=== PATIENT | male | born 1945 | race Hispanic/Latino ===

== ENCOUNTER 2022-02-10 09:21 | Inpatient (IN) | payer OTHER ==
[~2022-02-10] VITALS: Ht 182.9 cm; Wt 99.8 kg
[2022-02-10] VITALS (15 sets, daily range): BP systolic 98–137; BP diastolic 50–81
[2022-02-10 09:59] LABS: BASOPHILS % (AUTO) 0.6 % (0.0-5.0); EOSINOPHILS % (AUTO) 4.8 % (0.0-8.0); LYMPHOCYTES % (AUTO) 10.5 % (21.0-51.0); MEAN CORPUSCULAR HEMOGLOBIN 29.6 pg (27.0-33.0); MEAN CORPUSCULAR HGB CONC 31.1 g/dL (32.0-36.0); MEAN CORPUSCULAR VOLUME 95.1 fL (79-99); MONOCYTES % (AUTO) 8.6 % (3.0-13.0); NEUTROPHILS % (AUTO) 75.2 % (40.0-77.0); PLATELET COUNT (AUTO) 180 K/uL (130-400); RED BLOOD CELL COUNT(AUTO) 3.68 MIL/uL (4.50-6.20); RED CELL DISTRIBUTION WIDTH 15.9 % (11.0-15.5); WHITE BLOOD COUNT (AUTO) 13.9 K/uL (4.8-10.8)
[2022-02-10 10:11] LABS: ALBUMIN 3.3 g/dL (3.5-5.0); CREATININE 5.2 mg/dL (0.5-1.5); POTASSIUM 5.1 mmol/L (3.5-5.1)
[2022-02-10] MEDS ORDERED: VANCOMYCIN 1G VIAL IVPB ONE (12:30)
[2022-02-10] MEDS ORDERED: ZOSYN 3.375GM +NS 50ML IV ONE (12:30)
[2022-02-10] MEDS ORDERED: VANCOMYCIN 1G/250ML KIT 250 ML IV ONE (12:59)
[2022-02-10 13:24] LABS: INR 1.1 (0.85-1.15); PROTHROMBIN TIME 11.9 SEC (9.6-11.6)
[2022-02-10 13:25] LABS: PARTIAL THROMBOPLASTIN TIME 28.2 SEC (26.3-35.5)
[2022-02-10] MEDS ORDERED: VANCOMYCIN 1.25 GM/250 ML BAG 250 ML IV ONE (13:30)
[2022-02-10] MEDS ORDERED: PHARMACY COMMUNICATION MISC SCH ×2 (13:30→20:00)
[2022-02-10 13:34] LABS: HEMOGLOBIN A1C 9.3 % (4.0-6.0)
[2022-02-10] MEDS ORDERED: METO50TA18 PO (13:49)
[2022-02-10] MEDS ORDERED: ROSU20TA31 PO (13:51)
[2022-02-10] MEDS ORDERED: AMIO200T68 PO (13:51)
[2022-02-10] MEDS: PHARMACY COMMUNICATION MISC SCH ×5 (14:00→20:00)
[2022-02-10] MEDS: BUDESONIDE 0.5 MG/2 ML INH IH SCH ×2 (14:04→19:02)
[2022-02-10] MEDS: IPRATROPIUM 0.5 MG/2.5 ML INH IH SCH ×3 (14:05→23:03)
[2022-02-10] MEDS: DOXYCYCLINE HYCLATE 100 MG TABLET PO SCH (14:12)
[2022-02-10] MEDS: ASPIRIN 81 MG EC TAB PO SCH (14:12)
[2022-02-10] MEDS: Vitamin B Complex/Vit C/Folic Acid PO SCH (14:13)
[2022-02-10] MEDS: PANTOPRAZOLE 40 MG TAB DR PO SCH (14:13)
[2022-02-10 16:40] LABS: ABG HCO3 24.7 mmol/L (21.0-28.0); ABG OXYGEN SATURATION 93.2 % (95.0-99.0); ABG PCO2 46 mmHg (35-48)
[2022-02-10] MEDS ORDERED: ONDANSETRON 4MG INJ ONE (18:17)
[2022-02-10] MEDS ORDERED: ONDANSETRON 4MG INJ IVP PRN (18:30)
[2022-02-10] MEDS ORDERED: LIDOCAINE 5% TOPICAL PATCH TP ONE (19:30)
[2022-02-10] MEDS ORDERED: HYDROMORPHONE 0.5 MG SYG (0.5MG/0.5ML) IVP PRN (21:00)
[2022-02-10] MEDS: INSULIN HUMULIN R 100 UNIT/ML 3ML SQ SCH (21:00)
[2022-02-11] VITALS (18 sets, daily range): BP systolic 80–151; BP diastolic 45–93
[2022-02-11] MEDS: ZOSYN 3.375GM +NS 50ML IV SCH ×2 (00:04→11:33)
[2022-02-11] MEDS: DOXYCYCLINE HYCLATE 100 MG TABLET PO SCH ×2 (00:04→13:08)
[2022-02-11] MEDS: ACETAMINOPHEN 325 MG TAB PO PRN ×2 (00:15→17:15)
[2022-02-11] MEDS: PHARMACY COMMUNICATION MISC SCH ×5 (04:00→21:10)
[2022-02-11 05:20] LABS: BASOPHILS % (AUTO) 0.7 % (0.0-5.0); EOSINOPHILS % (AUTO) 1.2 % (0.0-8.0); HEMATOCRIT 32.3 % (42-54); LYMPHOCYTES % (AUTO) 7.8 % (21.0-51.0); MEAN CORPUSCULAR HEMOGLOBIN 29.2 pg (27.0-33.0); MEAN CORPUSCULAR HGB CONC 30.7 g/dL (32.0-36.0); MEAN CORPUSCULAR VOLUME 95.3 fL (79-99); MONOCYTES % (AUTO) 7.8 % (3.0-13.0); NEUTROPHILS % (AUTO) 82.1 % (40.0-77.0); PLATELET COUNT (AUTO) 160 K/uL (130-400); RED BLOOD CELL COUNT(AUTO) 3.39 MIL/uL (4.50-6.20); RED CELL DISTRIBUTION WIDTH 16.1 % (11.0-15.5); WHITE BLOOD COUNT (AUTO) 12.8 K/uL (4.8-10.8)
[2022-02-11 05:38] LABS: CREATININE 4.9 mg/dL (0.5-1.5); POTASSIUM 5.9 mmol/L (3.5-5.1)
[2022-02-11] MEDS ORDERED: GUAIFENESIN-DM 200/20 MG 10 ML PO PRN (06:00)
[2022-02-11] MEDS: INSULIN HUMULIN R 100 UNIT/ML 3ML SQ SCH ×4 (06:07→20:37)
[2022-02-11] MEDS: BUDESONIDE 0.5 MG/2 ML INH IH SCH ×2 (06:17→19:27)
[2022-02-11] MEDS: IPRATROPIUM 0.5 MG/2.5 ML INH IH SCH ×4 (06:18→23:35)
[2022-02-11 09:06] LABS: APPEARANCE,URINE TURBID (CLEAR); BILIRUBIN,URINE NEGATIVE (NEGATIVE); COLOR,URINE YELLOW (YELLOW); GLUCOSE, URINE (UA) 50 mg/dL (NEGATIVE); KETONES,URINE NEGATIVE (NEGATIVE); LEUKOCYTE ESTERASE ,URINE 250 Leu/uL (NEGATIVE); NITRATE,URINE NEGATIVE (NEGATIVE); OCCULT BLOOD,URINE NEGATIVE (NEGATIVE); PROTEIN,URINE 100 mg/dL (NEGATIVE); UROBILINOGEN,URINE 0.2 mg/dL (0.2-1.0)
[2022-02-11] MEDS: AMIODARONE 200 MG TABLET PO SCH (09:16)
[2022-02-11] MEDS: METOPROLOL TARTRATE 50 MG TAB PO SCH (09:16)
[2022-02-11 09:19] LABS: BACTERIA,URINE MOD /HPF (None Seen); MUCUS,URINE RARE LPF (None Seen); SQUAMOUS EPITHELIAL CELL,UR FEW /HPF (0-2)
[2022-02-11] MEDS ORDERED: NA ZIRCON CYCLOSIL(LOKELMA 10GM) PO SCH (11:00)
[2022-02-11] MEDS ORDERED: SACUBITRIL/VALSARTAN 1 EACH TABLET PO SCH (11:55)
[2022-02-11] MEDS: Vitamin B Complex/Vit C/Folic Acid PO SCH (13:08)
[2022-02-11] MEDS: ASPIRIN 81 MG EC TAB PO SCH (13:08)
[2022-02-11] MEDS: PANTOPRAZOLE 40 MG TAB DR PO SCH (13:08)
[2022-02-11 14:45] LABS: ABG BASE EXCESS -2.2 mmol/L (-2.0-3.0); ABG HCO3 26.6 mmol/L (21.0-28.0); ABG PCO2 64 mmHg (35-48)
[2022-02-11] MEDS ORDERED: ALTEPLASE 2MG VIAL 2 MG/VIAL VIAL IVCATH ONE (15:00)
[2022-02-11] MEDS ORDERED: NALOXONE HCL 0.4 MG/1 ML ML IVP SCH (15:00)
[2022-02-11 15:46] LABS: HEMATOCRIT 36.2 % (42-54); MEAN CORPUSCULAR HEMOGLOBIN 29.5 pg (27.0-33.0); MEAN CORPUSCULAR HGB CONC 30.4 g/dL (32.0-36.0); MEAN CORPUSCULAR VOLUME 97.1 fL (79-99); PLATELET COUNT (AUTO) 150 K/uL (130-400); RED BLOOD CELL COUNT(AUTO) 3.73 MIL/uL (4.50-6.20); RED CELL DISTRIBUTION WIDTH 16.2 % (11.0-15.5); WHITE BLOOD COUNT (AUTO) 14.1 K/uL (4.8-10.8)
[2022-02-11 16:09] LABS: ALBUMIN 3.1 g/dL (3.5-5.0); CREATININE 5.8 mg/dL (0.5-1.5); TOTAL PROTEIN, SERUM 8.2 g/dL (6.0-8.3)
[2022-02-11 16:25] LABS: EOSINOPHILS % (MANUAL) 2 % (1-6); LYMPHOCYTES % (MANUAL) 9 % (22-44); MAN.DIFF COMMENT-IMPRESSION MANUAL DIFFERENTIAL; MONOCYTES % (MANUAL) 9 % (2-9); PLATELET MORPHOLOGY COMMENT ADEQUATE; SEGMENTED NEUTROPHILS % 80 % (40-70)
[2022-02-11] MEDS ORDERED: NA ZIRCON CYCLOSIL(LOKELMA 10GM) PO ONE (17:00)
[2022-02-11] MEDS: MIDODRINE HCL 5 MG TABLET PO SCH ×2 (17:38→20:56)
[2022-02-11] MEDS: HEPARIN 5,000 UNIT VIAL IJ SCH (20:08)
[2022-02-11 22:03] LABS: HEPATITIS B SURFACE ANTIGEN Non-Reactive (Nonreactive)
[2022-02-12] VITALS (44 sets, daily range): BP systolic 77–125; BP diastolic 44–89
[2022-02-12] MEDS: DOXYCYCLINE HYCLATE 100 MG TABLET PO SCH ×2 (00:25→13:00)
[2022-02-12] MEDS: ZOSYN 3.375GM +NS 50ML IV SCH ×2 (00:25→11:32)
[2022-02-12 05:11] LABS: ABG BASE EXCESS -3.4 mmol/L (-2.0-3.0); ABG OXYGEN SATURATION 93.1 % (95.0-99.0); ABG PCO2 53 mmHg (35-48)
[2022-02-12] MEDS: BUDESONIDE 0.5 MG/2 ML INH IH SCH ×2 (06:29→22:27)
[2022-02-12] MEDS: IPRATROPIUM 0.5 MG/2.5 ML INH IH SCH ×4 (06:29→22:27)
[2022-02-12] MEDS: INSULIN HUMULIN R 100 UNIT/ML 3ML SQ SCH ×4 (06:55→20:26)
[2022-02-12] MEDS: MIDODRINE HCL 5 MG TABLET PO SCH ×4 (07:50→20:24)
[2022-02-12] MEDS: AMIODARONE 200 MG TABLET PO SCH (07:50)
[2022-02-12] MEDS: METOPROLOL TARTRATE 50 MG TAB PO SCH (07:50)
[2022-02-12 07:52] LABS: BASOPHILS % (AUTO) 0.5 % (0.0-5.0); EOSINOPHILS % (AUTO) 1.3 % (0.0-8.0); HEMATOCRIT 32.4 % (42-54); LYMPHOCYTES % (AUTO) 7.5 % (21.0-51.0); MEAN CORPUSCULAR HEMOGLOBIN 29.6 pg (27.0-33.0); MEAN CORPUSCULAR HGB CONC 30.9 g/dL (32.0-36.0); MEAN CORPUSCULAR VOLUME 95.9 fL (79-99); MONOCYTES % (AUTO) 8.2 % (3.0-13.0); NEUTROPHILS % (AUTO) 82.2 % (40.0-77.0); PLATELET COUNT (AUTO) 163 K/uL (130-400); RED BLOOD CELL COUNT(AUTO) 3.38 MIL/uL (4.50-6.20); RED CELL DISTRIBUTION WIDTH 15.9 % (11.0-15.5); WHITE BLOOD COUNT (AUTO) 11.9 K/uL (4.8-10.8)
[2022-02-12] MEDS: PHARMACY COMMUNICATION MISC SCH ×2 (07:55→09:00)
[2022-02-12 08:11] LABS: CREATININE 6.1 mg/dL (0.5-1.5); PHOSPHORUS 7.6 mg/dL (2.5-4.9); POTASSIUM 4.8 mmol/L (3.5-5.1)
[2022-02-12] MEDS ORDERED: 0.9% NACL 500ML IV.SOLN 500 ML IV SCH (11:30)
[2022-02-12 12:04] LABS: ABG BASE EXCESS -2.7 mmol/L (-2.0-3.0); ABG HCO3 25.3 mmol/L (21.0-28.0); ABG OXYGEN SATURATION 98.2 % (95.0-99.0); ABG PCO2 57 mmHg (35-48)
[2022-02-12] MEDS ORDERED: NOREPINEPHRIN 4MG/NS 250ML 250 ML IV ONE (12:20)
[2022-02-12] MEDS ORDERED: NOREPINEPHRIN 4MG/NS 250ML 250 ML IV SCH (12:30)
[2022-02-12] MEDS: Vitamin B Complex/Vit C/Folic Acid PO SCH (13:00)
[2022-02-12] MEDS: ASPIRIN 81 MG EC TAB PO SCH (13:00)
[2022-02-12] MEDS: PANTOPRAZOLE 40 MG TAB DR PO SCH (13:00)
[2022-02-12] MEDS ORDERED: LIDOCAINE HCL-MPF 2% 5ML VIAL ONE (13:34)
[2022-02-12] MEDS ORDERED: 0.9%NACL 1000ML 777 ML IV ONE (15:30)
[2022-02-12] MEDS ORDERED: LACTULOSE 20 GM/30 ML UDCUP PO SCH (20:00)
[2022-02-12] MEDS ORDERED: LACTULOSE 20 GM/30 ML UDCUP PO ONE (20:00)
[2022-02-12] MEDS ORDERED: BISACODYL 10 MG SUPP.RECT RC ONE (20:00)
[2022-02-13] VITALS (34 sets, daily range): BP systolic 88–116; BP diastolic 48–85
[2022-02-13] MEDS: DOXYCYCLINE HYCLATE 100 MG TABLET PO SCH ×2 (00:01→13:02)
[2022-02-13] MEDS: ZOSYN 3.375GM +NS 50ML IV SCH ×2 (00:01→13:02)
[2022-02-13 03:56] LABS: BASOPHILS % (AUTO) 0.8 % (0.0-5.0); EOSINOPHILS % (AUTO) 6.2 % (0.0-8.0); HEMATOCRIT 31.4 % (42-54); LYMPHOCYTES % (AUTO) 17.4 % (21.0-51.0); MEAN CORPUSCULAR HEMOGLOBIN 29.6 pg (27.0-33.0); MEAN CORPUSCULAR HGB CONC 30.9 g/dL (32.0-36.0); MEAN CORPUSCULAR VOLUME 95.7 fL (79-99); MONOCYTES % (AUTO) 12.9 % (3.0-13.0); NEUTROPHILS % (AUTO) 62.4 % (40.0-77.0); PLATELET COUNT (AUTO) 180 K/uL (130-400); RED BLOOD CELL COUNT(AUTO) 3.28 MIL/uL (4.50-6.20); RED CELL DISTRIBUTION WIDTH 15.8 % (11.0-15.5); WHITE BLOOD COUNT (AUTO) 10.9 K/uL (4.8-10.8)
[2022-02-13 04:10] LABS: ALBUMIN 2.6 g/dL (3.5-5.0); CREATININE 7.1 mg/dL (0.5-1.5); TOTAL PROTEIN, SERUM 7.1 g/dL (6.0-8.3); VANCOMYCIN LEVEL 14.3 mcg/mL (18.0-26.0)
[2022-02-13] MEDS: ACETAMINOPHEN 325 MG TAB PO PRN (05:03)
[2022-02-13] MEDS: BUDESONIDE 0.5 MG/2 ML INH IH SCH ×2 (06:24→19:26)
[2022-02-13] MEDS: IPRATROPIUM 0.5 MG/2.5 ML INH IH SCH ×3 (06:24→18:57)
[2022-02-13] MEDS: PHARMACY COMMUNICATION MISC SCH ×5 (07:00→18:00)
[2022-02-13] MEDS: INSULIN HUMULIN R 100 UNIT/ML 3ML SQ SCH ×4 (07:28→20:41)
[2022-02-13] MEDS: METOPROLOL TARTRATE 50 MG TAB PO SCH (08:45)
[2022-02-13] MEDS: AMIODARONE 200 MG TABLET PO SCH (09:54)
[2022-02-13] MEDS: MIDODRINE HCL 5 MG TABLET PO SCH (09:55)
[2022-02-13] MEDS ORDERED: MIDODRINE HCL 5 MG TABLET PO PRN (12:00)
[2022-02-13] MEDS: ASPIRIN 81 MG EC TAB PO SCH (13:02)
[2022-02-13] MEDS: PANTOPRAZOLE 40 MG TAB DR PO SCH (13:02)
[2022-02-13] MEDS: Vitamin B Complex/Vit C/Folic Acid PO SCH (13:02)
[2022-02-13] MEDS ORDERED: 0.9% NACL 250ML 250 ML ONE (16:09)
[2022-02-13] MEDS: VANCOMYCIN 1G/250ML KIT 250 ML IV SCH (16:12)
[2022-02-13] MEDS: ATORVASTATIN 40 MG TABLET PO SCH (20:39)
[2022-02-13] MEDS: EPOETIN ALFA-EPBX (NON-ESRD) 10,000 UNIT/ML VIAL SQ SCH (20:46)
[2022-02-14] VITALS (19 sets, daily range): BP systolic 90–130; BP diastolic 52–90
[2022-02-14] MEDS: ZOSYN 3.375GM +NS 50ML IV SCH ×2 (00:55→11:30)
[2022-02-14 04:08] LABS: BASOPHILS % (AUTO) 1.1 % (0.0-5.0); EOSINOPHILS % (AUTO) 6.7 % (0.0-8.0); HEMATOCRIT 30.4 % (42-54); LYMPHOCYTES % (AUTO) 18.6 % (21.0-51.0); MEAN CORPUSCULAR HEMOGLOBIN 29.2 pg (27.0-33.0); MEAN CORPUSCULAR HGB CONC 31.3 g/dL (32.0-36.0); MEAN CORPUSCULAR VOLUME 93.5 fL (79-99); MONOCYTES % (AUTO) 10.5 % (3.0-13.0); NEUTROPHILS % (AUTO) 62.7 % (40.0-77.0); PLATELET COUNT (AUTO) 181 K/uL (130-400); RED BLOOD CELL COUNT(AUTO) 3.25 MIL/uL (4.50-6.20); RED CELL DISTRIBUTION WIDTH 15.8 % (11.0-15.5); WHITE BLOOD COUNT (AUTO) 9.8 K/uL (4.8-10.8)
[2022-02-14 04:23] LABS: ALBUMIN 2.6 g/dL (3.5-5.0); CRP QUANTITATIVE 74.3 mg/L (0.00-9.0); POTASSIUM 4.6 mmol/L (3.5-5.1); TOTAL PROTEIN, SERUM 6.9 g/dL (6.0-8.3)
[2022-02-14 04:27] LABS: INR 1.19 (0.85-1.15); PROTHROMBIN TIME 12.8 SEC (9.6-11.6)
[2022-02-14 04:28] LABS: PARTIAL THROMBOPLASTIN TIME 28.3 SEC (26.3-35.5)
[2022-02-14 04:30] LABS: CREATININE 8.8 mg/dL (0.5-1.5)
[2022-02-14] MEDS: INSULIN HUMULIN R 100 UNIT/ML 3ML SQ SCH ×4 (06:25→21:00)
[2022-02-14] MEDS: IPRATROPIUM 0.5 MG/2.5 ML INH IH SCH ×4 (07:00→23:26)
[2022-02-14] MEDS: BUDESONIDE 0.5 MG/2 ML INH IH SCH ×2 (07:00→19:07)
[2022-02-14] MEDS: PHARMACY COMMUNICATION MISC SCH (09:35)
[2022-02-14] MEDS: AMIODARONE 200 MG TABLET PO SCH (09:35)
[2022-02-14] MEDS: ACETAMINOPHEN 325 MG TAB PO PRN ×2 (09:59→16:52)
[2022-02-14] MEDS: PANTOPRAZOLE 40 MG TAB DR PO SCH (11:21)
[2022-02-14] MEDS: Vitamin B Complex/Vit C/Folic Acid PO SCH (11:21)
[2022-02-14] MEDS: ASPIRIN 81 MG EC TAB PO SCH (11:21)
[2022-02-14] MEDS ORDERED: LIDOCAINE HCL 1% 10 ML VIAL ONE (13:44)
[2022-02-14] MEDS ORDERED: HEPARIN 1,000 UNIT VIAL ONE (13:44)
[2022-02-14] MEDS: ATORVASTATIN 40 MG TABLET PO SCH (21:29)
[2022-02-15] VITALS (18 sets, daily range): BP systolic 95–121; BP diastolic 60–74
[2022-02-15] MEDS: ZOSYN 3.375GM +NS 50ML IV SCH ×2 (00:06→12:20)
[2022-02-15 05:30] LABS: BASOPHILS % (AUTO) 1.2 % (0.0-5.0); EOSINOPHILS % (AUTO) 7.3 % (0.0-8.0); HEMATOCRIT 29.2 % (42-54); LYMPHOCYTES % (AUTO) 21.3 % (21.0-51.0); MEAN CORPUSCULAR HEMOGLOBIN 29.1 pg (27.0-33.0); MEAN CORPUSCULAR HGB CONC 31.5 g/dL (32.0-36.0); MEAN CORPUSCULAR VOLUME 92.4 fL (79-99); NEUTROPHILS % (AUTO) 58.8 % (40.0-77.0); PLATELET COUNT (AUTO) 185 K/uL (130-400); RED BLOOD CELL COUNT(AUTO) 3.16 MIL/uL (4.50-6.20); RED CELL DISTRIBUTION WIDTH 15.9 % (11.0-15.5); WHITE BLOOD COUNT (AUTO) 7.5 K/uL (4.8-10.8)
[2022-02-15 05:55] LABS: ALBUMIN 2.5 g/dL (3.5-5.0); CREATININE 6.7 mg/dL (0.5-1.5); MAGNESIUM 1.7 mg/dL (1.80-2.40); POTASSIUM 3.7 mmol/L (3.5-5.1); TOTAL PROTEIN, SERUM 6.6 g/dL (6.0-8.3); VANCOMYCIN LEVEL 18.2 mcg/mL (18.0-26.0)
[2022-02-15] MEDS: IPRATROPIUM 0.5 MG/2.5 ML INH IH SCH (06:25)
[2022-02-15] MEDS: BUDESONIDE 0.5 MG/2 ML INH IH SCH (06:25)
[2022-02-15] MEDS: INSULIN HUMULIN R 100 UNIT/ML 3ML SQ SCH ×4 (06:34→21:54)
[2022-02-15] MEDS: AMIODARONE 200 MG TABLET PO SCH (07:41)
[2022-02-15] MEDS: Vitamin B Complex/Vit C/Folic Acid PO SCH (12:57)
[2022-02-15] MEDS: ASPIRIN 81 MG EC TAB PO SCH (12:57)
[2022-02-15] MEDS: PANTOPRAZOLE 40 MG TAB DR PO SCH (12:57)
[2022-02-15] MEDS: VANCOMYCIN 1G/250ML KIT 250 ML IV SCH (15:48)
[2022-02-15] MEDS: HEPARIN 5,000 UNIT VIAL IJ SCH (16:03)
[2022-02-15] MEDS: ATORVASTATIN 40 MG TABLET PO SCH (21:43)
[2022-02-15] MEDS: EPOETIN ALFA-EPBX (NON-ESRD) 10,000 UNIT/ML VIAL SQ SCH (22:02)
[2022-02-15] MEDS: IPRATROPIUM 0.5 MG/2.5 ML INH IH PRN (23:15)
[2022-02-16] VITALS: BP 120/69
[2022-02-16] MEDS: ZOSYN 3.375GM +NS 50ML IV SCH (00:23)
[2022-02-16 04:00] VITALS: BP 120/72
[2022-02-16] MEDS: INSULIN HUMULIN R 100 UNIT/ML 3ML SQ SCH ×3 (06:13→17:13)
[2022-02-16] MEDS: IPRATROPIUM 0.5 MG/2.5 ML INH IH PRN (07:15)
[2022-02-16] MEDS: AMIODARONE 200 MG TABLET PO SCH (08:41)
[2022-02-16 08:43] VITALS: BP 126/75
[2022-02-16 10:49] VITALS: BP 116/71
[2022-02-16] MEDS ORDERED: ATOR40TA69 PO ×2 (12:10→12:39)
[2022-02-16] MEDS ORDERED: AEC81 PO (12:10)
[2022-02-16] MEDS ORDERED: LEVOFLOXACIN 500 MG TABLET PO SCH (13:30)
[2022-02-16] MEDS: Vitamin B Complex/Vit C/Folic Acid PO SCH (13:51)
[2022-02-16] MEDS: PANTOPRAZOLE 40 MG TAB DR PO SCH (13:51)
[2022-02-16] MEDS: ASPIRIN 81 MG EC TAB PO SCH (13:51)
[2022-02-16 16:27] VITALS: BP 186/64
== END 2022-02-16 19:45 | disposition home or self-care (01) | DRG 280 ==
LOC: EDH 09:21 → EDHIP 13:04 → 4AH 18:27 → 2AH 02-11 16:46 → 2DH 02-12 01:38 → 2BH 02-12 11:56 → 2DH 02-13 18:00 → 3BH 02-15 10:45
PROVIDERS: ADMIT Hospitalist; ATTEND Hospitalist
PROC: 5A1D70Z Performance of Urinary Filtration, Intermittent, Less than 6 Hours Per Day (ICD-10-PCS; 2022-02-10)
PROC: 5A1D70Z Performance of Urinary Filtration, Intermittent, Less than 6 Hours Per Day (ICD-10-PCS; 2022-02-11)
PROC: 05HY33Z Insertion of Infusion Device into Upper Vein, Percutaneous Approach (ICD-10-PCS; principal; 2022-02-12)
PROC: B34JZZZ Ultrasonography of Left Upper Extremity Arteries (ICD-10-PCS; 2022-02-12)
PROC: 05PYX3Z Removal of Infusion Device from Upper Vein, External Approach (ICD-10-PCS; 2022-02-12)
PROC: 02H633Z Insertion of Infusion Device into Right Atrium, Percutaneous Approach (ICD-10-PCS; 2022-02-14)
PROC: B5181ZA Fluoroscopy of Superior Vena Cava using Low Osmolar Contrast, Guidance (ICD-10-PCS; 2022-02-14)
PROC: 5A1D70Z Performance of Urinary Filtration, Intermittent, Less than 6 Hours Per Day (ICD-10-PCS; 2022-02-14)
PROC: 5A1D70Z Performance of Urinary Filtration, Intermittent, Less than 6 Hours Per Day (ICD-10-PCS; 2022-02-15)
DX: T80.218A Other infection due to central venous catheter, initial encounter (principal); A41.89 Other specified sepsis; I21.A1 Myocardial infarction type 2; E43 Unspecified severe protein-calorie malnutrition; G92.8 Other toxic encephalopathy; J96.01 Acute respiratory failure with hypoxia; J15.0 Pneumonia due to Klebsiella pneumoniae; N18.6 End stage renal disease; R65.21 Severe sepsis with septic shock; J96.02 Acute respiratory failure with hypercapnia; I13.2 Hypertensive heart and chronic kidney disease with heart failure and with stage 5 chronic kidney disease, or end stage renal disease; N39.0 Urinary tract infection, site not specified; Z20.822 Contact with and (suspected) exposure to COVID-19; J20.9 Acute bronchitis, unspecified; D63.1 Anemia in chronic kidney disease; I50.9 Heart failure, unspecified; Z99.2 Dependence on renal dialysis; I25.5 Ischemic cardiomyopathy; E11.22 Type 2 diabetes mellitus with diabetic chronic kidney disease; E11.65 Type 2 diabetes mellitus with hyperglycemia; E66.9 Obesity, unspecified; E78.00 Pure hypercholesterolemia, unspecified; I25.10 Atherosclerotic heart disease of native coronary artery without angina pectoris; I35.0 Nonrheumatic aortic (valve) stenosis; K59.00 Constipation, unspecified; Z95.1 Presence of aortocoronary bypass graft; Z95.810 Presence of automatic (implantable) cardiac defibrillator; Y83.8 Other surgical procedures as the cause of abnormal reaction of the patient, or of later complication, without mention of misadventure at the time of the procedure
CPT/HCPCS: 36415; 36558; 36600; 36800; 71045; 77001; 80048; 80053; 80202; 81001; 82140; 82435; 82550; 82803; 82947; 82948; 83036; 83605; 83735; 83874; 83880; 84100; 84132; 84145; 84295; 84439; 84443; 84481; 84484; 85018; 85025; 85378; 85610; 85651; 85730; 86140; 86704; 86706; 87040; 87071; 87077; 87088; 87186; 87205; 87340; 87635; 87804; 90935; 92610; 93005; 93306; 93970; 94640; 94660; 94664; C1750; C1751; C9803; G0378; J1170; J1644; J1815; J2310; J2405; J2543; J2997; J3370; J3490; J7030; J7040; J7050

== ENCOUNTER 2022-04-04 09:21 | Day surgery (SDC) | payer OTHER ==
[2022-04-03 15:59] LABS: HEMATOCRIT 36.9 % (42-54); MEAN CORPUSCULAR HEMOGLOBIN 29.7 pg (27.0-33.0); MEAN CORPUSCULAR HGB CONC 30.9 g/dL (32.0-36.0); MEAN CORPUSCULAR VOLUME 96.1 fL (79-99); PLATELET COUNT (AUTO) 193 K/uL (130-400); RED BLOOD CELL COUNT(AUTO) 3.84 MIL/uL (4.50-6.20); WHITE BLOOD COUNT (AUTO) 9.4 K/uL (4.8-10.8)
[2022-04-03 16:11] LABS: CREATININE 3.5 mg/dL (0.5-1.5); POTASSIUM 3.5 mmol/L (3.5-5.1)
[2022-04-03 16:13] LABS: INR 1.15 (0.85-1.15); PROTHROMBIN TIME 12.4 SEC (9.6-11.6)
[2022-04-03 16:30] VITALS: BP 84/53
[2022-04-04] VITALS (32 sets, daily range): BP systolic 71–105; BP diastolic 40–63
[~2022-04-04 09:21] MED LIST: ACET-2743 PO; AEC81 PO; ATOR40TA69 PO; CEFAZOLIN SODIUM 1 GM VIAL ONE; ENTRESTO PO; INSU3INS3 SQ; LIDOCAINE HCL-MPF 2% 10ML AMP IJ ONE; METO50TA18 PO; PROPOFOL 10 MG/ML 20ML VIAL IV ONE; ROPIVACAINE 0.5% 5MG/ML 30ML IJ ONE
[2022-04-04] MEDS ORDERED: 0.9% NACL 500ML IV.SOLN 500 ML IV ONE (09:41)
[2022-04-04] MEDS ORDERED: CEFAZOLIN SODIUM 2 GM VIAL ONE (09:41)
[2022-04-04 10:04] LABS: CREATININE 5.2 mg/dL (0.5-1.5); POTASSIUM 4.5 mmol/L (3.5-5.1)
[2022-04-04] MEDS ORDERED: KETOROLAC PO (10:55)
[2022-04-04] MEDS ORDERED: CEFAZOLIN SODIUM 2 GM VIAL IV ONE (12:05)
[2022-04-04] MEDS ORDERED: EPHEDRINE SULFATE 50 MG/ML AMPULE ONE ×2 (12:59→17:21)
[2022-04-04] MEDS ORDERED: FENTANYL CITRATE PF 50 MCG/1 ML 2ML VIAL ONE (14:34)
[2022-04-04] MEDS ORDERED: MIDAZOLAM HCL 1 MG/ML 2ML VIAL ONE (14:34)
[2022-04-04] MEDS ORDERED: GLYCOPYRROLATE 1 MG/5 ML SYRINGE ONE (14:34)
[2022-04-04] MEDS ORDERED: NEOSTIGMINE 5MG/5ML SYR IV ONE (14:34)
[2022-04-04] MEDS ORDERED: ONDANSETRON 4MG INJ ONE ×2 (14:34→17:28)
[2022-04-04] MEDS ORDERED: LIDOCAINE PF 100MG/5ML (2%) SYRINGE 5ML ONE (14:34)
[2022-04-04] MEDS ORDERED: DEXAMETHASONE SOD PHOSPHATE 10MG/ML 1ML VIAL ONE (14:34)
[2022-04-04] MEDS ORDERED: PROPOFOL 10 MG/ML 20ML VIAL IV ONE (14:34)
[2022-04-04] MEDS ORDERED: SUCCINYLCHOLINE CHLORIDE 20 MG/ML 10 ML VIAL ONE (14:34)
[2022-04-04] MEDS ORDERED: ROCURONIUM 10MG/1ML SYR 10 MG/ML ML ONE (14:35)
[2022-04-04] MEDS ORDERED: PHENYLEPHRINE HCL 10 MG/ML 1ML VIAL IV ONE ×2 (14:46→15:03)
[2022-04-04] MEDS ORDERED: IPRATROPIUM/ALBUTEROL SULFATE 3 ML SOLUTION IH ONE (16:49)
[2022-04-04] MEDS ORDERED: METOCLOPRAMIDE 10 MG/2 ML VIAL ONE (17:28)
[2022-04-04] MEDS ORDERED: ALBUMIN (HUMAN) 25% 100 ML IV ONE (17:59)
== END 2022-04-04 19:36 | disposition home or self-care (01) ==
LOC: DAH 09:21
PROVIDERS: ATTEND Thoracic Surgery (Cardiothoracic Vascular Surgery)
DX: E11.22 Type 2 diabetes mellitus with diabetic chronic kidney disease (principal); Z20.822 Contact with and (suspected) exposure to COVID-19; I13.2 Hypertensive heart and chronic kidney disease with heart failure and with stage 5 chronic kidney disease, or end stage renal disease; I50.9 Heart failure, unspecified; N18.6 End stage renal disease; I25.2 Old myocardial infarction; Z99.2 Dependence on renal dialysis; Z79.899 Other long term (current) drug therapy; Z95.1 Presence of aortocoronary bypass graft
CPT/HCPCS: 71045; 87426; 80048 ×2; 85027; 85610; 85730; 86850; 86900; 86901; 36415 ×2; 93005; 36830; 64415; 82948 ×4; 94640; A6260; P9046; A4663; A6207; J7030; C1768; J7040; J0690 ×3; J3490 ×4; J1100; J2710; J0330; J2001; J2250; J2704 ×2; J2405 ×2; J2765; J1644 ×2; J2795; J2370 ×2; A6446; A4649 ×2; C1713 ×2; A4930; A4215; A4223; A4222; A4221; J3010

== ENCOUNTER → 2022-06-28 | Outpatient (CLI) | payer OTHER ==
[~2022-06-28] MED LIST changes: -CEFAZOLIN SODIUM 1 GM VIAL ONE; +KETOROLAC PO; -LIDOCAINE HCL-MPF 2% 10ML AMP IJ ONE; -PROPOFOL 10 MG/ML 20ML VIAL IV ONE; -ROPIVACAINE 0.5% 5MG/ML 30ML IJ ONE
[2022-06-28 09:58] LABS: INR 1.2 (0.85-1.15); PROTHROMBIN TIME 12.9 SEC (9.6-11.6)
[2022-06-28 12:18] LABS: SPECIMENTYPE,BODY FLUID PLEURAL
[2022-06-28 12:19] LABS: APPEARANCE BODY FLUID CLEAR (CLEAR); COLOR,BODY FLUID YELLOW (LT YELLOW); TOTAL VOLUME,BODY FLUID 1500 mL
[2022-06-28 12:23] LABS: GLUCOSE,BODY FLUID 124 mg/dL (1-40)
[2022-06-28 12:24] LABS: BODY FLUID RBC 119 /cu. mm.; BODY FLUID WBC 2860 /cu. mm.
[2022-06-28 12:49] LABS: BF LYMPHOCYTE 11 %; BF MESOTHELIAL 8 %; BF MONOCYTE 6 %
== END | disposition home or self-care (01) ==
LOC: RAH 09:10
PROVIDERS: ATTEND Internal Medicine
DX: J90 Pleural effusion, not elsewhere classified (principal); Z79.01 Long term (current) use of anticoagulants; Z79.899 Other long term (current) drug therapy
CPT/HCPCS: 32555; 71045; 82945; 84157; 83986; 83615; 89051; 85610; 85730; 87071; 87205; 36415; C1729

== ENCOUNTER → 2022-09-07 | Outpatient (CLI) | payer OTHER | END | disposition home or self-care (01) | LOC: SHCH 11:39 | PROVIDERS: ATTEND Internal Medicine | DX: I08.1 Rheumatic disorders of both mitral and tricuspid valves (principal); R06.02 Shortness of breath; Z95.2 Presence of prosthetic heart valve | CPT/HCPCS: 93306 ==

== ENCOUNTER → 2022-09-20 | Outpatient (CLI) | payer OTHER | END | disposition home or self-care (01) | LOC: SHCH 10:12 | PROVIDERS: ATTEND Internal Medicine | DX: I70.203 Unspecified atherosclerosis of native arteries of extremities, bilateral legs (principal); R06.02 Shortness of breath | CPT/HCPCS: 93925 ==

== ENCOUNTER 2022-11-28 06:30 | Day surgery (SDC) | payer OTHER ==
[2022-11-24 10:10] LABS: BASOPHILS # (AUTO) 0.08 K/uL (0.00-0.20); BASOPHILS % (AUTO) 0.9 % (0.0-5.0); EOSINOPHILS # (AUTO) 0.42 K/uL (0.00-0.70); EOSINOPHILS % (AUTO) 4.7 % (0.0-8.0); HEMATOCRIT 37.1 % (42-54); IMMATURE GRANULOCYTE ABSOLUTE 0.04 K/uL (0-1); LYMPHOCYTES # (AUTO) 1.3 K/uL (1.0-4.8); LYMPHOCYTES % (AUTO) 14.5 % (21.0-51.0); MEAN CORPUSCULAR HEMOGLOBIN 29.7 pg (27.0-33.0); MEAN CORPUSCULAR HGB CONC 30.7 g/dL (32.0-36.0); MEAN CORPUSCULAR VOLUME 96.6 fL (79-99); MONOCYTES % (AUTO) 11.4 % (3.0-13.0); PLATELET COUNT (AUTO) 182 K/uL (130-400); RED BLOOD CELL COUNT(AUTO) 3.84 MIL/uL (4.50-6.20); RED CELL DISTRIBUTION WIDTH 15.7 % (11.0-15.5); WHITE BLOOD COUNT (AUTO) 8.9 K/uL (4.8-10.8)
[2022-11-24 10:22] LABS: CREATININE 6.4 mg/dL (0.5-1.5); POTASSIUM 4.6 mmol/L (3.5-5.1)
[2022-11-24 10:24] LABS: INR 1.08 (0.85-1.15); PROTHROMBIN TIME 12.5 SEC (9.6-11.6)
[2022-11-24 10:26] LABS: PARTIAL THROMBOPLASTIN TIME 29.2 SEC (26.3-35.5)
[2022-11-24 10:33] LABS: B-TYPE NATRIURETIC PEPTIDE 1610 pg/mL (0-100)
[2022-11-24 10:46] VITALS: BP 110/59; PULSE 94; RESP 20
[2022-11-28] VITALS (8 sets, daily range): BP systolic 108–133; BP diastolic 66–83; PULSE 89–91; RESP 13–21
[~2022-11-28] VITALS: Ht 180.3 cm; Wt 102.6 kg
[~2022-11-28 06:30] MED LIST changes: -ACET-2743 PO; +ACET325C6 PO; -AEC81 PO; -ATOR40TA69 PO; -ENTRESTO PO; -KETOROLAC PO; -METO50TA18 PO; +SACU1TAB PO
[2022-11-28] MEDS ORDERED: FENTANYL CITRATE PF 50 MCG/1 ML 2ML VIAL ONE (07:09)
[2022-11-28] MEDS ORDERED: LIDOCAINE HCL 400MG/20ML VIAL ONE (07:09)
[2022-11-28] MEDS ORDERED: MIDAZOLAM HCL 1 MG/ML 2ML VIAL ONE ×2 (07:10→09:00)
[2022-11-28] MEDS ORDERED: IOHEXOL 350 MG/ML 100ML INFUS..BTL IV ONE (07:10)
[2022-11-28] MEDS ORDERED: HEPARIN 10,000 UNIT/10ML (1,000 UNIT/ML) VIAL ONE (07:10)
[2022-11-28] MEDS ORDERED: 0.9%NACL 1000ML 1,000 ML IV ONE (07:35)
[2022-11-28] MEDS ORDERED: IOHEXOL-350 50ML VIAL IV ONE (07:56)
[2022-11-28] MEDS ORDERED: IOHEXOL-350 75 ML VIAL IV ONE ×2 (08:52→09:15)
[2022-11-28] MEDS ORDERED: DiphenhydrAMINE HCL 50 MG/ML VIAL ONE (09:04)
[2022-11-28] MEDS ORDERED: DEXTROSE 50%-WATER 50 ML DISP.SYRIN IV PRN (09:30)
[2022-11-28] MEDS ORDERED: GLUCAGON 1MG KIT 1 MG ML IM PRN (09:30)
[2022-11-28] MEDS ORDERED: ASPIRIN 325MG EC TAB PO ONE (09:32)
[2022-11-28] MEDS ORDERED: TICAGRELOR 90 MG TABLET ONE (09:33)
[2022-11-30] MEDS ORDERED: ATOR40TA69 PO (10:51)
[2022-11-30] MEDS ORDERED: Midodrine Hcl PO (10:51)
[2022-11-30] MEDS ORDERED: AEC81 PO (10:51)
[2022-11-30] MEDS ORDERED: CLOP-31 PO (10:51)
== END 2022-11-28 13:50 | disposition home or self-care (01) ==
LOC: DAH 06:30
PROVIDERS: ATTEND Internal Medicine
DX: I25.5 Ischemic cardiomyopathy (principal); I25.10 Atherosclerotic heart disease of native coronary artery without angina pectoris; I25.82 Chronic total occlusion of coronary artery; I42.9 Cardiomyopathy, unspecified; I49.5 Sick sinus syndrome; N18.6 End stage renal disease; Z79.4 Long term (current) use of insulin; Z79.01 Long term (current) use of anticoagulants; Z79.899 Other long term (current) drug therapy; Z95.2 Presence of prosthetic heart valve; Z99.2 Dependence on renal dialysis
CPT/HCPCS: 80048; 83880; 85025; 85610; 85730; 36415; 71045; 93005; 93455; 85347 ×2; 82948 ×6; C9604; C1769 ×4; C1887 ×4; C1894 ×2; C1725; C1874; C1760; C1884; J1200; J3010; J3490; J7030; J1644 ×3; J2250 ×2; Q9967 ×4; A4215; A4222; A4221; A4663; A4216; A4606; Q9965 ×2; A4223 ×3; 99156; 99157

== ENCOUNTER 2023-01-12 10:46 | Inpatient (IN) | payer OTHER ==
[~2023-01-12] VITALS: Ht 182.9 cm; Wt 103.1 kg
[2023-01-12 11:56] LABS: BASOPHILS # (AUTO) 0.05 K/uL (0.00-0.20); BASOPHILS % (AUTO) 0.6 % (0.0-5.0); EOSINOPHILS # (AUTO) 0.37 K/uL (0.00-0.70); EOSINOPHILS % (AUTO) 4.6 % (0.0-8.0); HEMATOCRIT 32.5 % (42-54); IMMATURE GRANULOCYTE ABSOLUTE 0.03 K/uL (0-1); LYMPHOCYTES # (AUTO) 0.9 K/uL (1.0-4.8); LYMPHOCYTES % (AUTO) 11.6 % (21.0-51.0); MEAN CORPUSCULAR HEMOGLOBIN 30.3 pg (27.0-33.0); MEAN CORPUSCULAR HGB CONC 31.4 g/dL (32.0-36.0); MEAN CORPUSCULAR VOLUME 96.4 fL (79-99); MONOCYTES # (AUTO) 0.9 K/uL (0.1-1.0); MONOCYTES % (AUTO) 10.5 % (3.0-13.0); NEUTROPHILS # (AUTO) 5.8 K/uL (1.8-7.7); NEUTROPHILS % (AUTO) 72.3 % (40.0-77.0); PLATELET COUNT (AUTO) 157 K/uL (130-400); RED BLOOD CELL COUNT(AUTO) 3.37 MIL/uL (4.50-6.20); WHITE BLOOD COUNT (AUTO) 8.1 K/uL (4.8-10.8)
[2023-01-12 12:11] LABS: CREATININE 7.7 mg/dL (0.5-1.5); POTASSIUM 5.3 mmol/L (3.5-5.1)
[2023-01-12 12:16] LABS: ALBUMIN 3.2 g/dL (3.5-5.0); BILIRUBIN,TOTAL 0.6 mg/dL (0.2-1.0); MAGNESIUM 2.4 mg/dL (1.80-2.40); TOTAL PROTEIN, SERUM 8.2 g/dL (6.0-8.3)
[2023-01-12 12:22] LABS: B-TYPE NATRIURETIC PEPTIDE 1050 pg/mL (0-100)
[2023-01-12] MEDS ORDERED: GUAIFENESIN-DM 200/20 MG 10 ML PO PRN (14:30)
[2023-01-12] MEDS ORDERED: HYDRALAZINE 25MG TABLET PO PRN (14:30)
[2023-01-12] MEDS ORDERED: POLYETHYLENE GLYCOL 3350 17 GM POWD.PACK PO PRN (14:30)
[2023-01-12] MEDS ORDERED: ALPRAZOLAM 0.5 MG TABLET PO PRN (14:30)
[2023-01-12] MEDS ORDERED: DIPHENHYDRAMINE HCL 25 MG CAPSULE PO PRN (14:30)
[2023-01-12] MEDS ORDERED: GUAIFENESIN SUGAR-FREE 100 MG/5 ML UDCUP PO PRN (14:30)
[2023-01-12] MEDS ORDERED: NITROGLYCERIN 0.4 MG SL TAB SL PRN (14:30)
[2023-01-12] MEDS ORDERED: ZOLPIDEM TARTRATE 5 MG TAB PO PRN (14:30)
[2023-01-12] MEDS ORDERED: ACETAMINOPHEN 325 MG TAB PO PRN ×2 (14:30)
[2023-01-12] MEDS ORDERED: DiphenhydrAMINE HCL 50 MG/ML VIAL IV PRN (14:30)
[2023-01-12] MEDS ORDERED: DOCUSATE SODIUM 100 MG CAP PO PRN (14:30)
[2023-01-12] MEDS ORDERED: ONDANSETRON 4MG INJ IV PRN (14:30)
[2023-01-12 14:45] LABS: INR 1.07 (0.85-1.15); PROTHROMBIN TIME 12.4 SEC (9.6-11.6)
[2023-01-12 14:46] LABS: PARTIAL THROMBOPLASTIN TIME 28.6 SEC (26.3-35.5)
[2023-01-12 14:54] LABS: SARS-CoV-2, RNA, NAAT NEGATIVE SARS CoV-2 (NEGATIVE)
[2023-01-12 15:00] LABS: INFLUENZA TYPE A Negative For Type A (NEGATIVE); INFLUENZA TYPE B Negative For Type B (NEGATIVE)
[2023-01-12] MEDS: HEPARIN 5,000 UNIT VIAL SQ SCH (15:19)
[2023-01-12 15:28] VITALS: O2SAT 98
[2023-01-12] MEDS ORDERED: ATOR40TA71 PO (15:48)
[2023-01-12] MEDS ORDERED: LOSA25TA41 PO (15:48)
[2023-01-12] MEDS ORDERED: CLOP75TA32 PO (15:48)
[2023-01-12] MEDS ORDERED: ASPI-1197 PO (15:48)
[2023-01-12 15:51] VITALS: BP 111/71; PULSE 91; RESP 21
[2023-01-12] MEDS: INSULIN HUMULIN R 100 UNIT/ML 3ML SQ SCH ×2 (15:53→20:59)
[2023-01-12] MEDS: FAMOTIDINE 20MG TAB PO SCH (20:59)
[2023-01-12] MEDS: INSULIN GLARGINE 100 UNITS/ML 10 ML VIAL SQ SCH (20:59)
[2023-01-12 22:20] VITALS: BP 105/66; PULSE 93; RESP 20; O2SAT 98
[2023-01-13] VITALS (23 sets, daily range): BP systolic 97–123; BP diastolic 58–71; PULSE 86–94; RESP 16–22; TEMP 97.5; O2SAT 98
[2023-01-13] MEDS: HEPARIN 5,000 UNIT VIAL SQ SCH ×2 (03:55→14:38)
[2023-01-13 05:15] LABS: BASOPHILS # (AUTO) 0.07 K/uL (0.00-0.20); EOSINOPHILS # (AUTO) 0.45 K/uL (0.00-0.70); EOSINOPHILS % (AUTO) 6.3 % (0.0-8.0); HEMATOCRIT 30.8 % (42-54); IMMATURE GRANULOCYTE ABSOLUTE 0.03 K/uL (0-1); LYMPHOCYTES # (AUTO) 1.3 K/uL (1.0-4.8); LYMPHOCYTES % (AUTO) 18.1 % (21.0-51.0); MEAN CORPUSCULAR HEMOGLOBIN 29.9 pg (27.0-33.0); MEAN CORPUSCULAR HGB CONC 30.8 g/dL (32.0-36.0); MEAN CORPUSCULAR VOLUME 96.9 fL (79-99); MONOCYTES # (AUTO) 0.9 K/uL (0.1-1.0); MONOCYTES % (AUTO) 13.1 % (3.0-13.0); NEUTROPHILS # (AUTO) 4.4 K/uL (1.8-7.7); NEUTROPHILS % (AUTO) 61.1 % (40.0-77.0); PLATELET COUNT (AUTO) 160 K/uL (130-400); RED BLOOD CELL COUNT(AUTO) 3.18 MIL/uL (4.50-6.20); RED CELL DISTRIBUTION WIDTH 15.9 % (11.0-15.5); WHITE BLOOD COUNT (AUTO) 7.2 K/uL (4.8-10.8)
[2023-01-13 05:35] LABS: HEMOGLOBIN A1C 8.5 % (4.0-6.0)
[2023-01-13 05:55] LABS: BILIRUBIN,TOTAL 0.6 mg/dL (0.2-1.0); POTASSIUM 5.5 mmol/L (3.5-5.1); TOTAL PROTEIN, SERUM 7.5 g/dL (6.0-8.3)
[2023-01-13 06:03] LABS: CREATININE 8.6 mg/dL (0.5-1.5)
[2023-01-13] MEDS: INSULIN HUMULIN R 100 UNIT/ML 3ML SQ SCH ×4 (06:33→21:00)
[2023-01-13] MEDS ORDERED: BUDESONIDE 0.5 MG/2 ML INH IH SCH (09:00)
[2023-01-13 09:10] LABS: ABG BASE EXCESS -0.5 mmol/L (-2.0-3.0); ABG HCO3 24.5 mmol/L (21.0-28.0); ABG OXYGEN SATURATION 83.4 % (95.0-99.0); ABG PCO2 42 mmHg (35-48); ABG PH 7.388 (7.35-7.450); CARBON MONOXIDE 1.5; HHb 16.3; PO2, ARTERIAL BG 48.4 mmHg (83.0-108.0); VENT MODE, BG RA (ROOM AIR)
[2023-01-13] MEDS: KAYEXALATE 15GM/60ML PO NR (09:40)
[2023-01-13] MEDS: INSULIN GLARGINE 100 UNITS/ML 10 ML VIAL SQ SCH ×2 (09:42→22:06)
[2023-01-13] MEDS ORDERED: IPRATROPIUM 0.5 MG/2.5 ML INH IH ONE (10:47)
[2023-01-13] MEDS: IPRATROPIUM 0.5 MG/2.5 ML INH IH SCH ×3 (12:00→23:12)
[2023-01-13] MEDS ORDERED: VANCOMYCIN PROTOCOL PER PHARMACY IV SCH (12:30)
[2023-01-13] MEDS: CEFEPIME HCL 2 GM VIAL IVPB SCH (13:05)
[2023-01-13] MEDS ORDERED: VANCOMYCIN 1.5 GM/250 ML BAG 250 ML IV ONE ×2 (13:30→20:00)
[2023-01-13] MEDS: MIDODRINE HCL 5 MG TABLET PO SCH ×2 (14:37→22:03)
[2023-01-13] MEDS ORDERED: ALBUTEROL 0.083% 2.5 MG/3 ML INH IH ONE (15:11)
[2023-01-13] MEDS ORDERED: CALCIUM GLUC 1GM 1 GM in 0.9%NACL 100ML 100 ML IV ONE (15:30)
[2023-01-13] MEDS ORDERED: FUROSEMIDE 40 MG UD CUP PO ONE (15:30)
[2023-01-13] MEDS ORDERED: DEXTROSE 50%-WATER 25 GM/50 ML VIAL IV ONE (15:30)
[2023-01-13] MEDS ORDERED: INSULIN HUMULIN R 100 UNIT/ML 3ML IV ONE (15:30)
[2023-01-13] MEDS: ALBUTEROL 0.083% 2.5 MG/3 ML INH IH SCH (16:02)
[2023-01-13] MEDS: BUDESONIDE 0.5 MG/2 ML INH IH SCH (18:36)
[2023-01-13] MEDS: ACETYLCYSTEINE 10% 100MG/ML 4ML VIAL IH SCH ×2 (18:36→23:12)
[2023-01-13 22:08] LABS: HEPATITIS B SURFACE ANTIBODY Positive (Reactive); HEPATITIS B SURFACE ANTIGEN Non-Reactive (Nonreactive)
[2023-01-13 22:09] LABS: HEPATITIS B CORE AB TOTAL Non-Reactive (Nonreactive)
[2023-01-14] VITALS (12 sets, daily range): BP systolic 97–118; BP diastolic 62–71; PULSE 88–94; RESP 18–22; O2SAT 98
[2023-01-14] MEDS: HEPARIN 5,000 UNIT VIAL SQ SCH ×2 (03:04→13:23)
[2023-01-14 05:12] LABS: BASOPHILS # (AUTO) 0.07 K/uL (0.00-0.20); EOSINOPHILS # (AUTO) 0.29 K/uL (0.00-0.70); EOSINOPHILS % (AUTO) 4.2 % (0.0-8.0); HEMATOCRIT 29.2 % (42-54); IMMATURE GRANULOCYTE ABSOLUTE 0.03 K/uL (0-1); LYMPHOCYTES # (AUTO) 0.9 K/uL (1.0-4.8); LYMPHOCYTES % (AUTO) 13.2 % (21.0-51.0); MEAN CORPUSCULAR HEMOGLOBIN 30.6 pg (27.0-33.0); MEAN CORPUSCULAR HGB CONC 31.5 g/dL (32.0-36.0); MONOCYTES # (AUTO) 0.9 K/uL (0.1-1.0); MONOCYTES % (AUTO) 12.9 % (3.0-13.0); NEUTROPHILS # (AUTO) 4.8 K/uL (1.8-7.7); NEUTROPHILS % (AUTO) 68.3 % (40.0-77.0); PLATELET COUNT (AUTO) 156 K/uL (130-400); RED BLOOD CELL COUNT(AUTO) 3.01 MIL/uL (4.50-6.20)
[2023-01-14 05:23] LABS: INR 1.19 (0.85-1.15); PROTHROMBIN TIME 12.7 SEC (9.6-11.6)
[2023-01-14 05:30] LABS: % IRON SATURATION 25.2 % (30-44)
[2023-01-14 05:33] LABS: B-TYPE NATRIURETIC PEPTIDE 933 pg/mL (0-100)
[2023-01-14 05:44] LABS: ALBUMIN 2.9 g/dL (3.5-5.0); BILIRUBIN,TOTAL 0.5 mg/dL (0.2-1.0); CREATININE 6.8 mg/dL (0.5-1.5); MAGNESIUM 2.1 mg/dL (1.80-2.40); PHOSPHORUS 5.7 mg/dL (2.5-4.9); POTASSIUM 4.7 mmol/L (3.5-5.1); TOTAL PROTEIN, SERUM 7.6 g/dL (6.0-8.3)
[2023-01-14 05:55] LABS: THYROID STIMULATING HORMONE 1.86 uIU/mL (0.36-3.74)
[2023-01-14] MEDS: ACETYLCYSTEINE 10% 100MG/ML 4ML VIAL IH SCH ×3 (06:24→19:02)
[2023-01-14] MEDS: BUDESONIDE 0.5 MG/2 ML INH IH SCH ×2 (06:24→19:02)
[2023-01-14] MEDS: IPRATROPIUM 0.5 MG/2.5 ML INH IH SCH ×3 (06:24→19:02)
[2023-01-14] MEDS: INSULIN HUMULIN R 100 UNIT/ML 3ML SQ SCH ×4 (06:33→21:17)
[2023-01-14] MEDS: INSULIN GLARGINE 100 UNITS/ML 10 ML VIAL SQ SCH ×2 (06:58→21:18)
[2023-01-14] MEDS: KAYEXALATE 15GM/60ML PO NR (07:29)
[2023-01-14] MEDS: FAMOTIDINE 20MG TAB PO SCH (07:30)
[2023-01-14] MEDS: MIDODRINE HCL 5 MG TABLET PO SCH ×3 (07:31→21:16)
[2023-01-14] MEDS ORDERED: KETOROLAC 15MG/ML VIAL (15MG/ML) IV PRN (09:30)
[2023-01-14] MEDS ORDERED: TRAMADOL HCL 50 MG TABLET PO PRN (09:30)
[2023-01-14] MEDS: SOLU-MEDROL 40MG VIAL IVP SCH ×2 (11:25→16:54)
[2023-01-14] MEDS ORDERED: EPOETIN ALFA-EPBX (NON-ESRD) 10,000 UNIT/ML VIAL SQ SCH (12:00)
[2023-01-14] MEDS: CEFEPIME HCL 2 GM VIAL IVPB SCH (12:12)
[2023-01-14] MEDS: ASPIRIN 81MG CHEW TAB PO SCH (16:54)
[2023-01-14] MEDS: LEVOFLOXACIN 500 MG/D5W 100 ML 100 ML IV SCH (16:54)
[2023-01-14] MEDS: ATORVASTATIN 40 MG TABLET PO SCH (16:54)
[2023-01-14] MEDS: CLOPIDOGREL 75MG TAB PO SCH (16:54)
[2023-01-14] MEDS ORDERED: IRON SUCROSE COMPLEX 300 MG in 0.9% NACL 250ML 250 ML IV ONE (21:00)
[2023-01-14] MEDS: DIGOXIN 125 MCG TABLET PO SCH (21:16)
[2023-01-15] VITALS (26 sets, daily range): BP systolic 102–127; BP diastolic 56–74; PULSE 88–94; RESP 16–22; TEMP 97.2–97.5; O2SAT 92–96
[2023-01-15] MEDS: IPRATROPIUM 0.5 MG/2.5 ML INH IH SCH ×5 (00:06→23:14)
[2023-01-15] MEDS: ACETYLCYSTEINE 10% 100MG/ML 4ML VIAL IH SCH ×5 (00:06→23:14)
[2023-01-15] MEDS: SOLU-MEDROL 40MG VIAL IVP SCH ×2 (01:38→09:04)
[2023-01-15] MEDS: HEPARIN 5,000 UNIT VIAL SQ SCH ×2 (01:42→14:29)
[2023-01-15 04:29] LABS: BASOPHILS # (AUTO) 0.02 K/uL (0.00-0.20); BASOPHILS % (AUTO) 0.3 % (0.0-5.0); IMMATURE GRANULOCYTE ABSOLUTE 0.02 K/uL (0-1); LYMPHOCYTES # (AUTO) 0.5 K/uL (1.0-4.8); LYMPHOCYTES % (AUTO) 7.1 % (21.0-51.0); MEAN CORPUSCULAR HEMOGLOBIN 30.1 pg (27.0-33.0); MEAN CORPUSCULAR HGB CONC 31.7 g/dL (32.0-36.0); MEAN CORPUSCULAR VOLUME 94.8 fL (79-99); MONOCYTES # (AUTO) 0.3 K/uL (0.1-1.0); MONOCYTES % (AUTO) 4.6 % (3.0-13.0); NEUTROPHILS # (AUTO) 6.3 K/uL (1.8-7.7); NEUTROPHILS % (AUTO) 87.7 % (40.0-77.0); PLATELET COUNT (AUTO) 177 K/uL (130-400); RED BLOOD CELL COUNT(AUTO) 3.06 MIL/uL (4.50-6.20); RED CELL DISTRIBUTION WIDTH 15.9 % (11.0-15.5); WHITE BLOOD COUNT (AUTO) 7.2 K/uL (4.8-10.8)
[2023-01-15 05:05] LABS: BILIRUBIN,TOTAL 0.6 mg/dL (0.2-1.0); MAGNESIUM 2.2 mg/dL (1.80-2.40); POTASSIUM 5.7 mmol/L (3.5-5.1); TOTAL PROTEIN, SERUM 7.9 g/dL (6.0-8.3)
[2023-01-15 05:09] LABS: CREATININE 8.4 mg/dL (0.5-1.5)
[2023-01-15 05:42] LABS: B-TYPE NATRIURETIC PEPTIDE 2240 pg/mL (0-100)
[2023-01-15] MEDS: INSULIN HUMULIN R 100 UNIT/ML 3ML SQ SCH ×4 (06:26→21:00)
[2023-01-15] MEDS: INSULIN GLARGINE 100 UNITS/ML 10 ML VIAL SQ SCH ×2 (06:28→21:00)
[2023-01-15] MEDS: BUDESONIDE 0.5 MG/2 ML INH IH SCH ×2 (07:17→19:25)
[2023-01-15] MEDS ORDERED: KAYEXALATE 15GM/60ML PO ONE (08:30)
[2023-01-15] MEDS ORDERED: LEVOFLOXACIN 750 MG/D5W 150ML BAG IV SCH (09:00)
[2023-01-15] MEDS: IRON SUCROSE COMPLEX 300 MG in 0.9% NACL 250ML 250 ML IV SCH (09:03)
[2023-01-15] MEDS: DIGOXIN 125 MCG TABLET PO SCH (09:04)
[2023-01-15] MEDS: MIDODRINE HCL 5 MG TABLET PO SCH ×3 (09:04→21:43)
[2023-01-15] MEDS ORDERED: COMPOUND IV MISC 1 EACH IVSOLN MISC PRN (09:30)
[2023-01-15] MEDS: LACTULOSE 20 GM/30 ML UDCUP PO SCH ×2 (14:28→21:43)
[2023-01-15] MEDS: CEFEPIME HCL 2 GM VIAL IVPB SCH (14:28)
[2023-01-15] MEDS: VANCOMYCIN 1G/250ML KIT 250 ML IV SCH (16:00)
[2023-01-15] MEDS: ASPIRIN 81MG CHEW TAB PO SCH (17:05)
[2023-01-15] MEDS: CLOPIDOGREL 75MG TAB PO SCH (17:05)
[2023-01-15] MEDS: ATORVASTATIN 40 MG TABLET PO SCH (17:05)
[2023-01-16] VITALS (23 sets, daily range): BP systolic 110–124; BP diastolic 64–77; PULSE 81–94; RESP 1–21; TEMP 98.2–98.3; O2SAT 93–99
[2023-01-16] MEDS: HEPARIN 5,000 UNIT VIAL SQ SCH ×2 (03:47→14:30)
[2023-01-16] MEDS: INSULIN HUMULIN R 100 UNIT/ML 3ML SQ SCH ×4 (05:26→21:12)
[2023-01-16] MEDS: INSULIN GLARGINE 100 UNITS/ML 10 ML VIAL SQ SCH ×2 (05:27→21:13)
[2023-01-16 05:48] LABS: BASOPHILS # (AUTO) 0.01 K/uL (0.00-0.20); BASOPHILS % (AUTO) 0.1 % (0.0-5.0); HEMATOCRIT 31.4 % (42-54); IMMATURE GRANULOCYTE ABSOLUTE 0.08 K/uL (0-1); LYMPHOCYTES # (AUTO) 0.8 K/uL (1.0-4.8); LYMPHOCYTES % (AUTO) 7.2 % (21.0-51.0); MEAN CORPUSCULAR HEMOGLOBIN 30.5 pg (27.0-33.0); MEAN CORPUSCULAR HGB CONC 31.8 g/dL (32.0-36.0); MEAN CORPUSCULAR VOLUME 95.7 fL (79-99); MONOCYTES # (AUTO) 1.1 K/uL (0.1-1.0); MONOCYTES % (AUTO) 9.6 % (3.0-13.0); NEUTROPHILS # (AUTO) 9.2 K/uL (1.8-7.7); NEUTROPHILS % (AUTO) 82.4 % (40.0-77.0); PLATELET COUNT (AUTO) 175 K/uL (130-400); RED BLOOD CELL COUNT(AUTO) 3.28 MIL/uL (4.50-6.20); WHITE BLOOD COUNT (AUTO) 11.1 K/uL (4.8-10.8)
[2023-01-16 06:08] LABS: CREATININE 7.7 mg/dL (0.5-1.5); POTASSIUM 4.5 mmol/L (3.5-5.1)
[2023-01-16] MEDS: ACETYLCYSTEINE 10% 100MG/ML 4ML VIAL IH SCH ×4 (07:09→23:09)
[2023-01-16] MEDS: IPRATROPIUM 0.5 MG/2.5 ML INH IH SCH ×4 (07:10→23:09)
[2023-01-16] MEDS: BUDESONIDE 0.5 MG/2 ML INH IH SCH ×2 (07:12→18:29)
[2023-01-16] MEDS: MIDODRINE HCL 5 MG TABLET PO SCH ×3 (09:34→21:11)
[2023-01-16] MEDS: PREDNISONE 20 MG TABLET PO SCH (09:34)
[2023-01-16] MEDS: LACTULOSE 20 GM/30 ML UDCUP PO SCH ×3 (09:35→21:10)
[2023-01-16] MEDS: FAMOTIDINE 20MG TAB PO SCH (09:35)
[2023-01-16] MEDS: IRON SUCROSE COMPLEX 300 MG in 0.9% NACL 250ML 250 ML IV SCH (09:40)
[2023-01-16] MEDS: CEFEPIME HCL 2 GM VIAL IVPB SCH (13:05)
[2023-01-16] MEDS: ATORVASTATIN 40 MG TABLET PO SCH (17:59)
[2023-01-16] MEDS: CLOPIDOGREL 75MG TAB PO SCH (17:59)
[2023-01-16] MEDS: VANCOMYCIN 1G/250ML KIT 250 ML IV SCH (17:59)
[2023-01-16] MEDS: ASPIRIN 81MG CHEW TAB PO SCH (17:59)
[2023-01-16] MEDS: ALBUTEROL 0.083% 2.5 MG/3 ML INH IH SCH (18:27)
[2023-01-16] MEDS: LEVOFLOXACIN 500 MG/D5W 100 ML 100 ML IV SCH (21:11)
[2023-01-17] VITALS (12 sets, daily range): BP systolic 111–118; BP diastolic 67–76; PULSE 86–96; RESP 16–20; O2SAT 95–98
[2023-01-17] MEDS: HEPARIN 5,000 UNIT VIAL SQ SCH (03:10)
[2023-01-17] MEDS: INSULIN HUMULIN R 100 UNIT/ML 3ML SQ SCH ×2 (05:50→11:30)
[2023-01-17] MEDS: INSULIN GLARGINE 100 UNITS/ML 10 ML VIAL SQ SCH (05:51)
[2023-01-17 06:14] LABS: HEMATOCRIT 32.3 % (42-54); MEAN CORPUSCULAR HEMOGLOBIN 30.1 pg (27.0-33.0); MEAN CORPUSCULAR HGB CONC 31.3 g/dL (32.0-36.0); MEAN CORPUSCULAR VOLUME 96.1 fL (79-99); RED BLOOD CELL COUNT(AUTO) 3.36 MIL/uL (4.50-6.20); RED CELL DISTRIBUTION WIDTH 15.8 % (11.0-15.5); WHITE BLOOD COUNT (AUTO) 10.9 K/uL (4.8-10.8)
[2023-01-17 06:42] LABS: CREATININE 7.1 mg/dL (0.5-1.5); POTASSIUM 4.1 mmol/L (3.5-5.1)
[2023-01-17] MEDS: IPRATROPIUM 0.5 MG/2.5 ML INH IH SCH ×2 (06:48→11:20)
[2023-01-17] MEDS: ACETYLCYSTEINE 10% 100MG/ML 4ML VIAL IH SCH ×2 (06:48→11:20)
[2023-01-17] MEDS: BUDESONIDE 0.5 MG/2 ML INH IH SCH (07:20)
[2023-01-17] MEDS: LACTULOSE 20 GM/30 ML UDCUP PO SCH ×2 (11:16→14:36)
[2023-01-17] MEDS: DIGOXIN 125 MCG TABLET PO SCH (11:17)
[2023-01-17] MEDS: MIDODRINE HCL 5 MG TABLET PO SCH ×2 (11:17→14:36)
[2023-01-17] MEDS: PREDNISONE 20 MG TABLET PO SCH (11:21)
== END 2023-01-17 15:45 | disposition home or self-care (01) | DRG 177 ==
LOC: EDH 10:46 → EDHIP 14:14 → 3AH 22:22
PROVIDERS: ADMIT Internal Medicine; ATTEND Internal Medicine
PROC: 5A1D70Z Performance of Urinary Filtration, Intermittent, Less than 6 Hours Per Day (ICD-10-PCS; principal; 2023-01-13)
PROC: 5A1D70Z Performance of Urinary Filtration, Intermittent, Less than 6 Hours Per Day (ICD-10-PCS; 2023-01-15)
PROC: 5A1D70Z Performance of Urinary Filtration, Intermittent, Less than 6 Hours Per Day (ICD-10-PCS; 2023-01-16)
DX: J15.0 Pneumonia due to Klebsiella pneumoniae (principal); I50.43 Acute on chronic combined systolic (congestive) and diastolic (congestive) heart failure; N18.6 End stage renal disease; I13.2 Hypertensive heart and chronic kidney disease with heart failure and with stage 5 chronic kidney disease, or end stage renal disease; J44.0 Chronic obstructive pulmonary disease with (acute) lower respiratory infection; J90 Pleural effusion, not elsewhere classified; J18.9 Pneumonia, unspecified organism; Z20.822 Contact with and (suspected) exposure to COVID-19; I25.5 Ischemic cardiomyopathy; D50.9 Iron deficiency anemia, unspecified; E11.43 Type 2 diabetes mellitus with diabetic autonomic (poly)neuropathy; E11.22 Type 2 diabetes mellitus with diabetic chronic kidney disease; E87.5 Hyperkalemia; Y95 Nosocomial condition; I25.10 Atherosclerotic heart disease of native coronary artery without angina pectoris; D63.8 Anemia in other chronic diseases classified elsewhere; E11.51 Type 2 diabetes mellitus with diabetic peripheral angiopathy without gangrene; E11.65 Type 2 diabetes mellitus with hyperglycemia; E78.00 Pure hypercholesterolemia, unspecified; I95.89 Other hypotension; Z79.02 Long term (current) use of antithrombotics/antiplatelets; Z79.4 Long term (current) use of insulin; Z95.810 Presence of automatic (implantable) cardiac defibrillator; Z95.1 Presence of aortocoronary bypass graft; Z99.2 Dependence on renal dialysis; Z79.82 Long term (current) use of aspirin; Z79.899 Other long term (current) drug therapy; Z95.3 Presence of xenogenic heart valve; Z95.5 Presence of coronary angioplasty implant and graft; Z79.01 Long term (current) use of anticoagulants; Z95.2 Presence of prosthetic heart valve
CPT/HCPCS: 36415; 36600; 71045; 71250; 80048; 80053; 80061; 82140; 82435; 82803; 82947; 82948; 83036; 83540; 83550; 83605; 83615; 83735; 83880; 84100; 84132; 84145; 84295; 84439; 84443; 84484; 85018; 85025; 85027; 85378; 85610; 85730; 86140; 86704; 86706; 87040; 87071; 87077; 87186; 87205; 87340; 87635; 87804; 90935; 93005; 93306; 93356; 94640; 94664; 94667; 94668; 94760; G0378; J0610; J0692; J1644; J1756; J1815; J1956; J2920; J3370; J7050; J7070; J7608; Q5106

== ENCOUNTER 2023-04-01 21:38 | Emergency (ER) | payer OTHER ==
[~2023-04-01] VITALS: Ht 182.9 cm; Wt 105.7 kg
[~2023-04-01 21:38] MED LIST changes: +ASPI-1197 PO; +ATOR40TA71 PO; +CLOP75TA32 PO; +LOSA25TA41 PO; -SACU1TAB PO
[2023-04-01 21:54] VITALS: BP 126/70; PULSE 93; RESP 20
[2023-04-01 22:46] LABS: BASOPHILS # (AUTO) 0.06 K/uL (0.00-0.20); BASOPHILS % (AUTO) 0.7 % (0.0-5.0); EOSINOPHILS # (AUTO) 0.43 K/uL (0.00-0.70); EOSINOPHILS % (AUTO) 4.8 % (0.0-8.0); HEMATOCRIT 33.2 % (42-54); IMMATURE GRANULOCYTE ABSOLUTE 0.04 K/uL (0-1); LYMPHOCYTES # (AUTO) 1.3 K/uL (1.0-4.8); MEAN CORPUSCULAR HEMOGLOBIN 31.6 pg (27.0-33.0); MEAN CORPUSCULAR HGB CONC 32.2 g/dL (32.0-36.0); MEAN CORPUSCULAR VOLUME 97.9 fL (79-99); MONOCYTES # (AUTO) 1.1 K/uL (0.1-1.0); MONOCYTES % (AUTO) 12.7 % (3.0-13.0); NEUTROPHILS % (AUTO) 67.4 % (40.0-77.0); PLATELET COUNT (AUTO) 179 K/uL (130-400); RED BLOOD CELL COUNT(AUTO) 3.39 MIL/uL (4.50-6.20); RED CELL DISTRIBUTION WIDTH 15.3 % (11.0-15.5)
[2023-04-01 22:59] LABS: CREATININE 7.8 mg/dL (0.5-1.5); POTASSIUM 4.5 mmol/L (3.5-5.1)
== END 2023-04-01 23:14 | disposition home or self-care (01) ==
LOC: EDH 21:38
DX: N43.3 Hydrocele, unspecified (principal); N50.82 Scrotal pain; E11.9 Type 2 diabetes mellitus without complications; I10 Essential (primary) hypertension; Z99.2 Dependence on renal dialysis
CPT/HCPCS: 36415; 76870; 80048; 85025

== ENCOUNTER → 2023-04-18 | Outpatient (CLI) | payer OTHER | END | disposition home or self-care (01) | LOC: SHCH 09:36 | PROVIDERS: ATTEND Internal Medicine | DX: I08.1 Rheumatic disorders of both mitral and tricuspid valves (principal); I42.9 Cardiomyopathy, unspecified | CPT/HCPCS: 93308 ==

== ENCOUNTER → 2023-04-20 | Outpatient (CLI) | payer OTHER | END | disposition home or self-care (01) | LOC: RAH 14:52 | PROVIDERS: ATTEND Family Medicine | DX: I51.7 Cardiomegaly (principal); J90 Pleural effusion, not elsewhere classified; R06.02 Shortness of breath; Z87.09 Personal history of other diseases of the respiratory system | CPT/HCPCS: 71046 ==

== ENCOUNTER → 2023-08-07 | Outpatient (CLI) | payer OTHER ==
[~2023-08-07] MED LIST changes: -LOSA25TA41 PO; +MIDO10TA PO; +SEVE0.8P3 PO
[2023-08-07 17:12] LABS: INR 1.28 (0.85-1.15); PROTHROMBIN TIME 13.4 SEC (9.6-11.6)
== END | disposition home or self-care (01) ==
LOC: LAB 11:27
PROVIDERS: ATTEND Internal Medicine
DX: Z79.01 Long term (current) use of anticoagulants (principal)
CPT/HCPCS: 36415; 85610

== ENCOUNTER → 2023-08-13 | Outpatient (CLI) | payer OTHER ==
[2023-08-13 12:26] LABS: INR 1.1 (0.85-1.15); PROTHROMBIN TIME 11.8 SEC (9.6-11.6)
== END | disposition home or self-care (01) ==
LOC: LAB 08:32
PROVIDERS: ATTEND Internal Medicine
DX: I48.91 Unspecified atrial fibrillation (principal)
CPT/HCPCS: 36415; 85610

== ENCOUNTER 2023-10-02 22:24 | Observation (INO) | payer OTHER ==
[~2023-10-02] VITALS: Ht 182.9 cm; Wt 106.6 kg
[2023-10-02 22:44] LABS: BASOPHILS # (AUTO) 0.05 K/uL (0.00-0.20); BASOPHILS % (AUTO) 0.6 % (0.0-5.0); EOSINOPHILS # (AUTO) 0.29 K/uL (0.00-0.70); EOSINOPHILS % (AUTO) 3.7 % (0.0-8.0); HEMATOCRIT 26.7 % (42-54); IMMATURE GRANULOCYTE ABSOLUTE 0.06 K/uL (0-1); LYMPHOCYTES # (AUTO) 0.7 K/uL (1.0-4.8); LYMPHOCYTES % (AUTO) 8.7 % (21.0-51.0); MEAN CORPUSCULAR HEMOGLOBIN 31.6 pg (27.0-33.0); MEAN CORPUSCULAR HGB CONC 31.8 g/dL (32.0-36.0); MEAN CORPUSCULAR VOLUME 99.3 fL (79-99); MONOCYTES # (AUTO) 1.1 K/uL (0.1-1.0); MONOCYTES % (AUTO) 13.9 % (3.0-13.0); NEUTROPHILS # (AUTO) 5.7 K/uL (1.8-7.7); NEUTROPHILS % (AUTO) 72.3 % (40.0-77.0); PLATELET COUNT (AUTO) 188 K/uL (130-400); RED BLOOD CELL COUNT(AUTO) 2.69 MIL/uL (4.50-6.20); RED CELL DISTRIBUTION WIDTH 15.9 % (11.0-15.5); WHITE BLOOD COUNT (AUTO) 7.9 K/uL (4.8-10.8)
[2023-10-02 22:57] LABS: CREATININE 6.3 mg/dL (0.5-1.3); POTASSIUM 5.9 mmol/L (3.5-5.1)
[2023-10-02 23:21] LABS: B-TYPE NATRIURETIC PEPTIDE 724 pg/mL (0-100)
[2023-10-02] MEDS: CALCIUM GLUC 1GM 1 GM in 0.9%NACL 100ML 100 ML IV ONE (23:54)
[2023-10-03] VITALS (10 sets, daily range): BP systolic 90–108; BP diastolic 52–67; PULSE 88–91; RESP 18–22; O2SAT 94–97
[2023-10-03] MEDS: DEXTROSE 50%-WATER 25 GM/50 ML VIAL IV ONE (00:02)
[2023-10-03] MEDS: DEXTROSE 50%-WATER 50 ML DISP.SYRIN IV ONE ×2 (00:02→00:18)
[2023-10-03] MEDS: INSULIN humuLIN R 100 UNIT/ML 3ML IV ONE (00:03)
[2023-10-03 00:04] LABS: WBC MORPHOLOGY CONSISTENT W/DIFF
[2023-10-03] MEDS ORDERED: LABETALOL 20MG SYG IV PRN (01:30)
[2023-10-03] MEDS ORDERED: ALBUTEROL 0.083% 2.5 MG/3 ML INH IH PRN (01:30)
[2023-10-03] MEDS ORDERED: acetaMINOPHEN 325 MG TAB PO PRN (01:30)
[2023-10-03] MEDS ORDERED: DEXTROSE 50%-WATER 50 ML DISP.SYRIN IV PRN (01:30)
[2023-10-03] MEDS ORDERED: hydrALAZine 20MG/ML VIAL IV PRN (01:30)
[2023-10-03] MEDS ORDERED: LACTULOSE 20 GM/30 ML UDCUP PO PRN (01:30)
[2023-10-03] MEDS ORDERED: ONDANSETRON 4MG INJ IVP PRN (01:30)
[2023-10-03] MEDS ORDERED: GLUCAGON 1MG KIT 1 MG ML IM PRN (01:30)
[2023-10-03] MEDS ORDERED: WARF-67 PO (01:33)
[2023-10-03] MEDS ORDERED: IOHEXOL-350 75 ML VIAL IV ONE (02:28)
[2023-10-03] MEDS: INSULIN humuLIN R 100 UNIT/ML 3ML SQ SCH (05:37)
[2023-10-03 06:07] LABS: BASOPHILS # (AUTO) 0.05 K/uL (0.00-0.20); BASOPHILS % (AUTO) 0.7 % (0.0-5.0); EOSINOPHILS # (AUTO) 0.33 K/uL (0.00-0.70); EOSINOPHILS % (AUTO) 4.3 % (0.0-8.0); HEMATOCRIT 23.7 % (42-54); IMMATURE GRANULOCYTE ABSOLUTE 0.03 K/uL (0-1); LYMPHOCYTES # (AUTO) 0.9 K/uL (1.0-4.8); MEAN CORPUSCULAR HGB CONC 31.2 g/dL (32.0-36.0); MEAN CORPUSCULAR VOLUME 99.2 fL (79-99); MONOCYTES % (AUTO) 13.6 % (3.0-13.0); NEUTROPHILS # (AUTO) 5.3 K/uL (1.8-7.7); PLATELET COUNT (AUTO) 178 K/uL (130-400); RED BLOOD CELL COUNT(AUTO) 2.39 MIL/uL (4.50-6.20); RED CELL DISTRIBUTION WIDTH 15.9 % (11.0-15.5); WHITE BLOOD COUNT (AUTO) 7.6 K/uL (4.8-10.8)
[2023-10-03 06:22] LABS: MAGNESIUM 2.4 mg/dL (1.80-2.40); PHOSPHORUS 5.1 mg/dL (2.5-4.9); POTASSIUM 5.6 mmol/L (3.5-5.1)
[2023-10-03] MEDS: SODIUM ZIRCONIUM CYCLOSILICATE 5 GM POWD.PACK PO ONE (10:08)
[2023-10-03] MEDS: doCUSate SODIUM 100 MG CAP PO SCH (10:08)
[2023-10-03] MEDS: IpraTROPium 0.5 MG/2.5 ML INH IH SCH (11:48)
[2023-10-03] MEDS: MIDODRINE HCL 5 MG TABLET PO SCH (14:57)
[2023-10-03] MEDS: KAYEXALATE 15GM/60ML PO ONE (14:57)
[2023-10-03] MEDS: CLOPIDOGREL 75MG TAB PO SCH (16:41)
[2023-10-03 17:42] LABS: COVID19 (SARS ANTIGEN RAPID) PRESUMPTIVE NEGATIVE (NEGATIVE); INFLUENZA TYPE A Negative For Type A (NEGATIVE); INFLUENZA TYPE B Negative For Type B (NEGATIVE)
[2023-10-03 22:11] LABS: ABG BASE EXCESS 1.9 mmol/L (-2.0-3.0); ABG HCO3 26.3 mmol/L (21.0-28.0); ABG OXYGEN SATURATION 95.6 % (94.0-98.0); ABG PCO2 41 mmHg (35-48); ABG PH 7.429 (7.350-7.450); DEVICE COMMENT LB RN MARIO; PO2, ARTERIAL BG 76.6 mmHg (83.0-108.0); VENT MODE, BG NC (ROOM AIR)
[2023-10-04] VITALS (29 sets, daily range): BP systolic 99–125; BP diastolic 56–76; PULSE 83–95; RESP 16–20; TEMP 97.7–97.9; O2SAT 95–99
[2023-10-04 04:05] LABS: BASOPHILS # (AUTO) 0.09 K/uL (0.00-0.20); EOSINOPHILS # (AUTO) 0.34 K/uL (0.00-0.70); EOSINOPHILS % (AUTO) 3.7 % (0.0-8.0); HEMATOCRIT 26.9 % (42-54); IMMATURE GRANULOCYTE ABSOLUTE 0.07 K/uL (0-1); LYMPHOCYTES % (AUTO) 11.1 % (21.0-51.0); MEAN CORPUSCULAR HEMOGLOBIN 30.8 pg (27.0-33.0); MEAN CORPUSCULAR HGB CONC 30.1 g/dL (32.0-36.0); MEAN CORPUSCULAR VOLUME 102.3 fL (79-99); MONOCYTES # (AUTO) 1.1 K/uL (0.1-1.0); MONOCYTES % (AUTO) 11.5 % (3.0-13.0); NEUTROPHILS # (AUTO) 6.7 K/uL (1.8-7.7); NEUTROPHILS % (AUTO) 71.9 % (40.0-77.0); PLATELET COUNT (AUTO) 215 K/uL (130-400); RED BLOOD CELL COUNT(AUTO) 2.63 MIL/uL (4.50-6.20); WHITE BLOOD COUNT (AUTO) 9.2 K/uL (4.8-10.8)
[2023-10-04 04:24] LABS: B-TYPE NATRIURETIC PEPTIDE 809 pg/mL (0-100)
[2023-10-04 04:33] LABS: % IRON SATURATION 20.8 % (30-44)
[2023-10-04 05:46] LABS: ALBUMIN 3.3 g/dL (3.5-5.0); BILIRUBIN,TOTAL 0.5 mg/dL (0.2-1.0); MAGNESIUM 2.5 mg/dL (1.80-2.40); PHOSPHORUS 6.8 mg/dL (2.5-4.9); TOTAL PROTEIN, SERUM 7.7 g/dL (6.0-8.3)
[2023-10-04 05:49] LABS: CREATININE 9.5 mg/dL (0.5-1.3); POTASSIUM 6.6 mmol/L (3.5-5.1)
[2023-10-04] MEDS ORDERED: 0.9%NACL 50ML IV SCH (06:30)
[2023-10-04] MEDS: SODIUM BICARB 50MEQ 50ML VIAL IV ONE (06:57)
[2023-10-04] MEDS: KAYEXALATE 15GM/60ML PO ONE (06:58)
[2023-10-04] MEDS ORDERED: CALCIUM GLUC 1GM/10ML VIAL IVPB SCH (07:00)
[2023-10-04] MEDS ORDERED: CALCIUM GLUC 1GM 1 GM in 0.9%NACL 100ML 100 ML IV SCH (07:00)
[2023-10-04] MEDS: INSULIN humuLIN R 100 UNIT/ML 3ML SQ ONE (08:00)
[2023-10-04] MEDS ORDERED: DEXTROSE 50%-WATER 50 ML DISP.SYRIN IV PRN (08:00)
[2023-10-04] MEDS ORDERED: 0.9% NACL 250ML 250 ML IV SCH (08:30)
[2023-10-04] MEDS: ALBUMIN (HUMAN) 25% 50 ML IV.SOLN. IV ONE (09:00)
[2023-10-04] MEDS: 0.9%NACL 1000ML 1,000 ML IV SCH (09:53)
[2023-10-04] MEDS: EPOETIN ALFA-EPBX (NON-ESRD) 10,000 UNIT/ML VIAL SQ SCH (16:36)
[2023-10-04] MEDS: FUROSEMIDE 40MG VIAL IV ONE (16:36)
[2023-10-04] MEDS: IRON sUCROse COMPLEX 100 MG/5 ML VIAL IV ONE ×2 (17:52→19:50)
[2023-10-04 18:58] LABS: INR 1.21 (0.85-1.15); PROTHROMBIN TIME 12.9 SEC (9.6-11.6)
[2023-10-04 18:59] LABS: PARTIAL THROMBOPLASTIN TIME 32.2 SEC (26.3-35.5)
[2023-10-05] VITALS (10 sets, daily range): BP systolic 106–113; BP diastolic 60–66; PULSE 81–91; RESP 16–20; O2SAT 93–98
[2023-10-05 04:37] LABS: IMMATURE GRANULOCYTE ABSOLUTE 0.03 K/uL (0-1); LYMPHOCYTES # (AUTO) 1.1 K/uL (1.0-4.8); LYMPHOCYTES % (AUTO) 10.9 % (21.0-51.0); MEAN CORPUSCULAR HEMOGLOBIN 30.9 pg (27.0-33.0); MEAN CORPUSCULAR HGB CONC 31.5 g/dL (32.0-36.0); MEAN CORPUSCULAR VOLUME 98.1 fL (79-99); MONOCYTES # (AUTO) 1.4 K/uL (0.1-1.0); MONOCYTES % (AUTO) 13.7 % (3.0-13.0); NEUTROPHILS # (AUTO) 6.8 K/uL (1.8-7.7); NEUTROPHILS % (AUTO) 68.1 % (40.0-77.0); PLATELET COUNT (AUTO) 220 K/uL (130-400); RED BLOOD CELL COUNT(AUTO) 2.65 MIL/uL (4.50-6.20); RED CELL DISTRIBUTION WIDTH 15.9 % (11.0-15.5)
[2023-10-05 04:53] LABS: ALBUMIN 3.4 g/dL (3.5-5.0); BILIRUBIN,TOTAL 0.5 mg/dL (0.2-1.0); CREATININE 7.5 mg/dL (0.5-1.3); MAGNESIUM 2.5 mg/dL (1.80-2.40); POTASSIUM 4.9 mmol/L (3.5-5.1); TOTAL PROTEIN, SERUM 7.9 g/dL (6.0-8.3)
[2023-10-05] MEDS: LoSARTan 25 MG TABLET PO SCH (08:55)
[2023-10-05] MEDS: NA ZIRCON CYCLOSIL(LOKELMA 10GM) PO SCH (08:56)
[2023-10-05] MEDS ORDERED: SODI10PO2 PO (12:04)
[2023-10-05] MEDS ORDERED: LOSA-417 PO (12:04)
== END 2023-10-05 14:35 | disposition home or self-care (01) ==
LOC: EDH 22:24 → EDHIP 10-03 01:01 → 4BH 10-03 02:01
PROVIDERS: ADMIT Internal Medicine Critical Care Medicine; ATTEND Internal Medicine Critical Care Medicine
DX: I13.2 Hypertensive heart and chronic kidney disease with heart failure and with stage 5 chronic kidney disease, or end stage renal disease (principal); Z20.822 Contact with and (suspected) exposure to COVID-19; E11.22 Type 2 diabetes mellitus with diabetic chronic kidney disease; N18.6 End stage renal disease; I50.9 Heart failure, unspecified; D63.1 Anemia in chronic kidney disease; E87.70 Fluid overload, unspecified; I42.9 Cardiomyopathy, unspecified; I25.10 Atherosclerotic heart disease of native coronary artery without angina pectoris; E87.5 Hyperkalemia; J90 Pleural effusion, not elsewhere classified; J96.21 Acute and chronic respiratory failure with hypoxia; I48.91 Unspecified atrial fibrillation; E78.5 Hyperlipidemia, unspecified; E66.9 Obesity, unspecified; K80.20 Calculus of gallbladder without cholecystitis without obstruction; J98.11 Atelectasis; I95.89 Other hypotension; Z79.82 Long term (current) use of aspirin; Z95.1 Presence of aortocoronary bypass graft; Z79.01 Long term (current) use of anticoagulants; Z79.4 Long term (current) use of insulin; Z99.2 Dependence on renal dialysis; Z68.31 Body mass index [BMI] 31.0-31.9, adult; Z95.810 Presence of automatic (implantable) cardiac defibrillator; Z79.899 Other long term (current) drug therapy
CPT/HCPCS: 96365; 82550 ×3; 84484 ×3; 80048 ×2; 83880 ×2; 85025 ×4; 36415; 71045; 99291; 93005; 84132 ×4; 96366; 96375 ×2; 84443; 83735 ×3; 84100 ×2; 82330; 82803; 86850; 86900; 86901; 87804 ×2; 82948 ×8; 87426; 71270; 36600; 96376; 96372; 83540; 83550; 80053 ×2; 85610; 85730; 90935; 84145; 94640; J1815 ×2; J7070; J0612; G0378 ×57; Q9967; J3490; J1756; Q5106; 94664; G0257

== ENCOUNTER 2024-01-31 18:52 | Inpatient (IN) | payer OTHER ==
[~2024-01-31] VITALS: Ht 182.9 cm; Wt 105.3 kg
[~2024-01-31 18:52] MED LIST changes: -ACET325C6 PO; -ASPI-1197 PO; -ATOR40TA71 PO; +ESOM40CA66 PO; -INSU3INS3 SQ; -MIDO10TA PO; +MIDO10TA3 PO; +POLY17PO52 PO; -SEVE0.8P3 PO; +WARF-67 PO
--- NOTE | 2024-01-31 19:14 | EKG ---
[facility] Test Date: 2024-01-31 Test Time: 19:13:10 Pat Name: TERRY FUCHS Department: [facility] Room: Gender: M Assistant Coach: [id number] : 1945 Requested By: JOANN BOWIE Order Number: [id number] Reading MD: Roass Hill Measurements Intervals [place] Rate: 90 P: 94 IA: 96 QRS: 134 QRSD: 166 T: 4 QT: 469 QTc: 576 Interpretive Statements Ventricular-paced complexes Biventricular paced rhythm Compared to ECG 12/28/2023 17:19:59 Atrial fibrillation no longer present Electronically Signed On 01-31-2024 20:19:41 EMERGENCY VEHICLE TECHNICIAN by Rosas Hill Please click the below link to view image of tracing.
[2024-01-31 19:32] LABS: BASOPHILS # (AUTO) 0.09 K/uL (0.00-0.20); BASOPHILS % (AUTO) 1.2 % (0.0-5.0); EOSINOPHILS # (AUTO) 0.24 K/uL (0.00-0.70); EOSINOPHILS % (AUTO) 3.3 % (0.0-8.0); HEMATOCRIT 35.1 % (42-54); IMMATURE GRANULOCYTE ABSOLUTE 0.02 K/uL (0-1); LYMPHOCYTES # (AUTO) 0.9 K/uL (1.0-4.8); LYMPHOCYTES % (AUTO) 12.8 % (21.0-51.0); MEAN CORPUSCULAR HGB CONC 31.3 g/dL (32.0-36.0); MEAN CORPUSCULAR VOLUME 95.6 fL (79-99); MONOCYTES # (AUTO) 1.1 K/uL (0.1-1.0); MONOCYTES % (AUTO) 15.7 % (3.0-13.0); NEUTROPHILS # (AUTO) 4.9 K/uL (1.8-7.7); NEUTROPHILS % (AUTO) 66.7 % (40.0-77.0); PLATELET COUNT (AUTO) 155 K/uL (130-400); RED BLOOD CELL COUNT(AUTO) 3.67 MIL/uL (4.50-6.20); RED CELL DISTRIBUTION WIDTH 16.8 % (11.0-15.5); WHITE BLOOD COUNT (AUTO) 7.3 K/uL (4.8-10.8)
[2024-01-31 19:40] LABS: CREATININE 4.1 mg/dL (0.5-1.3); POTASSIUM 4.3 mmol/L (3.5-5.1)
[2024-01-31 19:58] LABS: B-TYPE NATRIURETIC PEPTIDE 1350 pg/mL (0-100)
[2024-01-31 20:32] LABS: COVID19 (SARS ANTIGEN RAPID) PRESUMPTIVE NEGATIVE (NEGATIVE); INFLUENZA TYPE A Negative For Type A (NEGATIVE); INFLUENZA TYPE B Negative For Type B (NEGATIVE)
[2024-01-31] MEDS ORDERED: DEXTROSE 50%-WATER 50 ML DISP.SYRIN IV PRN (21:30)
[2024-01-31] MEDS ORDERED: INSU3INS3 SQ (21:30)
[2024-01-31] MEDS ORDERED: BENZONATATE 100 MG CAPSULE PO PRN (21:30)
[2024-01-31] MEDS ORDERED: GLUCAGON 1MG KIT 1 MG ML IM PRN (21:30)
[2024-01-31] MEDS ORDERED: SEVE0.8P PO (21:30)
[2024-01-31] MEDS ORDERED: hydrALAZine 20MG/ML VIAL IV PRN (21:30)
[2024-01-31] MEDS ORDERED: LACTULOSE 20 GM/30 ML UDCUP PO PRN (21:30)
[2024-01-31] MEDS ORDERED: cloNIDine HCL 0.1 MG TABLET PO PRN (21:30)
[2024-01-31] MEDS ORDERED: acetaMINOPHEN 325 MG TAB PO PRN (21:30)
--- NOTE | 2024-01-31 21:39 | HP ---
[facility] HISTORY & PHYSICAL Date Patient Seen: Jan 31, 2024 Time of Visit: 2315 Supervising Physician: [Dr. Oniel Mims] Primary Care Physician: [Dr. Guille Jay] Outpatient Specialists: Dr. Oniel Mims-puldereck, Dr. Sheffield, nephro ] Inpatient Consults: [ ] PROBLEM LIST: Acute on chronic hypoxemic respiratory failure, on 3lpm home O2-POA Recurrent right pleural effusion-POA Sepsis 2/2 community acquired PNA-POA: tachypnea, tachycardia and (+) PNA on CXR Critically elevated D-dimer, rule out PE and DVT-acute on chronic-POA Respiratory alkalosis-POA Acute on chronic systolic diastolic heart failure, EF 20-25%, not on exacerbation ESRD on hemodialysis TTHS Chronic AFib, on anticoagulation with warfarin: held for 6 days due to supposed cataract surgery which did not push-through today Coronary artery disease, SP stents/CABG Essential hypertension Hyperlipidemia Diabetes mellitus type 2 Severe cardiomyopathy, s/p AICD History of aortic stenosis, s/p AVR, bioprosthetic PLAN: -Admit to PCCU -Start on IV Zosyn and PO Doxycycline -Obtain pneumo studies -I.S q1H x 10 while awake -Titrate oxygen to keep sats >92% -CPAP on standby -Manage SOB/wheeze and cough PRN -Obtain CT chest -Pending VQ scan and BLE venous doppler to r/o DVT -Resume Warfarin, PT/INR daily/ Patient claims he was not able to go to his cataract surgery today because of SOB -ESRD HD TTHS-consult Dr. Sheffield [place] for HD management. Patient had HD prior to ER visit, drained 2L -Daily weight -800 mls fluid restriction x 24H -RN to obtain complete home medlist for med rec HPI: [Manufacturing Area Manager services provided by [employer]: Patient is a 78-year-old male with PMH significant for ESRD HD TTHS, HTN, chronic afib on COUmadin, DM and recurrent plueral effusion who has presented ot the ED accompanied by his daughter concerning SOB. Patient believes his pleural effusion is acting up. He denies other constitutional symptoms. He just went to his HD today and got drained about 2L. Preliminary labworks were unremarkable. ABG was concerning for hypoxia with PO2 at 45. Physical assessment was unrevealing except for diminished lung sounds across lung card. Goals of care were discussed with the patient verbalizing understanding and agreement.] PAST MEDICAL HX: see above PAST SURGICAL HX: noncontributory SOCIAL HISTORY: No tobacco, ETOH, or illicit drug use Coded Allergies: No Known Allergies (Unverified Allergy, Unknown, 02/10/22) REVIEW OF SYSTEMS: 12 point ROS reviewed with patient. Pertinent positives mentioned above. Otherwise negative. PHYSICAL EXAM: GENERAL: alert, awake oriented x 3 HEENT: EOMI, Sclera non icteric, moist mucosa NECK: Supple, no JVD, trachea midline LUNGS: Diminished breath sounds bilaterally. No wheezes or crackles HEART: Regular rate and rhythm. Normal S1 and S2, without murmurs ABD: Abdomen soft, nontender. Bowel sounds present EXT: No clubbing cyanosis or edema NEURO: Alert and oriented to person, follows commands Vital Signs (last 8hr) Date Time Temp Pulse Resp B/P (MAP) Pulse Ox O2 Delivery O2 Flow Rate FiO2 01/31/24 19:25 99.0 95 20 123/70 99 Nasal Cannula* 2 28 01/31/24 18:54 98.1 89 24 120/75 98 Room Air LABS: Hematology Labs: Test 01/31/24 19:25 Range/Units White Blood Count 7.3 4.8-10.8 K/uL Red Blood Count 3.67 L 4.50-6.20 MIL/uL Hemoglobin 11.0 L 14.0-18.0 g/dL Hematocrit 35.1 L 42-54 % Mean Corpuscular Volume 95.6 79-99 fL Mean Corpuscular Hemoglobin 30.0 27.0-33.0 pg Mean Corpuscular Hemoglobin Concent 31.3 L 32.0-36.0 g/dL Red Cell Distribution Width 16.8 H 11.0-15.5 % Platelet Count 155 130-400 K/uL Mean Platelet Volume 10.7 H 7.5-10.5 fL Immature Granulocyte % (Auto) 0.3 0-1 % Neutrophils (%) (Auto) 66.7 40.0-77.0 % Lymphocytes (%) (Auto) 12.8 L 21.0-51.0 % Monocytes (%) (Auto) 15.7 H 3.0-13.0 % Eosinophils (%) (Auto) 3.3 0.0-8.0 % Basophils (%) (Auto) 1.2 0.0-5.0 % Neutrophils # (Auto) 4.9 1.8-7.7 K/uL Lymphocytes # (Auto) 0.9 L 1.0-4.8 K/uL Monocytes # (Auto) 1.1 H 0.1-1.0 K/uL Eosinophils # (Auto) 0.24 0.00-0.70 K/uL Basophils # (Auto) 0.09 0.00-0.20 K/uL Absolute Immature Granulocyte (auto 0.02 0-1 K/uL Nucleated Red Blood Cells 0.0 0.0-0.19 % White Cell Morphology Comment See comments Chemistry Labs: Test 01/31/24 19:51 01/31/24 19:25 Range/Units Troponin I < 0.05 0.00-0.05 ng/mL Sodium Level 135 L 136-145 mmol/L Potassium Level 4.3 3.5-5.1 mmol/L Chloride Level 97 L 101-111 mmol/L Carbon Dioxide Level 32 21-32 mmol/L Blood Urea Nitrogen 29 H 7-18 mg/dL Creatinine 4.1 H 0.5-1.3 mg/dL Glomerular Filtration Rate Calc 14 >90 mL/min Random Glucose 238 H 70-105 mg/dL Total Calcium 9.5 8.5-10.1 mg/dL Total Creatine Kinase 38 # 21-232 U/L B-Type Natriuretic Peptide 1350 H 0-100 pg/mL DIAGNOSTICS / RADIOLOGY RESULTS: [ ] PLAN NEURO: Minimize central acting medications as possible. Maintain fall precautions, adequate lighting during the day PULMONARY: Supplemental 02 as needed. Maintain aspiration precautions at all times CARDIOVASCULAR: Follow hemodynamics. Vital signs per facility protocol GI & NUTRITION: Continue with nutritional support. Continue stool softeners and laxatives as needed. KIDNEYS & ELECTROLYTES: Strict monitoring of intake, output and overall fluid balance. Avoid nephrotoxic medications to the extent possible. Medications to be dosed according to renal function. Monitor electrolytes and replace as needed ENDOCRINE: Maintain blood glucose between 100-180 at all times. Hypoglycemia protocol in place INFECTIOUS DISEASE: Trend temperature, WBC and procalcitonin level Follow cultures, deescalate antibiotics as soon as possible. Panculture if new onset fever ONCOLOGY/HEMATOLOGY/COAGULATION: Monitor for s/s of bleeding Monitor hemoglobin, coagulation studies as needed SKIN: Pressure ulcer prevention per facility protocol Specialty mattress ORTHO/REHAB: Continue PT/OT Prophylaxis: Continue GI and DVT prophylaxis Code Status: Full Resuscitation Disposition: TBD Other: Total patient care time: 45 minutes JOSE M RIVAS Jan 31, 2024 21:39
--- NOTE | 2024-01-31 21:39 | NUR ---
MED REC DONE AT THIS TIME.
--- NOTE | 2024-01-31 21:53 | NUR ---
ASSUMED PT CARE
[2024-01-31 21:57] LABS: INR 1.16 (0.85-1.15); PROTHROMBIN TIME 12.8 SEC (9.6-11.6)
[2024-01-31 21:58] LABS: PARTIAL THROMBOPLASTIN TIME 27.6 SEC (26.3-35.5)
[2024-01-31] MEDS: INSULIN humuLIN R 100 UNIT/ML 3ML SQ SCH (22:00)
[2024-01-31] MEDS: IpraTROPium/alBUTERol SULFATE 3 ML SOLUTION IH PRN (22:19)
--- NOTE | 2024-01-31 22:19 | NUR ---
D DIMER 1259-BENCHMARK AWARE FOR VQ SCAN IN AM AND BILAT LOWER LEG ROSEMARIE
[2024-01-31 22:20] VITALS: PULSE 89; RESP 20
[2024-01-31 22:21] VITALS: PULSE 88; RESP 22; O2SAT 99
--- NOTE | 2024-01-31 22:30 | NUR ---
BLOOD GLUC OF 238- REFUSED RESCUE DOSE OF REGULAR INSULIN
--- NOTE | 2024-01-31 22:33 | ERN ---
General Chief Complaint: Shortness of Breath Stated Complaint: ACUTE HYPOXIC RESP FAILURE Time Seen by MD: 19:10 Time Seen by Midlevel: 19:10 Source: patient History of Present Illness Initial Comments 78-year-old male who presents to the ED due to shortness of breath onset two weeks. Daughter reports patient receives dialysis Tuesdays, , and Sun. Patient states that after receiving dialysis today he had minimal relief of SOB, and no longer produces urine. Daughter reports patient had pleurocentesis approximately three months ago due to the fluid buildup causing shortness of breath. Patient has a follow up appointment with fire lookout which was recently rescheduled to February next year. PMHx ESRD, DM, HTN, pacemaker, CAD, CABG. Allergies: Coded Allergies: No Known Allergies (Unverified Allergy, Unknown, 02/10/22) Home Meds Active Scripts Midodrine HCl (Midodrine HCl) 10 Mg Tablet, 10 MG PO TID, #90 TAB Prov:SAMPSON DARLING 05/17/23 Reported Medications Insulin Glargine,Hum.rec.anlog (Lantus Solostar) 100 Unit/Ml (3 Ml) Insuln.pen, 15 UNIT SQ BID for 30 Days, ML 0 Refills 01/31/24 Sevelamer Carbonate (Renvela) 0.8 Gram Powd.pack, 0.8 GM PO TIDMEALS 01/31/24 Polyethylene Glycol 3350 (Polyethylene Glycol 3350) 17 Gram Powd.pack, 17 GM PO DAILY 12/29/23 Esomeprazole Magnesium (Esomeprazole Magnesium) 40 Mg Capsule.dr, 40 MG PO DAILY, CAP 12/29/23 Warfarin Sodium (Warfarin Sodium) 2 Mg Tablet, 2 MG PO DAILY, TAB 10/03/23 Clopidogrel Bisulfate (Clopidogrel) 75 Mg Tablet, 75 MG PO DAILYDINNER, TAB 01/12/23 Past Medical History Past Medical History: CAD, Diabetes-Type II, Hypertension, Renal Failure Past Surgical History: CABG, Pacer/AICD, RAVA Surgical History Other: DIALYSIS SHUNT TO RT ARM Family History Family History: Negative Social History Social History: Negative, Other ROS Dictation Constitutional: Negative for fever,chills, and weight loss Eyes: Negative for injury, pain,redness, and discharge ENT: Negative for injury,pain or swelling Cardiovascular: Negative for chest pain, palpitations, and edema Respiratory: Positive for shortness of breath, Negative for cough, and wheezing, Abdomen/GI: Negative for abdominal pain, nausea, vomiting, diarrhea, and constipation Back: Negative for injury and pain : Negative for painful urination, bleeding or discharge MS/Extremity: Negative for injury and deformity Skin: Negative for rash, and discoloration Neuro: Negative for headache, weakness, numbness, tingling, and seizure Psych: Negative for suicide ideation, homicidal ideation, and hallucinations Physical Exam Physical Exam Dictation General: awake, alert, no acute distress Head/Face: Normocephalic, atraumatic Eyes: normal conjunctiva ENT: oral cavity clear, oral mucosa moist Cardiovascular: RRR, normal S1/S2 Respiratory: decreased breath sounds auscultated bilaterally, hypoxia Abdomen: Soft, non-tender, non-distended, no guarding or rebound. Skin: Warm, dry, normal turgor, no rash MS/Extremity: Pulses equal, no cyanosis, neurovascular intact, FROM Neuro: COAx4, GCS 15, no neurological deficits, normal gait, Psych: Normal behavior, mood, and affect normal Results Laboratory and Microbiology Lab and Micro Result Laboratory Tests Test 01/31/24 19:25 01/31/24 19:51 01/31/24 19:52 White Blood Count 7.3 K/uL (4.8-10.8) Red Blood Count 3.67 MIL/uL (4.50-6.20) L Hemoglobin 11.0 g/dL (14.0-18.0) L Hematocrit 35.1 % (42-54) L Mean Corpuscular Volume 95.6 fL (79-99) Mean Corpuscular Hemoglobin 30.0 pg (27.0-33.0) Mean Corpuscular Hemoglobin Concent 31.3 g/dL (32.0-36.0) L Red Cell Distribution Width 16.8 % (11.0-15.5) H Platelet Count 155 K/uL (130-400) Mean Platelet Volume 10.7 fL (7.5-10.5) H Immature Granulocyte % (Auto) 0.3 % (0-1) Neutrophils (%) (Auto) 66.7 % (40.0-77.0) Lymphocytes (%) (Auto) 12.8 % (21.0-51.0) L Monocytes (%) (Auto) 15.7 % (3.0-13.0) H Eosinophils (%) (Auto) 3.3 % (0.0-8.0) Basophils (%) (Auto) 1.2 % (0.0-5.0) Neutrophils # (Auto) 4.9 K/uL (1.8-7.7) Lymphocytes # (Auto) 0.9 K/uL (1.0-4.8) L Monocytes # (Auto) 1.1 K/uL (0.1-1.0) H Eosinophils # (Auto) 0.24 K/uL (0.00-0.70) Basophils # (Auto) 0.09 K/uL (0.00-0.20) Absolute Immature Granulocyte (auto 0.02 K/uL (0-1) Nucleated Red Blood Cells 0.0 % (0.0-0.19) White Cell Morphology Comment See comments Prothrombin Time 12.8 SEC (9.6-11.6) H Prothromb Time International Ratio 1.16 (0.85-1.15) H Activated Partial Thromboplast Time 27.6 SEC (26.3-35.5) D-Dimer Quantitative (PE/DVT) 1259 ng/mL (0-500) *H Sodium Level 135 mmol/L (136-145) L Potassium Level 4.3 mmol/L (3.5-5.1) Chloride Level 97 mmol/L (101-111) L Carbon Dioxide Level 32 mmol/L (21-32) Blood Urea Nitrogen 29 mg/dL (7-18) H Creatinine 4.1 mg/dL (0.5-1.3) H Glomerular Filtration Rate Calc 14 mL/min (>90) Random Glucose 238 mg/dL (70-105) H Total Calcium 9.5 mg/dL (8.5-10.1) Total Creatine Kinase 38 U/L (21-232) # B-Type Natriuretic Peptide 1350 pg/mL (0-100) H Troponin I < 0.05 ng/mL (0.00-0.05) Influenza Type A Antigen Negative For Type A Influenza Type B Antigen Negative For Type B SARS-CoV-2 Antigen (Rapid) PRESUMPTIVE NEGATIVE Labs Reviewed?: Yes EKG/XRAY/US/CT/MRI EKG Comment Date: 01/31/2024 Time: 19:13 Rate: 90 EKG interpretation: Ventricular paced complexes, biventricular paced rhythm, no STEMI Reviewed by ED Attending X-RAY Comment REASON: CHEST PAIN ORDERING PHYSICIAN: JOANN BOWIE DO PROCEDURE: CXR1VW - CHEST 1VW CHEST 1VW HISTORY: Chest pain COMPARISON: 12/28/2023 FINDINGS: A frontal projection of the chest was obtained. There are bilateral pulmonary infiltrates suggestive of pulmonary vascular congestion with possible superimposed pneumonitis. Small right pleural effusion is seen. Poststernotomy changes are seen. The heart is enlarged. Degenerative changes of the thoracolumbar spine are present. Pacemaker is seen entering from the left. No evidence of aortic calcification is seen. IMPRESSION: 1. Bilateral pulmonary infiltrates are seen suggestive of pulmonary vascular congestion with possible superimposed pneumonitis. Small right pleural effusion. MDM MDM: Differential diagnosis: Pneumonia, pleural effusion, pulmonary embolism, Rationale: 78-year-old male who presents to the ED due to shortness of breath onset two weeks. Daughter reports patient receives dialysis Tuesdays, , and Saturdays. Patient states that after receiving dialysis today he had minimal relief of SOB, and no longer produces urine. Daughter reports patient had pleurocentesis approximately three months ago due to the fluid buildup causing shortness of breath. Patient has a follow up appointment with fire lookout which was recently rescheduled to February next year. PMHx ESRD, DM, pacemaker, CAD, CABG. Per physical examination patient is tachypneic, with decreased bilateral breath sounds, placed on 2 L of O2. Labs obtained indicate anemia due to hemoglobin 11, elevated D-dimer of 1259, elevated PT and INR. BUN 29, creatinine 4.1 consistent with ESRD. BNP 1350. Influenza and COVID negative. Chest x-ray indicates bilateral pulmonary infiltrates suggestive pulmonary vascular congestion possible superimposed pneumonitis. Small right pleural effusion. Patient and family member were educated on findings and diagnosis. Discussed admission with patient and family member who verbalized understanding and agreed. Case was discussed with hospitalist who accepted admission. Previous outside records reviewed: Old ER visits. Risk of complication and/or morbidity or mortality of patient management: None Medications-Per medication reconciliation Need for hospitalization: Patient does meet criteria for hospitalization. Need for emergency major/minor surgery: No There are no social concerns with this patient. Prescription drug management Prescriptions will include symptomatic care Patient's prior external medical records from other ER visits were reviewed by me as indicated. Prior testing and results from previous visits were reviewed. Prior tests were taken into account with medical decision making and resource utilization, independent historian/historians were used to obtain complete medical history. I independently interpreted the test that were performed, results were reviewed by me and considered findings on radiology if ordered. Medical management and examination interpretation discussions were had by me with other qualified healthcare professionals as indicated for the patient's care. ED Course Orders Procedure Category Date Status Time Vital Signs Per CPOE 01/31/24 Transmitted Routine 19:02 B-Type Natriuretic LAB 01/31/24 Complete Peptide 19:02 Chest 1vw RAD 01/31/24 Resulted 19:02 12 Lead Ekg Tracing- EKG 01/31/24 Resulted Technical 19:02 Oxygen By Nc/Pulse Ox CPOE 01/31/24 Transmitted 19:02 Maintain Iv CPOE 01/31/24 Transmitted 19:02 Iv Insertion CPOE 01/31/24 Transmitted 19:02 Cardiac Monitoring CPOE 01/31/24 Transmitted 19:02 Pulse Oximetry With CPOE 01/31/24 Transmitted Vs And Prn 19:02 Cbc With Differential LAB 01/31/24 Complete 19:02 Activity: Br W/Brp CPOE 01/31/24 Transmitted With Assist 19:02 Creatine Kinase, Total LAB 01/31/24 Complete 19:02 Troponin Poc Order LAB 01/31/24 Complete Only 19:02 Bedside Troponin-I LAB.ER 01/31/24 In Process (Poc) 19:02 Basic Metabolic Panel LAB 01/31/24 Complete 19:02 Covid19 (Sars Antigen LAB 01/31/24 Complete Rapid) 19:38 Influenza Type A & B, LAB 01/31/24 Complete Rapid 19:38 D-Dimer LAB 01/31/24 Complete 21:03 Arterial Blood Gas RT 01/31/24 Transmitted 21:26 Ipratropium/Albuterol PHA 01/31/24 In Process Neb (Duoneb) 21:30 Benzonatate 100 Mg PHA 01/31/24 In Process Capsule (Tessalon 100 21:30 Vital Signs Date Time Temp Pulse Resp B/P (MAP) Pulse Ox O2 Delivery O2 Flow Rate FiO2 01/31/24 19:25 99.0 95 20 123/70 99 Nasal Cannula* 2 28 01/31/24 18:54 98.1 89 24 120/75 98 Room Air Critical Care Note Critical Time: 30 minutes Comments Critical Care Procedure Note Authorized and Performed by: me Total critical care time: Approximately 36 minutes Due to a high probability of clinically significant, life threatening deterioration, the patient required my highest level of preparedness to intervene emergently and I personally spent this critical care time directly and personally managing the patient. This critical care time included obtaining a history; examining the patient; pulse oximetry; ordering and review of studies; arranging urgent treatment with development of a management plan; evaluation of patient's response to treatment; frequent reassessment; and, discussions with other providers. This critical care time was performed to assess and manage the high probability of imminent, life-threatening deterioration that could result in multi-organ failure. It was exclusive of separately billable procedures and treating other patients and teaching time. Please see MDM section and the rest of the note for further information on patient assessment and treatment. DX & DISP Disposition: Inpatient Decision to Admit Date: Jan 31, 2024 Departure Impression: Primary Impression: Acute respiratory failure with hypoxia Additional Impressions: Elevated d-dimer, Acute exacerbation of CHF (congestive heart failure), ESRD (end stage renal disease), Anemia Condition: Stable Referrals: IVAN BOWLES MD (PCP) I participated in the following activities of this patient's care: For this patient encounter, I reviewed the PA or CANDY FEEDER documentation, treatment plan, and medical decision making. I did not have [id number] time with this patient. I will sign as the reviewing DrStephon And agree with the treatment plan and disposition. JUD ARSHAD Jan 31, 2024 22:33
--- NOTE | 2024-01-31 22:40 | NUR ---
PATIENT REFUSED CPAP- SECURED REFUSAL FORM
--- NOTE | 2024-01-31 22:52 | NUR ---
SPOKEN TO NUCLEAR MEDICINE, MARIA TERESA OVER THE PHONE. HOLD VQ SCAN FOR NOW PATIENT IS NOT ABLE TO LIE FLAT FOR AN HOUR FOR THE PROCEDURE
--- NOTE | 2024-01-31 23:40 | HMCIMG ---
US VENOUS DOPPLER BILATERAL HISTORY: Pulmonary embolism COMPARISON: None TECHNIQUE: Bilateral lower extremity venous Doppler ultrasound study was performed. FINDINGS: The common femoral, femoral, popliteal, and posterior tibial veins are visualized. Normal flow with augmentation and compressibilities are demonstrated. The greater saphenous veins are also seen and grossly patent. There is left Justin's cyst measuring 5 x 1.3 cm. IMPRESSION: 1. No evidence of deep venous thrombosis is seen.
[2024-02-01] VITALS (11 sets, daily range): BP systolic 103–111; BP diastolic 56–69; PULSE 89–91; RESP 16–22; TEMP 97.6–98.2; O2SAT 97–99
[2024-02-01] MEDS: ZOSYN 3.375GM +NS 50ML IV SCH (00:04)
[2024-02-01] MEDS: DOXYCYCLINE HYCLATE 100 MG TABLET PO SCH (00:04)
[2024-02-01 01:06] LABS: ABG OXYGEN SATURATION 75.6 % (94.0-98.0); BASE EXCESS,VENOUS BLOOD GAS 3.4 (-2.0-3.0); DEVICE COMMENT LR N.C 2; HCO3,VENOUS BLOOD GAS 26.3 (22.0-29.0); PCO2,VENOUS BLOOD GAS 34 (38-54); PH,VENOUS BLOOD GAS 7.504 (7.320-7.430); PO2,VENOUS BLOOD GAS 37.5 mmHg (23.0-48.0); VENT MODE, BG RN (ROOM AIR)
--- NOTE | 2024-02-01 02:09 | HMCIMG ---
CT CHEST W/O CONTRAST HISTORY: Pleural effusion COMPARISON: 10/03/2023 TECHNIQUE: Multiple sequential axial images of the chest were obtained from the thoracic inlet through upper abdomen. Patient was not given contrast through intravenous route. FINDINGS: There are small bilateral pleural effusions with pleural base mass not excluded. Coronary arterial calcifications are seen. There are interstitial fibrosis. No pleural effusion or pericardial effusion is seen. There is no evidence of pneumothorax. There are normal size mediastinal and hilar lymph nodes. The heart is enlarged. Poststernotomy changes are seen. Degenerative changes of the thoracolumbar spine are present. There is no evidence of adrenal nodule. IMPRESSION: 1. Small bilateral pleural effusions with pleural base mass not excluded. Interstitial fibrosis. CT was performed with one or more following dose reduction techniques: automated exposure control, adjustment of the mA and kv according to patient's size, or use of a iterative reconstruction technique.
--- NOTE | 2024-02-01 02:30 | NUR ---
ON ARRIVAL TO ROOM 232 PATIENT CAME IN WITH WALLET AND CELL PHONE. ASKED PATIENT IF HE WOULD LIKE FOR HIS WALLET TO BE SECURED IN A SAFE BY SECURITY BUT PATIENT REFUSED. STATED " NO KIERO QUE PREETI BAKER MIS COSAS AQUI DEJALAS".
--- NOTE | 2024-02-01 03:06 | NUR ---
@0245AM PATIENT VERBALIZED FEELING SHORT OF BREATH. ASSESSED SP02% AT 97% ON OXYGEN AT 2L VIA NC. OFFERED TO GET CPAP FOR PATIENT BUT HE REFUSED. CALLED RT DONAVON. @0250AM OXYGEN INCREASED TO 4L PER MINUTE VIA NASAL CANULA BY RT.
--- NOTE | 2024-02-01 03:13 | NUR ---
PICTURES TAKEN OF OPEN AREA TO TOP OF LEFT FOOT AND RIGHT FOOT 3RD TOE.
[2024-02-01 03:54] LABS: BASOPHILS # (AUTO) 0.07 K/uL (0.00-0.20); EOSINOPHILS % (AUTO) 4.1 % (0.0-8.0); IMMATURE GRANULOCYTE ABSOLUTE 0.03 K/uL (0-1); MEAN CORPUSCULAR HEMOGLOBIN 29.1 pg (27.0-33.0); MEAN CORPUSCULAR HGB CONC 30.9 g/dL (32.0-36.0); MONOCYTES # (AUTO) 1.3 K/uL (0.1-1.0); MONOCYTES % (AUTO) 17.3 % (3.0-13.0); NEUTROPHILS # (AUTO) 4.7 K/uL (1.8-7.7); NEUTROPHILS % (AUTO) 64.2 % (40.0-77.0); PLATELET COUNT (AUTO) 154 K/uL (130-400); RED BLOOD CELL COUNT(AUTO) 3.51 MIL/uL (4.50-6.20); RED CELL DISTRIBUTION WIDTH 17.1 % (11.0-15.5); WHITE BLOOD COUNT (AUTO) 7.4 K/uL (4.8-10.8)
[2024-02-01 04:14] LABS: CREATININE 4.8 mg/dL (0.5-1.3); MAGNESIUM 2.2 mg/dL (1.80-2.40); PHOSPHORUS 4.7 mg/dL (2.5-4.9); POTASSIUM 4.4 mmol/L (3.5-5.1)
[2024-02-01] MEDS ORDERED: INSULIN humuLIN R 100 UNIT/ML 3ML SQ SCH (07:30)
--- NOTE | 2024-02-01 07:33 | NUR ---
RAD NUCLEAR MEDICINE PER NURSE MADISON @ 2224 HOURS PATIENT IS NOT ABLE TO LAY FLAT FOR EXAM
--- NOTE | 2024-02-01 07:38 | NUR ---
PATIENT [id number], RESPIRATIONS EVEN AND UNLABORED. NO S/S OF DISTRESS. DENIES ANY CHEST PAIN, AFEBRILE, OXYGEN AT 4L PER MINUTE VIA NC. TOLERATING WELL.
[2024-02-01] MEDS ORDERED: PHARMACY COMMUNICATION MISC SCH (09:00)
[2024-02-01] MEDS: PANTOPrazole 40 MG TAB DR PO SCH (10:07)
--- NOTE | 2024-02-01 10:13 | NUR ---
[facility] Consult: Patient assessed by wound healing team. See wound assessment. Assessment and recommendations provided to primary nurse. Education provided. Addendum: 02/01/24 at 1148 by LEANA MCDONALD RN RN/ Amended: Links added.
[2024-02-01 12:37] LABS: MYCOPLASMA AB IGM NEGATIVE (NEGATIVE)
[2024-02-01] MEDS: miDODRine HCL 5 MG TABLET PO SCH (13:16)
--- NOTE | 2024-02-01 13:20 | CONS ---
NEPHROLOGY CONSULTATION NOTE Date/Time Patient Seen: Feb 01, 2024 Reason for Consultation: Shortness of breath, fluid overload, end stage renal disease HISTORY OF PRESENT ILLNESS: This is a 78-year-old male with a past medical history of end-stage renal disease on hemodialysis Sunday, coronary artery disease S/p remote CABG, chronic combined congestive heart failure S/p pacemaker/AICD, diabetes mellitus type 2, hypertension, atrial fibrillation on anticoagulation with Coumadin, history of aortic stenosis S/p AVR, bioprosthetic, and pleural effusions. He presented to the emergency room with complaints of shortness of breath He has been complaint with hemodialysis He was seen in the medical floor, No family at the bedside Prognosis remains guarded REVIEW OF SYSTEMS: GENERAL: Negative for any nausea, vomiting, fevers, chills, or weight loss. NEUROLOGIC: Negative for any blurry vision, blind spots, double vision, facial asymmetry, dysphagia, dysarthria, hemiparesis, hemisensory deficits, vertigo, ataxia. HEENT: Negative for any head trauma, neck trauma, neck stiffness, photophobia, phonophobia, sinusitis, rhinitis. CARDIAC: Negative for any chest pain, dyspnea on exertion, paroxysmal nocturnal dyspnea, peripheral edema. PULMONARY: Negative for any shortness of breath, wheezing, COPD, or TB exposure. GASTROINTESTINAL: Negative for any abdominal pain, nausea, vomiting, bright red blood per rectum, melena. GENITOURINARY: Negative for any dysuria, hematuria, incontinence. INTEGUMENTARY: Negative for any rashes, cuts, insect bites. RHEUMATOLOGIC: Negative for any joint pains, photosensitive rashes, history of vasculitis or kidney problems. HEMATOLOGIC: Negative for any abnormal bruising, frequent infections or bleeding. PAST MEDICAL HISTORY: End-stage renal disease Coronary artery disease Chronic combined congestive heart failure Aortic stenosis Diabetes mellitus type 2 Hypertension Atrial fibrillation Pleural effusions PAST SURGICAL HISTORY: CABG Left AV fistula PAST SOCIAL HISTORY: Denies use of alcohol, tobacco or illicit drugs FAMILY HISTORY: Noncontributory PHYSICAL EXAM: GENERAL: Alert and oriented x 3. No acute distress. Well-nourished. EYES: EOMI. Anicteric. HENT: Moist mucous membranes. No scleral icterus. No cervical lymphadenopathy. LUNGS: Clear to auscultation bilaterally. No accessory muscle use. CARDIOVASCULAR: Regular rate and rhythm. No murmur. No JVD. ABDOMEN: Soft, non-tender and non-distended. No palpable masses. EXTREMITIES: No edema. Non-tender.?SKIN: No rashes or lesions. Warm. NEUROLOGIC: No focal neurological deficits. CN II-XII grossly intact, but not individually tested. PSYCHIATRIC: Cooperative. Appropriate mood and affect. MEDICATIONS: [ ] Current Medications Medications (Trade) Dose Ordered Sig/Yefri Route PRN Reason Start Time Stop Time Status Last Admin Dose Admin Acetaminophen (TYLenol 325MG TAB) 650 mg Q6H PRN PO FEVER/MILD PAIN LEVEL 1-3 01/31/24 21:30 03/01/24 21:29 Albuterol (DUOneb) 1 udvial Q6H PRN IH SHORTNESS OF BREATH 01/31/24 21:30 03/01/24 21:29 01/31/24 22:19 1 UDVIAL Benzonatate (Tessalon 100mg Caps) 100 mg Q8H PRN PO COUGH 01/31/24 21:30 03/01/24 21:29 Clonidine HCl (CATApres 0.1 mg TAB) 0.1 mg Q6H PRN PO IF SBP GREATER THAN 160 01/31/24 21:30 03/01/24 21:29 Dextrose (D50w) 50 ml AD PRN IV HYPOGLYCEMIA PROTOCOL 01/31/24 21:30 03/01/24 21:29 Doxycycline Hyclate (Doxycycline Hyclate) 100 mg BID PO 02/01/24 00:00 02/11/24 00:00 02/01/24 10:07 100 MG Glucagon (Glucagon 1mg Kit) 1 mg AD PRN IM HYPOGLYCEMIA PROTOCOL 01/31/24 21:30 03/01/24 21:29 Hydralazine HCl (APRESOLine 20MG INJ) 10 mg Q6H PRN IV SBP GREATER THAN 170 01/31/24 21:30 03/01/24 21:29 Insulin Human Regular (humuLIN R 100 UNIT/ML 3ML) INSULIN SLIDING SCAL... ACHS SQ 01/31/24 22:00 03/01/24 21:59 Insulin Human Regular (humuLIN R 100 UNIT/ML 3ML) INSULIN SLIDING SCAL... ACHS SQ 02/01/24 07:30 01/31/24 21:41 DC Lactulose (Constulose 20gm/ 30ml Udcup) 20 gm Q6H PRN PO CONSTIPATION 01/31/24 21:30 03/01/24 21:29 Midodrine (PROAMatine 5 MG TABLET) 10 mg TID PO 02/01/24 14:00 03/02/24 13:59 02/01/24 13:16 10 MG Ondansetron HCl (zoFRAN 4MG INJ) 4 mg Q6H PRN IVP NAUSEA/VOMITING 01/31/24 21:30 03/01/24 21:29 Pantoprazole Sodium (PROTonix 40MG TAB) 40 mg DAILY PO 02/01/24 09:00 03/02/24 08:59 02/01/24 10:07 40 MG Pharmacy Profile Note (Pharmacy Communication) 1 each AD MISC 02/01/24 09:00 02/01/24 08:51 DC Piperacillin Sod/ Tazobactam Sod (Zosyn 3.375gm+NS 50ml) 3.375 gm Q12H IV 02/01/24 00:00 02/11/24 00:00 02/01/24 11:51 3.375 GM Vital Signs (last 8hr) Date Time Temp Pulse Resp B/P (MAP) Pulse Ox O2 Delivery O2 Flow Rate FiO2 02/01/24 12:09 97.7 90 18 103/65 98 Nasal Cannula 4.0 02/01/24 08:34 97.5 89 16 111/69 96 Nasal Cannula 4.0 02/01/24 07:52 90 20 N/Cannula Low lpm 2.0 28 DIAGNOSTICS / RADIOLOGY: REASON: pleural effusion ORDERING PHYSICIAN: JOSE M RIVAS PROCEDURE: CHEST WO - CT CHEST W/O CONTRAST CT CHEST W/O CONTRAST HISTORY: Pleural effusion COMPARISON: 10/03/2023 TECHNIQUE: Multiple sequential axial images of the chest were obtained from the thoracic inlet through upper abdomen. Patient was not given contrast through intravenous route. FINDINGS: There are small bilateral pleural effusions with pleural base mass not excluded. Coronary arterial calcifications are seen. There are interstitial fibrosis. No pleural effusion or pericardial effusion is seen. There is no evidence of pneumothorax. There are normal size mediastinal and hilar lymph nodes. The heart is enlarged. Poststernotomy changes are seen. Degenerative changes of the thoracolumbar spine are present. There is no evidence of adrenal nodule. IMPRESSION: 1. Small bilateral pleural effusions with pleural base mass not excluded. Interstitial fibrosis. CT was performed with one or more following dose reduction techniques: automated exposure control, adjustment of the mA and kv according to patient's size, or use of a iterative reconstruction technique. DICTATED BY: VISHNU VAN MD DATE: 02/01/24 0203 REASON: PE PROTOCOL, ELEVATED D DIMER ORDERING PHYSICIAN: ALVA COELLO PROCEDURE: VENOUS LAUREN - US VENOUS DOPPLER BILATERAL US VENOUS DOPPLER BILATERAL HISTORY: Pulmonary embolism COMPARISON: None TECHNIQUE: Bilateral lower extremity venous Doppler ultrasound study was performed. FINDINGS: The common femoral, femoral, popliteal, and posterior tibial veins are visualized. Normal flow with augmentation and compressibilities are demonstrated. The greater saphenous veins are also seen and grossly patent. There is left Justin's cyst measuring 5 x 1.3 cm. IMPRESSION: 1. No evidence of deep venous thrombosis is seen. DICTATED BY: VISHNU VAN MD DATE: 01/31/24 2336 REASON: CHEST PAIN ORDERING PHYSICIAN: JOANN BOWIE DO PROCEDURE: CXR1VW - CHEST 1VW CHEST 1VW HISTORY: Chest pain COMPARISON: 12/28/2023 FINDINGS: A frontal projection of the chest was obtained. There are bilateral pulmonary infiltrates suggestive of pulmonary vascular congestion with possible superimposed pneumonitis. Small right pleural effusion is seen. Poststernotomy changes are seen. The heart is enlarged. Degenerative changes of the thoracolumbar spine are present. Pacemaker is seen entering from the left. No evidence of aortic calcification is seen. IMPRESSION: 1. Bilateral pulmonary infiltrates are seen suggestive of pulmonary vascular congestion with possible superimposed pneumonitis. Small right pleural effusion. DICTATED BY: VISHNU VAN MD DATE: 01/31/242226 LABORATORY: [ ] Hematology Labs: Test 02/01/24 03:39 01/31/24 19:25 Range/Units White Blood Count 7.4 4.8-10.8 K/uL Red Blood Count 3.51 L 4.50-6.20 MIL/uL Hemoglobin 10.2 L 14.0-18.0 g/dL Hematocrit 33.0 L 42-54 % Mean Corpuscular Volume 94.0 79-99 fL Mean Corpuscular Hemoglobin 29.1 27.0-33.0 pg Mean Corpuscular Hemoglobin Concent 30.9 L 32.0-36.0 g/dL Red Cell Distribution Width 17.1 H 11.0-15.5 % Platelet Count 154 130-400 K/uL Mean Platelet Volume 10.7 H 7.5-10.5 fL Immature Granulocyte % (Auto) 0.4 0-1 % Neutrophils (%) (Auto) 64.2 40.0-77.0 % Lymphocytes (%) (Auto) 13.0 L 21.0-51.0 % Monocytes (%) (Auto) 17.3 H 3.0-13.0 % Eosinophils (%) (Auto) 4.1 0.0-8.0 % Basophils (%) (Auto) 1.0 0.0-5.0 % Neutrophils # (Auto) 4.7 1.8-7.7 K/uL Lymphocytes # (Auto) 1.0 1.0-4.8 K/uL Monocytes # (Auto) 1.3 H 0.1-1.0 K/uL Eosinophils # (Auto) 0.30 0.00-0.70 K/uL Basophils # (Auto) 0.07 0.00-0.20 K/uL Absolute Immature Granulocyte (auto 0.03 0-1 K/uL Nucleated Red Blood Cells 0.0 0.0-0.19 % Red Blood Cell Morphology See comments White Cell Morphology Comment See comments Chemistry Labs: Test 02/01/24 11:00 02/01/24 03:39 02/01/24 00:40 01/31/24 19:51 Range/Units Whole Blood Glucose 172 H 70-110 MG/DL Sodium Level 141 136-145 mmol/L Potassium Level 4.4 3.5-5.1 mmol/L Chloride Level 101 101-111 mmol/L Carbon Dioxide Level 32 21-32 mmol/L Blood Urea Nitrogen 35 H 7-18 mg/dL Creatinine 4.8 H 0.5-1.3 mg/dL Glomerular Filtration Rate Calc 12 >90 mL/min Random Glucose 160 H 70-105 mg/dL Total Calcium 9.3 8.5-10.1 mg/dL Phosphorus Level 4.7 2.5-4.9 mg/dL Magnesium Level 2.20 1.80-2.40 mg/dL Thyroid Stimulating Hormone (TSH) 2.00 0.36-3.74 uIU/mL Lactic Acid Level 1.5 0.8-2.5 mmol/L Troponin I < 0.05 0.00-0.05 ng/mL Test 01/31/24 19:25 Range/Units Total Creatine Kinase 38 # 21-232 U/L B-Type Natriuretic Peptide 1350 H 0-100 pg/mL Coagulation Labs: Test 01/31/24 19:25 Range/Units Prothrombin Time 12.8 H 9.6-11.6 SEC Prothromb Time International Ratio 1.16 H 0.85-1.15 Activated Partial Thromboplast Time 27.6 26.3-35.5 SEC D-Dimer Quantitative (PE/DVT) 1259 *H 0-500 ng/mL ASSESSMENT: Acute hypoxic respiratory failure Shortness of breath Fluid overload Hyperkalemia Shortness of breath End-stage renal disease Acute on chronic respiratory failure, on intermittent home O2 Acute on chronic combined congestive heart failure, EF of 20-25%, POA s/p pacemaker/AICD History of aortic stenosis s/p AVR Diabetes mellitus type II Hypertension PLAN: Labs, diagnostic, radiologic exams reviewed and interpreted by myself and supervising physician. We have reviewed external and dialysis records records in detail Continue dialysis schedule Sunday 1.5 L fluid restriction May have midodrine 10 mg before dialysis May use albumin during dialysis if hypotensive Start Nephro-Melissa daily BiPAP for respiratory distress Require close monitoring of renal function and electrolytes Order CBC, CMP, and electrolytes in am Continue with antibiotics Renal diabetic diet Monitor blood pressure adjust medication doses as needed Avoid hypotensive episodes May use Dilaudid 0.5 mg IV every 6 hours as needed for severe pain Monitor blood sugars Strict intake, output, and daily weight should be monitored Please renally adjust medications Avoid nephrotoxic and nonsteroidal drugs Avoid contrast if possible Will continue to monitor renal function, anemia, electrolytes Treatment plan discussed with patient Questions were answered We have discussed with the other team physicians in detail about the care plan We will continue to monitor the patient closely Thank you for allowing us to participate in the care of this patient ATTESTATION BY PHYSICIAN I have seen and examined the patient. I reviewed the documentation, medical decision making, and treatment plan as noted by the mid-level provider above. I agree with the findings and plan of care. LAYNE SARABIA MD, [facility] Feb 01, 2024 13:20
--- NOTE | 2024-02-01 14:43 | NUR ---
ANYA PLAN VISITED WITH PATIENT. PATIENT LIVES WITH DAUGHTER. USES A SHOWER CHAIR, 02 CONCENTRATOR WHEN NEEDED NOT ALL THE TIME. NO OTHER SERVICES OR DMES. SAID HAS TROUBLE PAYING FOR GAS. GAVE PERMISSION TO SEND INFORMATION TO [facility]. INFO SENT. PLAN TO [facility] Addendum: 02/01/24 at 1450 by DUARTE VEGA RN CM Amended: Links added.
--- NOTE | 2024-02-01 16:47 | CONS ---
CONSULTATION NOTE Date of Service: Feb 01, 2024 Reason for Consultation: [ Wounds to the feet ] Requesting Physician: [ Hospitalist ] HISTORY OF PRESENT ILLNESS: [ Patient is a 78-year-old male with PMH significant for ESRD HD TTHS, HTN, chronic afib on COUmadin, DM and recurrent plueral effusion who has presented ot the ED accompanied by his daughter concerning SOB. Patient believes his pleural effusion is acting up. He denies other constitutional symptoms. He just went to his HD today and got drained about 2L. Preliminary labworks were unremarkable. ABG was concerning for hypoxia with PO2 at 45. Physical assessment was unrevealing except for diminished lung sounds across lung card. Wound care is consulting for wounds to the feet. Primary nurse Neci & floor nurse in attendance. No family present. Goals of care were discussed with the patient verbalizing understanding and agreement. ] REVIEW OF SYSTEMS CONSTITUTIONAL: Denies fever, chills, or fatigue. HEAD/FACE: No signs of trauma. EENT: Denies eye pain, blurred vision, double vision, or light sensitivity. RESPIRATORY: Denies cough, wheezing; SHORTNESS OF BREATH CARDIOVASCULAR: Denies chest pain, palpitation, syncope GASTROINTESTINAL/ABDOMINAL: Denies abdominal pain, constipation, diarrhea, nausea or vomiting GENITOURINARY: Denies dysuria or hematuria. MUSCULOSKELETAL: Denies joint pain, tenderness, or trauma. INTEGUMENTARY: Denies rash or itchiness NEUROLOGICAL/PSYCH: Denies anxiety, depression, heat or cold intolerance. SKIN: Wounds to the feet PAST MEDICAL HISTORY: [ESRD HD TTHS, HTN, chronic afib on COUmadin, DM and recurrent plueral effusion ] PAST SURGICAL HISTORY: [ ] PAST SOCIAL HISTORY: [Negative ] FAMILY HISTORY: [Negative ] Coded Allergies: No Known Allergies (Unverified Allergy, Unknown, 02/10/22) PHYSICAL EXAM EYES: Anicteric. Pupils equal and reactive. HENT: No oral thrush seen, moist Oral mucosa NECK: Supple, no JVD or thyromegaly. LUNGS: Good air entry. No rales, no rhonchi. CARDIOVASCULAR: S1, S2 regular. No murmur heard. ABDOMEN: Soft, non tender, bowel sounds present, no organomegaly CENTRAL NERVOUS SYSTEM: Awake, alert, oriented x 3. No focal deficits. SKIN: No rashes, no swelling. Right 3rd toe DFU, left foot dorsal DFU LYMPHATICS: No peripheral lymphadenopathy MUSCULOSKELETAL: No joint swelling, erythema or tenderness. EXTREMITIES: No cyanosis or clubbing BACK: No deformity, no pressure ulcer. GENITOURINARY: No dysuria or hematuria Vital Sign (Last 24 Hours) 02/01/24 02/01/24 07:52 16:05 Temp 97.5 Pulse 91 Resp 18 B/P (MAP) 109/69 Pulse Ox 98 O2 Delivery Nasal Cannula O2 Flow Rate 4.0 FiO2 28 LABS: Laboratory: Test 02/01/24 15:30 02/01/24 03:39 02/01/24 00:40 01/31/24 22:04 Range/Units Whole Blood Glucose 171 H 70-110 MG/DL White Blood Count 7.4 4.8-10.8 K/uL Red Blood Count 3.51 L 4.50-6.20 MIL/uL Hemoglobin 10.2 L 14.0-18.0 g/dL Hematocrit 33.0 L 42-54 % Mean Corpuscular Volume 94.0 79-99 fL Mean Corpuscular Hemoglobin 29.1 27.0-33.0 pg Mean Corpuscular Hemoglobin Concent 30.9 L 32.0-36.0 g/dL Red Cell Distribution Width 17.1 H 11.0-15.5 % Platelet Count 154 130-400 K/uL Mean Platelet Volume 10.7 H 7.5-10.5 fL Immature Granulocyte % (Auto) 0.4 0-1 % Neutrophils (%) (Auto) 64.2 40.0-77.0 % Lymphocytes (%) (Auto) 13.0 L 21.0-51.0 % Monocytes (%) (Auto) 17.3 H 3.0-13.0 % Eosinophils (%) (Auto) 4.1 0.0-8.0 % Basophils (%) (Auto) 1.0 0.0-5.0 % Neutrophils # (Auto) 4.7 1.8-7.7 K/uL Lymphocytes # (Auto) 1.0 1.0-4.8 K/uL Monocytes # (Auto) 1.3 H 0.1-1.0 K/uL Eosinophils # (Auto) 0.30 0.00-0.70 K/uL Basophils # (Auto) 0.07 0.00-0.20 K/uL Absolute Immature Granulocyte (auto 0.03 0-1 K/uL Nucleated Red Blood Cells 0.0 0.0-0.19 % Red Blood Cell Morphology See comments Sodium Level 141 136-145 mmol/L Potassium Level 4.4 3.5-5.1 mmol/L Chloride Level 101 101-111 mmol/L Carbon Dioxide Level 32 21-32 mmol/L Blood Urea Nitrogen 35 H 7-18 mg/dL Creatinine 4.8 H 0.5-1.3 mg/dL Glomerular Filtration Rate Calc 12 >90 mL/min Random Glucose 160 H 70-105 mg/dL Total Calcium 9.3 8.5-10.1 mg/dL Phosphorus Level 4.7 2.5-4.9 mg/dL Magnesium Level 2.20 1.80-2.40 mg/dL Thyroid Stimulating Hormone (TSH) 2.00 0.36-3.74 uIU/mL Lactic Acid Level 1.5 0.8-2.5 mmol/L Mycoplasma pneumoniae IgM Antibody NEGATIVE NEGATIVE Blood Gas Specimen Type Venous Arterial Blood Oxygen Saturation 75.6 L 94.0-98.0 % Venous Blood pH 7.504 H 7.320-7.430 Venous Blood pCO2 at Patient Temp 34 L 38-54 Venous Blood pO2 at Patient Temp 37.5 23.0-48.0 mmHg Venous Blood HCO3 26.3 22.0-29.0 Venous Blood Base Excess 3.4 H -2.0-3.0 Venous Blood Total Hemoglobin 11.4 L 13.5-17.5 Sodium (Blood Gas) 135 L 136-145 MMOL/L Bedside Potassium (Blood Gas) 4.8 H 3.4-4.5 MMOL/L Bedside Chloride (Blood Gas) 98 98-107 MMOL/L Bedside Glucose (Blood Gas) 191 H 65-95 MG/DL Bedside Ionized Calcium (Blood Gas) 1.06 L 1.15-1.33 MMOL/L Bedside Lactic Acid (Blood Gas) 1.31 H 0.36-0.75 MMOL/L Blood Gas Temperature 37.0 35.5-37.0 CELSIUS Blood Gas Flow-by 2.00 0.00-15.00 L/min Blood Gas Vent Mode RN ROOM AIR FiO2 28.0 % Blood Gas Specimen Comment LR N.C 2 Test 01/31/24 19:52 01/31/24 19:51 01/31/24 19:25 Range/Units Influenza Type A Antigen Negative For Type A NEGATIVE Influenza Type B Antigen Negative For Type B NEGATIVE SARS-CoV-2 Antigen (Rapid) PRESUMPTIVE NEGATIVE NEGATIVE Troponin I < 0.05 0.00-0.05 ng/mL White Cell Morphology Comment See comments Prothrombin Time 12.8 H 9.6-11.6 SEC Prothromb Time International Ratio 1.16 H 0.85-1.15 Activated Partial Thromboplast Time 27.6 26.3-35.5 SEC D-Dimer Quantitative (PE/DVT) 1259 *H 0-500 ng/mL Total Creatine Kinase 38 # 21-232 U/L B-Type Natriuretic Peptide 1350 H 0-100 pg/mL DIAGNOSTICS / RADIOLOGY: [ ] PROBLEM LIST : Medical Problems: (1) Acute exacerbation of CHF (congestive heart failure) ICD Codes: I50.9 - Heart failure, unspecified (2) Acute respiratory failure with hypoxia ICD Codes: J96.01 - Acute respiratory failure with hypoxia (3) Anemia ICD Codes: D64.9 - Anemia, unspecified (4) Elevated d-dimer ICD Codes: R79.89 - Other specified abnormal findings of blood chemistry (5) ESRD (end stage renal disease) ICD Codes: N18.6 - End stage renal disease DFU right 3rd toe and left dorsal foot PLAN: [ [place] with betadine Pressure ulcer prevention per facility protocol Specialty mattress ] JANIS RUSSELL Feb 01, 2024 16:47
--- NOTE | 2024-02-01 17:10 | PN ---
[facility] PROGRESS NOTE Date Patient Seen: Feb 01, 2024 Time of Visit: 13:05 Supervising Physician: MARY ELLEN LUNDBERG MD [facility] Outpatient Specialists: Dr. Oniel Simpson, Dr. Sheffield, nephro ] Inpatient Consults: [ ] PROBLEM LIST: Acute on chronic hypoxemic respiratory failure, on 3lpm home O2-POA Recurrent right pleural effusion-POA Sepsis 2/2 community acquired PNA-POA: tachypnea, tachycardia and (+) PNA on CXR Critically elevated D-dimer, rule out PE and DVT-acute on chronic-POA Respiratory alkalosis-POA Acute on chronic systolic diastolic heart failure, EF 20-25%, not on exacerbation ESRD on hemodialysis TTHS Chronic AFib, on anticoagulation with warfarin: held for 6 days due to supposed cataract surgery which did not push-through today Coronary artery disease, SP stents/CABG Essential hypertension Hyperlipidemia Diabetes mellitus type 2 Severe cardiomyopathy, s/p AICD History of aortic stenosis, s/p AVR, bioprosthetic Justin cyst PLAN: -Admit to PCCU -Start on IV Zosyn and PO Doxycycline -Obtain pneumo studies -I.S q1H x 10 while awake -Titrate oxygen to keep sats >92% -CPAP on standby -Manage SOB/wheeze and cough PRN -Obtain CT chest -Pending VQ scan and BLE venous doppler to r/o DVT -Resume Warfarin, PT/INR daily/ Patient claims he was not able to go to his cataract surgery today because of SOB -ESRD HD TTHS-consult Dr. Sheffield, nephro for HD management. Patient had HD prior to ER visit, drained 2L -Daily weight -800 mls fluid restriction x 24H -RN to obtain complete home medlist for med rec INTERVAL HISTORY: Patient seen and examined he is a ESRD on HD, noted to recurrent pleural effusion, admitted due to elevated Ddimer DVT ruled out, he is oxygen at 2L, remains on Midodrine 10 mg TID, tolerating his HD sessions normal WBC, stable HH, elevated BUN/ Creatinine, no new issues reported, waiting for Dr. Sheffield kidney specialist [ ] REVIEW OF SYSTEMS: 12 point ROS reviewed with patient. Pertinent positives mentioned above. Otherwise negative. PHYSICAL EXAM: GENERAL: alert, awake oriented x 3 HEENT: EOMI, Sclera non icteric, moist mucosa NECK: Supple, no JVD, trachea midline LUNGS: Diminished breath sounds bilaterally. No wheezes or crackles HEART: Regular rate and rhythm. Normal S1 and S2, without murmurs ABD: Abdomen soft, nontender. Bowel sounds present EXT: No clubbing cyanosis or edema NEURO: Alert and oriented to person, follows commands Vital Signs (last 8hr) Date Time Temp Pulse Resp B/P (MAP) Pulse Ox O2 Delivery O2 Flow Rate FiO2 02/01/24 16:05 97.5 91 18 109/69 98 Nasal Cannula 4.0 02/01/24 12:09 97.7 90 18 103/65 98 Nasal Cannula 4.0 LABS: Hematology Labs: Test 02/01/24 03:39 01/31/24 19:25 Range/Units White Blood Count 7.4 4.8-10.8 K/uL Red Blood Count 3.51 L 4.50-6.20 MIL/uL Hemoglobin 10.2 L 14.0-18.0 g/dL Hematocrit 33.0 L 42-54 % Mean Corpuscular Volume 94.0 79-99 fL Mean Corpuscular Hemoglobin 29.1 27.0-33.0 pg Mean Corpuscular Hemoglobin Concent 30.9 L 32.0-36.0 g/dL Red Cell Distribution Width 17.1 H 11.0-15.5 % Platelet Count 154 130-400 K/uL Mean Platelet Volume 10.7 H 7.5-10.5 fL Immature Granulocyte % (Auto) 0.4 0-1 % Neutrophils (%) (Auto) 64.2 40.0-77.0 % Lymphocytes (%) (Auto) 13.0 L 21.0-51.0 % Monocytes (%) (Auto) 17.3 H 3.0-13.0 % Eosinophils (%) (Auto) 4.1 0.0-8.0 % Basophils (%) (Auto) 1.0 0.0-5.0 % Neutrophils # (Auto) 4.7 1.8-7.7 K/uL Lymphocytes # (Auto) 1.0 1.0-4.8 K/uL Monocytes # (Auto) 1.3 H 0.1-1.0 K/uL Eosinophils # (Auto) 0.30 0.00-0.70 K/uL Basophils # (Auto) 0.07 0.00-0.20 K/uL Absolute Immature Granulocyte (auto 0.03 0-1 K/uL Nucleated Red Blood Cells 0.0 0.0-0.19 % Red Blood Cell Morphology See comments White Cell Morphology Comment See comments Chemistry Labs: Test 02/01/24 15:30 02/01/24 03:39 02/01/24 00:40 01/31/24 19:51 Range/Units Whole Blood Glucose 171 H 70-110 MG/DL Sodium Level 141 136-145 mmol/L Potassium Level 4.4 3.5-5.1 mmol/L Chloride Level 101 101-111 mmol/L Carbon Dioxide Level 32 21-32 mmol/L Blood Urea Nitrogen 35 H 7-18 mg/dL Creatinine 4.8 H 0.5-1.3 mg/dL Glomerular Filtration Rate Calc 12 >90 mL/min Random Glucose 160 H 70-105 mg/dL Total Calcium 9.3 8.5-10.1 mg/dL Phosphorus Level 4.7 2.5-4.9 mg/dL Magnesium Level 2.20 1.80-2.40 mg/dL Thyroid Stimulating Hormone (TSH) 2.00 0.36-3.74 uIU/mL Lactic Acid Level 1.5 0.8-2.5 mmol/L Troponin I < 0.05 0.00-0.05 ng/mL Test 01/31/24 19:25 Range/Units Total Creatine Kinase 38 # 21-232 U/L B-Type Natriuretic Peptide 1350 H 0-100 pg/mL Coagulation Labs: Test 01/31/24 19:25 Range/Units Prothrombin Time 12.8 H 9.6-11.6 SEC Prothromb Time International Ratio 1.16 H 0.85-1.15 Activated Partial Thromboplast Time 27.6 26.3-35.5 SEC D-Dimer Quantitative (PE/DVT) 1259 *H 0-500 ng/mL DIAGNOSTICS / RADIOLOGY RESULTS: [ ] PLAN Nephro evaluation HD as scheduled continue with antibiotic therapy continue with Midodrine NEURO: Minimize central acting medications as possible. Maintain fall precautions, adequate lighting during the day PULMONARY: Supplemental 02 as needed. Maintain aspiration precautions at all times CARDIOVASCULAR: Follow hemodynamics. Vital signs per facility protocol GI & NUTRITION: Continue with nutritional support. Continue stool softeners and laxatives as needed. KIDNEYS & ELECTROLYTES: Strict monitoring of intake, output and overall fluid balance. Avoid nephrotoxic medications to the extent possible. Medications to be dosed according to renal function. Monitor electrolytes and replace as needed ENDOCRINE: Maintain blood glucose between 100-180 at all times. Hypoglycemia protocol in place INFECTIOUS DISEASE: Trend temperature, WBC and procalcitonin level Follow cultures, deescalate antibiotics as soon as possible. Panculture if new onset fever ONCOLOGY/HEMATOLOGY/COAGULATION: Monitor for s/s of bleeding Monitor hemoglobin, coagulation studies as needed SKIN: Pressure ulcer prevention per facility protocol Specialty mattress ORTHO/REHAB: Continue PT/OT Prophylaxis: Continue GI and DVT prophylaxis Code Status: Full Resuscitation Disposition: TBD ATTESTATION BY PHYSICIAN Documentation assistance provided by a scribe, information recorded by the scribe was done at my direction and has been reviewed and validated by me." MONIKA HYDE MD I personally scribed for TAMIKA HYDE MD ([email or web address]) on 02/01/24 at 17:10. Electronically submitted by Dionne Liriano ([id number]). TAMIKA HYDE MD Feb 01, 2024 17:10
--- NOTE | 2024-02-01 18:06 | NUR ---
RAD V/Q @ 1805HRS PER LILLIANA COURTNEY; PT NOT ALBE TO LAY FLAT FOR THE EXAM. EXAM ON HOLD UNTIL FURTHER NOTICE. MARGARITA
[2024-02-01] MEDS: ondanSETRON 4MG INJ IVP PRN (21:20)
--- NOTE | 2024-02-01 21:21 | NUR ---
Emesis x1, kenrick refusal Pt has x1 ep of riley colored emesis 100c. Pt requesting medication for nausea. Kenrick brought to room and pt now refusing, stating latvian that he feels better and does not need. When offered in case of more episodes, pt and family member at bedside stating he feels good now after throwing up and doesn't want anything - that he will call if he changes his mind.
--- NOTE | 2024-02-01 21:38 | NUR ---
Insulin refusal, lantus request Pt stated prior he would take regular insulin only if restarted on lantus. Informed that [facility] would be paged, and for now could bring due regular insulin. Pt agrees. Upon bringing to room, pt now states he doesn't want regular insulin at all as he states it makes him itch and he doesn't feel it helps. Educated on difference between long acting and regular insulin but pt states continued refusal. [facility] team paged and order received for pt's home dose of Lantus 15u BID. Pt states he sometimes 2-3 more units such as 18 if his sugars are high, but agrees to 15 units.
[2024-02-01] MEDS: INSULIN GLARgine 100 UNITS/ML 10 ML VIAL SQ SCH (22:37)
[2024-02-02] VITALS (20 sets, daily range): BP systolic 93–126; BP diastolic 59–76; PULSE 89–92; RESP 16–22; TEMP 97.4–98.1
[2024-02-02 04:44] LABS: HEMATOCRIT 34.7 % (42-54); MEAN CORPUSCULAR HEMOGLOBIN 29.8 pg (27.0-33.0); MEAN CORPUSCULAR HGB CONC 31.1 g/dL (32.0-36.0); MEAN CORPUSCULAR VOLUME 95.9 fL (79-99); RED BLOOD CELL COUNT(AUTO) 3.62 MIL/uL (4.50-6.20); RED CELL DISTRIBUTION WIDTH 17.2 % (11.0-15.5)
[2024-02-02 04:57] LABS: ALBUMIN 3.4 g/dL (3.5-5.0); BILIRUBIN,TOTAL 1.2 mg/dL (0.2-1.0); CREATININE 6.9 mg/dL (0.5-1.3); PHOSPHORUS 6.4 mg/dL (2.5-4.9); POTASSIUM 4.6 mmol/L (3.5-5.1); TOTAL PROTEIN, SERUM 7.5 g/dL (6.0-8.3)
[2024-02-02 05:18] LABS: HEMOGLOBIN A1C 7.9 % (4.0-6.0)
[2024-02-02] MEDS: ALBUMIN (HUMAN) 25% 50 ML IV.SOLN. IV ONE (09:35)
[2024-02-02] MEDS: 0.9%NACL 1000ML 1,000 ML IV SCH (09:36)
--- NOTE | 2024-02-02 13:04 | HMCIMG ---
CHEST 1VW HISTORY: Follow-up pleural effusions COMPARISON: None FINDINGS: A frontal projection of the chest was obtained. There are bilateral pulmonary infiltrates suggestive of pulmonary vascular congestion with possible superimposed pneumonitis. The heart is borderline enlarged. Pacemaker is seen entering from the left. Degenerative changes are seen. IMPRESSION: 1. Bilateral pulmonary infiltrates with right pleural effusion. There is interval increase in right lung infiltrates.
--- NOTE | 2024-02-02 16:03 | NUR ---
PT eval order to be cancelled per RN. PT team advised.
--- NOTE | 2024-02-02 16:43 | DS ---
[facility] DISCHARGE SUMMARY Date Patient Seen: Feb 02, 2024 Time of Visit: 14:34 Supervising Physician: MARY ELLEN LUNDBERG Primary Care Physician: [Dr. Guille Jay] Outpatient Specialists: Dr. Oniel Simpson, Dr. Sheffield, nephro ] Inpatient Consults: [ ] ADMITTING DIAGNOSES: Acute on chronic hypoxemic respiratory failure, on 3lpm home O2-POA Recurrent right pleural effusion-POA Sepsis 2/2 community acquired PNA-POA: tachypnea, tachycardia and (+) PNA on CXR DISCHARGE DIAGNOSES Acute on chronic hypoxemic respiratory failure, on 3lpm home O2-POA Recurrent right pleural effusion-POA Sepsis 2/2 community acquired PNA-POA: tachypnea, tachycardia and (+) PNA on CXR Critically elevated D-dimer, rule out PE and DVT-acute on chronic-POA Respiratory alkalosis-POA Acute on chronic systolic diastolic heart failure, EF 20-25%, not on exacerbation ESRD on hemodialysis TTHS Chronic AFib, on anticoagulation with warfarin: held for 6 days due to supposed cataract surgery which did not push-through today Coronary artery disease, SP stents/CABG Essential hypertension Hyperlipidemia Diabetes mellitus type 2 Severe cardiomyopathy, s/p AICD History of aortic stenosis, s/p AVR, bioprosthetic Justin cyst PLAN: Resume Coumadin HD as schedule follow up appoint as an outpatient medication list reconciled. HPI and HOSPITAL COURSE: Patient is a 78 year old gentleman with underlying history of CHF, DMtype 2, HTN, ESRD on HD, hx of pleural effusion with previous thoracentesis done, recent done 4 months ago as per him, who initially admitted due to SOB, abdominal distention and full sensation, CT of chest has been done patient with minimal pleural effusion to right not requiring thoracentesis at this moment he had HD during his hospital stay last done today with 3 L removed without any complications, patient with no signs of bleeding plan is to resume coumadin, he has been seen by Abundio no further recommendations agreed patient to be d ischarge, patients has remained stable , no fever or chills, treated empirically with antibiotic therapy for Pneumonia no other issues reported he is going to be discharge home, advised to follow up appointment as an outpatient. TABLE RUNNER FINDINGS/RECOMMENDATIONS: mentioned abouve PROCEDURES: as mentioned above DISCHARGE MEDICATIONS: medication list reconciled. Pt hemodynamically stable and afebrile at time of discharge. PCP notified of patients admission, hospital course and discharge. PHYSICAL EXAM: GENERAL: alert, awake oriented x 3 HEENT: EOMI, Sclera non icteric, moist mucosa NECK: Supple, no JVD, trachea midline LUNGS: Diminished breath sounds bilaterally. No wheezes or crackles HEART: Regular rate and rhythm. Normal S1 and S2, without murmurs ABD: Abdomen soft, nontender. Bowel sounds present EXT: No clubbing cyanosis or edema NEURO: Alert and oriented to person, follows commands FOLLOW-UP: Follow-up with PCP in 2-3 days RECOMMENDATIONS: See Discharge Instructions More than 30 minutes spent on discharge process, including evaluation of the patient, discussion with nursing staff, medication reconciliation and follow-up appointments ATTESTATION BY PHYSICIAN Documentation assistance provided by a scribe, information recorded by the scribe was done at my direction and has been reviewed and validated by me." TAMIKA HYDE MD I personally scribed for TAMIKA HYDE MD ([email or web address]) on 02/02/24 at 16:43. Electr onically submitted by Dionne Liriano ([email or web address]). TAMIKA HYDE MD Feb 02, 2024 16:43
[2024-02-02] MEDS ORDERED: DOXY100C5 PO (18:19)
--- NOTE | 2024-02-02 18:47 | NUR ---
DISCHARGE D/C INSTRUCTIONS GIVEN TO PT AND FAMILY ALL VERBALIZE UNDERSTANDING. IV AND TELE PACK REMOVED. PT ESCORTED TO PRIVATE CAR. PT WAS STABLE
--- NOTE | 2024-02-02 23:29 | PN ---
SUBJECTIVE: The patient has been evaluated and seen for dialysis and seen several times. The patient is insisting on need for thoracentesis. We have discussed with the Pulmonary team. The patient has small pleural effusion only. He refuses any fluid removal in dialysis or extra dialysis intermittently. The patient has been counseled on the importance of fluid restriction also. PHYSICAL EXAMINATION: GENERAL: Pale, no other distress. VITAL SIGNS: Blood pressure is 100/63, pulse is 91, and respiratory rate is 16. HEENT: Head is atraumatic. Pupils are round and reactive. Sclerae are anicteric. Conjunctivae not pale. Oral mucosa is not dry. NECK: Supple. No masses or bruits. Thyroid is palpable. CHEST: Shows equal thoracic percussion note being resonant in all areas. CARDIAC: Regular rhythm. No rub. No S3 or S4. No parasternal heave. ABDOMEN: No guarding or tenderness. Bowel sounds referred. NEUROLOGIC: Awake, alert, and nonfocal. No cranial nerve palsies. LABORATORY DATA: Have been reviewed in detail. Old records reviewed. PROBLEMS: Renal failure, anemia, and electrolyte problems. PLAN: The plan will be to continue dialysis support. Continue monitoring. Attempt to avoid fluid. We have discussed with the pulmonary team. The patient states that he gets cramps. We have ordered vitamin E. Thank you for this patient. TID: [id number] RECEIPT: [id number]
--- NOTE | 2024-02-02 23:36 | PN ---
SUBJECTIVE: This patient has been evaluated and seen for dialysis, seen several times. The patient has been insisting on for thoracentesis. No other associated finding. No other aggravating or relieving factors. No other associated symptoms. Blood pressure is soft. Fluid removal is difficult in bed. PHYSICAL EXAMINATION: VITAL SIGNS: Blood pressure is 102/70, respiratory rate 18. HEENT: Head is atraumatic. Pupils are round and reactive. Sclerae are anicteric. Conjunctivae not pale. Oral mucosa is not dry. NECK: Supple. No masses or bruits. Thyroid is palpable. Neck has no bruits. LABORATORY DATA: Have been reviewed. Old records reviewed. PROBLEMS: Renal failure and anemia. PLAN: Continue dialysis support. Continue monitoring of renal function and electrolytes. Intake, output, weight, and overall status will be monitored. Nonsteroidal drugs will be avoided. Dose of medicine to be adjusted. We will follow up closely. Condition remained guarded. The patient has been evaluated and seen for dialysis multiple times. I have discussed with other team physicians. Thank you for this patient. TID: [id number] RECEIPT: [id number]
[2024-02-03] MEDS ORDERED: WARFARIN SODIUM 2 MG TAB PO SCH (09:00)
[2024-02-04 15:23] LABS: HEPATITIS B SURFACE ANTIBODY Negative (Reactive)
[2024-02-04 15:41] LABS: HEPATITIS B CORE AB TOTAL Non-Reactive (Nonreactive); HEPATITIS B SURFACE ANTIGEN Non-Reactive (Nonreactive)
[2024-02-04 16:09] LABS: CHLAM.PNEUMONIAE IGM TITER <1:10 (Neg:<1:10)
== END 2024-02-02 18:45 | disposition home or self-care (01) | DRG 871 ==
LOC: EDH 18:52 → UNDOADMOB 21:29 → OBSVTOIN 21:29 → EDHIP 21:29 → 2AH 02-01 00:18
PROVIDERS: ADMIT Internal Medicine; ATTEND Internal Medicine
PROC: 5A1D70Z Performance of Urinary Filtration, Intermittent, Less than 6 Hours Per Day (ICD-10-PCS; principal; 2024-02-02)
DX: A41.9 Sepsis, unspecified organism (principal); I50.43 Acute on chronic combined systolic (congestive) and diastolic (congestive) heart failure; J18.9 Pneumonia, unspecified organism; J96.21 Acute and chronic respiratory failure with hypoxia; N18.6 End stage renal disease; I13.2 Hypertensive heart and chronic kidney disease with heart failure and with stage 5 chronic kidney disease, or end stage renal disease; I48.20 Chronic atrial fibrillation, unspecified; E11.22 Type 2 diabetes mellitus with diabetic chronic kidney disease; E78.5 Hyperlipidemia, unspecified; E87.5 Hyperkalemia; I25.10 Atherosclerotic heart disease of native coronary artery without angina pectoris; M71.20 Synovial cyst of popliteal space [Baker], unspecified knee; Z79.01 Long term (current) use of anticoagulants; Z95.1 Presence of aortocoronary bypass graft; Z95.2 Presence of prosthetic heart valve; Z95.810 Presence of automatic (implantable) cardiac defibrillator; Z99.2 Dependence on renal dialysis; Z79.899 Other long term (current) drug therapy; D64.9 Anemia, unspecified
CPT/HCPCS: 36415; 36600; 71045; 71250; 80048; 80053; 82435; 82550; 82803; 82947; 82948; 83036; 83605; 83735; 83880; 84100; 84132; 84295; 84443; 84484; 85018; 85025; 85027; 85378; 85610; 85730; 86632; 86704; 86706; 86738; 87040; 87340; 87426; 87804; 90935; 93005; 93970; 94640; 94664; G0378; J1815; J2405; J2543; P9047

== ENCOUNTER 2024-03-27 20:02 | Observation (INO) | payer OTHER ==
[~2024-03-27] VITALS: Ht 182.9 cm; Wt 78.0 kg
[~2024-03-27 20:02] MED LIST changes: +ATOR40TA71 PO; -CLOP75TA32 PO; +INSU3INS3 SQ; -POLY17PO52 PO
--- NOTE | 2024-03-27 20:09 | ERN ---
ED Note History of Present Illness Stated Complaint: C/O BLEEDING TO UPPER LEFT ARM Chief Complaint: Upper Extremity Pain/Injury Time Seen by MD: 20:04 Dictation: PATIENT IS A 78-YEAR-OLD MALE COMING IN TODAY WITH COMPLAINTS OF BLEEDING FROM HIS LEFT BICEP FISTULA AFTER HAVING HEMODIALYSIS THIS AFTERNOON. HE STATES HE WENT AT 01:30 AND COMPLETED DIALYSIS HOWEVER PRESSING DRESSING WAS APPLIED AT THE DIALYSIS CENTER BECAUSE OF INTRACTABLE BLEEDING. THE LEFT ARM IS COOL TO TOUCH PULSES NOT PALPABLE DISTALLY. Allergies: Coded Allergies: No Known Allergies (Unverified Allergy, Unknown, 02/10/22) Home Meds Reported Medications Warfarin Sodium (Warfarin Sodium) 2 Mg Tablet, 2 MG PO BID, TAB 03/04/24 Atorvastatin Calcium (Atorvastatin Calcium) 40 Mg Tablet, 40 MG PO HS, TAB 03/04/24 Midodrine HCl (Midodrine HCl) 10 Mg Tablet, 10 MG PO TID, TAB 03/04/24 Insulin Glargine,Hum.rec.anlog (Lantus Solostar) 100 Unit/Ml (3 Ml) Insuln.pen, 15 UNIT SQ BID for 30 Days, ML 0 Refills 01/31/24 Esomeprazole Magnesium (Esomeprazole Magnesium) 40 Mg Capsule.dr, 40 MG PO DAILY, CAP 12/29/23 Past Medical History Past Medical History: CAD, Diabetes-Type II, Hypertension, Renal Failure Surgical History: CABG, Pacer/AICD, RAVA Surgical History Other: DIALYSIS SHUNT TO RT ARM Family History: Negative Social History: Negative, Other RN Note Reviewed/Agreed w/PFSH: Yes Review of System Dictation CONSTITUTIONAL: NEGATIVE EXCEPT FOR HPI HEAD/FACE: NEGATIVE EXCEPT FOR HPI EENT: NEGATIVE EXCEPT FOR HPI RESPIRATORY: NEGATIVE EXCEPT FOR HPI GASTROINTESTINAL/ABDOMINAL: NEGATIVE EXCEPT FOR HPI GENITOURINARY: NEGATIVE EXCEPT FOR HPI MUSCULOSKELETAL: NEGATIVE EXCEPT FOR HPI INTEGUMENTARY: NEGATIVE EXCEPT FOR HPI NEUROLOGICAL/PSYCH: NEGATIVE EXCEPT FOR HPI HEMATOLOGIC/LYMPHATIC: NEGATIVE EXCEPT FOR HPI BLEEDING FROM LEFT MEDIAL BICEPS. ALL SYSTEMS NEGATIVE, EXCEPT NOTED ABOVE. 13 POINT REVIEW OF SYSTEMS ASSESSED AND ALL NEGATIVE EXCEPT FOR ABOVE. Initial Vital Sign VS Vital Signs Date Time Temp Pulse Resp B/P (MAP) Pulse Ox O2 Delivery O2 Flow Rate FiO2 03/27/24 20:05 98.2 89 20 95 Room Air Physical Exam Dictation VITAL SIGNS REVIEWED GENERAL APPEARANCE: ALERT, ORIENTED X 3, NO ACUTE DISTRESS, WELL DEVELOPED, NOURISHED. HEAD AND FACE: NON-TRAUMATIC. EYES: PERRL, PINK CONJUNCTIVAS, EYELID NO TRAUMA, ANTERIOR CHAMBER WITH ARCUS SENILIS. EARS: PINNAS INTACT AND NO SIGNS OF TRAUMA OR ERYTHEMA EAR CANALS CLEAR AND NO DISCHARGE TM NO ERYTHEMA NOSE: NO DISCHARGE, NO BLEEDING. OROPHARYNX: MOUTH NORMAL, TONGUE PINK, PHARYNX CLEAR,NO ERYTHEMA, TONSILS NO EXUDATES, NO ABSCESSES NOTED, MUCOUS MEMBRANE MOIST NECK: SUPPLE, NON-TENDER, NO THYROMEGALY, NO MASSES, NO JVD, NO BRUITS BREAST:DEFERRED CHEST:NO TENDERNESS, NO CREPITUS, NO PARADOXICAL MOVEMENT, NO RETRACTIONS LUNGS:CLEAR, WELL-VENTILATED, SYMMETRIC, NO RALES, NO WHEEZING, NO RHONCHI, NO STRIDOR, GOOD BREATH SOUNDS BILATERALLY HEART: REGULAR RATE, REGULAR RHYTHM, NO MURMUR, NO GALLOPS VASCULAR: NO PERIPHERAL EDEMA Rava in place with good thrill and bruit noted. Pressure dressing removed from left medial biceps area proximal IV site scant bleeding noted. ABDOMEN: SOFT, POSITIVE BOWEL SOUNDS, NONDISTENDED, NO GUARDING, NONTENDER, NO REBOUND, NO MASSES NO HEPATOMEGALY, NO SPLENOMEGALY, NO HARRINGTON'S SIGN, NO HERNIAS. RECTAL: DEFERRED GENITAL: DEFERRED NEUROLOGICAL: NORMAL SPEECH, MOTOR FUNCTION INTACT, SENSORY FUNCTION INTACT MUSCULOSKELETAL: NECK NONTENDER, FULL RANGE OF MOTION, BACK NONTENDER, FULL RANGE OF MOTION, EXTREMITIES: NONTENDER, FULL RANGE OF MOTION SKIN: COLOR PINK, DRY, NO TURGOR, NO RASH, NO LACERATIONS, NO ABRASIONS, NO CONTUSIONS. LYMPHATIC: DEFERRED Results (Laboratory/Radiology) Laboratory/Radiology Laboratory Tests Test 03/27/24 20:43 White Blood Count 8.8 K/uL (4.8-10.8) Red Blood Count 3.08 MIL/uL (4.50-6.20) L Hemoglobin 9.2 g/dL (14.0-18.0) L Hematocrit 29.7 % (42-54) L Mean Corpuscular Volume 96.4 fL (79-99) Mean Corpuscular Hemoglobin 29.9 pg (27.0-33.0) Mean Corpuscular Hemoglobin Concent 31.0 g/dL (32.0-36.0) L Red Cell Distribution Width 19.9 % (11.0-15.5) H Platelet Count 132 K/uL (130-400) Mean Platelet Volume 11.1 fL (7.5-10.5) H Immature Granulocyte % (Auto) 0.3 % (0-1) Neutrophils (%) (Auto) 62.8 % (40.0-77.0) Lymphocytes (%) (Auto) 10.2 % (21.0-51.0) L Monocytes (%) (Auto) 15.8 % (3.0-13.0) H Eosinophils (%) (Auto) 9.5 % (0.0-8.0) H Basophils (%) (Auto) 1.4 % (0.0-5.0) Neutrophils # (Auto) 5.5 K/uL (1.8-7.7) Lymphocytes # (Auto) 0.9 K/uL (1.0-4.8) L Monocytes # (Auto) 1.4 K/uL (0.1-1.0) H Eosinophils # (Auto) 0.83 K/uL (0.00-0.70) H Basophils # (Auto) 0.12 K/uL (0.00-0.20) Absolute Immature Granulocyte (auto 0.03 K/uL (0-1) Nucleated Red Blood Cells 0.0 % (0.0-0.19) White Cell Morphology Comment See comments Red Blood Cell Morphology See comments Prothrombin Time 25.1 SEC (9.6-11.6) H Prothromb Time International Ratio 2.45 (0.85-1.15) H Activated Partial Thromboplast Time 34.5 SEC (26.3-35.5) Sodium Level 137 mmol/L (136-145) Potassium Level 5.7 mmol/L (3.5-5.1) H Chloride Level 97 mmol/L (101-111) L Carbon Dioxide Level 27 mmol/L (21-32) Blood Urea Nitrogen 67 mg/dL (7-18) H Creatinine 7.1 mg/dL (0.5-1.3) H Glomerular Filtration Rate Calc 7 mL/min (>90) Random Glucose 252 mg/dL (70-105) H Total Calcium 8.9 mg/dL (8.5-10.1) Labs Reviewed?: Yes ED Course ED Course Orders Procedure Category Date Status Time Pt And Ptt LAB 03/27/24 Complete 20:05 Cbc With Differential LAB 03/27/24 Complete 20:05 Basic Metabolic Panel LAB 03/27/24 Complete 20:05 Calcium Gluc 1gm PHA 03/27/24 Complete (Calcium Gluc 1gm 23:30 Dextrose 50%-Water PHA 03/27/24 Complete (Dextrose 50%-Water) 23:30 Insulin Regular, PHA 03/27/24 Complete Human 3ml (Humulin R 23:30 Albuterol 0.083% PHA 03/27/24 In Process 2.5mg/3ml (Proventil 23:30 Sodium Polystyr Sulf PHA 03/27/24 In Process 15gm (Kayexalate 15 23:30 Dextrose 50%-Water PHA 03/27/24 Complete (D50w) 23:30 Furosemide 40mg Vial PHA 03/27/24 Complete (Lasix 40mg Vial) 23:30 Occult Blood Stool LAB 03/27/24 Logged Single Only 23:18 12 Lead Ekg Tracing- EKG 03/27/24 Logged Technical 23:55 Chest 1vw RAD 03/27/24 Taken 23:55 Current Medications Medications (Trade) Dose Ordered Sig/Yefri Route PRN Reason Start Time Stop Time Status Last Admin Dose Admin Albuterol Sulfate (Proventil 0.083% 2.5mg/3ml) 10 mg ONCE IH 03/27/24 23:30 04/26/24 23:29 03/27/24 23:33 Calcium Gluconate 1 gm/Sodium Chloride 110 ml @ 110 mls/hr ONCE ONCE IV 03/27/24 23:30 03/28/24 00:29 DC Dextrose (D50w) 50 ml ONCE ONCE IV 03/27/24 23:30 03/27/24 23:31 DC Dextrose (Dextrose 50%-Water) 25 gm ONCE ONCE IV 03/27/24 23:30 03/27/24 23:11 DC Furosemide (LASix 40MG VIAL) 40 mg ONCE ONCE IV 03/27/24 23:30 03/27/24 23:31 DC Insulin Human Regular (humuLIN R 100 UNIT/ML 3ML) 5 unit ONCE ONCE IV 03/27/24 23:30 03/27/24 23:31 DC Sodium Polystyrene Sulfonate (kayEXALate 15 GM/60 ML) 15 gm Q2H PO 03/27/24 23:30 03/28/24 01:31 Vital Signs Date Time Temp Pulse Resp B/P (MAP) Pulse Ox O2 Delivery O2 Flow Rate FiO2 03/27/24 23:33 90 20 03/27/24 20:05 98.2 89 20 95 Room Air 2350/no active bleed bleeding at this time. However patient has a hemoglobin hematocrit 9.2 And 29.7 2 g drop from his last discharge your March 12. Potassium is 5.7 we will be given hyperkalemia cocktail and we will be admitted to the hospital. In addition we will obtain stool for occult blood although patient denies rectal bleeding hematemesis. No active bleeding from IV site to left medial biceps. Arms now warm to touch cap refill brisk 0030/SPOKE WITH JOSE M MCCALLUM HOSPITALIST AND REVIEWED LABS INTERVENTIONS FOR HIS PATIENT'S ARM AND HYPERKALEMIA. HE IS AWARE THERE HAS BEEN2 G DROP IN HIS HEMOGLOBIN SINCE 03/12. HE AGREED TO ADMIT PATIENT WOULD LIKE ME TO PERFORM ARTERIAL ULTRASOUND OF THE LEFT ARM Medical Decision Making MDM MDM: Differential diagnosis: Anemia/dehydration/electrolyte imbalance/cough Rationale: Tests considered and ordered secondary to shared decision making include: labs, ECG and radiology Previous outside records reviewed: Old ER visits. Reviewed last discharged home this count 03/12/2024 Risk of complication and/or morbidity or mortality of patient management: Mild Medications-Per medication reconciliation Need for hospitalization: Patient does meet criteria for hospitalization. Hemodialysis in a.m. and etiology of blood loss anemia Need for emergency major/minor surgery: No There are no social concerns with this patient. Prescription drug management Prescriptions will include symptomatic care Patient's prior external medical records from other ER visits were reviewed by me as indicated. Prior testing and results from previous visits were reviewed. Prior tests were taken into account with medical decision making and resource utilization, independent historian/historians were used to obtain complete medical history. I independently interpreted the test that were performed, results were reviewed by me and considered findings on radiology if ordered. Medical management and examination interpretation discussions were had by me with other qualified healthcare professionals as indicated for the patient's care. DX & DISP Disposition: Inpatient Decision to Admit Time: 00:00 Departure Impression: Primary Impression: Acute blood loss anemia Additional Impressions: Uncontrolled diabetes mellitus, Hyperkalemia, ESRD needing dialysis, Hypochloremia Condition: Stable Referrals: IVAN BOWLES MD (PCP) SONIA RODRIGUEZ NP Mar 27, 2024 20:09
--- NOTE | 2024-03-27 20:46 | NUR ---
QUIK CLOT, 4X4 GAUZE, KERLIX APPLIED TO LEFT UPPER ARM ORDERED
--- NOTE | 2024-03-27 20:50 | NUR ---
POOR PERIPHERAL ACCESS, UNABLE TO OBTAIN IV, ED MIDLEVEL MADE AWARE
[2024-03-27 20:52] LABS: BASOPHILS # (AUTO) 0.12 K/uL (0.00-0.20); BASOPHILS % (AUTO) 1.4 % (0.0-5.0); EOSINOPHILS # (AUTO) 0.83 K/uL (0.00-0.70); EOSINOPHILS % (AUTO) 9.5 % (0.0-8.0); HEMATOCRIT 29.7 % (42-54); IMMATURE GRANULOCYTE ABSOLUTE 0.03 K/uL (0-1); LYMPHOCYTES # (AUTO) 0.9 K/uL (1.0-4.8); LYMPHOCYTES % (AUTO) 10.2 % (21.0-51.0); MEAN CORPUSCULAR HEMOGLOBIN 29.9 pg (27.0-33.0); MEAN CORPUSCULAR VOLUME 96.4 fL (79-99); MONOCYTES # (AUTO) 1.4 K/uL (0.1-1.0); MONOCYTES % (AUTO) 15.8 % (3.0-13.0); NEUTROPHILS # (AUTO) 5.5 K/uL (1.8-7.7); NEUTROPHILS % (AUTO) 62.8 % (40.0-77.0); PLATELET COUNT (AUTO) 132 K/uL (130-400); RED BLOOD CELL COUNT(AUTO) 3.08 MIL/uL (4.50-6.20); RED CELL DISTRIBUTION WIDTH 19.9 % (11.0-15.5); WHITE BLOOD COUNT (AUTO) 8.8 K/uL (4.8-10.8)
[2024-03-27 21:02] LABS: INR 2.45 (0.85-1.15); PROTHROMBIN TIME 25.1 SEC (9.6-11.6)
[2024-03-27 21:04] LABS: PARTIAL THROMBOPLASTIN TIME 34.5 SEC (26.3-35.5)
[2024-03-27 21:10] LABS: CREATININE 7.1 mg/dL (0.5-1.3); POTASSIUM 5.7 mmol/L (3.5-5.1)
[2024-03-27] MEDS ORDERED: DEXTROSE 50%-WATER 25 GM/50 ML VIAL IV ONE (23:30)
[2024-03-27] MEDS: furoSEMIDE 40MG VIAL IV ONE (23:30)
[2024-03-27 23:33] VITALS: PULSE 90; RESP 20
[2024-03-27] MEDS: ALBUTEROL 0.083% 2.5 MG/3 ML INH IH SCH (23:33)
--- NOTE | 2024-03-28 00:48 | HMCIMG ---
CHEST 1VW HISTORY: Shortness of breath COMPARISON: 03/10/2024 FINDINGS: A frontal projection of the chest was obtained. Mild bilateral pulmonary infiltrates are seen may be related to mild pulmonary vascular congestion with possible superimposed pneumonitis. Poststernotomy changes are seen. The heart is enlarged. Degenerative changes of the thoracolumbar spine are present. Pacemaker is seen entering from the left. No evidence of aortic calcification is seen. IMPRESSION: 1. Mild bilateral pulmonary infiltrates are seen may be related to mild pulmonary vascular congestion with possible superimposed pneumonitis.
[2024-03-28] MEDS: kayEXALate 15GM/60ML PO SCH (01:30)
--- NOTE | 2024-03-28 01:40 | NUR ---
Zbigniew chaudhary in [facility] - 03/28/24 at 0459 by ROSENDO RIGHT VERA INSERTED BY DR. KAY
--- NOTE | 2024-03-28 01:40 | NUR ---
18G RIGHT EJ INSERTED BY DR. KAY
[2024-03-28] MEDS: DEXTROSE 50%-WATER 50 ML DISP.SYRIN IV ONE (01:44)
[2024-03-28] MEDS: CALCIUM GLUC 1GM 1 GM in 0.9%NACL 100ML 100 ML IV ONE (01:44)
[2024-03-28] MEDS: INSULIN humuLIN R 100 UNIT/ML 3ML IV ONE (01:46)
[2024-03-28] MEDS ORDERED: GLUCAGON 1MG KIT 1 MG ML IM PRN (04:30)
[2024-03-28] MEDS ORDERED: DEXTROSE 50%-WATER 50 ML DISP.SYRIN IV PRN (04:30)
[2024-03-28] MEDS ORDERED: LAbetaLOL 20MG SYG IV PRN (04:30)
[2024-03-28] MEDS ORDERED: ondanSETRON 4MG INJ IVP PRN (04:30)
--- NOTE | 2024-03-28 04:35 | NUR ---
AT THIS TIME PATIENT HAS A EJ TO THE RIGHT CAROTID. 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 ALESSIO MCNAMARA MADE AWARE THAT IT HAS BEEN SUGGESTED THAT CT ANGIO BE DONE ON DIALYSIS DAYS AND WITH A DIFFERENT ACCESS.
--- NOTE | 2024-03-28 06:12 | EKG ---
[facility] Test Date: 2024-03-28 Test Time: 01:29:27 Pat Name: TERRY FUCHS Department: [facility] Room: ED [facility] Gender: M Home Appraiser: [id number] : 1945 Requested By: SONIA RODRIGUEZ Order Number: [id number] Reading MD: Wesley Weldon Measurements Intervals [place] Rate: 91 P: 86 MO: 160 QRS: 106 QRSD: 161 T: -34 QT: 446 QTc: 549 Interpretive Statements Atrial-sensed ventricular-paced rhythm Biventricular paced rhythm Compared to ECG 03/03/2024 12:25:52 No significant changes Electronically Signed On 03-28-2024 16:12:42 WOODWORKER HELPER by Wesley Weldon Please click the below link to view image of tracing.
[2024-03-28 06:39] LABS: BASOPHILS # (AUTO) 0.11 K/uL (0.00-0.20); BASOPHILS % (AUTO) 1.2 % (0.0-5.0); EOSINOPHILS # (AUTO) 0.93 K/uL (0.00-0.70); EOSINOPHILS % (AUTO) 10.5 % (0.0-8.0); HEMATOCRIT 27.8 % (42-54); IMMATURE GRANULOCYTE ABSOLUTE 0.05 K/uL (0-1); LYMPHOCYTES % (AUTO) 11.3 % (21.0-51.0); MEAN CORPUSCULAR HEMOGLOBIN 29.9 pg (27.0-33.0); MEAN CORPUSCULAR HGB CONC 31.7 g/dL (32.0-36.0); MEAN CORPUSCULAR VOLUME 94.6 fL (79-99); MONOCYTES % (AUTO) 22.3 % (3.0-13.0); NEUTROPHILS # (AUTO) 4.8 K/uL (1.8-7.7); NEUTROPHILS % (AUTO) 54.1 % (40.0-77.0); PLATELET COUNT (AUTO) 168 K/uL (130-400); RED BLOOD CELL COUNT(AUTO) 2.94 MIL/uL (4.50-6.20); RED CELL DISTRIBUTION WIDTH 20.1 % (11.0-15.5); WHITE BLOOD COUNT (AUTO) 8.8 K/uL (4.8-10.8)
[2024-03-28] MEDS ORDERED: TRAM100T34 PO (06:45)
[2024-03-28] MEDS ORDERED: WARF-67 PO (06:45)
[2024-03-28] MEDS ORDERED: ATOR-2 PO (06:45)
[2024-03-28] MEDS ORDERED: CLOP75TA32 PO (06:45)
[2024-03-28] MEDS ORDERED: MIDO10TA3 PO (06:45)
[2024-03-28] MEDS ORDERED: FLUT1BLS3 IH (06:45)
[2024-03-28] MEDS: INSULIN humuLIN R 100 UNIT/ML 3ML SQ SCH (07:30)
[2024-03-28 07:39] LABS: INR 2.03 (0.85-1.15); PROTHROMBIN TIME 21.2 SEC (9.6-11.6)
[2024-03-28 07:40] LABS: PARTIAL THROMBOPLASTIN TIME 32.8 SEC (26.3-35.5)
[2024-03-28 07:48] LABS: CREATININE 7.7 mg/dL (0.5-1.3); MAGNESIUM 2.5 mg/dL (1.80-2.40); PHOSPHORUS 6.1 mg/dL (2.5-4.9); POTASSIUM 5.4 mmol/L (3.5-5.1)
--- NOTE | 2024-03-28 08:20 | HMCIMG ---
US ARTERIAL UNILA UPP EXT DUPL HISTORY: Ecchymosis with decreased pulses COMPARISON: None TECHNIQUE: Left upper extremity arterial Doppler ultrasound study was performed. FINDINGS: Normal biphasic arterial waveforms are noted in the left subclavian, axillary, brachial, radial arteries. Abnormal monophasic arterial waveform is seen of the left pulmonary artery. On the left, the peak systolic velocity of the subclavian artery is 89 cm/s, the axillary artery is 42 cm/s, the brachial artery is 45 cm/s, the radial artery is 41 cm/s, and the ulnar artery is 32 cm/s. IMPRESSION: 1. Atherosclerotic disease. 2. Abnormal monophasic arterial waveform is seen of the left pulmonary artery.
[2024-03-28] MEDS ORDERED: IOHEXOL 350 MG/ML 100ML INFUS..BTL IV ONE (10:21)
--- NOTE | 2024-03-28 11:38 | HP ---
[facility] HISTORY & PHYSICAL Date Patient Seen: Mar 28, 2024 Time of Visit: 11:28 Supervising Physician: Dr Kwasi Mims Primary Care Physician: Martin Liriano Outpatient Specialists: [Dr Kwasi Sheffield Inpatient Consults: [ ]Dr Sheffield PROBLEM LIST: Acute blood loss anemia secondary to left upper arm bleed Chronic systolic diastolic heart failure, EF 20-25% ESRD on hemodialysis TTS Anemia of chronic disease Chronic atrial fibrillation, on anticoagulation with warfarin Coronary artery disease, with stents/CABG Essential hypertension Hyperlipidemia Diabetes mellitus type 2 Severe cardiomyopathy, s/p AICD History of aortic stenosis, s/p AVR, bioprosthetic Justin cyst 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 Terry Godfrey is a 78-year-old male with a past medical history of ESRD on HD TTS, anemia of chronic disease, AFib on warfarin, CAD status post CABG, hypertension, hyperlipidemia, diabetes, severe cardiomyopathy status post AICD, status post AVR bioprosthetic, chronic home O2 dependent, presents to the emergency room with a chief complaint of left upper extremity bleeding with an onset of yesterday during hemodialysis treatment. Patient reports he was at hemodialysis yesterday when the dialysis nurse attempted for blood draws on his left upper extremity and he began with profuse bleeding to the left upper extremity. Patient reports dialysis nurses were having difficulty stopping the bleeding therefore they placed a pressure dressing and requested patient head to the ED for further evaluation. On exam by the ED staff the left arm was cold to touch and pulses were not palpable distally. Pressure dressing was removed and no active bleeding from the IV site was noted. Arm is now warm to touch with brisk capillary refills. Admission vital signs are temperature 98.2 C, heart rate 89 beats per minute, respiratory rate 20 breaths per minute, blood pressure 116/45, O2 sat 94% on room air. Admission labs show an H&H 9.2/29.7. Patient's potassium level was 5.7 And creatinine elevated as expected. Patient's occult blood was positive despite patient denies any rectal bleeding. Chest x-ray shows mild bilateral pulmonary infiltrates which may be related to pulmonary vascular congestion with possible superimposed pneumonitis. Patient was previously admitted at this facility and was treated for pneumonia. Arterial ultrasound was completed and impression shows atherosclerotic disease, abnormal monophasic arterial waveforms seen in the left pulmonary artery. We are currently pending CTA to be performed. PAST MEDICAL HX: see above PAST SURGICAL HX: noncontributory SOCIAL HISTORY: No tobacco, ETOH, or illicit drug use Coded Allergies: No Known Allergies (Unverified Allergy, Unknown, 02/10/22) REVIEW OF SYSTEMS: 12 point ROS reviewed with patient. Pertinent positives mentioned above. Otherwise negative. PHYSICAL EXAM: GENERAL: alert, weak, awake oriented x 3 HEENT: EOMI, Sclera non icteric, moist mucosa NECK: Supple, no JVD, trachea midline LUNGS: Clear breath sounds bilaterally. No wheezes HEART: Regular rate and rhythm. Normal S1 and S2, without murmurs ABD: Abdomen soft, nontender. Bowel sounds present EXT: No clubbing cyanosis or edema NEURO: Alert and oriented to person, follows commands Vital Signs (last 8hr) Date Time Temp Pulse Resp B/P (MAP) Pulse Ox O2 Delivery O2 Flow Rate FiO2 03/28/24 06:38 89 16 124/84 96 Room Air* 0 21 03/28/24 04:51 89 22 99/67 98 Nasal Cannula* 2 28 LABS: Hematology Labs: Test 03/28/24 06:24 03/27/24 20:43 Range/Units White Blood Count 8.8 4.8-10.8 K/uL Red Blood Count 2.94 L 4.50-6.20 MIL/uL Hemoglobin 8.8 L 14.0-18.0 g/dL Hematocrit 27.8 L 42-54 % Mean Corpuscular Volume 94.6 79-99 fL Mean Corpuscular Hemoglobin 29.9 27.0-33.0 pg Mean Corpuscular Hemoglobin Concent 31.7 L 32.0-36.0 g/dL Red Cell Distribution Width 20.1 H 11.0-15.5 % Platelet Count 168 # 130-400 K/uL Mean Platelet Volume 12.3 H 7.5-10.5 fL Immature Granulocyte % (Auto) 0.6 0-1 % Neutrophils (%) (Auto) 54.1 40.0-77.0 % Lymphocytes (%) (Auto) 11.3 L 21.0-51.0 % Monocytes (%) (Auto) 22.3 H 3.0-13.0 % Eosinophils (%) (Auto) 10.5 H 0.0-8.0 % Basophils (%) (Auto) 1.2 0.0-5.0 % Neutrophils # (Auto) 4.8 1.8-7.7 K/uL Lymphocytes # (Auto) 1.0 1.0-4.8 K/uL Monocytes # (Auto) 2.0 H 0.1-1.0 K/uL Eosinophils # (Auto) 0.93 H 0.00-0.70 K/uL Basophils # (Auto) 0.11 0.00-0.20 K/uL Absolute Immature Granulocyte (auto 0.05 0-1 K/uL Nucleated Red Blood Cells 0.0 0.0-0.19 % White Cell Morphology Comment See comments Red Blood Cell Morphology See comments Chemistry Labs: Test 03/28/24 07:14 03/28/24 01:40 Range/Units Sodium Level 139 136-145 mmol/L Potassium Level 5.4 H 3.5-5.1 mmol/L Chloride Level 98 L 101-111 mmol/L Carbon Dioxide Level 27 21-32 mmol/L Blood Urea Nitrogen 75 *H 7-18 mg/dL Creatinine 7.7 H 0.5-1.3 mg/dL Glomerular Filtration Rate Calc 7 >90 mL/min Random Glucose 180 H 70-105 mg/dL Total Calcium 9.2 8.5-10.1 mg/dL Phosphorus Level 6.1 H 2.5-4.9 mg/dL Magnesium Level 2.50 H 1.80-2.40 mg/dL Whole Blood Glucose 157 H 70-110 MG/DL Coagulation Labs: Test 03/28/24 07:14 Range/Units Prothrombin Time 21.2 H 9.6-11.6 SEC Prothromb Time International Ratio 2.03 H 0.85-1.15 Activated Partial Thromboplast Time 32.8 26.3-35.5 SEC DIAGNOSTICS / RADIOLOGY RESULTS: PATIENT: TERRY GODFREY MR#: [id number] : 1945 SEX: M AGE: 78 LOCATION: [facility] ORDER STATUS: ADM IN REPORT#: [id number] SERVICE REASON: LEFT UPPER ARM. ECCHYMOTIC WITH DECREASED PULSES ORDERING PHYSICIAN: SONIA RODRIGUEZ NP PROCEDURE: ART U UE - US ARTERIAL UNILA UPP EXT DUPL US ARTERIAL UNILA UPP EXT DUPL HISTORY: Ecchymosis with decreased pulses COMPARISON: None TECHNIQUE: Left upper extremity arterial Doppler ultrasound study was performed. FINDINGS: Normal biphasic arterial waveforms are noted in the left subclavian, axillary, brachial, radial arteries. Abnormal monophasic arterial waveform is seen of the left pulmonary artery. On the left, the peak systolic velocity of the subclavian artery is 89 cm/s, the axillary artery is 42 cm/s, the brachial artery is 45 cm/s, the radial artery is 41 cm/s, and the ulnar artery is 32 cm/s. IMPRESSION: 1. Atherosclerotic disease. 2. Abnormal monophasic arterial waveform is seen of the left pulmonary artery. DICTATED BY: VISHNU VAN MD DATE: 03/28/24813 ELECTRONICALLY SIGNED BY: VISHNU VAN MD DATE: 03/28/24819 PLAN Supplemental oxygen as needed Telemetry monitoring Monitor H&H closely Transfuse if needed to maintain hemoglobin above 7.0 Hold warfarin at this time Consult nephrology HD as scheduled TTS Pending CTA to performed NEURO: Minimize central acting medications as possible. Maintain fall precautions, adequate lighting during the day PULMONARY: Supplemental 02 as needed. Maintain aspiration precautions at all times CARDIOVASCULAR: Follow hemodynamics. Vital signs per facility protocol GI & NUTRITION: Continue with nutritional support. Continue stool softeners and laxatives as needed. KIDNEYS & ELECTROLYTES: Strict monitoring of intake, output and overall fluid balance. Avoid nephrotoxic medications to the extent possible. Medications to be dosed according to renal function. Monitor electrolytes and replace as needed ENDOCRINE: Maintain blood glucose between 100-180 at all times. Hypoglycemia protocol in place INFECTIOUS DISEASE: Trend temperature, WBC and procalcitonin level Follow cultures, deescalate antibiotics as soon as possible. Panculture if new onset fever ONCOLOGY/HEMATOLOGY/COAGULATION: Monitor for s/s of bleeding Monitor hemoglobin, coagulation studies as needed SKIN: Pressure ulcer prevention per facility protocol Specialty mattress ORTHO/REHAB: Continue PT/OT Prophylaxis: Continue GI and DVT prophylaxis Code Status: Full Resuscitation Disposition: Home once medically stable for discharge Other: Total patient care time exceeds 35 minutes excluding all procedures. ATTESTATION BY PHYSICIAN The patient has been seen and evaluated, the case has been discussed with the DRY BOSS, I agree with the clinical findings and plan of care. Oniel Mims MD, ECTOR N DRY BOSS Mar 28, 2024 11:38
[2024-03-28] MEDS: LACTULOSE 20 GM/30 ML UDCUP PO PRN (11:54)
[2024-03-28] MEDS: acetaMINOPHEN 325 MG TAB PO PRN (11:55)
[2024-03-28] MEDS: kayEXALate 15GM/60ML PO ONE (12:00)
--- NOTE | 2024-03-28 12:18 | HMCIMG ---
CT ANGIO UP EXT REASON: ULNAR OCCLUSION AND STENOSIS. COMPARISON: None TECHNIQUE: CT angiogram of left upper extremity was performed. Patient was given 100 cc of Omnipaque through intravenous route. FINDINGS: This is a suboptimal study due to poor enhancement. There may be multifocal stenosis of the left brachial, antecubital, ulna and radial arteries. Clinical correlation is recommended. IMPRESSION: Suboptimal study. There may be diffuse atherosclerosis with multiple multifocal short segment stenosis throughout.
[2024-03-28 14:29] VITALS: TEMP 97.8
[2024-03-28] MEDS: miDODRine HCL 5 MG TABLET ONE (15:30)
[2024-03-28 17:15] VITALS: BP 117/47; PULSE 90; RESP 14; O2SAT 97
--- NOTE | 2024-03-28 18:27 | NUR ---
PT REFUSED TO STAY AND WANTS TO LEAVE AMA, EXPLAINED RISK OF LEAVING AMA, AMA FORM SIGNED AND WITNESSED BY PT'S DAUGHTER AT SIDE, REMOVED PIV AND LT MIDLINE, COBAN DRESSING APPLIED, JAYANT DUVALL SHORTAGE WORKER MADE AWARE.
[2024-03-29] MEDS ORDERED: miDODRine HCL 5 MG TABLET PO SCH (09:00)
== END 2024-03-28 18:10 | disposition left against medical advice (07) ==
LOC: EDH 20:02 → INTOOBSV 03-28 00:35 → EDHIP 03-28 00:35
PROVIDERS: ADMIT Internal Medicine Critical Care Medicine; ATTEND Internal Medicine Critical Care Medicine
DX: T82.838A Hemorrhage due to vascular prosthetic devices, implants and grafts, initial encounter (principal); D62 Acute posthemorrhagic anemia; I13.2 Hypertensive heart and chronic kidney disease with heart failure and with stage 5 chronic kidney disease, or end stage renal disease; E11.22 Type 2 diabetes mellitus with diabetic chronic kidney disease; I50.42 Chronic combined systolic (congestive) and diastolic (congestive) heart failure; N18.6 End stage renal disease; I25.10 Atherosclerotic heart disease of native coronary artery without angina pectoris; E11.65 Type 2 diabetes mellitus with hyperglycemia; D63.1 Anemia in chronic kidney disease; E78.5 Hyperlipidemia, unspecified; I42.9 Cardiomyopathy, unspecified; E87.8 Other disorders of electrolyte and fluid balance, not elsewhere classified; M71.20 Synovial cyst of popliteal space [Baker], unspecified knee; E87.5 Hyperkalemia; I48.20 Chronic atrial fibrillation, unspecified; Z99.81 Dependence on supplemental oxygen; Z95.810 Presence of automatic (implantable) cardiac defibrillator; Z99.2 Dependence on renal dialysis; Z95.1 Presence of aortocoronary bypass graft; Z79.4 Long term (current) use of insulin; Z79.01 Long term (current) use of anticoagulants; Z79.899 Other long term (current) drug therapy; Y92.89 Other specified places as the place of occurrence of the external cause
CPT/HCPCS: 99285; 80048 ×2; 85025 ×2; 85610 ×2; 85730 ×2; 36415 ×2; 71045; 93005; 94640; 96365; 96375; 83735; 84100; 86850; 86900; 86901; 82948 ×3; 82270; 73206; 93931; J0612; J1815 ×2; G0378 ×14; J7070; Q9967

== ENCOUNTER 2024-05-29 15:09 | Inpatient (IN) | payer OTHER ==
[~2024-05-29] VITALS: Ht 182.9 cm; Wt 97.7 kg
[~2024-05-29 15:09] MED LIST changes: +ATOR-2 PO; +CLOP75TA32 PO; +FLUT1BLS3 IH; +FLUT1BLS3 PO; +NITR.4 SL; +TRAM100T34 PO; +TRAM50TA4 PO
--- NOTE | 2024-05-29 15:15 | NUR ---
CALLED OUT PT'S NAME X 3, NO ANSWER. POSSIBLY IN REST ROOM
--- NOTE | 2024-05-29 15:23 | NUR ---
VERIFIED, PT IS IN REST ROOM, AWAITING TO COMPLETE TRIAGE
[2024-05-29 16:05] LABS: BASOPHILS % (AUTO) 1.2 % (0.0-5.0); EOSINOPHILS # (AUTO) 1.17 K/uL (0.00-0.70); EOSINOPHILS % (AUTO) 13.8 % (0.0-8.0); HEMATOCRIT 30.1 % (42-54); IMMATURE GRANULOCYTE ABSOLUTE 0.03 K/uL (0-1); LYMPHOCYTES # (AUTO) 0.8 K/uL (1.0-4.8); LYMPHOCYTES % (AUTO) 9.1 % (21.0-51.0); MEAN CORPUSCULAR HEMOGLOBIN 27.9 pg (27.0-33.0); MEAN CORPUSCULAR HGB CONC 30.2 g/dL (32.0-36.0); MEAN CORPUSCULAR VOLUME 92.3 fL (79-99); MONOCYTES # (AUTO) 0.8 K/uL (0.1-1.0); MONOCYTES % (AUTO) 9.6 % (3.0-13.0); NEUTROPHILS # (AUTO) 5.6 K/uL (1.8-7.7); NEUTROPHILS % (AUTO) 65.9 % (40.0-77.0); PLATELET COUNT (AUTO) 235 K/uL (130-400); RED BLOOD CELL COUNT(AUTO) 3.26 MIL/uL (4.50-6.20); RED CELL DISTRIBUTION WIDTH 17.6 % (11.0-15.5); WHITE BLOOD COUNT (AUTO) 8.5 K/uL (4.8-10.8)
[2024-05-29 16:15] LABS: CREATININE 4.2 mg/dL (0.5-1.3); POTASSIUM 4.4 mmol/L (3.5-5.1)
[2024-05-29] MEDS: ZOSYN 3.375GM+NS 50ML 50 ML IVPB SCH (16:15)
[2024-05-29] MEDS: VANCOMYCIN 1G/250ML KIT 250 ML IV ONE (16:58)
[2024-05-29 17:16] LABS: ERYTHROCYTE SEDIMENTATION RATE 86 MM/HR (0-20)
[2024-05-29] MEDS: IpraTROPium/alBUTERol SULFATE 3 ML SOLUTION IH ONE (17:17)
[2024-05-29 17:18] VITALS: PULSE 103; RESP 24
--- NOTE | 2024-05-29 17:18 | ERN ---
General Chief Complaint: FOOT INJURY/PAIN Stated Complaint: SENT BY Time Seen by MD: 15:10 Source: patient History of Present Illness Initial Comments Patient is a 78-year-old male coming in complaining of lower extremity pain. Patient states that he was sent in by PCP. Patient has been having wound care in the lower extremities. Patient was sent by Dr. Mims. Allergies: Coded Allergies: No Known Allergies (Unverified Allergy, Unknown, 02/10/22) Home Meds Active Scripts Nitroglycerin (Nitrostat/Nitroquick) 0.4 Mg Sltb, 0.4 MG SL AD, #30 TAB.SL Take 1 tablet sublingual every 5 minutes as needed chest pain x3 Prov:YON MENDEZ MD 03/28/22 Reported Medications Fluticasone/Umeclidin/Vilanter (Trelegy Ellipta 100-62.5-25) 100-62.5 Blst.w.dev, 1 PUFF IH DAILY for 30 Days, #1 EACH 0 Refills 03/28/24 Midodrine HCl (Midodrine HCl) 10 Mg Tablet, 3 TAB PO DAILY for 30 Days, #90 TAB 0 Refills 03/28/24 Tramadol HCl (Tramadol HCl ER) 100 Mg Tab.er.24h, 25 MG PO DAILY PRN for PAIN, TAB 03/28/24 Warfarin Sodium (Warfarin Sodium) 2 Mg Tablet, 1 TAB PO DAILYDINNER for 30 Days, #30 TAB 0 Refills 03/28/24 Clopidogrel Bisulfate (Clopidogrel) 75 Mg Tablet, 1 TAB PO DAILY for 30 Days, #30 TAB 0 Refills 03/28/24 Atorvastatin Calcium (Atorvastatin Calcium) 80 Mg Tablet, 1 TAB PO HS for 30 Days, #30 TAB 0 Refills 03/28/24 Tramadol Hcl (Tramadol HCl) 50 Mg Tablet, 25 MG PO DAILY PRN for PAIN LEVEL 4 TO 6 03/19/24 Fluticasone/Umeclidin/Vilanter (Trelegy Ellipta 100-62.5-25) 100-62.5 Blst.w.dev, 1 PUFF PO DAILY 03/19/24 Esomeprazole Magnesium (Esomeprazole Magnesium) 40 Mg Capsule.dr, 1 CAP PO DAILY 03/19/24 Clopidogrel Bisulfate (Clopidogrel) 75 Mg Tablet, 1 TAB PO DAILY 03/19/24 Atorvastatin Calcium (Atorvastatin Calcium) 80 Mg Tablet, 1 TAB PO HS 03/19/24 Warfarin Sodium (Warfarin Sodium) 2 Mg Tablet, 4 MG PO DAILYDINNER 03/19/24 Midodrine HCl (Midodrine HCl) 10 Mg Tablet, 3 TAB PO DAILY 03/19/24 Warfarin Sodium (Warfarin Sodium) 2 Mg Tablet, 2 MG PO BID, TAB 03/04/24 Atorvastatin Calcium (Atorvastatin Calcium) 40 Mg Tablet, 40 MG PO HS, TAB 03/04/24 Midodrine HCl (Midodrine HCl) 10 Mg Tablet, 10 MG PO TID, TAB 03/04/24 Insulin Glargine,Hum.rec.anlog (Lantus Solostar) 100 Unit/Ml (3 Ml) Insuln.pen, 15 UNIT SQ BID for 30 Days, ML 0 Refills 01/31/24 Esomeprazole Magnesium (Esomeprazole Magnesium) 40 Mg Capsule.dr, 40 MG PO DAILY, CAP 12/29/23 Past Medical History Past Medical History: CAD, Diabetes-Type II, Heart Disease, Hypertension Past Surgical History: Other Surgical History Other: DIALYSIS SHUNT TO RT ARM Family History Family History: Negative Social History Social History: Negative, Other ROS Dictation CONSTITUTIONAL: No chills, no fever, no weakness, no diaphoresis, no malaise. HEAD/FACE: No signs of trauma. EENT: No eye pain, no blurred vision, no tearing, no double vision, no ear pain, no ear discharge, no nose pain, no nasal congestion, no throat pain, no throat swelling, no mouth pain. RESPIRATORY: No cough, no orthopnea, no SOB, no stridor, no wheezing. CARDIOVASCULAR: No chest pain, no edema, no palpitations, no syncope. GASTROINTESTINAL/ABDOMINAL: No abdominal pain, no constipation, no diarrhea, no nausea, no vomiting. GENITOURINARY: No abnormal discharge, no dysuria, no frequent urination, no hematuria. No complaints of pain in the genitals. MUSCULOSKELETAL: No back pain, no gout, no joint pain, no joint swelling, no muscle pain, no muscle stiffness, no neck pain. INTEGUMENTARY: No change in color, no change in hair/nails, no dryness, no lesion, no lumps, no rash. NEUROLOGICAL/PSYCH: No anxiety, not depressed, no emotional problem, no headache, no numbness, no pre-existing deficit, no history of seizures, no tremors, no weakness. HEMATOLOGIC/LYMPHATIC: Not anemic, no history of blood clots, no apparent bleeding, no bruising, glands not swollen. All Systems Negative, Except as Noted. Physical Exam Physical Exam Dictation VITAL SIGNS: Reviewed. GENERAL APPEARANCE: Alert, oriented x3, no acute distress, obese. HEAD AND FACE: Non-traumatic. EYES: PERRL, pink conjunctivas, eyelid no trauma, anterior chamber clear. EARS: Pinnas intact and no signs of trauma or erythema. Ear canals clear and no discharge. TMs no erythema. NOSE: No discharge, no bleeding. OROPHARYNX: Mouth normal, teeth no caries, tongue pink. Pharynx clear, no erythema. Tonsils no exudates, no abscesses noted. Mucous membrane moist. NECK: Supple, non-tender, no thyromegaly, no masses, no JVD, no bruits. BREAST: Deferred. CHEST: No tenderness, no crepitus, no paradoxical movement, no retractions. LUNGS: Clear, well-ventilated, symmetric, no rales, no wheezing, no rhonchi, no stridor, good breath sounds bilaterally. HEART: Regular rate, regular rhythm, no murmur, no gallops. VASCULAR: No peripheral edema. ABDOMEN: Soft, positive bowel sounds, nondistended, no guarding, nontender, no rebound, no masses no hepatomegaly, no splenomegaly, no Vargas's sign, no hernias. RECTAL: Deferred. GENITAL: Deferred. NEUROLOGICAL: Normal speech, gross motor function intact, gross sensory function intact. MUSCULOSKELETAL: Neck nontender, full range of motion, back nontender, full range of motion. EXTREMITIES: Nontender, full range of motion. SKIN: Color pink, dry, no turgor, right foot 1st and 2nd digit gangrenous. LYMPHATICS: Deferred. Results Laboratory and Microbiology Lab and Micro Result Laboratory Tests Test 05/29/24 15:58 White Blood Count 8.5 K/uL (4.8-10.8) Red Blood Count 3.26 MIL/uL (4.50-6.20) L Hemoglobin 9.1 g/dL (14.0-18.0) L Hematocrit 30.1 % (42-54) L Mean Corpuscular Volume 92.3 fL (79-99) Mean Corpuscular Hemoglobin 27.9 pg (27.0-33.0) Mean Corpuscular Hemoglobin Concent 30.2 g/dL (32.0-36.0) L Red Cell Distribution Width 17.6 % (11.0-15.5) H Platelet Count 235 K/uL (130-400) Mean Platelet Volume 10.5 fL (7.5-10.5) Immature Granulocyte % (Auto) 0.4 % (0-1) Neutrophils (%) (Auto) 65.9 % (40.0-77.0) Lymphocytes (%) (Auto) 9.1 % (21.0-51.0) L Monocytes (%) (Auto) 9.6 % (3.0-13.0) Eosinophils (%) (Auto) 13.8 % (0.0-8.0) H Basophils (%) (Auto) 1.2 % (0.0-5.0) Neutrophils # (Auto) 5.6 K/uL (1.8-7.7) Lymphocytes # (Auto) 0.8 K/uL (1.0-4.8) L Monocytes # (Auto) 0.8 K/uL (0.1-1.0) Eosinophils # (Auto) 1.17 K/uL (0.00-0.70) H Basophils # (Auto) 0.10 K/uL (0.00-0.20) Absolute Immature Granulocyte (auto 0.03 K/uL (0-1) Nucleated Red Blood Cells 0.0 % (0.0-0.19) White Cell Morphology Comment See comments Red Blood Cell Morphology See comments Erythrocyte Sedimentation Rate 86 MM/HR (0-20) H Sodium Level 137 mmol/L (136-145) Potassium Level 4.4 mmol/L (3.5-5.1) Chloride Level 97 mmol/L (101-111) L Carbon Dioxide Level 27 mmol/L (21-32) Blood Urea Nitrogen 29 mg/dL (7-18) H Creatinine 4.2 mg/dL (0.5-1.3) H Glomerular Filtration Rate Calc 14 mL/min (>90) Random Glucose 232 mg/dL (70-105) H Lactic Acid Level 2.3 mmol/L (0.8-2.5) Total Calcium 9.2 mg/dL (8.5-10.1) Total Creatine Kinase 57 U/L (21-232) # Troponin I High Sensitivity 86 ng/L (4-75) *H Procalcitonin 0.84 ng/mL (0.05-0.5) H Labs Reviewed?: Yes EKG/XRAY/US/CT/MRI EKG Comment 05/29/2024 time 6:01 p.m. Ventricular rate 97 NV [address] wave elevation or depression X-RAY Comment Chest x-ray-right lung infiltrates suggestive of pneumonia Foot x-ray-NAD MDM MDM: Differential diagnosis: Pneumonia, osteomyelitis of the toes, gangrenous necrosis, Rationale: Tests considered and ordered secondary to shared decision making include: labs, ECG and radiology Previous outside records reviewed: Old ER visits. Risk of complication and/or morbidity or mortality of patient management: None Medications-Per medication reconciliation Need for hospitalization: Patient does meet criteria for hospitalization. Need for emergency major/minor surgery: No There are no social concerns with this patient. Prescription drug management Prescriptions will include symptomatic care Patient's prior external medical records from other ER visits were reviewed by me as indicated. Prior testing and results from previous visits were reviewed. Prior tests were taken into account with medical decision making and resource utilization, independent historian/historians were used to obtain complete medical history. I independently interpreted the test that were performed, results were reviewed by me and considered findings on radiology if ordered. Medical management and examination interpretation discussions were had by me with other qualified healthcare professionals as indicated for the patient's care. Patient will be admitted under the care of hospitalist group for ongoing management of gangrenous necrosis and right lung pneumonia. ED Course Orders Procedure Category Date Status Time Cbc With Differential LAB 05/29/24 Complete 15:37 Blood Cult ALIZA 05/29/24 In Process 15:37 Urinalysis Profile LAB 05/29/24 Logged 15:37 Culture Urine ALIZA 05/29/24 Logged 15:37 Zosyn 3.375gm+Ns 50ml PHA 05/29/24 In Process (Zosyn 3.375gm+Ns 16:00 Vancomycin 1g/250ml PHA 05/29/24 Complete Kit (Vancomycin 1g/2 16:00 Creatine Kinase, Total LAB 05/29/24 Complete 15:37 Troponin I High LAB 05/29/24 Complete Sensitivity 15:37 Procalcitonin LAB 05/29/24 Complete 15:37 Lactic Acid LAB 05/29/24 Complete 15:37 Basic Metabolic Panel LAB 05/29/24 Complete 15:37 Erythrocyte LAB 05/29/24 Complete Sedimentation Rate 15:37 Chest 1vw RAD 05/29/24 Resulted 16:15 Foot Comp 3+Vws Rt RAD 05/29/24 Resulted 16:15 Ipratropium/Albuterol PHA 05/29/24 Complete Neb (Duoneb) 17:30 12 Lead Ekg Tracing- EKG 05/29/24 Logged Technical 17:32 B-Type Natriuretic LAB 05/29/24 In Process Peptide 17:33 Troponin I High LAB 05/29/24 In Process Sensitivity 17:33 Current Medications Medications (Trade) Dose Ordered Sig/Yefri Route PRN Reason Start Time Stop Time Status Last Admin Dose Admin Albuterol (DUOneb) 1 UDVIAL ONCE ONCE IH 05/29/24 17:30 05/29/24 17:31 DC 05/29/24 17:17 Piperacillin Sod/ Tazobactam Sod 50 ml @ 200 mls/hr ONCE IVPB 05/29/24 16:00 05/30/24 15:59 05/29/24 16:15 Vancomycin HCl 250 ml @ 125 mls/hr ONCE ONCE IV 05/29/24 16:00 05/29/24 17:59 DC 05/29/24 16:58 Vital Signs Date Time Temp Pulse Resp B/P (MAP) Pulse Ox O2 Delivery O2 Flow Rate FiO2 05/29/24 18:24 98 14 104/59 98 Nasal Cannula* 2 28 05/29/24 17:18 103 24 05/29/24 16:10 108 20 111/58 98 Nasal Cannula* 4 36 05/29/24 15:42 98.6 97 22 113/62 99 Room Air Critical Care Note Comments Critical Care Procedure Note Authorized and Performed by: me Total critical care time: Approximately 36 minutes Due to a high probability of clinically significant, life threatening deterioration, the patient required my highest level of preparedness to intervene emergently and I personally spent this critical care time directly and personally managing the patient. This critical care time included obtaining a history; examining the patient; pulse oximetry; ordering and review of studies; arranging urgent treatment with development of a management plan; evaluation of patient's response to treatment; frequent reassessment; and, discussions with other providers. This critical care time was performed to assess and manage the high probability of imminent, life-threatening deterioration that could result in multi-organ failure. It was exclusive of separately billable procedures and treating other patients and teaching time. Please see MDM section and the rest of the note for further information on patient assessment and treatment. DX & DISP Disposition: Inpatient Decision to Admit Time: 18:31 Departure Impression: Primary Impression: Pneumonia involving right lung Additional Impression: Osteomyelitis of fifth toe of left foot Condition: Stable Referrals: RIVER BLACKMON MD (PCP) JOSE PHILLIPS MD May 29, 2024 17:18
--- NOTE | 2024-05-29 18:23 | HMCIMG ---
RIGHT FOOT RADIOGRAPHS - 3 VIEWS INDICATION: Pain COMPARISON: None FINDINGS: AP, lateral, and oblique views. No acute fracture or subluxation identified. Midfoot alignment is well maintained. Extensive arterial wall calcific plaque. Subcentimeter plantar calcaneal spur. Subcentimeter traction enthesophyte arises off the posterior calcaneus at the Achilles tendon attachment. IMPRESSION: No evidence for fracture or subluxation.
--- NOTE | 2024-05-29 18:23 | HMCIMG ---
PORTABLE CHEST RADIOGRAPH INDICATION: SOB COMPARISON: 03/28/2024 FINDINGS: secured entrance monitor leads overlie the field of view. Median sternotomy wires are in appropriate alignment. Left sided dual chamber pacer and continuous leads remain in customary position. Right-sided hemodialysis catheter in place. Heart is enlarged. The pulmonary vascularity is slightly enlarged. Right costophrenic angle is more blunted than the left. No pneumothorax detected. IMPRESSION: Cardiac megaly, pulmonary vascular congestion, and small right greater than left pleural effusions with subjacent passive atelectasis.
[2024-05-29] MEDS ORDERED: VANCOMYCIN 1G/250ML KIT 250 ML IV SCH (19:00)
--- NOTE | 2024-05-29 19:29 | HP ---
[facility] Date of Service: May 29, 2024 Time of Service: 18:49 PCP: America Ruelas HISTORY OF PRESENT ILLNESS: This is a 78-year-old male, Cambodian-speaking with past medical history of Anemia, end-stage renal disease on hemodialysis, atrial fibrillation, coronary artery disease, hypertension, hyperlipidemia, diabetes, severe cardiomyopathy and respiratory failure on home O2 who presented to the ED as sent by Dr. Mims.for evaluation of right gangrenous and necrotic 1st and 2nd and 3 rd toes .As per daughter ,it started on March 2024 as redness and it progressively got worse that it started turning black las Sunday she said and patient was complaining of severe pain since then she said.Patient also complained of occasional cough.Patient has been dialyzed today as per daughter and 2 Liters of fluid removed for 4 hrs and patient's BP has been on the low side and is taking Midodrine she said and Patient's Database Reporting Consultant is .As per daughter patient 's remote sensing analyst is who was planning to do a procedure this 06/05/2024.Patient denies fever,chills,nausea,vomiting,chest pain and palpitation. Vital signs temperature 98.6, heart rate 98, blood pressure 104/59 saturation 98% on 2 L nasal cannula. Labs: Hemoglobin 9, hematocrit 30 platelet count 235. Chloride 97, BUN 29, creatinine 4.2, GFR 14, glucose 232, lactic acid 2.3 troponin 86 to 80, BNP 1650 procalcitonin 0.84. Right foot x- ray result revealed no evidence for fracture or subluxation. Chest x-ray result revealed cardiac megaly pulmonary vascular congestion and small right greater than left pleural effusion with subjacent passive atelectasis. While in the ER patient received albuterol neb treatment, vancomycin IV and Zosyn IV. We will admit patient for further medical management. REVIEW OF SYSTEMS CONSTITUTIONAL: Denies fevers, chills, or night sweats. No unintentional weight loss reported. NEUROLOGICAL: Denies headache, amaurosis fugax, motor weakness, sensory deficit, vertigo/spinning sensation, gait abnormalities, or tremors. ENT: No hearing loss, otalgia, otorrhea, rhinitis, rhinorrhea, hoarseness, or sore throat. CARDIOVASCULAR: Denies any exertional angina, dyspnea on exertion, orthopnea, paroxysmal nocturnal dyspnea, palpitations, life-threatening arrhythmias, claudication. PULMONARY: Complaints of cough and shortness of breaths Denies hemoptysis, pleuritic chest pain. SLEEP: Denies morning headaches, daytime somnolence or napping. Denies difficulty falling asleep, staying asleep, waking from sleep. Denies knowledge of snoring. GASTROINTESTINAL: Denies any type of dysphagia to either liquids or solids. Denies nausea, vomiting, pyrosis, early satiety, abdominal pain, diarrhea, constipation, or changes in stool consistency or caliber. Denies coffee-ground emesis, hematemesis, hematochezia, or melanotic stools. GENITOURINARY: Denies frequency, urgency, nocturia, hematuria or incontinence (Storage/Irritative symptoms.) Low urinary stream, straining to void, urinary intermittency or hesitancy, splitting of the voiding stream, terminal dribbling. ENDOCRINOLOGIC: Denies polyuria, polydipsia, polyphagia or heat/cold intolerances. HEMATOLOGIC: Denies thrombophilia/previous clots, or coagulopathy/bleeding disorders. ONCOLOGIC: Denies personal history of malignancy. DERMATOLOGIC: Denies rashes or pruritus. PSYCHIATRIC: Denies any suicidal or homicidal ideation. Denies hallucinations. PAST MEDICAL HISTORY: [Information obtained from daughter Marcela Godfrey: Anemia, end-stage renal disease on hemodialysis, atrial fibrillation, coronary artery disease, hypertension, hyperlipidemia, diabetes, severe cardiomyopathy and respiratory failure on home O2 dependent ] PAST SURGICAL HISTORY: [ AICD, CABG x2 , AVR bioprosthetic and cardiac stent x1 ] PAST SOCIAL HISTORY: [ Patient lives with daughter. Patient denies alcohol tobacco and recreational drug use ] FAMILY HISTORY: [Hypertension, cancer, cardiovascular disease ] Coded Allergies: No Known Allergies (Unverified Allergy, Unknown, 02/10/22) PHYSICAL EXAM GENERAL APPEARANCE: The patient is awake, alert, and oriented, in no acute cardiopulmonary distress. NEUROLOGICAL: Cranial nerves II-XII grossly intact. Motor is 5/5 in bilateral upper and lower extremities proximal to distal. No sensory deficits. HEENT: Face is symmetric. Pupils are equal and reactive. Extraocular movements are intact. NECK: Supple. No JVD. No thyromegaly. No submental, submandibular, pre- /postauricular, occipital or supraclavicular lymphadenopathy. CHEST: Normal chest expansion. Telemetry. LUNGS: Bilateral crackles and scattered rhonchi on auscultation CARDIOVASCULAR: Regular. S1 and S2 normal. No appreciable rubs, murmurs or gallops. ABDOMEN: Soft, nontender, and nondistended. There is no rebound, voluntary guarding, or rigidity. : Deferred. No Geller. EXTREMITIES: 2+ edema bilateral lower extremities SKIN: Left leg wound. Right necrotic 1st ,2nd toes and the 3rd toe is starting to also develop necrosis. Vital Sign (Last 24 Hours) 05/29/24 05/29/24 15:42 18:24 Temp 98.6 Pulse 98 Resp 14 B/P (MAP) 104/59 Pulse Ox 98 O2 Delivery Nasal Cannula* O2 Flow Rate 2 FiO2 28 LABS: Laboratory: Test 05/29/24 17:57 05/29/24 15:58 Range/Units Troponin I High Sensitivity 80 *H 4-75 ng/L B-Type Natriuretic Peptide 1650 H 0-100 pg/mL White Blood Count 8.5 4.8-10.8 K/uL Red Blood Count 3.26 L 4.50-6.20 MIL/uL Hemoglobin 9.1 L 14.0-18.0 g/dL Hematocrit 30.1 L 42-54 % Mean Corpuscular Volume 92.3 79-99 fL Mean Corpuscular Hemoglobin 27.9 27.0-33.0 pg Mean Corpuscular Hemoglobin Concent 30.2 L 32.0-36.0 g/dL Red Cell Distribution Width 17.6 H 11.0-15.5 % Platelet Count 235 130-400 K/uL Mean Platelet Volume 10.5 7.5-10.5 fL Immature Granulocyte % (Auto) 0.4 0-1 % Neutrophils (%) (Auto) 65.9 40.0-77.0 % Lymphocytes (%) (Auto) 9.1 L 21.0-51.0 % Monocytes (%) (Auto) 9.6 3.0-13.0 % Eosinophils (%) (Auto) 13.8 H 0.0-8.0 % Basophils (%) (Auto) 1.2 0.0-5.0 % Neutrophils # (Auto) 5.6 1.8-7.7 K/uL Lymphocytes # (Auto) 0.8 L 1.0-4.8 K/uL Monocytes # (Auto) 0.8 0.1-1.0 K/uL Eosinophils # (Auto) 1.17 H 0.00-0.70 K/uL Basophils # (Auto) 0.10 0.00-0.20 K/uL Absolute Immature Granulocyte (auto 0.03 0-1 K/uL Nucleated Red Blood Cells 0.0 0.0-0.19 % White Cell Morphology Comment See comments Red Blood Cell Morphology See comments Erythrocyte Sedimentation Rate 86 H 0-20 MM/HR Sodium Level 137 136-145 mmol/L Potassium Level 4.4 3.5-5.1 mmol/L Chloride Level 97 L 101-111 mmol/L Carbon Dioxide Level 27 21-32 mmol/L Blood Urea Nitrogen 29 H 7-18 mg/dL Creatinine 4.2 H 0.5-1.3 mg/dL Glomerular Filtration Rate Calc 14 >90 mL/min Random Glucose 232 H 70-105 mg/dL Lactic Acid Level 2.3 0.8-2.5 mmol/L Total Calcium 9.2 8.5-10.1 mg/dL Total Creatine Kinase 57 # 21-232 U/L Procalcitonin 0.84 H 0.05-0.5 ng/mL Current Medications Medications (Trade) Dose Ordered Sig/Yefri Route PRN Reason Start Time Stop Time Status Last Admin Dose Admin Piperacillin Sod/ Tazobactam Sod 50 ml @ 200 mls/hr ONCE IVPB 05/29/24 16:00 05/30/24 15:59 05/29/24 16:15 200 MLS/HR DIAGNOSTICS / RADIOLOGY: [ ] ASSESSMENT: Gangrene of right foot with necrosis POA Osteomyelitis of the right foot POA Left leg diabetic wound ulcer POA Possible right lung pneumonia POA Severe peripheral vascular disease POA Acute on chronic respiratory failure on oxygen dependent POA End stage renal disease on hemodialysis POA Atrial fibrillation on Coumadin POA severe ischemic cardiomyopathy with AICD device POA Sepsis without septic shock POA Coronary artery disease with CABGx2 ,AVR bioprosthetic and stent x1 POA Chronic anemia due to CKD Elevated troponin POA Uncontrolled diabetes POA Morbid Obesity POA PLAN: We will admit patient in PCCU We will start on renal dialysis diet We will continue Zosyn and IV and vancomycin IV for broad-spectrum coverage Continue oxygen supplementation and DuoNeb treatment q.4 hours We will start on Famotidine 20 mg p.o. q.48h for GI prophylaxis We will start on insulin sliding scale AC & HS with hypoglycemia protocol We will add prn medication for fever,pain,cough and nausea We will reconcile home meds once medlist available We will request neurovascular check q.4 hours We will request labs in am We will request respiratory culture We will seek Cardiology consultation We will seek podiatry consultation We will seek wound care eval consultation We will seek Nephrology consultation Further orders to follow depending on above results Case discussed with attending physician and came up with above treatment and plan of care. ADVANCED CARE PLANNING 1. Which of the following were discussed? Hospice Care - No Therapeutic options - Yes Advance Directives - No Other discussions - 2. Discussed with who? Patient and daughter 3. Voluntary nature of this service was explained to the patient? Yes 4. Amount of time spent - __27 5. Reviewed by Physician? (if this service was performed by NPP) Yes Patient seen and examined by me. Agree with note by RULING MACHINE OPERATOR SEE ADDITIONAL ORDERS PER CHART DISCUSSED WITH NURSING STAFF RODDY DEXTER NURSE PRACTITIONER MANAGER May 29, 2024 19:29
[2024-05-29] MEDS ORDERED: VANCOMYCIN PROTOCOL PER PHARMACY IV SCH (20:00)
[2024-05-29] MEDS ORDERED: GLUCAGON 1MG KIT 1 MG ML IM PRN (20:00)
[2024-05-29] MEDS ORDERED: DEXTROSE 50%-WATER 50 ML DISP.SYRIN IV PRN (20:00)
[2024-05-29] MEDS ORDERED: INSLAN SQ (20:10)
[2024-05-29] MEDS: INSULIN humuLIN R 100 UNIT/ML 3ML SQ SCH (20:57)
[2024-05-29] MEDS ORDERED: NON-FORMULARY MEDICATION 1 EACH (Midodrine HCl 10 MG) PO SCH (21:00)
[2024-05-29] MEDS: miDODRine HCL 5 MG TABLET PO SCH (21:05)
--- NOTE | 2024-05-29 21:13 | EKG ---
[facility] Test Date: 2024-05-29 Test Time: 18:01:08 Pat Name: TERRY FUCHS Department: EDHIP Room: ED 17 Gender: M Curb Setter: [id number] : 1945 Requested By: JOSE PHILLIPS Order Number: [id number] Reading MD: Molly Hill Measurements Intervals [place] Rate: 97 P: -9 WA: 145 QRS: 108 QRSD: 155 T: -54 QT: 442 QTc: 561 Interpretive Statements Ventricular-paced rhythm Biventricular paced rhythm Compared to ECG 03/28/2024 01:29:27 Atrial-sensed ventricular-paced complex(es) or rhythm no longer present Electronically Signed On 05-30-2024 09:33:56 CDT by Molly Hill Please click the below link to view image of tracing.
[2024-05-29 22:56] VITALS: PULSE 95; RESP 22
[2024-05-29 23:00] VITALS: PULSE 99; RESP 21; O2SAT 93
[2024-05-29] MEDS: IpraTROPium/alBUTERol SULFATE 3 ML SOLUTION IH SCH (23:01)
[2024-05-29] MEDS: SODIUM CHLORIDE 3% FOR INHALATION 4 ML/AMP VIAL.NEB IH ONE (23:01)
[2024-05-29] MEDS: HYDROcodone/APAP 5/325 1 TAB TABLET PO PRN (23:14)
[2024-05-30] VITALS (11 sets, daily range): BP systolic 100–123; BP diastolic 61–69; PULSE 85–103; RESP 18–24; TEMP 97–98.7; O2SAT 99
--- NOTE | 2024-05-30 00:15 | NUR ---
NOTIFY DR KASANDRA ZAMAN. ABOUT THE HEARIN DRIP ORDER, PER DR KASANDRA DAWKINS TO ADMINISTER THE HEPARIN DRIP, AND FOR PATIENT S/P CT/ANGIO WITH CONTRAST, NO ORDER FOR IV FLUID, PT TO BE DIALYSED IN AM WILL CONT TO MONITOR
[2024-05-30] MEDS: SODIUM CHLORIDE 3% FOR INHALATION 4 ML/AMP VIAL.NEB IH ONE ×2 (01:10→14:30)
[2024-05-30] MEDS: ZOSYN 3.375GM+NS 50ML 50 ML IV SCH (05:00)
--- NOTE | 2024-05-30 07:57 | EKG ---
[facility] Test Date: 2024-05-30 Test Time: 06:30:49 Pat Name: TERRY FUCHS Department: EDHIP Room: ED 17 Gender: M Resource Recovery Engineer: [id number] : 1945 Requested By: RODDY DEXTER Order Number: [id number] Reading MD: Molly Hill Measurements Intervals [place] Rate: 95 P: -80 MS: 116 QRS: 124 QRSD: 166 T: -54 QT: 446 QTc: 561 Interpretive Statements Ventricular-paced rhythm Biventricular paced rhythm Compared to ECG 05/29/2024 18:01:08 No significant changes Electronically Signed On 05-30-2024 09:34:14 CDT by Molly Hill Please click the below link to view image of tracing.
[2024-05-30] MEDS: FAMOTIDINE 20MG TAB PO SCH (08:17)
[2024-05-30 08:22] LABS: BASOPHILS % (AUTO) 1.2 % (0.0-5.0); EOSINOPHILS # (AUTO) 1.16 K/uL (0.00-0.70); EOSINOPHILS % (AUTO) 13.4 % (0.0-8.0); HEMATOCRIT 27.7 % (42-54); IMMATURE GRANULOCYTE ABSOLUTE 0.02 K/uL (0-1); LYMPHOCYTES # (AUTO) 0.8 K/uL (1.0-4.8); LYMPHOCYTES % (AUTO) 9.4 % (21.0-51.0); MEAN CORPUSCULAR HEMOGLOBIN 28.7 pg (27.0-33.0); MEAN CORPUSCULAR HGB CONC 30.7 g/dL (32.0-36.0); MEAN CORPUSCULAR VOLUME 93.6 fL (79-99); MONOCYTES # (AUTO) 0.9 K/uL (0.1-1.0); MONOCYTES % (AUTO) 9.9 % (3.0-13.0); NEUTROPHILS # (AUTO) 5.7 K/uL (1.8-7.7); NEUTROPHILS % (AUTO) 65.9 % (40.0-77.0); PLATELET COUNT (AUTO) 238 K/uL (130-400); RED BLOOD CELL COUNT(AUTO) 2.96 MIL/uL (4.50-6.20); RED CELL DISTRIBUTION WIDTH 17.8 % (11.0-15.5); WHITE BLOOD COUNT (AUTO) 8.7 K/uL (4.8-10.8)
[2024-05-30 08:33] LABS: INR 1.31 (0.85-1.15); PROTHROMBIN TIME 13.5 SEC (9.6-11.6)
[2024-05-30 08:35] LABS: PARTIAL THROMBOPLASTIN TIME 28.9 SEC (26.3-35.5)
[2024-05-30 08:43] LABS: HEMOGLOBIN A1C 7.1 % (4.0-6.0)
[2024-05-30 08:48] LABS: B-TYPE NATRIURETIC PEPTIDE 1760 pg/mL (0-100)
[2024-05-30 08:56] LABS: ALBUMIN 2.7 g/dL (3.5-5.0); BILIRUBIN,TOTAL 1.1 mg/dL (0.2-1.0); CREATININE 5.2 mg/dL (0.5-1.3); MAGNESIUM 2.3 mg/dL (1.80-2.40); POTASSIUM 4.7 mmol/L (3.5-5.1); TOTAL PROTEIN, SERUM 8.3 g/dL (6.0-8.3)
[2024-05-30 09:31] LABS: ERYTHROCYTE SEDIMENTATION RATE 80 MM/HR (0-20)
[2024-05-30] MEDS ORDERED: SEVE800PW PO (09:49)
[2024-05-30] MEDS ORDERED: DOCU100C33 PO (09:49)
--- NOTE | 2024-05-30 10:10 | NUR ---
DCP: home SW met with pt and dgt Marcela Epifanio MX # [phone] at bedside. Pt currently lives with sister Vianney Godfrey [phone]. Pt has dialysis LuiseSarmad, Sat. at [facility] in [place]. Pt has a walker at home and is able to complete ADLs independently. Pt PCP is Dr. Jessenia Cross and uses [facility] for any RX needs. Pt will DC home and dgt Marcela would assist with transportation home. Addendum: 05/30/24 at 1014 by STEFFANY PELLETIER SS Amended: Links added.
--- NOTE | 2024-05-30 10:22 | CONS ---
REFERRING PHYSICIAN: Samuel Friedman MD REASON FOR CONSULTATION: Nonhealing wound, ESRD. HISTORY OF PRESENT ILLNESS: A 78-year-old male with a history of diabetes mellitus, hypertension. He has a history of severe cardiomyopathy. The patient presented to the hospital with nonhealing wounds of the foot. The patient apparently had been seen by wound care. In the emergency room the patient was found to have necrosis of the wound and was started on broad-spectrum IV antibiotics. The patient does have a history of end-stage renal disease, on dialysis on a Sunday, , Sunday schedule and he is being seen in consultation for all of the above. PAST MEDICAL HISTORY: Diabetes mellitus, hypertension, cardiomyopathy, ESRD. SURGICAL HISTORY: CABG, AICD, AV access. SOCIAL HISTORY: He lives independently. No alcohol or tobacco use. FAMILY HISTORY: There is no renal disease in the family. ALLERGIES: There are no allergies. MEDICATIONS: Noted. REVIEW OF SYSTEMS: GENERAL: He is feeling weak and tired. HEENT: No change in vision. No change in hearing. CARDIOVASCULAR: There is no current chest pain or palpitations. PULMONARY: No shortness of breath. GASTROINTESTINAL: The patient is tolerating diet. MUSCULOSKELETAL: As described above. NEUROLOGIC: No seizures or focal deficits. PSYCHIATRIC: No history of hallucinations or psychosis. ENDOCRINE: Diabetes mellitus. No history of thyroid disease. HEMATOLOGIC: History of anemia. No history of malignancy. PHYSICAL EXAMINATION: VITAL SIGNS: Blood pressure 121/62, pulse 100, afebrile. GENERAL: He is a chronically ill male, laying in bed on the medical floor. HEENT: Head is atraumatic. Pupils equal, roving to light. Oropharynx is without exudate. Nares clear. NECK: There is no JVP. There is no thyromegaly. No masses. CARDIOVASCULAR: Regular. There is no S3, S4 gallop. LUNGS: Coarse with equal thoracic movement. ABDOMEN: Soft, nondistended, nontender. EXTREMITIES: Reveal no clubbing or cyanosis. NEUROLOGIC: He is awake. He is alert. He is oriented. SKIN: The wounds are all noted. LABORATORY DATA: BUN 36, creatinine is 5.2, glucose is 141, white cell count is 8.7, hemoglobin 8.5, and hematocrit 27. IMPRESSION: * Nonhealing wounds. * Vascular disease. * Diabetes mellitus. * Hypertension. * ESRD. PLAN: The patient with evidence of nonhealing wounds of the lower extremity. The patient has been started on broad-spectrum IV antibiotics. The patient to be evaluated by Cardiology in regard to cerebrovascular disease. He will continue dialysis on a Sunday, and Sunday schedule. The patient will continue with Epogen for the anemia. We will obtain chemistries in the morning including phosphorus. If elevated, the patient can be started back on his phosphate binders. We will continue to follow closely. The patient and family at the bedside and multiple questions were answered. TID: [id number] RECEIPT: [id number]
--- NOTE | 2024-05-30 12:37 | NUR ---
[facility] Consult: Patient assessed by wound healing team. See wound assessment. Assessment and recommendations provided to primary nurse. Education provided. Addendum: 05/30/24 at 1424 by LEANA MCDONALD RN RN/ Amended: Links added.
--- NOTE | 2024-05-30 12:45 | CONS ---
[facility] CARDIOLOGY CONSULTATION NOTE Date Patient Seen: May 30, 2024 Time of Visit: 12:14 Reason for Consultation: [PAD / Right foot gangrene ] History of Present Illness: [78-year-old male patient with follows up clinic with Dr. Bates and has a past medical history of coronary artery disease status post 2v CABG at [facility] in 2015, severe s/p bioprosthetic aortic valve replacement in 2020 currently on warfarin, ischemic cardiomyopathy (LVEF 20-25% as per clinic note unable to tolerate GDM T due to hypotension currently on midodrine), sick sinus syndrome status post Medtronic INOCULATOR-D device in September 2020, end-stage renal disease on hemodialysis (T-T- S), paroxysmal atrial fibrillation on anticoagulation, who presented to the [facility] ED as sent by Dr. Mims.for evaluation of right gangrenous and necrotic toes. On arrival his labs were remarkable for a Hemoglobin 9, creatinine 4.2, GFR 14, lactic acid 2.3, and negative troponin. Right foot x-ray result revealed no evidence for fracture or subluxation. Chest x-ray result revealed cardiomegaly pulmonary vascular congestion and small right greater than left pleural effusion with subjacent passive atelectasis. Patient was started on broad-spectrum antibiotics, of note the patient was scheduled for peripheral angiogram on 06/05/[address] Bates. On physical exam right great toe and 2nd toe necrosis, with faint pulses and erythema on surrounding skin. Cardiology was consulted for PAD Past Medical History: [Refer to chart ] Past Surgical History: [ Refer to HPI] Family History: [Refer to HPI ] Social History: [Refer to HPI ] Habits: [Never] smoker. [Denies] alcohol consumption. [Denies] illicit drug use Review of Systems: A review of 12 point system was negative set per HPI Physical Examination: GENERAL APPEARANCE: The patient is awake, alert, and oriented, in no acute cardiopulmonary distress. NEUROLOGICAL: Cranial nerves II-XII grossly intact. Motor is 5/5 in bilateral upper and lower extremities proximal to distal. No sensory deficits. HEENT: Face is symmetric. Pupils are equal and reactive. Extraocular movements are intact. NECK: Supple. No JVD. No thyromegaly. No submental, submandibular, pre- /postauricular, occipital or supraclavicular lymphadenopathy. CHEST: Normal chest expansion. Telemetry. LUNGS: Bilateral crackles and scattered rhonchi on auscultation CARDIOVASCULAR: Regular. S1 and S2 normal. No appreciable rubs, murmurs or gallops. ABDOMEN: Soft, nontender, and nondistended. There is no rebound, voluntary guarding, or rigidity. : Deferred. No Geller. EXTREMITIES: 2+ edema bilateral lower extremities SKIN: Left leg wound. Right necrotic 1st ,2nd toes and the 3rd toe is starting to also develop necrosis. Vital Signs (last 8hr) Date Time Temp Pulse Resp B/P (MAP) Pulse Ox O2 Delivery O2 Flow Rate FiO2 05/30/24 10:59 99 20 05/30/24 09:30 98.1 104 20 115/60 100 Nasal Cannula* 4 36 05/30/24 08:00 97.9 96 20 93/39 100 Nasal Cannula* 4 36 05/30/24 06:34 96 22 05/30/24 06:33 21 N/Cannula Low lpm 3.0 32 05/30/24 05:08 99.0 100 20 121/62 99 Nasal Cannula* 3.0 N/A Laboratory: [ ] Hematology Labs: Test 05/30/24 08:15 05/29/24 15:58 Range/Units White Blood Count 8.7 4.8-10.8 K/uL Red Blood Count 2.96 L 4.50-6.20 MIL/uL Hemoglobin 8.5 L 14.0-18.0 g/dL Hematocrit 27.7 L 42-54 % Mean Corpuscular Volume 93.6 79-99 fL Mean Corpuscular Hemoglobin 28.7 27.0-33.0 pg Mean Corpuscular Hemoglobin Concent 30.7 L 32.0-36.0 g/dL Red Cell Distribution Width 17.8 H 11.0-15.5 % Platelet Count 238 130-400 K/uL Mean Platelet Volume 10.6 H 7.5-10.5 fL Immature Granulocyte % (Auto) 0.2 0-1 % Neutrophils (%) (Auto) 65.9 40.0-77.0 % Lymphocytes (%) (Auto) 9.4 L 21.0-51.0 % Monocytes (%) (Auto) 9.9 3.0-13.0 % Eosinophils (%) (Auto) 13.4 H 0.0-8.0 % Basophils (%) (Auto) 1.2 0.0-5.0 % Neutrophils # (Auto) 5.7 1.8-7.7 K/uL Lymphocytes # (Auto) 0.8 L 1.0-4.8 K/uL Monocytes # (Auto) 0.9 0.1-1.0 K/uL Eosinophils # (Auto) 1.16 H 0.00-0.70 K/uL Basophils # (Auto) 0.10 0.00-0.20 K/uL Absolute Immature Granulocyte (auto 0.02 0-1 K/uL Nucleated Red Blood Cells 0.0 0.0-0.19 % Erythrocyte Sedimentation Rate 80 H 0-20 MM/HR White Cell Morphology Comment See comments Red Blood Cell Morphology See comments Chemistry Labs: Test 05/30/24 12:02 05/30/24 08:15 05/30/24 00:35 05/29/24 15:58 Range/Units Whole Blood Glucose 162 H 70-110 MG/DL Sodium Level 141 136-145 mmol/L Potassium Level 4.7 3.5-5.1 mmol/L Chloride Level 102 101-111 mmol/L Carbon Dioxide Level 29 21-32 mmol/L Blood Urea Nitrogen 36 H 7-18 mg/dL Creatinine 5.2 H 0.5-1.3 mg/dL Glomerular Filtration Rate Calc 11 >90 mL/min Random Glucose 136 H 70-105 mg/dL Hemoglobin A1c 7.1 H 4.0-6.0 % Estimated Average Glucose (eAG) 157 H 70-126 mg/dL Lactic Acid Level 1.3 0.8-2.5 mmol/L Total Calcium 9.2 8.5-10.1 mg/dL Magnesium Level 2.30 1.80-2.40 mg/dL Total Bilirubin 1.1 H 0.2-1.0 mg/dL Aspartate Amino Transf (AST/SGOT) 30 10-37 U/L Alanine Aminotransferase (ALT/SGPT) 19 12-78 U/L Alkaline Phosphatase 331 H 50-136 U/L B-Type Natriuretic Peptide 1760 H 0-100 pg/mL Total Protein 8.3 6.0-8.3 g/dL Albumin 2.7 L 3.5-5.0 g/dL Troponin I High Sensitivity 77 *H 4-75 ng/L Total Creatine Kinase 57 # 21-232 U/L Procalcitonin 0.84 H 0.05-0.5 ng/mL Coagulation Labs: Test 05/30/24 08:15 Range/Units Prothrombin Time 13.5 H 9.6-11.6 SEC Prothromb Time International Ratio 1.31 H 0.85-1.15 Activated Partial Thromboplast Time 28.9 26.3-35.5 SEC Diagnostics / Radiology: [Copy/Paste Echos/Imaging Report here] Assessment: [CAD post 2vCABG at [facility] in 2016 Bioprosthetic aortic valve replacement in 2020 currently on warfarin Ischemic cardiomyopathy (LVEF 20-25% as per clinic note unable to tolerate GDM T due to hypotension currently on midodrine) Sick sinus syndrome status post Medtronic INOCULATOR-D device in September 2020 End-stage renal disease on hemodialysis (T-T-S) Paroxysmal atrial fibrillation on anticoagulation with warfarin. Severe PAD/ Gangrene of right foot with necrosis Suspected Osteomyelitis of the right foot - sepsis Type 2 diabetes mellitus ] Plan: [# Severe PAD with Bharat class five The patient presented with evidence of nonhealing wounds in the left lower extremity Noted right foot gangrene with necrotic 1st and 2nd and 3 rd toes Right foot x-ray result revealed no evidence for fracture or subluxation. Presenting ECG showed biventricular paced rhythm, with no acute ischemic changes Patient was started on broad-spectrum antibiotics Pending venous ultrasound results Patient is pending peripheral angiogram on 06/05/[address] Bates Continue [id number] mg q.day/Lipitor 40 mg q.day, and initiate [id number] mg q.day We will continue with broad-spectrum IV antibiotics over the weekend and plan for peripheral angiogram early next week ] # Acute on chronic systolic HFrEF ICM - NYHA II- (EF 20-25% by 2D echo from April 2023) - Currently compensated and euvolemic on exam Patient undergoes hemodialysis on Tuesdays and Saturdays. The patient has a history of GDMT intolerance and unable to optimize due to hypotension Strict I's and O's and daily weights with low-sodium diet Fluid restriction to 1.5 L daily with goal net negative of 1-2 L daily Fluid reduction via aggressive HD Monitor/replace electrolytes as needed ( K> 4 , Mg > 2 ) and keep on telemetry Thank you for this consult cardiology will continue to follow along Rosas Hill MD ATTESTATION BY PHYSICIAN I have seen and examined the patient, reviewed the above documentation, participated in medical decision making, made necessary modifications, and agree with the treatment plan as documented by my mid-level provider above. MD AUSTYN Webster JAMES R MD May 30, 2024 12:45
--- NOTE | 2024-05-30 12:57 | PN ---
[facility] PROGRESS NOTE Date of Service: May 30, 2024 Time of Service: 12:33 SUBJECTIVE: 78-year-old male, Micronesian-speaking with past medical history of Anemia, end- stage renal disease on hemodialysis (TThS) atrial fibrillation, coronary artery disease, hypertension, hyperlipidemia, diabetes, severe cardiomyopathy and chronic respiratory failure on home O2 who presented to the ED was sent by Dr. Mims for evaluation of right 1st,2nd and 3rd toe gangrene . Patient c/o pain at the site.As per daughter ,it started on March 2024 as redness and it progressively got worsen that it started turning black 5 days back. Patient also complained of occasional cough. Patient has been dialyzed on the same day and 2 Liters of fluid removed .Patient's Ditch Rider is and patient 's presentation designer is .Patient denies fever,chills,nausea,vomiting,chest pain and palpitation. Vital signs at the time of presentation: temperature 98.6, heart rate 98, blood pressure 104/59 saturation 98% on 2 L nasal cannula. Labs: Hemoglobin 9, hematocrit 30 platelet count 235. Chloride 97, BUN 29, creatinine 4.2, GFR 14, glucose 232, lactic acid 2.3 troponin 86 to 80, BNP 1650 procalcitonin 0.84. Right foot x-ray result revealed no evidence for fracture or subluxation. Chest x-ray result revealed cardiomegaly with pulmonary vascular congestion and small right greater than left pleural effusion with subjacent passive atelectasis. Patient is admitted for further medical management. 05.31.23: Patient is seen resting in his bed. Pending Cardiology, podiatry , nephrology and ID consult.Pending b/l LE artery doppler. REVIEW OF SYSTEMS CONSTITUTIONAL: Denies fevers, chills, or night sweats. No unintentional weight loss reported. NEUROLOGICAL: Denies headache, amaurosis fugax, motor weakness, sensory deficit, vertigo/spinning sensation, gait abnormalities, or tremors. ENT: No hearing loss, otalgia, otorrhea, rhinitis, rhinorrhea, hoarseness, or sore throat. CARDIOVASCULAR: Denies any exertional angina, dyspnea on exertion, orthopnea, paroxysmal nocturnal dyspnea, palpitations, life-threatening arrhythmias, claudication. PULMONARY: Complaints of cough and shortness of breaths Denies hemoptysis, pleuritic chest pain. SLEEP: Denies morning headaches, daytime somnolence or napping. Denies difficulty falling asleep, staying asleep, waking from sleep. Denies knowledge of snoring. GASTROINTESTINAL: Denies any type of dysphagia to either liquids or solids. Denies nausea, vomiting, pyrosis, early satiety, abdominal pain, diarrhea, constipation, or changes in stool consistency or caliber. Denies coffee-ground emesis, hematemesis, hematochezia, or melanotic stools. GENITOURINARY: Denies frequency, urgency, nocturia, hematuria or incontinence (Storage/Irritative symptoms.) Low urinary stream, straining to void, urinary intermittency or hesitancy, splitting of the voiding stream, terminal dribbling. PHYSICAL EXAM GENERAL APPEARANCE: The patient is awake, alert, and oriented, in no acute cardiopulmonary distress. NEUROLOGICAL: Cranial nerves II-XII grossly intact. Motor is 5/5 in bilateral upper and lower extremities proximal to distal. No sensory deficits. HEENT: Face is symmetric. Pupils are equal and reactive. Extraocular movements are intact. NECK: Supple. No JVD. No thyromegaly. No submental, submandibular, pre- /postauricular, occipital or supraclavicular lymphadenopathy. CHEST: Normal chest expansion. Telemetry. LUNGS: Bilateral crackles and scattered rhonchi on auscultation CARDIOVASCULAR: Regular. S1 and S2 normal. No appreciable rubs, murmurs or gallops. ABDOMEN: Soft, nontender, and nondistended. There is no rebound, voluntary guarding, or rigidity. : Deferred. No Geller. EXTREMITIES: 2+ edema bilateral lower extremities. warm rt foot till the base of necrotic toe SKIN: Left leg wound at the tip of the great toe. Right necrotic 1st ,2nd toes and the 3rd toe-dry gangrene. Vital Signs (last 8hr) Date Time Temp Pulse Resp B/P (MAP) Pulse Ox O2 Delivery O2 Flow Rate FiO2 05/30/24 10:59 99 20 05/30/24 09:30 98.1 104 20 115/60 100 Nasal Cannula* 4 36 05/30/24 08:00 97.9 96 20 93/39 100 Nasal Cannula* 4 36 05/30/24 06:34 96 22 05/30/24 06:33 21 N/Cannula Low lpm 3.0 32 05/30/24 05:08 99.0 100 20 121/62 99 Nasal Cannula* 3.0 N/A LABS: Laboratory: Test 05/30/24 12:02 05/30/24 08:15 05/30/24 00:35 05/29/24 15:58 Range/Units Whole Blood Glucose 162 H 70-110 MG/DL White Blood Count 8.7 4.8-10.8 K/uL Red Blood Count 2.96 L 4.50-6.20 MIL/uL Hemoglobin 8.5 L 14.0-18.0 g/dL Hematocrit 27.7 L 42-54 % Mean Corpuscular Volume 93.6 79-99 fL Mean Corpuscular Hemoglobin 28.7 27.0-33.0 pg Mean Corpuscular Hemoglobin Concent 30.7 L 32.0-36.0 g/dL Red Cell Distribution Width 17.8 H 11.0-15.5 % Platelet Count 238 130-400 K/uL Mean Platelet Volume 10.6 H 7.5-10.5 fL Immature Granulocyte % (Auto) 0.2 0-1 % Neutrophils (%) (Auto) 65.9 40.0-77.0 % Lymphocytes (%) (Auto) 9.4 L 21.0-51.0 % Monocytes (%) (Auto) 9.9 3.0-13.0 % Eosinophils (%) (Auto) 13.4 H 0.0-8.0 % Basophils (%) (Auto) 1.2 0.0-5.0 % Neutrophils # (Auto) 5.7 1.8-7.7 K/uL Lymphocytes # (Auto) 0.8 L 1.0-4.8 K/uL Monocytes # (Auto) 0.9 0.1-1.0 K/uL Eosinophils # (Auto) 1.16 H 0.00-0.70 K/uL Basophils # (Auto) 0.10 0.00-0.20 K/uL Absolute Immature Granulocyte (auto 0.02 0-1 K/uL Nucleated Red Blood Cells 0.0 0.0-0.19 % Erythrocyte Sedimentation Rate 80 H 0-20 MM/HR Prothrombin Time 13.5 H 9.6-11.6 SEC Prothromb Time International Ratio 1.31 H 0.85-1.15 Activated Partial Thromboplast Time 28.9 26.3-35.5 SEC Sodium Level 141 136-145 mmol/L Potassium Level 4.7 3.5-5.1 mmol/L Chloride Level 102 101-111 mmol/L Carbon Dioxide Level 29 21-32 mmol/L Blood Urea Nitrogen 36 H 7-18 mg/dL Creatinine 5.2 H 0.5-1.3 mg/dL Glomerular Filtration Rate Calc 11 >90 mL/min Random Glucose 136 H 70-105 mg/dL Hemoglobin A1c 7.1 H 4.0-6.0 % Estimated Average Glucose (eAG) 157 H 70-126 mg/dL Lactic Acid Level 1.3 0.8-2.5 mmol/L Total Calcium 9.2 8.5-10.1 mg/dL Magnesium Level 2.30 1.80-2.40 mg/dL Total Bilirubin 1.1 H 0.2-1.0 mg/dL Aspartate Amino Transf (AST/SGOT) 30 10-37 U/L Alanine Aminotransferase (ALT/SGPT) 19 12-78 U/L Alkaline Phosphatase 331 H 50-136 U/L B-Type Natriuretic Peptide 1760 H 0-100 pg/mL Total Protein 8.3 6.0-8.3 g/dL Albumin 2.7 L 3.5-5.0 g/dL Troponin I High Sensitivity 77 *H 4-75 ng/L White Cell Morphology Comment See comments Red Blood Cell Morphology See comments Total Creatine Kinase 57 # 21-232 U/L Procalcitonin 0.84 H 0.05-0.5 ng/mL Current Medications Medications (Trade) Dose Ordered Sig/Yefri Route PRN Reason Start Time Stop Time Status Last Admin Dose Admin Acetaminophen/ Hydrocodone Bitart (NORco 5/325MG) 1 tab Q4H PRN PO MODERATE PAIN (4-6) 05/29/24 19:00 06/03/24 18:59 Acetaminophen/ Hydrocodone Bitart (NORco 5/325MG) 2 tab Q4H PRN PO SEVERE PAIN (7-10) 05/29/24 19:00 06/03/24 18:59 05/29/24 23:14 2 TAB Albuterol (DUOneb) 1 udvial [id number] IH 05/29/24 22:00 06/28/24 21:59 05/30/24 10:57 1 UDVIAL Dextrose (D50w) 50 ml AD PRN IV HYPOGLYCEMIA PROTOCOL 05/29/24 20:00 06/28/24 19:59 Epoetin Willy-epbx (Retacrit) 10,000 unit QTUTHSA[DIALYSIS] SQ 05/31/24 16:00 06/30/24 15:59 Famotidine (Pepcid 20mg Tab) 10 mg DAILY PO 05/30/24 09:00 06/29/24 08:59 05/30/24 08:17 10 MG Glucagon (Glucagon 1mg Kit) 1 mg AD PRN IM HYPOGLYCEMIA PROTOCOL 05/29/24 20:00 06/28/24 19:59 Insulin Human Regular (humuLIN R 100 UNIT/ML 3ML) INSULIN SLIDING SCAL... ACHS SQ 05/29/24 21:00 06/28/24 20:59 Midodrine (PROAMatine 5 MG TABLET) 10 mg TID PO 05/29/24 21:00 06/28/24 20:59 05/30/24 08:17 10 MG Miscellaneous Medication (Midodrine HCl ) 10 mg TID PO 05/29/24 21:00 05/29/24 19:49 DC Ondansetron HCl (zoFRAN 4MG INJ) 4 mg Q6H PRN IV NAUSEA/VOMITING 05/29/24 19:00 06/28/24 18:59 Piperacillin Sod/ Tazobactam Sod 50 ml @ 12.5 mls/hr Q12H IV 05/30/24 04:00 06/09/24 03:59 05/30/24 05:00 12.5 MLS/HR Piperacillin Sod/ Tazobactam Sod 50 ml @ 200 mls/hr ONCE IVPB 05/29/24 16:00 05/30/24 09:37 DC 05/29/24 16:15 200 MLS/HR Vancomycin HCl 250 ml @ 125 mls/hr ONCE IV 05/29/24 19:00 05/29/24 19:52 DC Vancomycin HCl (Vancomycin 750mg) 750 mg QTUTHSA[DIALYSIS] IVPB 05/31/24 16:00 06/10/24 15:59 Vancomycin HCl (Vancomycin Protocol) 1 each AD IV 05/29/24 20:00 06/12/24 19:59 DIAGNOSTICS / RADIOLOGY: PROCEDURE: FT 3VW RT - FOOT COMP 3+VWS RT RIGHT FOOT RADIOGRAPHS - 3 VIEWS INDICATION: Pain COMPARISON: None FINDINGS: AP, lateral, and oblique views. No acute fracture or subluxation identified. Midfoot alignment is well maintained. Extensive arterial wall calcific plaque. Subcentimeter plantar calcaneal spur. Subcentimeter traction enthesophyte arises off the posterior calcaneus at the Achilles tendon attachment. IMPRESSION: No evidence for fracture or subluxation. 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 POA Osteomyelitis of the right foot toesPOA Left leg diabetic wound ulcer POA Possible right lung pneumonia POA Severe peripheral vascular disease POA Chronic respiratory failure on oxygen dependent POA End stage renal disease on hemodialysis POA Atrial fibrillation on Coumadin POA severe ischemic cardiomyopathy with AICD device POA Sepsis without septic shock POA Coronary artery disease with CABGx2 ,AVR bioprosthetic and stent x1 POA Chronic anemia due to CKD Elevated troponin POA Uncontrolled diabetes POA Morbid Obesity POA PLAN: Sepsis, POA 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 POA Osteomyelitis of the right foot toes , POA Left Leg diabetic wound ulcer POA continue Zosyn and IV and vancomycin IV for broad-spectrum coverage Pending ID consult , Podiatry consult , wound care Possible right lung pneumonia POA B/L wheeze and creps on examination Continue antibiotics and nebulization Chest physiotherapy Acute on chronic respiratory failure on oxygen dependent POA Chronic respiratory failure- patient on home oxygen End stage renal disease on hemodialysis POA continue HD TTHS Continue renal dialysis diet Nephrology recommendations Strict I/O chart Fluid intake <1500 ml per day Atrial fibrillation on Coumadin POA severe ischemic cardiomyopathy with AICD device POA Coronary artery disease with CABGx2 ,AVR bioprosthetic and stent x1 POA Severe peripheral vascular disease POA pending cardioloy consult Will request b/l LE Doppler artery study ATTESTATION BY PHYSICIAN I have seen and examined the patient. I reviewed the documentation, medical decision making, and treatment plan as noted by the resident provider above. I agree with the findings and plan of care. MARY CARMEN RUFFIN MD, MD May 30, 2024 12:57
--- NOTE | 2024-05-30 14:48 | HMCIMG ---
ULTRASOUND ARTERIAL DUPLEX LOWER EXTREMITY, BILATERAL INDICATION: Critical limb ischemia TECHNIQUE: Routine grayscale, color Doppler, and power Doppler ultrasound of the bilateral lower extremity arteries were obtained. COMPARISON: None FINDINGS: Velocities in cm/sec. RIGHT: CANDY VENDOR: 118 SFA: Prox 102, Mid 59, Distal 74 Popliteal: 57 proximally and 62 distally Anterior Tibial: 26 distally Posterior Tibial: 32 Dorsalis Pedis: 21 Monophasic flow along the right lower extremity arterial system except for triphasic along the right common femoral artery. LEFT: CANDY VENDOR: 155 SFA: Prox 69, Mid 77, Distal 83 Popliteal: 46 proximally and 54 distally Anterior Tibial: 28 distally Posterior Tibial: 41 Dorsalis Pedis: 35 Monophasic flow along the left lower extremity arterial system except for triphasic along the left common femoral artery and biphasic along the proximal left superficial femoral artery. Mild calcific plaque along the bilateral lower extremity arterial system enciso. IMPRESSION: Monophasic flow along the bilateral lower extremity arterial systems as described, without any focal high-grade flowrate-rate limiting stenosis. Parameters as reported.
[2024-05-30] MEDS ORDERED: PHARMACY COMMUNICATION 1 EACH EACH MISC SCH (15:30)
--- NOTE | 2024-05-30 16:37 | CONS ---
CONSULTATION NOTE Date of Service: May 30, 2024 Reason for Consultation: This 78 years old male was seen on consultation for evaluation of gangrene to the right foot 1st 2nd and 3rd toes the patient also had ulcerations to the left 1st and 2nd toes history of peripheral vascular disease Requesting Physician: Dr. Friedman HISTORY OF PRESENT ILLNESS: Patient presents on gangrene of toes 1st 2nd and 3rd on the right foot daughter stated that his gangrene started since March and has becoming worse patient has history of peripheral vascular disease also history of Anemia, end-stage renal disease on hemodialysis (TThS) atrial fibrillation, coronary artery disease, hypertension, hyperlipidemia, diabetes, severe cardiomyopathy and chronic respiratory failure on home O2 who presented to the ED was sent by Dr. Mims for evaluation of right 1st,2nd and 3rd toe gangrene . REVIEW OF SYSTEMS CONSTITUTIONAL: Denies fever, chills, or fatigue. HEAD/FACE: No signs of trauma. EENT: Denies eye pain, blurred vision, double vision, or light sensitivity. RESPIRATORY: Denies shortness of breath, cough, patient on supplemental oxygen secondary to respiratory issues. CARDIOVASCULAR: Denies chest pain, palpitation, syncope nonpalpable pulses on bilateral lower extremity. GASTROINTESTINAL/ABDOMINAL: Denies abdominal pain, constipation, diarrhea, [place] or vomiting GENITOURINARY: Denies dysuria or hematuria. MUSCULOSKELETAL: Denies joint pain, tenderness, or trauma. INTEGUMENTARY: Gangrene of right foot 1st 2nd and 3rd toe ulcer ulcerations ischemic of the hallux and 2nd toe of the left foot NEUROLOGICAL/PSYCH: Denies anxiety, depression, heat or cold intolerance. PAST MEDICAL HISTORY: History of Anemia, end-stage renal disease on hemodialysis (TThS) atrial fibrillation, coronary artery disease, hypertension, hyperlipidemia, diabetes, severe cardiomyopathy and chronic respiratory failure on home O2 who presented to the ED was sent by Dr. Mims for evaluation of right 1st,2nd and 3rd toe gangrene . PAST SURGICAL HISTORY: AICD, CABG x2 , AVR bioprosthetic and cardiac stent x1 PAST SOCIAL HISTORY: Denies any drinking or smoking or using illicit drugs FAMILY HISTORY: Good family support history of diabetes and cardiovascular problem Coded Allergies: No Known Allergies (Unverified Allergy, Unknown, 02/10/22) PHYSICAL EXAM EYES: Anicteric. Pupils equal and reactive. HENT: No oral thrush seen, moist Oral mucosa NECK: Supple, no JVD or thyromegaly. LUNGS: Good air entry. No rales, no rhonchi. CARDIOVASCULAR: S1, S2 regular. No murmur heard. Peripheral vascular disease with nonpalpable pulses to bilateral lower extremity positive edema on bilateral lower extremities and induration and changes in pigmentation of the lower extremities bilateral below the level of ankle and above level of the ankle below the calf muscle. ABDOMEN: Soft, non tender, bowel sounds present, no organomegaly CENTRAL NERVOUS SYSTEM: Awake, alert, oriented x 3. No focal deficits. SKIN: Gangrene on toes hyperpigmented skin on bilateral lower extremity. LYMPHATICS: No peripheral lymphadenopathy MUSCULOSKELETAL: No joint swelling, erythema or tenderness. EXTREMITIES: Gangrene on toes one two and three right foot and ischemic ulcers on hallux and 2nd toe left foot BACK: No deformity, no pressure ulcer. GENITOURINARY: No dysuria or hematuria Vital Sign (Last 24 Hours) 05/30/24 05/30/24 05/30/24 12:00 14:00 14:32 Temp 98.8 Pulse 96 Resp 18 B/P (MAP) 100/62 Pulse Ox 98 O2 Delivery Room Air* O2 Flow Rate 0 FiO2 21 LABS: Laboratory: Test 05/30/24 16:01 05/30/24 08:15 05/30/24 00:35 05/29/24 15:58 Range/Units Whole Blood Glucose 205 H 70-110 MG/DL White Blood Count 8.7 4.8-10.8 K/uL Red Blood Count 2.96 L 4.50-6.20 MIL/uL Hemoglobin 8.5 L 14.0-18.0 g/dL Hematocrit 27.7 L 42-54 % Mean Corpuscular Volume 93.6 79-99 fL Mean Corpuscular Hemoglobin 28.7 27.0-33.0 pg Mean Corpuscular Hemoglobin Concent 30.7 L 32.0-36.0 g/dL Red Cell Distribution Width 17.8 H 11.0-15.5 % Platelet Count 238 130-400 K/uL Mean Platelet Volume 10.6 H 7.5-10.5 fL Immature Granulocyte % (Auto) 0.2 0-1 % Neutrophils (%) (Auto) 65.9 40.0-77.0 % Lymphocytes (%) (Auto) 9.4 L 21.0-51.0 % Monocytes (%) (Auto) 9.9 3.0-13.0 % Eosinophils (%) (Auto) 13.4 H 0.0-8.0 % Basophils (%) (Auto) 1.2 0.0-5.0 % Neutrophils # (Auto) 5.7 1.8-7.7 K/uL Lymphocytes # (Auto) 0.8 L 1.0-4.8 K/uL Monocytes # (Auto) 0.9 0.1-1.0 K/uL Eosinophils # (Auto) 1.16 H 0.00-0.70 K/uL Basophils # (Auto) 0.10 0.00-0.20 K/uL Absolute Immature Granulocyte (auto 0.02 0-1 K/uL Nucleated Red Blood Cells 0.0 0.0-0.19 % Erythrocyte Sedimentation Rate 80 H 0-20 MM/HR Prothrombin Time 13.5 H 9.6-11.6 SEC Prothromb Time International Ratio 1.31 H 0.85-1.15 Activated Partial Thromboplast Time 28.9 26.3-35.5 SEC Sodium Level 141 136-145 mmol/L Potassium Level 4.7 3.5-5.1 mmol/L Chloride Level 102 101-111 mmol/L Carbon Dioxide Level 29 21-32 mmol/L Blood Urea Nitrogen 36 H 7-18 mg/dL Creatinine 5.2 H 0.5-1.3 mg/dL Glomerular Filtration Rate Calc 11 >90 mL/min Random Glucose 136 H 70-105 mg/dL Hemoglobin A1c 7.1 H 4.0-6.0 % Estimated Average Glucose (eAG) 157 H 70-126 mg/dL Lactic Acid Level 1.3 0.8-2.5 mmol/L Total Calcium 9.2 8.5-10.1 mg/dL Magnesium Level 2.30 1.80-2.40 mg/dL Total Bilirubin 1.1 H 0.2-1.0 mg/dL Aspartate Amino Transf (AST/SGOT) 30 10-37 U/L Alanine Aminotransferase (ALT/SGPT) 19 12-78 U/L Alkaline Phosphatase 331 H 50-136 U/L B-Type Natriuretic Peptide 1760 H 0-100 pg/mL Total Protein 8.3 6.0-8.3 g/dL Albumin 2.7 L 3.5-5.0 g/dL Troponin I High Sensitivity 77 *H 4-75 ng/L White Cell Morphology Comment See comments Red Blood Cell Morphology See comments Total Creatine Kinase 57 # 21-232 U/L Procalcitonin 0.84 H 0.05-0.5 ng/mL DIAGNOSTICS / RADIOLOGY: [ ] ASSESSMENT: Gangrene on toes 1st 2nd and 3rd right foot. Ischemic ulcer to 1st and 2nd toe left foot. Peripheral vascular disease with edema on lower extremity. PLAN: Continue local care at this time Betadine paint keep omental a dry follow up cardiovascular input follow up testing for bilateral lower extremity circulation we will follow up with further planning after all this day since has done and cardiovascular evaluation completed. Prognosis is guarded secondary to severe cardiovascular compromise. BELKIS CARRILLO DPM May 30, 2024 16:37
[2024-05-30] MEDS: atorVAStatin 40 MG TABLET PO SCH (20:44)
[2024-05-30] MEDS: WARFARIN SODIUM 2 MG TAB PO SCH (20:45)
[2024-05-30] MEDS ORDERED: IOHEXOL-350 50ML VIAL IV ONE (21:35)
[2024-05-30] MEDS ORDERED: IOHEXOL-350 75 ML VIAL IV ONE (21:35)
[2024-05-31] VITALS (31 sets, daily range): BP systolic 92–158; BP diastolic 45–88; PULSE 74–105; RESP 16–22; TEMP 97.7–98.9; O2SAT 95–100
--- NOTE | 2024-05-31 00:09 | HMCIMG ---
CT ANGIO ABD AORTA W RUNOFF HISTORY: No additional history given. COMPARISON: None TECHNIQUE: CT angiography of the abdomen and pelvis and bilateral lower extremity was obtained using angiographic technique with maximum intensity projection reconstruction images. Patient was 135 cc of Omnipaque through intravenous route. Oral contrast was not given. FINDINGS: There is right pleural effusion with compressive atelectasis. There is no evidence of parenchymal disease or pulmonary nodule of the visualized lower lungs. Degenerative changes of the thoracolumbar spine are present. The heart is not enlarged. Coronary artery calcifications are seen. Gallstones are seen in the gallbladder. There are bilateral renal atrophy. The liver, spleen, adrenal glands and pancreas are unremarkable. There is no evidence of hydronephrosis bilaterally. No evidence of renal stone is seen. Fecal material is seen in the colon. There are normal size retroperitoneal and mesenteric lymph nodes. Small ascites is seen. Atherosclerotic changes are present. There is diffuse atherosclerotic disease. No evidence of abdominal aortic aneurysm is seen. There are bilateral renal vascular calcifications causing moderate renal artery stenosis. The celiac, superior mesenteric arteries are grossly patent. The visualized portion of the iliac arterial systems are also grossly patent. Extensive short segment stenosis are noted involving the femoral arteries and popliteal arteries bilaterally. Occlusion of the anterior tibial arteries and posterior tibial arteries are noted bilaterally. Short segment stenosis are noted in the peroneal arteries are grossly patent. Pelvic sidewalls are symmetric bilaterally. Bladder is poorly distended. IMPRESSION: 1. Extensive short segment stenosis are noted involving the femoral arteries and popliteal arteries bilaterally. Occlusion of the anterior tibial arteries and posterior tibial arteries are noted bilaterally. Short segment stenosis are noted in the peroneal arteries are grossly patent. 2. Right pleural effusion and compressive atelectasis. Gallstones. CT was performed with one or more following dose reduction techniques: automated exposure control, adjustment of the mA and kv according to patient's size, or use of a iterative reconstruction technique.
[2024-05-31] MEDS: HEParin 25,000 UNITS/250ML D5W 250 ML IV SCH (00:21)
--- NOTE | 2024-05-31 06:22 | PN ---
[facility] PROGRESS NOTE Date of Service: May 31, 2024 Time of Service: 06:15 SUBJECTIVE: 78-year-old male, [place]-speaking with past medical history of Anemia, end- stage renal disease on hemodialysis (TThS) atrial fibrillation, bioprosthetic aortic valve replacement in 2020 currently on warfarin,coronary artery disease, hypertension, hyperlipidemia, diabetes, severe cardiomyopathy(LVEF 20-25% as per clinic note unable to tolerate GDM T due to hypotension currently on midodrine) ,sick sinus syndrome status post [employer] device in September 2020 and chronic respiratory failure on home O2 who presented to the ED was sent by Dr. Mism for evaluation of right 1st,2nd and 3rd toe gangrene . Patient c/o pain at the site.As per daughter ,it started on March 2024 as redness and it progressively got worsen that it started turning black 5 days back. Patient also complained of occasional cough. Patient has been dialyzed on the same day and 2 Liters of fluid removed .Patient's Handle Sander Operator is and patient 's uniform attendant is .Patient denies fever,chills,nausea,vomiting,chest pain and palpitation. Vital signs at the time of presentation: temperature 98.6, heart rate 98, blood pressure 104/59 saturation 98% on 2 L nasal cannula. Labs: Hemoglobin 9, hematocrit 30 platelet count 235. Chloride 97, BUN 29, creatinine 4.2, GFR 14, glucose 232, lactic acid 2.3 troponin 86 to 80, BNP 1650 procalcitonin 0.84. Right foot x-ray result revealed no evidence for fracture or subluxation. Chest x-ray result revealed cardiomegaly with pulmonary vascular congestion and small right greater than left pleural effusion with subjacent passive atelectasis. Patient is admitted for further medical management. 05.31.23: Patient is seen resting in his bed. Pending Cardiology, podiatry , nephrology and ID consult.Pending b/l LE artery doppler. 06.01.23: Patient had angiogram done yesterday for assessing lower extremity circulation. Bilateral anterior and posterior tibial arteries are occluded with peroneal arteries grossly patent. Pending podiatry recommendations for possible TMA . Cardiology plan for peripheral angiogram early next week. Ortho consult pending . REVIEW OF SYSTEMS CONSTITUTIONAL: Denies fevers, chills, or night sweats. No unintentional weight loss reported. NEUROLOGICAL: Denies headache, amaurosis fugax, motor weakness, sensory deficit, vertigo/spinning sensation, gait abnormalities, or tremors. ENT: No hearing loss, otalgia, otorrhea, rhinitis, rhinorrhea, hoarseness, or sore throat. CARDIOVASCULAR: Denies any exertional angina, dyspnea on exertion, orthopnea, paroxysmal nocturnal dyspnea, palpitations, life-threatening arrhythmias, claudication. PULMONARY: Complaints of cough and shortness of breaths Denies hemoptysis, pleuritic chest pain. SLEEP: Denies morning headaches, daytime somnolence or napping. Denies difficulty falling asleep, staying asleep, waking from sleep. Denies knowledge of snoring. GASTROINTESTINAL: Denies any type of dysphagia to either liquids or solids. Denies nausea, vomiting, pyrosis, early satiety, abdominal pain, diarrhea, constipation, or changes in stool consistency or caliber. Denies coffee-ground emesis, hematemesis, hematochezia, or melanotic stools. GENITOURINARY: Denies frequency, urgency, nocturia, hematuria or incontinence (Storage/Irritative symptoms.) Low urinary stream, straining to void, urinary intermittency or hesitancy, splitting of the voiding stream, terminal dribbling. PHYSICAL EXAM GENERAL APPEARANCE: The patient is awake, alert, and oriented, in no acute cardiopulmonary distress. NEUROLOGICAL: Cranial nerves II-XII grossly intact. Motor is 5/5 in bilateral upper and lower extremities proximal to distal. No sensory deficits. HEENT: Face is symmetric. Pupils are equal and reactive. Extraocular movements are intact. NECK: Supple. No JVD. No thyromegaly. No submental, submandibular, pre- /postauricular, occipital or supraclavicular lymphadenopathy. CHEST: Normal chest expansion. Telemetry. LUNGS: Bilateral crackles and scattered rhonchi on auscultation CARDIOVASCULAR: Regular. S1 and S2 normal. No appreciable rubs, murmurs or gallops. ABDOMEN: Soft, nontender, and nondistended. There is no rebound, voluntary guarding, or rigidity. : Deferred. No Geller. EXTREMITIES: 2+ edema bilateral lower extremities. warm rt foot till the base of necrotic toe SKIN: Left leg wound at the tip of the great toe. Right necrotic 1st ,2nd toes and the 3rd toe-dry gangrene. Vital Signs (last 8hr) Date Time Temp Pulse Resp B/P (MAP) Pulse Ox O2 Delivery O2 Flow Rate FiO2 05/31/24 03:45 97.9 74 22 110/57 100 Nasal Cannula 2.0 05/31/24 01:05 103 20 05/30/24 23:25 97.0 98 24 123/69 95 Nasal Cannula 2.0 05/30/24 23:08 96 18 LABS: Laboratory: Test 05/30/24 21:12 05/30/24 08:15 05/30/24 00:35 05/29/24 15:58 Range/Units Whole Blood Glucose 221 H 70-110 MG/DL White Blood Count 8.7 4.8-10.8 K/uL Red Blood Count 2.96 L 4.50-6.20 MIL/uL Hemoglobin 8.5 L 14.0-18.0 g/dL Hematocrit 27.7 L 42-54 % Mean Corpuscular Volume 93.6 79-99 fL Mean Corpuscular Hemoglobin 28.7 27.0-33.0 pg Mean Corpuscular Hemoglobin Concent 30.7 L 32.0-36.0 g/dL Red Cell Distribution Width 17.8 H 11.0-15.5 % Platelet Count 238 130-400 K/uL Mean Platelet Volume 10.6 H 7.5-10.5 fL Immature Granulocyte % (Auto) 0.2 0-1 % Neutrophils (%) (Auto) 65.9 40.0-77.0 % Lymphocytes (%) (Auto) 9.4 L 21.0-51.0 % Monocytes (%) (Auto) 9.9 3.0-13.0 % Eosinophils (%) (Auto) 13.4 H 0.0-8.0 % Basophils (%) (Auto) 1.2 0.0-5.0 % Neutrophils # (Auto) 5.7 1.8-7.7 K/uL Lymphocytes # (Auto) 0.8 L 1.0-4.8 K/uL Monocytes # (Auto) 0.9 0.1-1.0 K/uL Eosinophils # (Auto) 1.16 H 0.00-0.70 K/uL Basophils # (Auto) 0.10 0.00-0.20 K/uL Absolute Immature Granulocyte (auto 0.02 0-1 K/uL Nucleated Red Blood Cells 0.0 0.0-0.19 % Erythrocyte Sedimentation Rate 80 H 0-20 MM/HR Prothrombin Time 13.5 H 9.6-11.6 SEC Prothromb Time International Ratio 1.31 H 0.85-1.15 Activated Partial Thromboplast Time 28.9 26.3-35.5 SEC Sodium Level 141 136-145 mmol/L Potassium Level 4.7 3.5-5.1 mmol/L Chloride Level 102 101-111 mmol/L Carbon Dioxide Level 29 21-32 mmol/L Blood Urea Nitrogen 36 H 7-18 mg/dL Creatinine 5.2 H 0.5-1.3 mg/dL Glomerular Filtration Rate Calc 11 >90 mL/min Random Glucose 136 H 70-105 mg/dL Hemoglobin A1c 7.1 H 4.0-6.0 % Estimated Average Glucose (eAG) 157 H 70-126 mg/dL Lactic Acid Level 1.3 0.8-2.5 mmol/L Total Calcium 9.2 8.5-10.1 mg/dL Magnesium Level 2.30 1.80-2.40 mg/dL Total Bilirubin 1.1 H 0.2-1.0 mg/dL Aspartate Amino Transf (AST/SGOT) 30 10-37 U/L Alanine Aminotransferase (ALT/SGPT) 19 12-78 U/L Alkaline Phosphatase 331 H 50-136 U/L B-Type Natriuretic Peptide 1760 H 0-100 pg/mL Total Protein 8.3 6.0-8.3 g/dL Albumin 2.7 L 3.5-5.0 g/dL Troponin I High Sensitivity 77 *H 4-75 ng/L White Cell Morphology Comment See comments Red Blood Cell Morphology See comments Total Creatine Kinase 57 # 21-232 U/L Procalcitonin 0.84 H 0.05-0.5 ng/mL Current Medications Medications (Trade) Dose Ordered Sig/Yefri Route PRN Reason Start Time Stop Time Status Last Admin Dose Admin Acetaminophen/ Hydrocodone Bitart (NORco 5/325MG) 1 tab Q4H PRN PO MODERATE PAIN (4-6) 05/29/24 19:00 06/03/24 18:59 Acetaminophen/ Hydrocodone Bitart (NORco 5/325MG) 2 tab Q4H PRN PO SEVERE PAIN (7-10) 05/29/24 19:00 06/03/24 18:59 05/29/24 23:14 2 TAB Albuterol (DUOneb) 1 udvial [id number] IH 05/29/24 22:00 06/28/24 21:59 05/31/24 01:03 1 UDVIAL Aspirin (Aspirin 81mg Ec Tab) 81 mg DAILY PO 05/31/24 09:00 06/30/24 08:59 Atorvastatin Calcium (LIPItor 40MG) 80 mg HS PO 05/30/24 21:00 06/29/24 20:59 05/30/24 20:44 80 MG Clopidogrel Bisulfate (plaVIX 75MG) 75 mg DAILY PO 05/31/24 09:00 06/30/24 08:59 Dextrose (D50w) 50 ml AD PRN IV HYPOGLYCEMIA PROTOCOL 05/29/24 20:00 06/28/24 19:59 Docusate Sodium (COLace 100MG CAP) 100 mg DAILY PO 05/31/24 09:00 06/30/24 08:59 Epoetin Willy-epbx (Retacrit) 10,000 unit QTUTHSA[DIALYSIS] SQ 05/31/24 16:00 06/30/24 15:59 Famotidine (Pepcid 20mg Tab) 10 mg DAILY PO 05/30/24 09:00 06/29/24 08:59 05/30/24 08:17 10 MG Glucagon (Glucagon 1mg Kit) 1 mg AD PRN IM HYPOGLYCEMIA PROTOCOL 05/29/24 20:00 06/28/24 19:59 Heparin Sodium/ Dextrose 250 ml @ 0 mls/hr PROTOCOL IV 05/30/24 21:30 06/29/24 21:29 05/31/24 00:21 17.51 MLS/HR Home Med (Home Medication) (Sevelamer Carbonate (Renv... TIDAC PO 05/30/24 17:00 06/29/24 16:59 Insulin Human Regular (humuLIN R 100 UNIT/ML 3ML) INSULIN SLIDING SCAL... ACHS SQ 05/29/24 21:00 06/28/24 20:59 05/30/24 21:45 3 UNIT Midodrine (PROAMatine 5 MG TABLET) 10 mg TID PO 05/29/24 21:00 06/28/24 20:59 05/30/24 20:45 10 MG Midodrine (PROAMatine 5 MG TABLET) 30 mg DAILY PO 05/31/24 09:00 06/30/24 08:59 Miscellaneous Medication (Midodrine HCl ) 10 mg TID PO 05/29/24 21:00 05/29/24 19:49 DC Ondansetron HCl (zoFRAN 4MG INJ) 4 mg Q6H PRN IV NAUSEA/VOMITING 05/29/24 19:00 06/28/24 18:59 Pharmacy Profile Note (Lace Assessment) 1 each AD MISC 05/30/24 15:30 06/06/24 15:29 Piperacillin Sod/ Tazobactam Sod 50 ml @ 12.5 mls/hr Q12H IV 05/30/24 04:00 05/31/24 04:21 DC 05/30/24 20:46 12.5 MLS/HR Piperacillin Sod/ Tazobactam Sod 50 ml @ 12.5 mls/hr Q12H IV 05/31/24 09:00 06/10/24 08:59 Piperacillin Sod/ Tazobactam Sod 50 ml @ 200 mls/hr ONCE IVPB 05/29/24 16:00 05/30/24 09:37 DC 05/29/24 16:15 200 MLS/HR Vancomycin HCl 250 ml @ 125 mls/hr ONCE IV 05/29/24 19:00 05/29/24 19:52 DC Vancomycin HCl (Vancomycin 750mg) 750 mg QTUTHSA[DIALYSIS] IVPB 05/31/24 16:00 06/10/24 15:59 Vancomycin HCl (Vancomycin Protocol) 1 each AD IV 05/29/24 20:00 06/12/24 19:59 Warfarin Sodium (Coumadin) 2 mg BID PO 05/30/24 21:00 06/06/24 20:59 05/30/24 20:45 2 MG DIAGNOSTICS / RADIOLOGY: [ ] ASSESSMENT: Sepsis without septic shock POA 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 POA Osteomyelitis of the right foot toes POA Left leg diabetic wound ulcer POA Possible right lung pneumonia POA Severe peripheral vascular disease POA Chronic respiratory failure on oxygen dependent POA End stage renal disease on hemodialysis POA Atrial fibrillation on Coumadin POA severe ischemic cardiomyopathy with AICD device POA Coronary artery disease with CABGx2 ,AVR bioprosthetic and stent x1 POA Chronic anemia due to CKD Elevated troponin POA Uncontrolled diabetes POA Morbid Obesity POA PLAN: Sepsis, POA 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 continue Zosyn and IV and vancomycin IV for broad-spectrum coverage Pending ID consult ,Orthopedic consult Possible right lung pneumonia POA B/L wheeze and creps on examination at the time of admission -resolved Continue antibiotics and nebulization Chest physiotherapy Acute on chronic respiratory failure on oxygen dependent POA Chronic respiratory failure- patient on home oxygen End stage renal disease on hemodialysis POA continue HD TTHS Continue renal diet Nephrology recommendations Strict I/O chart Fluid intake <1500 ml per day Atrial fibrillation on Coumadin POA Severe ischemic cardiomyopathy with AICD device POA Acute on chronic systolic HFrEF POA Coronary artery disease with CABGx2 ,AVR bioprosthetic and stent x1 POA Severe peripheral vascular disease POA Abdominal aorta runoff study showing 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 Patient on Heparin drip Monitor PTT and adjust Heparin dose ATTESTATION BY PHYSICIAN I have seen and examined the patient. I reviewed the documentation, medical decision making, and treatment plan as noted by the resident provider above. I agree with the findings and plan of care. MARY CARMEN RUFFIN MD, MD May 31, 2024 06:22
[2024-05-31] MEDS: IpraTROPium 0.5 MG/2.5 ML INH IH SCH (06:33)
[2024-05-31 07:03] LABS: BASOPHILS # (AUTO) 0.11 K/uL (0.00-0.20); BASOPHILS % (AUTO) 1.3 % (0.0-5.0); EOSINOPHILS # (AUTO) 1.36 K/uL (0.00-0.70); EOSINOPHILS % (AUTO) 15.6 % (0.0-8.0); HEMATOCRIT 30.2 % (42-54); IMMATURE GRANULOCYTE ABSOLUTE 0.03 K/uL (0-1); LYMPHOCYTES # (AUTO) 0.6 K/uL (1.0-4.8); LYMPHOCYTES % (AUTO) 6.4 % (21.0-51.0); MEAN CORPUSCULAR HEMOGLOBIN 28.8 pg (27.0-33.0); MEAN CORPUSCULAR HGB CONC 30.5 g/dL (32.0-36.0); MEAN CORPUSCULAR VOLUME 94.4 fL (79-99); MONOCYTES # (AUTO) 0.9 K/uL (0.1-1.0); MONOCYTES % (AUTO) 10.5 % (3.0-13.0); NEUTROPHILS # (AUTO) 5.8 K/uL (1.8-7.7); NEUTROPHILS % (AUTO) 65.9 % (40.0-77.0); PLATELET COUNT (AUTO) 223 K/uL (130-400); RED CELL DISTRIBUTION WIDTH 17.8 % (11.0-15.5); WHITE BLOOD COUNT (AUTO) 8.7 K/uL (4.8-10.8)
[2024-05-31 07:25] LABS: CREATININE 6.5 mg/dL (0.5-1.3); PHOSPHORUS 5.7 mg/dL (2.5-4.9)
[2024-05-31] MEDS: SEVELAMER CARBONATE 2.4 GM PO SCH (07:30)
--- NOTE | 2024-05-31 09:09 | PN ---
[facility] CARDIOLOGY PROGRESS NOTE Date Patient Seen: May 31, 2024 Time of Visit: 09:07 Interval History: [No events overnight. ] Physical Examination: GENERAL APPEARANCE: The patient is awake, alert, and oriented, in no acute cardiopulmonary distress. NEUROLOGICAL: Cranial nerves II-XII grossly intact. Motor is 5/5 in bilateral upper and lower extremities proximal to distal. No sensory deficits. HEENT: Face is symmetric. Pupils are equal and reactive. Extraocular movements are intact. NECK: Supple. No JVD. No thyromegaly. No submental, submandibular, pre- /postauricular, occipital or supraclavicular lymphadenopathy. CHEST: Normal chest expansion. Telemetry. LUNGS: Bilateral crackles and scattered rhonchi on auscultation CARDIOVASCULAR: Regular. S1 and S2 normal. No appreciable rubs, murmurs or gallops. ABDOMEN: Soft, nontender, and nondistended. There is no rebound, voluntary guarding, or rigidity. : Deferred. No Geller. EXTREMITIES: 2+ edema bilateral lower extremities SKIN: Left leg wound. Right necrotic 1st ,2nd toes and the 3rd toe is starting to also develop necrosis. Laboratory: [ ] Hematology Labs: Test 05/31/24 06:51 05/30/24 08:15 05/29/24 15:58 Range/Units White Blood Count 8.7 4.8-10.8 K/uL Red Blood Count 3.20 L 4.50-6.20 MIL/uL Hemoglobin 9.2 L 14.0-18.0 g/dL Hematocrit 30.2 L 42-54 % Mean Corpuscular Volume 94.4 79-99 fL Mean Corpuscular Hemoglobin 28.8 27.0-33.0 pg Mean Corpuscular Hemoglobin Concent 30.5 L 32.0-36.0 g/dL Red Cell Distribution Width 17.8 H 11.0-15.5 % Platelet Count 223 130-400 K/uL Mean Platelet Volume 10.2 7.5-10.5 fL Immature Granulocyte % (Auto) 0.3 0-1 % Neutrophils (%) (Auto) 65.9 40.0-77.0 % Lymphocytes (%) (Auto) 6.4 L 21.0-51.0 % Monocytes (%) (Auto) 10.5 3.0-13.0 % Eosinophils (%) (Auto) 15.6 H 0.0-8.0 % Basophils (%) (Auto) 1.3 0.0-5.0 % Neutrophils # (Auto) 5.8 1.8-7.7 K/uL Lymphocytes # (Auto) 0.6 L 1.0-4.8 K/uL Monocytes # (Auto) 0.9 0.1-1.0 K/uL Eosinophils # (Auto) 1.36 H 0.00-0.70 K/uL Basophils # (Auto) 0.11 0.00-0.20 K/uL Absolute Immature Granulocyte (auto 0.03 0-1 K/uL Nucleated Red Blood Cells 0.0 0.0-0.19 % Erythrocyte Sedimentation Rate 80 H 0-20 MM/HR White Cell Morphology Comment See comments Red Blood Cell Morphology See comments Chemistry Labs: Test 05/31/24 06:51 05/30/24 21:12 05/30/24 08:15 05/30/24 00:35 Range/Units Sodium Level 137 136-145 mmol/L Potassium Level 5.0 3.5-5.1 mmol/L Chloride Level 98 L 101-111 mmol/L Carbon Dioxide Level 29 21-32 mmol/L Blood Urea Nitrogen 47 H 7-18 mg/dL Creatinine 6.5 H 0.5-1.3 mg/dL Glomerular Filtration Rate Calc 8 >90 mL/min Random Glucose 178 H 70-105 mg/dL Total Calcium 9.5 8.5-10.1 mg/dL Phosphorus Level 5.7 H 2.5-4.9 mg/dL Whole Blood Glucose 221 H 70-110 MG/DL Hemoglobin A1c 7.1 H 4.0-6.0 % Estimated Average Glucose (eAG) 157 H 70-126 mg/dL Lactic Acid Level 1.3 0.8-2.5 mmol/L Magnesium Level 2.30 1.80-2.40 mg/dL Total Bilirubin 1.1 H 0.2-1.0 mg/dL Aspartate Amino Transf (AST/SGOT) 30 10-37 U/L Alanine Aminotransferase (ALT/SGPT) 19 12-78 U/L Alkaline Phosphatase 331 H 50-136 U/L B-Type Natriuretic Peptide 1760 H 0-100 pg/mL Total Protein 8.3 6.0-8.3 g/dL Albumin 2.7 L 3.5-5.0 g/dL Troponin I High Sensitivity 77 *H 4-75 ng/L Test 05/29/24 15:58 Range/Units Total Creatine Kinase 57 # 21-232 U/L Procalcitonin 0.84 H 0.05-0.5 ng/mL Coagulation Labs: Test 05/31/24 06:51 05/30/24 08:15 Range/Units Activated Partial Thromboplast Time 65.7 #H 26.3-35.5 SEC Prothrombin Time 13.5 H 9.6-11.6 SEC Prothromb Time International Ratio 1.31 H 0.85-1.15 Diagnostics / Radiology: [Copy/Paste Echos/Imaging Report here] Impression and Plan: [CAD post 2vCABG at [facility] in 2015 Bioprosthetic aortic valve replacement in 2020 currently on warfarin Ischemic cardiomyopathy (LVEF 20-25% as per clinic note unable to tolerate GDM T due to hypotension currently on midodrine) Sick sinus syndrome 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 Severe PAD/ Gangrene of right foot with necrosis Suspected Osteomyelitis of the right foot - sepsis Type 2 diabetes mellitus ] Plan: [# Severe PAD with Bharat class five The patient presented with evidence of nonhealing wounds in the left lower extremity Noted right foot gangrene with necrotic 1st and 2nd and 3 rd toes Right foot x-ray result revealed no evidence for fracture or subluxation. Presenting ECG showed biventricular paced rhythm, with no acute ischemic changes Patient was started on broad-spectrum antibiotics Lower extremity arterial ultrasound: Monophasic flow along the bilateral lower extremity arterial systems as described, without any focal high-grade flowrate- rate limiting stenosis. CTA aorta with run-off: Extensive short segment stenosis are noted involving the femoral arteries and popliteal arteries bilaterally. Occlusion of the anterior tibial arteries and posterior tibial arteries are noted bilaterally. Short segment stenosis are noted in the peroneal arteries are grossly patent. Patient is pending peripheral angiogram on 06/05/[address] Bates Continue [id number] mg q.day/Lipitor 40 mg q.day, and initiate [id number] mg q.day We will continue with broad-spectrum IV antibiotics over the weekend and plan for peripheral angiogram early next week ] # Acute on chronic systolic HFrEF ICM - NYHA II- (EF 20-25% by 2D echo from April 2023) - Currently compensated and euvolemic on exam Patient undergoes hemodialysis on Tuesdays and Saturdays. The patient has a history of GDMT intolerance and unable to optimize due to hypotension Strict I's and O's and daily weights with low-sodium diet Fluid restriction to 1.5 L daily with goal net negative of 1-2 L daily Fluid reduction via aggressive HD Monitor/replace electrolytes as needed ( K> 4 , Mg > 2 ) and keep on telemetry Thank you for this consult cardiology will continue to follow along ] SKINNY ZAMAN MD May 31, 2024 09:09
[2024-05-31] MEDS: miDODRine HCL 5 MG TABLET PO SCH (10:16)
[2024-05-31] MEDS ORDERED: HEParin 5,000 UNIT VIAL SQ SCH (11:00)
[2024-05-31] MEDS: 0.9%NACL 1000ML 1,000 ML IV SCH (13:48)
--- NOTE | 2024-05-31 14:00 | NUR ---
DIALYSIS TREATMENT COMPLETED AND TOLERATED WELL. 1.5 LITERS OF FLUID REMOVED OVER 3 HOUR PERIOD.
[2024-05-31] MEDS: doCUSate SODIUM 100 MG CAP PO SCH (14:19)
[2024-05-31] MEDS: cloPIDOgrel 75MG TAB PO SCH (14:19)
[2024-05-31] MEDS: ASPIRIN 81 MG EC TAB PO SCH (14:19)
[2024-05-31] MEDS: ZOSYN 3.375GM+NS 50ML 50 ML IV SCH (14:21)
--- NOTE | 2024-05-31 14:30 | NUR ---
PTT RESULTS 50.6, NO CHANGE ON HEPARIN DRIP. NEXT PTT AT 830PM.
--- NOTE | 2024-05-31 14:50 | NUR ---
SPOKE WITH DAUGHTER AND SISTER. STATES PATIENT LIVES WITH DTR IN [place], GOES [place], ALSO LIVES WITH SISTER IN [place], BUT HD CLINIC IS IN [place]. DISCUSSED NEED FOR AFTERCARE- THEY KNOW THAT PATIENT WILL NEED TO BE IN AN A FACILITY FOR A PERIOD OF TIME AFTER THIS HOSPITALIZATION. WE ARE ANTICIPATING IV ABX, PTx, WOUND CARE STATED PATIENT VERY RESISTANT TO THE IDAE AND ALSO THE IDEA OF ANY KIND OF AMPUTATION. EXPLAINED INSURANCE BENEFITS AND PROCESS FOR AFTERCARE. STATED THEY WOULD TALK TO HIM.
[2024-05-31] MEDS: IpraTROPium/alBUTERol SULFATE 3 ML SOLUTION IH PRN (15:58)
[2024-05-31] MEDS: EPOETIN ALFA-EPBX (NON-ESRD) 10,000 UNIT/ML VIAL SQ SCH (16:33)
[2024-05-31] MEDS: VANCOMYCIN 750MG VIAL IVPB SCH (18:25)
[2024-05-31] MEDS: HYDROcodone/APAP 5/325 1 TAB TABLET PO PRN (21:04)
--- NOTE | 2024-05-31 22:40 | PN ---
NEPHROLOGY NOTE SUBJECTIVE: The patient has been evaluated and seen for dialysis and seen several times. The patient is generally weak. He has shortness of breath and intermittent hypotension. The patient is otherwise critically ill. PHYSICAL EXAMINATION: GENERAL: Pale. No other distress or deformities. Lying in bed. VITAL SIGNS: Blood pressure is 133/75, pulse 95, respiratory rate is 18. Afebrile. HEENT: Head is atraumatic. Pupils are round and reactive. Sclerae are anicteric. Conjunctivae not pale. Oral mucosa is not dry. NECK: Supple. No masses or bruits. LABORATORY DATA: We have reviewed the labs and old records. Hemoglobin is 9.2. PROBLEMS: * Renal failure. * Anemia. * Fluid overload. * Multiple other comorbidities PLAN: Continue dialysis. The patient has aortic valve replacement, CABG before, cardiomyopathy, ejection fraction low. I have discussed with other team members. We will follow up closely. We will be monitoring on renal function and electrolytes. The patient is seen for dialysis and seen multiple times. TID: [id number] RECEIPT: [id number]
--- NOTE | 2024-05-31 23:09 | PN ---
[facility] PROGRESS NOTE Date Patient Seen: May 31, 2024 Time of Visit: 23:09 Supervising Physician: [ ] Primary Care Physician: [ ] Outpatient Specialists: [ ] Inpatient Consults: [ ] PROBLEM LIST: 1. [ ] 2. [ ] 3. [ ] 4. [ ] 5. [ ] INTERVAL HISTORY: [ ] REVIEW OF SYSTEMS: 12 point ROS reviewed with patient. Pertinent positives mentioned above. Otherwise negative. PHYSICAL EXAM: GENERAL: alert, weak, awake oriented x 3 HEENT: EOMI, Sclera non icteric, moist mucosa NECK: Supple, no JVD, trachea midline LUNGS: Clear breath sounds bilaterally. No wheezes HEART: Regular rate and rhythm. Normal S1 and S2, without murmurs ABD: Abdomen soft, nontender. Bowel sounds present EXT: No clubbing cyanosis or edema NEURO: Alert and oriented to person, follows commands Vital Signs (last 8hr) Date Time Temp Pulse Resp B/P (MAP) Pulse Ox O2 Delivery O2 Flow Rate FiO2 05/31/24 22:54 89 20 05/31/24 19:00 98.4 90 20 101/62 98 Nasal Cannula 2.0 05/31/24 18:33 83 20 N/Cannula Low lpm 2.0 28 05/31/24 18:32 83 20 05/31/24 16:17 97.9 97 21 115/80 94 05/31/24 16:01 92 20 LABS: Hematology Labs: Test 05/31/24 06:51 05/30/24 08:15 Range/Units White Blood Count 8.7 4.8-10.8 K/uL Red Blood Count 3.20 L 4.50-6.20 MIL/uL Hemoglobin 9.2 L 14.0-18.0 g/dL Hematocrit 30.2 L 42-54 % Mean Corpuscular Volume 94.4 79-99 fL Mean Corpuscular Hemoglobin 28.8 27.0-33.0 pg Mean Corpuscular Hemoglobin Concent 30.5 L 32.0-36.0 g/dL Red Cell Distribution Width 17.8 H 11.0-15.5 % Platelet Count 223 130-400 K/uL Mean Platelet Volume 10.2 7.5-10.5 fL Immature Granulocyte % (Auto) 0.3 0-1 % Neutrophils (%) (Auto) 65.9 40.0-77.0 % Lymphocytes (%) (Auto) 6.4 L 21.0-51.0 % Monocytes (%) (Auto) 10.5 3.0-13.0 % Eosinophils (%) (Auto) 15.6 H 0.0-8.0 % Basophils (%) (Auto) 1.3 0.0-5.0 % Neutrophils # (Auto) 5.8 1.8-7.7 K/uL Lymphocytes # (Auto) 0.6 L 1.0-4.8 K/uL Monocytes # (Auto) 0.9 0.1-1.0 K/uL Eosinophils # (Auto) 1.36 H 0.00-0.70 K/uL Basophils # (Auto) 0.11 0.00-0.20 K/uL Absolute Immature Granulocyte (auto 0.03 0-1 K/uL Nucleated Red Blood Cells 0.0 0.0-0.19 % Erythrocyte Sedimentation Rate 80 H 0-20 MM/HR Chemistry Labs: Test 05/31/24 19:38 05/31/24 06:51 05/30/24 08:15 05/30/24 00:35 Range/Units Whole Blood Glucose 193 H 70-110 MG/DL Sodium Level 137 136-145 mmol/L Potassium Level 5.0 3.5-5.1 mmol/L Chloride Level 98 L 101-111 mmol/L Carbon Dioxide Level 29 21-32 mmol/L Blood Urea Nitrogen 47 H 7-18 mg/dL Creatinine 6.5 H 0.5-1.3 mg/dL Glomerular Filtration Rate Calc 8 >90 mL/min Random Glucose 178 H 70-105 mg/dL Total Calcium 9.5 8.5-10.1 mg/dL Phosphorus Level 5.7 H 2.5-4.9 mg/dL Hemoglobin A1c 7.1 H 4.0-6.0 % Estimated Average Glucose (eAG) 157 H 70-126 mg/dL Lactic Acid Level 1.3 0.8-2.5 mmol/L Magnesium Level 2.30 1.80-2.40 mg/dL Total Bilirubin 1.1 H 0.2-1.0 mg/dL Aspartate Amino Transf (AST/SGOT) 30 10-37 U/L Alanine Aminotransferase (ALT/SGPT) 19 12-78 U/L Alkaline Phosphatase 331 H 50-136 U/L B-Type Natriuretic Peptide 1760 H 0-100 pg/mL Total Protein 8.3 6.0-8.3 g/dL Albumin 2.7 L 3.5-5.0 g/dL Troponin I High Sensitivity 77 *H 4-75 ng/L Coagulation Labs: Test 05/31/24 20:41 05/30/24 08:15 Range/Units Activated Partial Thromboplast Time 84.9 #H 26.3-35.5 SEC Prothrombin Time 13.5 H 9.6-11.6 SEC Prothromb Time International Ratio 1.31 H 0.85-1.15 DIAGNOSTICS / RADIOLOGY RESULTS: [ ] PLAN NEURO: Minimize central acting medications as possible. Maintain fall precautions, adequate lighting during the day PULMONARY: Supplemental 02 as needed. Maintain aspiration precautions at all times CARDIOVASCULAR: Follow hemodynamics. Vital signs per facility protocol GI & NUTRITION: Continue with nutritional support. Continue stool softeners and laxatives as needed. KIDNEYS & ELECTROLYTES: Strict monitoring of intake, output and overall fluid balance. Avoid nephrotoxic medications to the extent possible. Medications to be dosed according to renal function. Monitor electrolytes and replace as needed ENDOCRINE: Maintain blood glucose between 100-180 at all times. Hypoglycemia protocol in place INFECTIOUS DISEASE: Trend temperature, WBC and procalcitonin level Follow cultures, deescalate antibiotics as soon as possible. Panculture if new onset fever ONCOLOGY/HEMATOLOGY/COAGULATION: Monitor for s/s of bleeding Monitor hemoglobin, coagulation studies as needed SKIN: Pressure ulcer prevention per facility protocol Specialty mattress ORTHO/REHAB: Continue PT/OT Prophylaxis: Continue GI and DVT prophylaxis Code Status: Full Resuscitation Disposition: TBD Other: Total patient care time exceeds 35 minutes excluding all procedures. ALVA COELLO SYSTEMS TECHNICIAN May 31, 2024 23:09
[2024-05-31 23:27] LABS: ABG BASE EXCESS 0.1 mmol/L (-2.0-3.0); ABG OXYGEN SATURATION 99.1 % (94.0-98.0); ABG PCO2 48 mmHg (35-48); CARBON MONOXIDE 0.7 % (0.5-1.5); HHb 0.9; PO2, ARTERIAL BG 161.3 mmHg (83.0-108.0); VENT MODE, BG NC (ROOM AIR)
[2024-05-31] MEDS: Solu-medROL 125MG VIAL IVP ONE (23:30)
[2024-05-31] MEDS: RACEPINEPHRINE HCL 2.25% 0.5 ML NEB SOLN NEB ONE (23:33)
[2024-06-01] VITALS (15 sets, daily range): BP systolic 96–108; BP diastolic 59–69; PULSE 73–92; RESP 17–28; TEMP 97.6–98.2; O2SAT 94–99
--- NOTE | 2024-06-01 01:21 | PN ---
NEPHROLOGY NOTE SUBJECTIVE: The patient has been evaluated and seen for dialysis and seen multiple times. No fevers, chills, or rigors. No cough, expectoration, or hemoptysis. No abdominal pain. No nausea or vomiting. No chest pain. No orthopnea or PND. Other systemic review is unchanged. PHYSICAL EXAMINATION: GENERAL: Obese, lying in bed. VITAL SIGNS: Blood pressure around 115/80, pulse is 97, respiratory rate 21. NECK: Supple. No masses or bruits. Thyroid is palpable. Neck has no bruits. BACK: No CVA tenderness or back deformities. LABORATORY DATA: Labs have been reviewed. Old records reviewed. Imaging studies are personally reviewed. PROBLEMS: * Renal failure. * Anemia. * Shortness of breath. * Cardiomyopathy. PLAN: Dialysis and continue monitoring. The patient has been evaluated and seen for dialysis and seen multiple times. I thank you for this patient. TID: [id number] RECEIPT: [id number]
[2024-06-01 03:25] LABS: HEMATOCRIT 28.2 % (42-54); MEAN CORPUSCULAR HEMOGLOBIN 28.8 pg (27.0-33.0); MEAN CORPUSCULAR HGB CONC 31.2 g/dL (32.0-36.0); MEAN CORPUSCULAR VOLUME 92.2 fL (79-99); RED BLOOD CELL COUNT(AUTO) 3.06 MIL/uL (4.50-6.20); RED CELL DISTRIBUTION WIDTH 17.7 % (11.0-15.5); WHITE BLOOD COUNT (AUTO) 9.3 K/uL (4.8-10.8)
[2024-06-01 03:38] LABS: ALBUMIN 2.8 g/dL (3.5-5.0); BILIRUBIN,TOTAL 1.2 mg/dL (0.2-1.0); CREATININE 5.1 mg/dL (0.5-1.3); MAGNESIUM 2.1 mg/dL (1.80-2.40); PHOSPHORUS 5.5 mg/dL (2.5-4.9); POTASSIUM 5.3 mmol/L (3.5-5.1); TOTAL PROTEIN, SERUM 8.5 g/dL (6.0-8.3)
[2024-06-01] MEDS: Solu-medROL 125MG VIAL IVP SCH (06:33)
--- NOTE | 2024-06-01 08:34 | HMCIMG ---
NECK SOFT TISSUE HISTORY: SOB, stridor TECHNIQUE: 2 image/s obtained. FINDINGS AND IMPRESSION: Prevertebral soft tissues are within normal limits. Epiglottis appears grossly unremarkable. Cervical spondylosis is seen. No radiopaque foreign body is identified.
--- NOTE | 2024-06-01 08:34 | HMCIMG ---
INDICATION: SOB TECHNIQUE: CHEST 1VW COMPARISON: 05/29/2024 FINDINGS AND IMPRESSION: Continued bilateral airspace consolidation with right effusion. Right permacath is noted. Cardiomegaly is seen with CABG changes and left-sided AICD. Mild degenerative changes of the spine. The visualized upper abdomen appears unremarkable.
--- NOTE | 2024-06-01 08:41 | PN ---
[facility] CARDIOLOGY PROGRESS NOTE Date Patient Seen: Jun 01, 2024 Time of Visit: 08:40 Interval History: [No events overnight. ] Physical Examination: GENERAL APPEARANCE: The patient is awake, alert, and oriented, in no acute cardiopulmonary distress. NEUROLOGICAL: Cranial nerves II-XII grossly intact. Motor is 5/5 in bilateral upper and lower extremities proximal to distal. No sensory deficits. HEENT: Face is symmetric. Pupils are equal and reactive. Extraocular movements are intact. NECK: Supple. No JVD. No thyromegaly. No submental, submandibular, pre- /postauricular, occipital or supraclavicular lymphadenopathy. CHEST: Normal chest expansion. Telemetry. LUNGS: Bilateral crackles and scattered rhonchi on auscultation CARDIOVASCULAR: Regular. S1 and S2 normal. No appreciable rubs, murmurs or gallops. ABDOMEN: Soft, nontender, and nondistended. There is no rebound, voluntary guarding, or rigidity. : Deferred. No Geller. EXTREMITIES: 2+ edema bilateral lower extremities SKIN: Left leg wound. Right necrotic 1st ,2nd toes and the 3rd toe is starting to also develop necrosis. Laboratory: [ ] Hematology Labs: Test 06/01/24 03:09 05/31/24 06:51 Range/Units White Blood Count 9.3 4.8-10.8 K/uL Red Blood Count 3.06 L 4.50-6.20 MIL/uL Hemoglobin 8.8 L 14.0-18.0 g/dL Hematocrit 28.2 L 42-54 % Mean Corpuscular Volume 92.2 79-99 fL Mean Corpuscular Hemoglobin 28.8 27.0-33.0 pg Mean Corpuscular Hemoglobin Concent 31.2 L 32.0-36.0 g/dL Red Cell Distribution Width 17.7 H 11.0-15.5 % Platelet Count 208 130-400 K/uL Mean Platelet Volume 11.0 H 7.5-10.5 fL Nucleated Red Blood Cells 0.0 0.0-0.19 % Immature Granulocyte % (Auto) 0.3 0-1 % Neutrophils (%) (Auto) 65.9 40.0-77.0 % Lymphocytes (%) (Auto) 6.4 L 21.0-51.0 % Monocytes (%) (Auto) 10.5 3.0-13.0 % Eosinophils (%) (Auto) 15.6 H 0.0-8.0 % Basophils (%) (Auto) 1.3 0.0-5.0 % Neutrophils # (Auto) 5.8 1.8-7.7 K/uL Lymphocytes # (Auto) 0.6 L 1.0-4.8 K/uL Monocytes # (Auto) 0.9 0.1-1.0 K/uL Eosinophils # (Auto) 1.36 H 0.00-0.70 K/uL Basophils # (Auto) 0.11 0.00-0.20 K/uL Absolute Immature Granulocyte (auto 0.03 0-1 K/uL Chemistry Labs: Test 06/01/24 05:50 06/01/24 03:09 Range/Units Whole Blood Glucose 183 H 70-110 MG/DL Sodium Level 135 L 136-145 mmol/L Potassium Level 5.3 H 3.5-5.1 mmol/L Chloride Level 97 L 101-111 mmol/L Carbon Dioxide Level 26 21-32 mmol/L Blood Urea Nitrogen 34 H 7-18 mg/dL Creatinine 5.1 H 0.5-1.3 mg/dL Glomerular Filtration Rate Calc 11 >90 mL/min Random Glucose 152 H 70-105 mg/dL Total Calcium 9.2 8.5-10.1 mg/dL Phosphorus Level 5.5 H 2.5-4.9 mg/dL Magnesium Level 2.10 1.80-2.40 mg/dL Total Bilirubin 1.2 H 0.2-1.0 mg/dL Aspartate Amino Transf (AST/SGOT) 24 10-37 U/L Alanine Aminotransferase (ALT/SGPT) 15 12-78 U/L Alkaline Phosphatase 307 H 50-136 U/L Total Protein 8.5 H 6.0-8.3 g/dL Albumin 2.8 L 3.5-5.0 g/dL Coagulation Labs: Test 06/01/24 03:09 Range/Units Activated Partial Thromboplast Time 70.5 H 26.3-35.5 SEC Diagnostics / Radiology: [Copy/Paste Echos/Imaging Report here] Impression and Plan: [[facility] Bioprosthetic aortic valve replacement in 2020 currently on warfarin Ischemic cardiomyopathy (LVEF 20-25% as per clinic note unable to tolerate GDM T due to hypotension currently on midodrine) Sick sinus syndrome 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 Severe PAD/ Gangrene of right foot with necrosis Suspected Osteomyelitis of the right foot - sepsis Type 2 diabetes mellitus ] Plan: [# Severe PAD with Bharat class five The patient presented with evidence of nonhealing wounds in the left lower extremity Noted right foot gangrene with necrotic 1st and 2nd and 3 rd toes Right foot x-ray result revealed no evidence for fracture or subluxation. Presenting ECG showed biventricular paced rhythm, with no acute ischemic changes Patient was started on broad-spectrum antibiotics Lower extremity arterial ultrasound: Monophasic flow along the bilateral lower extremity arterial systems as described, without any focal high-grade flowrate- rate limiting stenosis. CTA aorta with run-off: Extensive short segment stenosis are noted involving the femoral arteries and popliteal arteries bilaterally. Occlusion of the anterior tibial arteries and posterior tibial arteries are noted bilaterally. Short segment stenosis are noted in the peroneal arteries are grossly patent. Patient is pending peripheral angiogram on 06/05/[address] 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 The patient has a history of GDMT intolerance and unable to optimize due to hypotension Strict I's and O's and daily weights with low-sodium diet Fluid restriction to 1.5 L daily with goal net negative of 1-2 L daily Fluid reduction via aggressive HD Monitor/replace electrolytes as needed ( K> 4 , Mg > 2 ) and keep on telemetry Thank you for this consult cardiology will continue to follow along ] SKINNY ZAMAN MD Jun 01, 2024 08:41
--- NOTE | 2024-06-01 10:27 | PN ---
[facility] PROGRESS NOTE Date of Service: Jun 01, 2024 Time of Service: 10:19 SUBJECTIVE: 78-year-old male, [place]-speaking with past medical history of Anemia, end- stage renal disease on hemodialysis (TThS) atrial fibrillation, bioprosthetic aortic valve replacement in 2020 currently on warfarin,coronary artery disease, hypertension, hyperlipidemia, diabetes, severe cardiomyopathy(LVEF 20-25% as per clinic note unable to tolerate GDM T due to hypotension currently on midodrine) ,sick sinus syndrome status post [employer]-D device in September 2020 and chronic respiratory failure on home O2 who presented to the ED was sent by Dr. Mims for evaluation of right 1st,2nd and 3rd toe gangrene . Patient c/o pain at the site.As per daughter ,it started on March 2024 as redness and it progressively got worsen that it started turning black 5 days back. Patient also complained of occasional cough. Patient has been dialyzed on the same day and 2 Liters of fluid removed .Patient's Building Principal is and patient 's account strategist is .Patient denies fever,chills,nausea,vomiting,chest pain and palpitation. Vital signs at the time of presentation: temperature 98.6, heart rate 98, blood pressure 104/59 saturation 98% on 2 L nasal cannula. Labs: Hemoglobin 9, hematocrit 30 platelet count 235. Chloride 97, BUN 29, creatinine 4.2, GFR 14, glucose 232, lactic acid 2.3 troponin 86 to 80, BNP 1650 procalcitonin 0.84. Right foot x-ray result revealed no evidence for fracture or subluxation. Chest x-ray result revealed cardiomegaly with pulmonary vascular congestion and small right greater than left pleural effusion with subjacent passive atelectasis. Patient is admitted for further medical management. 05.31.23: Patient is seen resting in his bed. Pending Cardiology, podiatry , nephrology and ID consult.Pending b/l LE artery doppler. 06.01.23: Patient had angiogram done yesterday for assessing lower extremity circulation. Bilateral anterior and posterior tibial arteries are occluded with peroneal arteries grossly patent. Pending podiatry recommendations for possible TMA . Cardiology plan for peripheral angiogram early next week. Ortho consult pending . 06/01/24 : Patient is seen and examined today. Denies any complaints today. However use had stridor and shortness of breath during the night and neck soft tissue x-ray was ordered which showed normal soft tissue and epiglottitis appears unremarkable. Solu-Medrol 60 Q 6 was given. Chest x-ray showed bilateral airspace consolidation with right effusion. Plan for peripheral angio on 06/05/[address] Bates. We will hold the warfarin since the patient is already on heparin drip. We will downgrade him to med surge with telemetry REVIEW OF SYSTEMS CONSTITUTIONAL: Denies fevers, chills, or night sweats. No unintentional weight loss reported. NEUROLOGICAL: Denies headache, amaurosis fugax, motor weakness, sensory deficit, vertigo/spinning sensation, gait abnormalities, or tremors. ENT: No hearing loss, otalgia, otorrhea, rhinitis, rhinorrhea, hoarseness, or sore throat. CARDIOVASCULAR: Denies any exertional angina, dyspnea on exertion, orthopnea, paroxysmal nocturnal dyspnea, palpitations, life-threatening arrhythmias, hayley ication. PULMONARY: Complaints of cough and shortness of breaths Denies hemoptysis, pleuritic chest pain. SLEEP: Denies morning headaches, daytime somnolence or napping. Denies difficulty falling asleep, staying asleep, waking from sleep. Denies knowledge of snoring. GASTROINTESTINAL: Denies any type of dysphagia to either liquids or solids. Denies nausea, vomiting, pyrosis, early satiety, abdominal pain, diarrhea, constipation, or changes in stool consistency or caliber. Denies coffee-ground emesis, hematemesis, hematochezia, or melanotic stools. GENITOURINARY: Denies frequency, urgency, nocturia, hematuria or incontinence (Storage/Irritative symptoms.) Low urinary stream, straining to void, urinary intermittency or hesitancy, splitting of the voiding stream, terminal dribbling. PHYSICAL EXAM GENERAL APPEARANCE: The patient is awake, alert, and oriented, in no acute cardiopulmonary distress. NEUROLOGICAL: Cranial nerves II-XII grossly intact. Motor is 5/5 in bilateral upper and lower extremities proximal to distal. No sensory deficits. HEENT: Face is symmetric. Pupils are equal and reactive. Extraocular movements are intact. NECK: Supple. No JVD. No thyromegaly. No submental, submandibular, pre- /postauricular, occipital or supraclavicular lymphadenopathy. CHEST: Normal chest expansion. Telemetry. LUNGS: Bilateral crackles and scattered rhonchi on auscultation CARDIOVASCULAR: Regular. S1 and S2 normal. No appreciable rubs, murmurs or gallops. ABDOMEN: Soft, nontender, and nondistended. There is no rebound, voluntary guarding, or rigidity. : Deferred. No Geller. EXTREMITIES: 2+ edema bilateral lower extremities. warm rt foot till the base of necrotic toe SKIN: Left leg wound at the tip of the great toe. Right necrotic 1st ,2nd toes and the 3rd toe-dry gangrene. Vital Signs (last 8hr) Date Time Temp Pulse Resp B/P (MAP) Pulse Ox O2 Delivery O2 Flow Rate FiO2 06/01/24 07:09 98.2 91 18 107/69 95 Nasal Cannula 2.0 06/01/24 06:25 89 28 N/A Room Air 21 06/01/24 06:22 89 28 06/01/24 03:00 98.1 73 18 98/59 95 Nasal Cannula 2.0 LABS: Laboratory: Test 06/01/24 09:04 06/01/24 05:50 06/01/24 03:09 05/31/24 23:25 Range/Units Activated Partial Thromboplast Time 62.4 H 26.3-35.5 SEC Whole Blood Glucose 183 H 70-110 MG/DL White Blood Count 9.3 4.8-10.8 K/uL Red Blood Count 3.06 L 4.50-6.20 MIL/uL Hemoglobin 8.8 L 14.0-18.0 g/dL Hematocrit 28.2 L 42-54 % Mean Corpuscular Volume 92.2 79-99 fL Mean Corpuscular Hemoglobin 28.8 27.0-33.0 pg Mean Corpuscular Hemoglobin Concent 31.2 L 32.0-36.0 g/dL Red Cell Distribution Width 17.7 H 11.0-15.5 % Platelet Count 208 130-400 K/uL Mean Platelet Volume 11.0 H 7.5-10.5 fL Nucleated Red Blood Cells 0.0 0.0-0.19 % Sodium Level 135 L 136-145 mmol/L Potassium Level 5.3 H 3.5-5.1 mmol/L Chloride Level 97 L 101-111 mmol/L Carbon Dioxide Level 26 21-32 mmol/L Blood Urea Nitrogen 34 H 7-18 mg/dL Creatinine 5.1 H 0.5-1.3 mg/dL Glomerular Filtration Rate Calc 11 >90 mL/min Random Glucose 152 H 70-105 mg/dL Total Calcium 9.2 8.5-10.1 mg/dL Phosphorus Level 5.5 H 2.5-4.9 mg/dL Magnesium Level 2.10 1.80-2.40 mg/dL Total Bilirubin 1.2 H 0.2-1.0 mg/dL Aspartate Amino Transf (AST/SGOT) 24 10-37 U/L Alanine Aminotransferase (ALT/SGPT) 15 12-78 U/L Alkaline Phosphatase 307 H 50-136 U/L Total Protein 8.5 H 6.0-8.3 g/dL Albumin 2.8 L 3.5-5.0 g/dL Blood Gas Specimen Type Arterial Arterial Blood pH 7.350 7.350-7.450 Arterial Blood Partial Pressure CO2 48 35-48 mmHg Arterial Blood Partial Pressure O2 161.3 H 83.0-108.0 mmHg Arterial Blood HCO3 26.0 21.0-28.0 mmol/L Arterial Blood Oxygen Saturation 99.1 H 94.0-98.0 % Arterial Blood Base Excess 0.1 -2.0-3.0 mmol/L Hemoglobin (Blood Gas) 9.3 L 13.5-17.5 g/dL Sodium (Blood Gas) 135 L 136-145 MMOL/L Bedside Potassium (Blood Gas) 4.6 H 3.4-4.5 MMOL/L Bedside Chloride (Blood Gas) 98 98-107 MMOL/L Bedside Glucose (Blood Gas) 136 H 65-95 MG/DL Bedside Ionized Calcium (Blood Gas) 1.15 1.15-1.33 MMOL/L Bedside Lactic Acid (Blood Gas) 1.10 H 0.36-0.75 MMOL/L Blood Gas Temperature 37.0 35.5-37.0 CELSIUS Blood Gas Flow-by 3.00 0.00-15.00 L/min Blood Gas Vent Mode NC ROOM AIR FiO2 32.0 % Blood Gas Specimen Dong CASILLAS RN ,LB Test 05/31/24 06:51 Range/Units Immature Granulocyte % (Auto) 0.3 0-1 % Neutrophils (%) (Auto) 65.9 40.0-77.0 % Lymphocytes (%) (Auto) 6.4 L 21.0-51.0 % Monocytes (%) (Auto) 10.5 3.0-13.0 % Eosinophils (%) (Auto) 15.6 H 0.0-8.0 % Basophils (%) (Auto) 1.3 0.0-5.0 % Neutrophils # (Auto) 5.8 1.8-7.7 K/uL Lymphocytes # (Auto) 0.6 L 1.0-4.8 K/uL Monocytes # (Auto) 0.9 0.1-1.0 K/uL Eosinophils # (Auto) 1.36 H 0.00-0.70 K/uL Basophils # (Auto) 0.11 0.00-0.20 K/uL Absolute Immature Granulocyte (auto 0.03 0-1 K/uL Current Medications Medications (Trade) Dose Ordered Sig/Yefri Route PRN Reason Start Time Stop Time Status Last Admin Dose Admin Acetaminophen/ Hydrocodone Bitart (NORco 5/325MG) 1 tab Q4H PRN PO MODERATE PAIN (4-6) 05/29/24 19:00 06/03/24 18:59 05/31/24 21:04 1 TAB Acetaminophen/ Hydrocodone Bitart (NORco 5/325MG) 2 tab Q4H PRN PO SEVERE PAIN (7-10) 05/29/24 19:00 06/03/24 18:59 05/31/24 10:18 2 TAB Albuterol (DUOneb) 1 UDVIAL Q6H PRN IH SHORTNESS OF BREATH 05/31/24 16:00 06/30/24 15:59 05/31/24 22:54 1 UDVIAL Albuterol (DUOneb) 1 udvial [id number] IH 05/29/24 22:00 05/31/24 06:30 DC 05/31/24 01:03 1 UDVIAL Aspirin (Aspirin 81mg Ec Tab) 81 mg DAILY PO 05/31/24 09:00 06/30/24 08:59 06/01/24 09:01 81 MG Atorvastatin Calcium (LIPItor 40MG) 80 mg HS PO 05/30/24 21:00 06/29/24 20:59 05/31/24 21:02 80 MG Clopidogrel Bisulfate (plaVIX 75MG) 75 mg DAILY PO 05/31/24 09:00 06/30/24 08:59 06/01/24 09:00 75 MG Dextrose (D50w) 50 ml AD PRN IV HYPOGLYCEMIA PROTOCOL 05/29/24 20:00 06/28/24 19:59 Docusate Sodium (COLace 100MG CAP) 100 mg DAILY PO 05/31/24 09:00 06/30/24 08:59 06/01/24 09:01 100 MG Epoetin Willy-epbx (Retacrit) 10,000 unit QTUTHSA[DIALYSIS] SQ 05/31/24 16:00 06/30/24 15:59 05/31/24 16:33 10,000 UNIT Famotidine (Pepcid 20mg Tab) 10 mg DAILY PO 05/30/24 09:00 06/29/24 08:59 06/01/24 09:00 10 MG Glucagon (Glucagon 1mg Kit) 1 mg AD PRN IM HYPOGLYCEMIA PROTOCOL 05/29/24 20:00 06/28/24 19:59 Heparin Sodium (Porcine) (HEParin 5,000 UNIT VIAL) 10,000 unit AD IRRIG 05/31/24 14:30 06/30/24 10:59 Heparin Sodium (Porcine) (HEParin 5,000 UNIT VIAL) 10,000 unit AD SQ 05/31/24 11:00 05/31/24 14:15 DC Heparin Sodium/ Dextrose 250 ml @ 0 mls/hr PROTOCOL IV 05/30/24 21:30 06/29/24 21:29 06/01/24 05:42 15.4 MLS/HR Home Med (Home Medication) (Sevelamer Carbonate (Renv... TIDAC PO 05/30/24 17:00 06/29/24 16:59 Insulin Human Regular (humuLIN R 100 UNIT/ML 3ML) INSULIN SLIDING SCAL... ACHS SQ 05/29/24 21:00 06/28/24 20:59 06/01/24 06:45 2 UNIT Ipratropium Sargent (AtrovENT UD) 0.5 MG [id number] IH 05/31/24 06:30 06/30/24 06:29 06/01/24 06:22 0.5 MG Methylprednisolone Sodium Succinate (Solu-medROL 125MG) 60 mg Q6H IVP 06/01/24 06:00 07/01/24 05:59 06/01/24 06:33 60 MG Midodrine (PROAMatine 5 MG TABLET) 10 mg TID PO 05/29/24 21:00 05/31/24 10:34 DC 05/30/24 20:45 10 MG Midodrine (PROAMatine 5 MG TABLET) 30 mg DAILY PO 05/31/24 09:00 06/30/24 08:59 06/01/24 09:00 30 MG Miscellaneous Medication (Midodrine HCl ) 10 mg TID PO 05/29/24 21:00 05/29/24 19:49 DC Ondansetron HCl (zoFRAN 4MG INJ) 4 mg Q6H PRN IV NAUSEA/VOMITING 05/29/24 19:00 06/28/24 18:59 Pharmacy Profile Note (Lace Assessment) 1 each AD MISC 05/30/24 15:30 05/31/24 14:17 DC Piperacillin Sod/ Tazobactam Sod 50 ml @ 12.5 mls/hr Q12H IV 05/30/24 04:00 05/31/24 04:21 DC 05/30/24 20:46 12.5 MLS/HR Piperacillin Sod/ Tazobactam Sod 50 ml @ 12.5 mls/hr Q12H IV 05/31/24 09:00 06/10/24 08:59 06/01/24 08:59 12.5 MLS/HR Piperacillin Sod/ Tazobactam Sod 50 ml @ 200 mls/hr ONCE IVPB 05/29/24 16:00 05/30/24 09:37 DC 05/29/24 16:15 200 MLS/HR Sodium Chloride 1,000 ml @ 0 mls/hr ONCE IV 05/31/24 11:00 06/30/24 10:59 05/31/24 13:48 333 MLS/HR Vancomycin HCl 250 ml @ 125 mls/hr ONCE IV 05/29/24 19:00 05/29/24 19:52 DC Vancomycin HCl (Vancomycin 750mg) 750 mg QTUTHSA[DIALYSIS] IVPB 05/31/24 16:00 06/10/24 15:59 05/31/24 18:25 750 MG Vancomycin HCl (Vancomycin Protocol) 1 each AD IV 05/29/24 20:00 06/12/24 19:59 Warfarin Sodium (Coumadin) 2 mg BID PO 05/30/24 21:00 06/06/24 20:59 06/01/24 09:03 2 MG DIAGNOSTICS / RADIOLOGY: [facility] [address] [place] [address] [id number] IMAGING REPORT Signed PATIENT: TERRY FUCHS MR#: [id number] : 1945 SEX: M AGE: 78 LOCATION: 2DH ORDER 17 STATUS: ADM IN [facility] REPORT#: [id number] SERVICE 15 REASON: SOB, stridor ORDERING PHYSICIAN: ALVA COELLO CUTTING TABLE OPERATOR FIRST PROCEDURE: NECK SOFT - NECK SOFT TISSUE NECK SOFT TISSUE HISTORY: SOB, stridor TECHNIQUE: 2 image/s obtained. FINDINGS AND IMPRESSION: Prevertebral soft tissues are within normal limits. Epiglottis appears grossly unremarkable. Cervical spondylosis is seen. No radiopaque foreign body is identified. DICTATED BY: PAWAN MISHRA MD DATE: 06/01/24828 ELECTRONICALLY SIGNED BY: PAWAN MISHRA MD DATE: 06/01/2423 [facility] [address] [place] [id number] IMAGING REPORT Signed PATIENT: TERRY FUCHS MR#: [id number] : 1945 SEX: M AGE: 78 LOCATION: 2DH ORDER 17 STATUS: ADM IN REPORT#: [id number] SERVICE 15 REASON: SOB ORDERING PHYSICIAN: ALVA COELLO CUTTING TABLE OPERATOR FIRST PROCEDURE: CXR1VW - CHEST 1VW INDICATION: SOB TECHNIQUE: CHEST 1VW COMPARISON: 05/29/2024 FINDINGS AND IMPRESSION: Continued bilateral airspace consolidation with right effusion. Right permacath is noted. Cardiomegaly is seen with CABG changes and left-sided AICD. Mild degenerative changes of the spine. The visualized upper abdomen appears unremarkable. 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 POA Osteomyelitis of the right foot toes POA Left leg diabetic wound ulcer POA Possible right lung pneumonia POA Severe peripheral vascular disease POA Chronic respiratory failure on oxygen dependent POA End stage renal disease on hemodialysis POA Atrial fibrillation on Coumadin POA severe ischemic cardiomyopathy with AICD device POA Coronary artery disease with CABGx2 ,AVR bioprosthetic and stent x1 POA Chronic anemia due to CKD Elevated troponin POA Uncontrolled diabetes POA Morbid Obesity POA PLAN: We will Downgrade the patient to med surge with telemetry Sepsis, POA 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 continue Zosyn and IV and vancomycin IV for broad-spectrum coverage Pending ID consult ,Orthopedic consult Possible right lung pneumonia POA B/L wheeze and creps on examination at the time of admission -resolved Continue antibiotics and nebulization Chest physiotherapy Acute on chronic respiratory failure on oxygen dependent POA Chronic respiratory failure- patient on home oxygen End stage renal disease on hemodialysis POA continue HD TTHS Continue renal diet Nephrology recommendations Strict I/O chart Fluid intake <1500 ml per day Atrial fibrillation on Coumadin POA Severe ischemic cardiomyopathy with AICD device POA Acute on chronic systolic HFrEF POA Coronary artery disease with CABGx2 ,AVR bioprosthetic and stent x1 POA Severe peripheral vascular disease POA Abdominal aorta runoff study showing 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 Patient on Heparin drip Monitor PTT and adjust Heparin dose Hold Warfarin Plan for peripheral angio on 06/[address] Bates ATTESTATION BY PHYSICIAN I have seen and examined the patient. I reviewed the documentation, medical decision making, and treatment plan as noted by the resident provider above. I agree with the findings and plan of care. Guilherme Goncalves MD, KRUPALI P MD Jun 01, 2024 10:27
--- NOTE | 2024-06-01 14:07 | PN ---
NEPHROLOGY PROGRESS NOTE Date/Time Patient Seen: Jun 01, 2024 SUBJECTIVE: This is a 78-year-old male with a history of diabetes mellitus, hypertension, severe cardiomyopathy, end-stage renal disease on hemodialysis Sunday. The patient presented to the hospital with nonhealing wounds of the foot. The patient apparently had been seen by wound care. In the emergency room the patient was found to have necrosis of the wound and was started on broad-spectrum IV antibiotics. Peripheral angiogram is planned next week. Warfarin has been on hold he has been started on heparin drip. He continues on antibiotics Dialysis done yesterday He was seen in the medical floor, in no acute distress Family at the bedside Prognosis remains guarded REVIEW OF SYSTEMS: GENERAL: Negative for any nausea, vomiting, fevers, chills, or weight loss. NEUROLOGIC: Negative for any blurry vision, blind spots, double vision, facial asymmetry, dysphagia, dysarthria, hemiparesis, hemisensory deficits, vertigo, ataxia. HEENT: Negative for any head trauma, neck trauma, neck stiffness, photophobia, phonophobia, sinusitis, rhinitis. CARDIAC: Negative for any chest pain, dyspnea on exertion, paroxysmal nocturnal dyspnea, peripheral edema. PULMONARY: Negative for any shortness of breath, wheezing, COPD, or TB exposure. GASTROINTESTINAL: Negative for any abdominal pain, nausea, vomiting, bright red blood per rectum, melena. GENITOURINARY: Negative for any dysuria, hematuria, incontinence. INTEGUMENTARY: Negative for any rashes, cuts, insect bites. RHEUMATOLOGIC: Negative for any joint pains, photosensitive rashes, history of vasculitis or kidney problems. HEMATOLOGIC: Negative for any abnormal bruising, frequent infections or bl eeding. Vital Signs (last 8hr) Date Time Temp Pulse Resp B/P (MAP) Pulse Ox O2 Delivery O2 Flow Rate FiO2 06/01/24 11:11 97.5 86 18 106/60 94 Nasal Cannula 2.0 06/01/24 10:57 87 21 N/A Room Air 2.0 06/01/24 10:56 87 21 06/01/24 07:09 98.2 91 18 107/69 95 Nasal Cannula 2.0 06/01/24 06:25 89 28 N/A Room Air 21 06/01/24 06:22 89 28 PHYSICAL EXAM: GENERAL: Alert and oriented x 3. No acute distress. Well-nourished. EYES: EOMI. Anicteric. HENT: Moist mucous membranes. No scleral icterus. No cervical lymphadenopathy. LUNGS: Clear to auscultation bilaterally. No accessory muscle use. CARDIOVASCULAR: Regular rate and rhythm. No murmur. No JVD. ABDOMEN: Soft, non-tender and non-distended. No palpable masses. EXTREMITIES: No edema. Non-tender.?SKIN: No rashes or lesions. Warm. NEUROLOGIC: No focal neurological deficits. CN II-XII grossly intact, but not individually tested. PSYCHIATRIC: Cooperative. Appropriate mood and affect. Current Medications Medications (Trade) Dose Ordered Sig/Yefri Route PRN Reason Start Time Stop Time Status Last Admin Dose Admin Acetaminophen/ Hydrocodone Bitart (NORco 5/325MG) 1 tab Q4H PRN PO MODERATE PAIN (4-6) 05/29/24 19:00 06/03/24 18:59 05/31/24 21:04 1 TAB Acetaminophen/ Hydrocodone Bitart (NORco 5/325MG) 2 tab Q4H PRN PO SEVERE PAIN (7-10) 05/29/24 19:00 06/03/24 18:59 05/31/24 10:18 2 TAB Albuterol (DUOneb) 1 UDVIAL Q6H PRN IH SHORTNESS OF BREATH 05/31/24 16:00 06/30/24 15:59 05/31/24 22:54 1 UDVIAL Albuterol (DUOneb) 1 udvial [id number] IH 05/29/24 22:00 05/31/24 06:30 DC 05/31/24 01:03 1 UDVIAL Aspirin (Aspirin 81mg Ec Tab) 81 mg DAILY PO 05/31/24 09:00 06/30/24 08:59 06/01/24 09:01 81 MG Atorvastatin Calcium (LIPItor 40MG) 80 mg HS PO 05/30/24 21:00 06/29/24 20:59 05/31/24 21:02 80 MG Clopidogrel Bisulfate (plaVIX 75MG) 75 mg DAILY PO 05/31/24 09:00 06/30/24 08:59 06/01/24 09:00 75 MG Dextrose (D50w) 50 ml AD PRN IV HYPOGLYCEMIA PROTOCOL 05/29/24 20:00 5/17/25 19:59 Docusate Sodium (COLace 100MG CAP) 100 mg DAILY PO 05/31/24 09:00 06/30/24 08:59 06/01/24 09:01 100 MG Epoetin Willy-epbx (Retacrit) 10,000 unit QTUTHSA[DIALYSIS] SQ 05/31/24 16:00 06/30/24 15:59 05/31/24 16:33 10,000 UNIT Famotidine (Pepcid 20mg Tab) 10 mg DAILY PO 05/30/24 09:00 06/29/24 08:59 06/01/24 09:00 10 MG Glucagon (Glucagon 1mg Kit) 1 mg AD PRN IM HYPOGLYCEMIA PROTOCOL 05/29/24 20:00 06/28/24 19:59 Heparin Sodium (Porcine) (HEParin 5,000 UNIT VIAL) 10,000 unit AD IRRIG 05/31/24 14:30 06/30/24 10:59 Heparin Sodium (Porcine) (HEParin 5,000 UNIT VIAL) 10,000 unit AD SQ 05/31/24 11:00 05/31/24 14:15 DC Heparin Sodium/ Dextrose 250 ml @ 0 mls/hr PROTOCOL IV 05/30/24 21:30 06/29/24 21:29 06/01/24 05:42 15.4 MLS/HR Home Med (Home Medication) (Sevelamer Carbonate (Renv... TIDAC PO 05/30/24 17:00 06/29/24 16:59 Insulin Human Regular (humuLIN R 100 UNIT/ML 3ML) INSULIN SLIDING SCAL... ACHS SQ 05/29/24 21:00 06/28/24 20:59 06/01/24 13:05 4 UNIT Ipratropium [place] (AtrovENT UD) 0.5 MG [id number] IH 05/31/24 06:30 06/30/24 06:29 06/01/24 10:56 0.5 MG Methylprednisolone Sodium Succinate (Solu-medROL 125MG) 60 mg Q6H IVP 06/01/24 06:00 07/01/24 05:59 06/01/24 13:04 60 MG Midodrine (PROAMatine 5 MG TABLET) 10 mg TID PO 05/29/24 21:00 05/31/24 10:34 DC 05/30/24 20:45 10 MG Midodrine (PROAMatine 5 MG TABLET) 30 mg DAILY PO 05/31/24 09:00 06/30/24 08:59 06/01/24 09:00 30 MG Miscellaneous Medication (Midodrine HCl ) 10 mg TID PO 05/29/24 21:00 05/29/24 19:49 DC Ondansetron HCl (zoFRAN 4MG INJ) 4 mg Q6H PRN IV NAUSEA/VOMITING 05/29/24 19:00 06/28/24 18:59 Pharmacy Profile Note (Lace Assessment) 1 each AD MISC 05/30/24 15:30 05/31/24 14:17 DC Piperacillin Sod/ Tazobactam Sod 50 ml @ 12.5 mls/hr Q12H IV 05/30/24 04:00 05/31/24 04:21 DC 05/30/24 20:46 12.5 MLS/HR Piperacillin Sod/ Tazobactam Sod 50 ml @ 12.5 mls/hr Q12H IV 05/31/24 09:00 06/10/24 08:59 06/01/24 08:59 12.5 MLS/HR Piperacillin Sod/ Tazobactam Sod 50 ml @ 200 mls/hr ONCE IVPB 05/29/24 16:00 05/30/24 09:37 DC 05/29/24 16:15 200 MLS/HR Sodium Chloride 1,000 ml @ 0 mls/hr ONCE IV 05/31/24 11:00 06/30/24 10:59 05/31/24 13:48 333 MLS/HR Vancomycin HCl 250 ml @ 125 mls/hr ONCE IV 05/29/24 19:00 05/29/24 19:52 DC Vancomycin HCl (Vancomycin 750mg) 750 mg QTUTHSA[DIALYSIS] IVPB 05/31/24 16:00 06/10/24 15:59 05/31/24 18:25 750 MG Vancomycin HCl (Vancomycin Protocol) 1 each AD IV 05/29/24 20:00 06/12/24 19:59 Warfarin Sodium (Coumadin) 2 mg BID PO 05/30/24 21:00 06/01/24 11:32 DC 06/01/24 09:03 2 MG LABORATORY: [ ] Hematology Labs: Test 06/01/24 03:09 05/31/24 06:51 Range/Units White Blood Count 9.3 4.8-10.8 K/uL Red Blood Count 3.06 L 4.50-6.20 MIL/uL Hemoglobin 8.8 L 14.0-18.0 g/dL Hematocrit 28.2 L 42-54 % Mean Corpuscular Volume 92.2 79-99 fL Mean Corpuscular Hemoglobin 28.8 27.0-33.0 pg Mean Corpuscular Hemoglobin Concent 31.2 L 32.0-36.0 g/dL Red Cell Distribution Width 17.7 H 11.0-15.5 % Platelet Count 208 130-400 K/uL Mean Platelet Volume 11.0 H 7.5-10.5 fL Nucleated Red Blood Cells 0.0 0.0-0.19 % Immature Granulocyte % (Auto) 0.3 0-1 % Neutrophils (%) (Auto) 65.9 40.0-77.0 % Lymphocytes (%) (Auto) 6.4 L 21.0-51.0 % Monocytes (%) (Auto) 10.5 3.0-13.0 % Eosinophils (%) (Auto) 15.6 H 0.0-8.0 % Basophils (%) (Auto) 1.3 0.0-5.0 % Neutrophils # (Auto) 5.8 1.8-7.7 K/uL Lymphocytes # (Auto) 0.6 L 1.0-4.8 K/uL Monocytes # (Auto) 0.9 0.1-1.0 K/uL Eosinophils # (Auto) 1.36 H 0.00-0.70 K/uL Basophils # (Auto) 0.11 0.00-0.20 K/uL Absolute Immature Granulocyte (auto 0.03 0-1 K/uL Chemistry Labs: Test 06/01/24 11:13 06/01/24 03:09 Range/Units Whole Blood Glucose 234 H 70-110 MG/DL Sodium Level 135 L 136-145 mmol/L Potassium Level 5.3 H 3.5-5.1 mmol/L Chloride Level 97 L 101-111 mmol/L Carbon Dioxide Level 26 21-32 mmol/L Blood Urea Nitrogen 34 H 7-18 mg/dL Creatinine 5.1 H 0.5-1.3 mg/dL Glomerular Filtration Rate Calc 11 >90 mL/min Random Glucose 152 H 70-105 mg/dL Total Calcium 9.2 8.5-10.1 mg/dL Phosphorus Level 5.5 H 2.5-4.9 mg/dL Magnesium Level 2.10 1.80-2.40 mg/dL Total Bilirubin 1.2 H 0.2-1.0 mg/dL Aspartate Amino Transf (AST/SGOT) 24 10-37 U/L Alanine Aminotransferase (ALT/SGPT) 15 12-78 U/L Alkaline Phosphatase 307 H 50-136 U/L Total Protein 8.5 H 6.0-8.3 g/dL Albumin 2.8 L 3.5-5.0 g/dL Coagulation Labs: Test 06/01/24 09:04 Range/Units Activated Partial Thromboplast Time 62.4 H 26.3-35.5 SEC DIAGNOSTICS / RADIOLOGY: REASON: SOB, stridor ORDERING PHYSICIAN: ALVA COELLO TANK CAR INSPECTOR PROCEDURE: NECK SOFT - NECK SOFT TISSUE NECK SOFT TISSUE HISTORY: SOB, stridor TECHNIQUE: 2 image/s obtained. FINDINGS AND IMPRESSION: Prevertebral soft tissues are within normal limits. Epiglottis appears grossly unremarkable. Cervical spondylosis is seen. No radiopaque foreign body is identified. DICTATED BY: PAWAN MISHRA MD DATE: 06/01/24828 REASON: SOB ORDERING PHYSICIAN: ALVA COELLO TANK CAR INSPECTOR PROCEDURE: CXR1VW - CHEST 1VW INDICATION: SOB TECHNIQUE: CHEST 1VW COMPARISON: 05/29/2024 FINDINGS AND IMPRESSION: Continued bilateral airspace consolidation with right effusion. Right permacath is noted. Cardiomegaly is seen with CABG changes and left-sided AICD. Mild degenerative changes of the spine. The visualized upper abdomen appears unremarkable. DICTATED BY: PAWAN MISHRA MD DATE: 06/01/24830 REASON: PAD ORDERING PHYSICIAN: SYL MORRIS TANK CAR INSPECTOR PROCEDURE: CTA ABDAOR - CT ANGIO ABD AORTA W RUNOFF CT ANGIO ABD AORTA W RUNOFF HISTORY: No additional history given. COMPARISON: None TECHNIQUE: CT angiography of the abdomen and pelvis and bilateral lower extremity was obtained using angiographic technique with maximum intensity projection reconstruction images. Patient was 135 cc of Omnipaque through intravenous route. Oral contrast was not given. FINDINGS: There is right pleural effusion with compressive atelectasis. There is no evidence of parenchymal disease or pulmonary nodule of the visualized lower lungs. Degenerative changes of the thoracolumbar spine are present. The heart is not enlarged. Coronary artery calcifications are seen. Gallstones are seen in the gallbladder. There are bilateral renal atrophy. The liver, spleen, adrenal glands and pancreas are unremarkable. There is no evidence of hydronephrosis bilaterally. No evidence of renal stone is seen. Fecal material is seen in the colon. There are normal size retroperitoneal and mesenteric lymph nodes. Small ascites is seen. Atherosclerotic changes are present. There is diffuse atherosclerotic disease. No evidence of abdominal aortic aneurysm is seen. There are bilateral renal vascular calcifications causing moderate renal artery stenosis. The celiac, superior mesenteric arteries are grossly patent. The visualized portion of the iliac arterial systems are also grossly patent. Extensive short segment stenosis are noted involving the femoral arteries and popliteal arteries bilaterally. Occlusion of the anterior tibial arteries and posterior tibial arteries are noted bilaterally. Short segment stenosis are noted in the peroneal arteries are grossly patent. Pelvic sidewalls are symmetric bilaterally. Bladder is poorly distended. IMPRESSION: 1. Extensive short segment stenosis are noted involving the femoral arteries and popliteal arteries bilaterally. Occlusion of the anterior tibial arteries and posterior tibial arteries are noted bilaterally. Short segment stenosis are noted in the peroneal arteries are grossly patent. 2. Right pleural effusion and compressive atelectasis. Gallstones. CT was performed with one or more following dose reduction techniques: automated exposure control, adjustment of the mA and kv according to patient's size, or use of a iterative reconstruction technique. DICTATED BY: VISHNU VAN MD DATE: 05/31/24 0001 REASON: CRITICAL LIMB ISCHEMIA ORDERING PHYSICIAN: ROGERIO MCPHERSON PROCEDURE: ART B LE - US ARTERIAL BILAT LOW EXT DUPL ULTRASOUND ARTERIAL DUPLEX LOWER EXTREMITY, BILATERAL INDICATION: Critical limb ischemia TECHNIQUE: Routine grayscale, color Doppler, and power Doppler ultrasound of the bilateral lower extremity arteries were obtained. COMPARISON: None FINDINGS: Velocities in cm/sec. RIGHT: JIGMAKER: 118 SFA: Prox 102, Mid 59, Distal 74 Popliteal: 57 proximally and 62 distally Anterior Tibial: 26 distally Posterior Tibial: 32 Dorsalis Pedis: 21 Monophasic flow along the right lower extremity arterial system except for triphasic along the right common femoral artery. LEFT: JIGMAKER: 155 SFA: Prox 69, Mid 77, Distal 83 Popliteal: 46 proximally and 54 distally Anterior Tibial: 28 distally Posterior Tibial: 41 Dorsalis Pedis: 35 Monophasic flow along the left lower extremity arterial system except for triphasic along the left common femoral artery and biphasic along the proximal left superficial femoral artery. Mild calcific plaque along the bilateral lower extremity arterial system enciso. IMPRESSION: Monophasic flow along the bilateral lower extremity arterial systems as described, without any focal high-grade flowrate-rate limiting stenosis. Parameters as reported. DICTATED BY: GBIRAN ROSADO MD DATE: 05/30/24 1443 REASON: SOB ORDERING PHYSICIAN: JOSE PHILLIPS MD PROCEDURE: FT 3VW RT - FOOT COMP 3+VWS RT RIGHT FOOT RADIOGRAPHS - 3 VIEWS INDICATION: Pain COMPARISON: None FINDINGS: AP, lateral, and oblique views. No acute fracture or subluxation identified. Midfoot alignment is well maintained. Extensive arterial wall calcific plaque. Subcentimeter plantar calcaneal spur. Subcentimeter traction enthesophyte arises off the posterior calcaneus at the Achilles tendon attachment. IMPRESSION: No evidence for fracture or subluxation. DICTATED BY: GIBRAN ROSADO MD DATE: 05/29/241818 REASON: SOB ORDERING PHYSICIAN: JOSE PHILLIPS MD PROCEDURE: CXR1VW - CHEST 1VW PORTABLE CHEST RADIOGRAPH INDICATION: SOB COMPARISON: 03/28/2024 FINDINGS: monitor technician leads overlie the field of view. Median sternotomy wires are in appropriate alignment. Left sided dual chamber pacer and continuous leads remain in customary position. Right-sided hemodialysis catheter in place. Heart is enlarged. The pulmonary vascularity is slightly enlarged. Right costophrenic angle is more blunted than the left. No pneumothorax detected. IMPRESSION: Cardiac megaly, pulmonary vascular congestion, and small right greater than left pleural effusions with subjacent passive atelectasis. DICTATED BY: GIBRAN ROSADO MD DATE: 05/29/241819 ASSESSMENT: Sepsis without septic shock POA 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 POA Osteomyelitis of the right foot toes POA Left leg diabetic wound ulcer POA Possible right lung pneumonia POA Severe peripheral vascular disease POA Chronic respiratory failure on oxygen dependent POA End stage renal disease on hemodialysis POA Atrial fibrillation on Coumadin POA severe ischemic cardiomyopathy with AICD device POA Coronary artery disease with CABGx2 ,AVR bioprosthetic and stent x1 POA Chronic anemia due to CKD Elevated troponin POA Uncontrolled diabetes POA Morbid Obesity POA PLAN: Labs and Diagnostics/ Radiology personally reviewed and interpreted by myself and supervising physician We have reviewed dialysis and external records in detail Continue dialysis schedule Sunday Peripheral angiogram is planned next week Heparin drip as per Cardiology 1.5 L fluid restriction Continue to monitor H&H Epogen on dialysis days, as needed Continue with frequent monitoring of renal function, anemia, and electrolytes Order CBC, BMP, and electrolytes in the morning May use Dilaudid 0.5 mg IV every 6 hours as needed for severe pain Maintain glucose between 100-180mg/dl, AccuCheks QC and HS Monitor blood pressure adjust medication doses as needed Maintain normotensive state; keep systolic blood pressure between 110-160 Strict intake, output, and daily weight should be monitored Please renally adjust medications. Avoid nephrotoxics and nonsteroidal drugs. We will continue to monitor the patient closely We have discussed with the other team physicians in detail about the care plan ATTESTATION BY PHYSICIAN I have seen and examined the patient. I reviewed the documentation, medical decision making, and treatment plan as noted by the mid-level provider above. I agree with the findings and plan of care. LAYNE SARABIA MD, ELIZABETH FNP Jun 01, 2024 14:07
[2024-06-01 14:28] LABS: HEPATITIS B CORE AB TOTAL Non-Reactive (Nonreactive); HEPATITIS B SURFACE ANTIBODY Negative (Reactive)
[2024-06-01 14:38] LABS: HEPATITIS B SURFACE ANTIGEN Non-Reactive (Nonreactive)
--- NOTE | 2024-06-01 15:10 | NUR ---
NOTE REPORT GIVEN TO NURSE CARY. PATIENT TRANSFERRED TO [facility] 3RD FLOOR ROOM 322.
--- NOTE | 2024-06-01 17:42 | CONS ---
INFECTIOUS DISEASE CONSULTATION NOTE DATE OF SERVICE: 05/31/2024 REQUESTING PHYSICIAN: Dr. Goncalves. REASON FOR CONSULTATION: Right foot gangrene. HISTORY OF PRESENT ILLNESS: This is a 78-year-old male with history of anemia, hypertension, end-stage renal disease, diabetes mellitus, brought to the emergency room with bilateral gangrenous changes. The patient was sent to the hospital from the [facility] office. The patient was found with gangrene involving multiple toes. The patient has no fever or chills. X-ray has been done, which is unremarkable. CT of the lower extremities shows stenosis involving the bilateral femoral and popliteal arteries. The patient has been evaluated by Cardiology for peripheral vascular disease. He has been started on multiple antibiotics with vancomycin and Zosyn. PAST MEDICAL HISTORY: * Anemia. * ESRD, on dialysis. * Atrial fibrillation. * Coronary artery disease. * Hypertension. * Dyslipidemia. * Diabetes mellitus. * Cardiomyopathy. * Chronic respiratory failure, on home oxygen. PAST SURGICAL HISTORY: * AICD placement. * CABG. * Aortic valve replacement. * PCI. ALLERGIES: No known drug allergies. CURRENT MEDICATIONS: Reviewed. SOCIAL HISTORY: No alcohol, tobacco, or illicit drug use. FAMILY HISTORY: Positive for diabetes mellitus. REVIEW OF SYSTEMS: CONSTITUTIONAL: Denies fever or chills. No weight loss or night sweats. EYES: No eye pain. No photophobia. No diplopia. HENT: No sore throat. No rhinorrhea or earache. NECK: No neck pain or neck swelling. RESPIRATORY: No cough. No hemoptysis or pleuritic pain. CARDIOVASCULAR: No chest pain. No palpitations or orthopnea. GASTROINTESTINAL: Denied nausea, vomiting, or abdominal pain. GENITOURINARY: The patient is on dialysis. No hematuria. CENTRAL NERVOUS SYSTEM: No headache, dyspnea, or slurred speech. PSYCHIATRY: No depression. No suicidal ideation. MUSCULOSKELETAL: Positive for right foot pain and foot gangrene. PHYSICAL EXAMINATION: GENERAL: Elderly male, awake. VITAL SIGNS: Temperature 97.9, pulse 75, respiratory rate 23, BP 110/57. EYES: No icterus. Pupils are equal and reactive. HENT: No oral thrush seen. Moist oral mucosa. NECK: Supple. No JVD or thyromegaly. LUNGS: Good air entry. No rales. No rhonchi. CARDIOVASCULAR: S1 and S2 regular. ABDOMEN: Obese. Soft. Nontender. Bowel sounds are present. CENTRAL NERVOUS SYSTEM: Awake, alert and oriented x 3. No focal deficits. SKIN: No rashes. No itchiness. LYMPHATIC: Right inguinal lymphadenopathy. BACK: No deformity. No pressure ulcer. HEMATOLOGIC: No bleeding or petechial lesions seen. EXTREMITIES: Gangrene involving multiple toes in the right foot. LABORATORY DATA: ESR 82, sodium 137, potassium 5.0, BUN 47, creatinine 6.5. WBC 8.7, hemoglobin 9.2, platelets 223. Blood culture, no growth for 1 day. RADIOLOGY: X-ray results are reviewed. CT angiogram ____ showed bilateral femoral and popliteal artery stenosis. ASSESSMENT: A 78-year-old male who presented with right foot gangrenous changes. CURRENT PROBLEMS: Include: * Right foot osteomyelitis. * Right foot gangrene. * Peripheral vascular disease. * End-stage renal disease, on dialysis. * Obesity. * Anemia. * History of chronic respiratory failure, on home oxygen. PLAN: * Continue anticoagulation. * Continue Zosyn. * Continue vancomycin. * Continue wound care. * Continue pain management. * Continue antiemetics. * Continue nutritional support. * Continent GI prophylaxis. * Obtain MRI of the right foot if the AICD is compatible with MRI. Thank you for allowing me to participate in the care of this patient. TID: [id number] RECEIPT: [id number] MTDD
--- NOTE | 2024-06-01 21:44 | NUR ---
NOTIFIED PHARMACIST THAT 1800 DOSE OF SOLUMEDROL WAS MISSED. PHARMACIST TO ADJUST AT THIS TIME.
[2024-06-01] MEDS: ZOLPidem TARTrate 5 MG TAB PO SCH (22:04)
--- NOTE | 2024-06-01 22:15 | CONS ---
[facility] CONSULTATION NOTE Date Patient Seen: Jun 01, 2024 Time of Visit: 22:14 Supervising Physician: Dr. 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 POA Osteomyelitis of the right foot toes POA Left leg diabetic wound ulcer POA Possible right lung pneumonia POA Severe peripheral vascular disease POA Chronic respiratory failure on oxygen dependent POA End stage renal disease on hemodialysis POA Atrial fibrillation on Coumadin POA severe ischemic cardiomyopathy with AICD device POA Coronary artery disease with CABGx2 ,AVR bioprosthetic and stent x1 POA Chronic anemia due to CKD Elevated troponin POA Uncontrolled diabetes POA Morbid Obesity POA HPI: Patient was a 78-year-old male with a past medical history significant for atrial fibrillation, diabetes, ESRD, and chronic respiratory failure on home O2, currently admitted for sepsis secondary to the gangrene of the right foot positive for osteomyelitis of the toes. Patient became short of breath and endorsed congestion for which pulmonary Services was consulted. Upon chart review patient has a chest x-ray from yesterday which shows bilateral pneumonia, patient currently on 2 L nasal cannula which is the patient's home oxygen level. He has been placed on Zosyn and vancomycin at this time, and we will continue nebulizer treatments. Patient has no white count at this time, procalcitonin from 05/29 was elevated at 0.54. Plan Continue with antibiotics Continue nebulizer treatments Continue supplemental O2, Follow up chest x-ray on Sunday Monitor respiratory status Morning ABGs PAST MEDICAL HX: see above PAST SURGICAL HX: noncontributory SOCIAL HISTORY: No tobacco, ETOH, or illicit drug use Coded Allergies: No Known Allergies (Unverified Allergy, Unknown, 02/10/22) REVIEW OF SYSTEMS: 12 point ROS reviewed with patient. Pertinent positives mentioned above. Otherwise negative. PHYSICAL EXAM: GENERAL: alert, weak, awake oriented x 3 HEENT: EOMI, Sclera non icteric, moist mucosa NECK: Supple, no JVD, trachea midline LUNGS: Clear breath sounds bilaterally. No wheezes HEART: Regular rate and rhythm. Normal S1 and S2, without murmurs ABD: Abdomen soft, nontender. Bowel sounds present EXT: No clubbing cyanosis or edema NEURO: Alert and oriented to person, follows commands Vital Signs (last 8hr) Date Time Temp Pulse Resp B/P (MAP) Pulse Ox O2 Delivery O2 Flow Rate FiO2 06/01/24 21:58 98.1 92 17 108/68 94 Nasal Cannula 06/01/24 18:54 89 21 N/A Room Air 2.0 06/01/24 18:54 90 21 06/01/24 15:30 97.7 90 19 96/64 99 Room Air LABS: Hematology Labs: Test 06/01/24 03:09 05/31/24 06:51 Range/Units White Blood Count 9.3 4.8-10.8 K/uL Red Blood Count 3.06 L 4.50-6.20 MIL/uL Hemoglobin 8.8 L 14.0-18.0 g/dL Hematocrit 28.2 L 42-54 % Mean Corpuscular Volume 92.2 79-99 fL Mean Corpuscular Hemoglobin 28.8 27.0-33.0 pg Mean Corpuscular Hemoglobin Concent 31.2 L 32.0-36.0 g/dL Red Cell Distribution Width 17.7 H 11.0-15.5 % Platelet Count 208 130-400 K/uL Mean Platelet Volume 11.0 H 7.5-10.5 fL Nucleated Red Blood Cells 0.0 0.0-0.19 % Immature Granulocyte % (Auto) 0.3 0-1 % Neutrophils (%) (Auto) 65.9 40.0-77.0 % Lymphocytes (%) (Auto) 6.4 L 21.0-51.0 % Monocytes (%) (Auto) 10.5 3.0-13.0 % Eosinophils (%) (Auto) 15.6 H 0.0-8.0 % Basophils (%) (Auto) 1.3 0.0-5.0 % Neutrophils # (Auto) 5.8 1.8-7.7 K/uL Lymphocytes # (Auto) 0.6 L 1.0-4.8 K/uL Monocytes # (Auto) 0.9 0.1-1.0 K/uL Eosinophils # (Auto) 1.36 H 0.00-0.70 K/uL Basophils # (Auto) 0.11 0.00-0.20 K/uL Absolute Immature Granulocyte (auto 0.03 0-1 K/uL Chemistry Labs: Test 06/01/24 19:30 06/01/24 03:09 Range/Units Whole Blood Glucose 240 H 70-110 MG/DL Sodium Level 135 L 136-145 mmol/L Potassium Level 5.3 H 3.5-5.1 mmol/L Chloride Level 97 L 101-111 mmol/L Carbon Dioxide Level 26 21-32 mmol/L Blood Urea Nitrogen 34 H 7-18 mg/dL Creatinine 5.1 H 0.5-1.3 mg/dL Glomerular Filtration Rate Calc 11 >90 mL/min Random Glucose 152 H 70-105 mg/dL Total Calcium 9.2 8.5-10.1 mg/dL Phosphorus Level 5.5 H 2.5-4.9 mg/dL Magnesium Level 2.10 1.80-2.40 mg/dL Total Bilirubin 1.2 H 0.2-1.0 mg/dL Aspartate Amino Transf (AST/SGOT) 24 10-37 U/L Alanine Aminotransferase (ALT/SGPT) 15 12-78 U/L Alkaline Phosphatase 307 H 50-136 U/L Total Protein 8.5 H 6.0-8.3 g/dL Albumin 2.8 L 3.5-5.0 g/dL Coagulation Labs: Test 06/01/24 09:04 Range/Units Activated Partial Thromboplast Time 62.4 H 26.3-35.5 SEC DIAGNOSTICS / RADIOLOGY RESULTS: [ ] PLAN NEURO: Minimize central acting medications as possible. Maintain fall precautions, adequate lighting during the day PULMONARY: Supplemental 02 as needed. Maintain aspiration precautions at all times CARDIOVASCULAR: Follow hemodynamics. Vital signs per facility protocol GI & NUTRITION: Continue with nutritional support. Continue stool softeners and laxatives as needed. KIDNEYS & ELECTROLYTES: Strict monitoring of intake, output and overall fluid balance. Avoid nephrotoxic medications to the extent possible. Medications to be dosed according to renal function. Monitor electrolytes and replace as needed ENDOCRINE: Maintain blood glucose between 100-180 at all times. Hypoglycemia protocol in place INFECTIOUS DISEASE: Trend temperature, WBC and procalcitonin level Follow cultures, deescalate antibiotics as soon as possible. Panculture if new onset fever ONCOLOGY/HEMATOLOGY/COAGULATION: Monitor for s/s of bleeding Monitor hemoglobin, coagulation studies as needed SKIN: Pressure ulcer prevention per facility protocol Specialty mattress ORTHO/REHAB: Continue PT/OT Prophylaxis: Continue GI and DVT prophylaxis Code Status: Full Resuscitation Disposition: TBD Other: Total patient care time exceeds 35 minutes excluding all procedures. KARIME FRANZ Jun 01, 2024 22:15
[2024-06-01] MEDS: miDODRine HCL 5 MG TABLET PO SCH (22:34)
[2024-06-02] VITALS (24 sets, daily range): BP systolic 109–142; BP diastolic 48–91; PULSE 63–110; RESP 16–22; TEMP 97.5–98.2; O2SAT 94–98
[2024-06-02] MEDS: Solu-medROL 125MG VIAL IVP SCH (00:22)
[2024-06-02] MEDS: diazePAM 5 MG/ML 2 ML SYG IV PRN (00:25)
[2024-06-02 03:32] LABS: ABG BASE EXCESS -5.4 mmol/L (-2.0-3.0); ABG HCO3 20.2 mmol/L (21.0-28.0); ABG OXYGEN SATURATION 98.5 % (94.0-98.0); ABG PCO2 40 mmHg (35-48); ABG PH 7.321 (7.350-7.450); DEVICE COMMENT R BRACHIAL; PO2, ARTERIAL BG 137.2 mmHg (83.0-108.0); VENT MODE, BG NC 2L (ROOM AIR)
--- NOTE | 2024-06-02 05:20 | NUR ---
REPORT GIVEN TO PHIL ARRIOLA. PATIENT TRANSFERRED WITH BELONGINGS, ON NASAL CANNULA. AT THIS TIME, RESTRAINTS ORDERED, BUT NOT PLACED ON PATIENT. PATIENT ASLEEP AT THIS TIME. ENDORSED SOFT RESTRAINT ORDER TO RECEIVING NURSE ZEINAB. Addendum: 06/02/24 at 0758 by BRADEN NAVARRO RN RN PHIL CARRERO IS CORRECT SPELLING AND TITLE OF RECEIVING NURSE.
--- NOTE | 2024-06-02 05:30 | NUR ---
Pt. received via bed from 3rd Floor; asleep @ this time.
[2024-06-02 05:36] LABS: BASOPHILS # (AUTO) 0.04 K/uL (0.00-0.20); BASOPHILS % (AUTO) 0.4 % (0.0-5.0); EOSINOPHILS # (AUTO) 0.01 K/uL (0.00-0.70); EOSINOPHILS % (AUTO) 0.1 % (0.0-8.0); HEMATOCRIT 28.6 % (42-54); IMMATURE GRANULOCYTE ABSOLUTE 0.05 K/uL (0-1); LYMPHOCYTES # (AUTO) 0.5 K/uL (1.0-4.8); LYMPHOCYTES % (AUTO) 5.5 % (21.0-51.0); MEAN CORPUSCULAR HEMOGLOBIN 28.1 pg (27.0-33.0); MEAN CORPUSCULAR HGB CONC 30.8 g/dL (32.0-36.0); MEAN CORPUSCULAR VOLUME 91.4 fL (79-99); MONOCYTES # (AUTO) 0.5 K/uL (0.1-1.0); MONOCYTES % (AUTO) 6.1 % (3.0-13.0); NEUTROPHILS # (AUTO) 7.8 K/uL (1.8-7.7); NEUTROPHILS % (AUTO) 87.3 % (40.0-77.0); PLATELET COUNT (AUTO) 219 K/uL (130-400); RED BLOOD CELL COUNT(AUTO) 3.13 MIL/uL (4.50-6.20); RED CELL DISTRIBUTION WIDTH 17.8 % (11.0-15.5); WHITE BLOOD COUNT (AUTO) 8.9 K/uL (4.8-10.8)
[2024-06-02 05:50] LABS: ALBUMIN 2.8 g/dL (3.5-5.0); CREATININE 6.5 mg/dL (0.5-1.3); PHOSPHORUS 7.7 mg/dL (2.5-4.9); TOTAL PROTEIN, SERUM 8.4 g/dL (6.0-8.3)
[2024-06-02 06:01] LABS: POTASSIUM 6.4 mmol/L (3.5-5.1)
[2024-06-02 06:07] LABS: INR 1.5 (0.85-1.15); PROTHROMBIN TIME 15.3 SEC (9.6-11.6)
[2024-06-02 06:08] LABS: PARTIAL THROMBOPLASTIN TIME 43.3 SEC (26.3-35.5)
--- NOTE | 2024-06-02 07:15 | NUR ---
AGITATION Shift change, getting report. Patient screaming, yelling, restless, agitated. Patient inconsolable. Saying he has pain but will not describe where. Offered water and oral pain medication. Patient refusing to take anything at this time. Nothing IV available, pending cb from primary. Sitter at line of site. Mittens in place, patient refusing to agree to plan of care, remains restless and uncooperative, unable to safely remove the mittens at this time.
[2024-06-02] MEDS: sevELAMer HCL 800 MG TABLET PO SCH (07:26)
[2024-06-02] MEDS: SODIUM BICARBONATE 650 MG TAB PO SCH (07:28)
--- NOTE | 2024-06-02 08:33 | PN ---
DIALYSIS NOTE SUBJECTIVE: The patient was seen and evaluated on hemodialysis, prescription noted. OBJECTIVE: VITAL SIGNS: Blood pressure 114/65. CARDIOVASCULAR: Regular. LUNGS: Coarse. IMPRESSION: ESRD. PLAN: The patient will continue with maximal ultrafiltration as blood pressure allows. The patient's cardiac workup is ongoing. He remains on the antibiotics. TID: [id number] RECEIPT: [id number]
[2024-06-02] MEDS ORDERED: ALBUMIN (HUMAN) 25% 50 ML IV.SOLN. IV SCH (09:30)
--- NOTE | 2024-06-02 10:50 | NUR ---
[facility] Follow-up: Patient re-assessed by wound healing team. See wound assessment. Assessment and recommendations provided to primary nurse. Education provided. Addendum: 06/03/24 at 1456 by LEANA MCDONALD RN RN/ Amended: Links added.
--- NOTE | 2024-06-02 10:50 | NUR ---
[facility] Follow-up: Patient re-assessed by wound healing team. See wound assessment. Assessment and recommendations provided to primary nurse. Education provided.
[2024-06-02] MEDS: Solu-medROL 40MG VIAL IVP SCH (11:52)
--- NOTE | 2024-06-02 12:02 | PN ---
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 Mims for evaluation of right 1st,2nd and 3rd toe gangrene . Patient c/o pain at the site.As per daughter ,it started on March 2024 as redness and it progressively got worsen that it started turning black 5 days back. Patient also complained of occasional cough. Patient has been dialyzed on the same day and 2 Liters of fluid removed .Patient's Research Geneticist is and patient 's pharmacy intern is .Patient denies fever,chills,nausea,vomiting,chest pain and palpitation. Vital signs at the time of presentation: temperature 98.6, heart rate 98, blood pressure 104/59 saturation 98% on 2 L nasal cannula. Labs: Hemoglobin 9, hematocrit 30 platelet count 235. Chloride 97, BUN 29, creatinine 4.2, GFR 14, glucose 232, lactic acid 2.3 troponin 86 to 80, BNP 1650 procalcitonin 0.84. Right foot x-ray result revealed no evidence for fracture or subluxation. Chest x-ray result revealed cardiomegaly with pulmonary vascular congestion and small right greater than left pleural effusion with subjacent passive atelectasis. Patient is admitted for further medical management. 05.30.24: Patient is seen resting in his bed. Pending Cardiology, podiatry , nephrology and ID consult.Pending b/l LE artery doppler. 05.31.24: Patient had angiogram done yesterday for assessing lower extremity circulation. Bilateral anterior and posterior tibial arteries are occluded with peroneal arteries grossly patent. Pending podiatry recommendations for possible TMA . Cardiology plan for peripheral angiogram early next week. Ortho consult pending . 06/01/24 : Patient is seen and examined today. Denies any complaints today. However use had stridor and shortness of breath during the night and neck soft tissue x-ray was ordered which showed normal soft tissue and epiglottitis appears unremarkable. Solu-Medrol 60 Q 6 was given. Chest x-ray showed bilateral airspace consolidation with right effusion. Plan for peripheral angio on 06/05/[address] Bates. We will hold the warfarin since the patient is already on heparin drip. We will downgrade him to med surge with telemetry. 06/02/2024: Patient complains of pain and was agitated yesterday night . Patient in one on one supervision. Labs showed potassium 6.4 , Phosphorous 7.7 .Repeat potassium is 5.2. Nephrology suggested 2 hour dialysis for today . He is pending peripheral angiogram. We will consult orthopedic surgery . REVIEW OF SYSTEMS CONSTITUTIONAL: Denies fevers, chills, or night sweats. No unintentional weight loss reported. NEUROLOGICAL: Denies headache, amaurosis fugax, motor weakness, sensory deficit, vertigo/spinning sensation, gait abnormalities, or tremors. ENT: No hearing loss, otalgia, otorrhea, rhinitis, rhinorrhea, hoarseness, or sore throat. CARDIOVASCULAR: Denies any exertional angina, dyspnea on exertion, orthopnea, paroxysmal nocturnal dyspnea, palpitations, life-threatening arrhythmias, claudication. PULMONARY: Complaints of cough and shortness of breaths Denies hemoptysis, pleuritic chest pain. SLEEP: Denies morning headaches, daytime somnolence or napping. Denies difficulty falling asleep, staying asleep, waking from sleep. Denies knowledge of snoring. GASTROINTESTINAL: Denies any type of dysphagia to either liquids or solids. Denies nausea, vomiting, pyrosis, early satiety, abdominal pain, diarrhea, constipation, or changes in stool consistency or caliber. Denies coffee-ground emesis, hematemesis, hematochezia, or melanotic stools. GENITOURINARY: Denies frequency, urgency, nocturia, hematuria or incontinence (Storage/Irritative symptoms.) Low urinary stream, straining to void, urinary intermittency or hesitancy, splitting of the voiding stream, terminal dribbling. PHYSICAL EXAM GENERAL APPEARANCE: The patient is awake, alert, and oriented, in no acute cardiopulmonary distress. NEUROLOGICAL: Cranial nerves II-XII grossly intact. Motor is 5/5 in bilateral upper and lower extremities proximal to distal. No sensory deficits. HEENT: Face is symmetric. Pupils are equal and reactive. Extraocular movements are intact. NECK: Supple. No JVD. No thyromegaly. No submental, submandibular, pre- /postauricular, occipital or supraclavicular lymphadenopathy. CHEST: Normal chest expansion. Telemetry. LUNGS: Bilateral crackles and scattered rhonchi on auscultation CARDIOVASCULAR: Regular. S1 and S2 normal. No appreciable rubs, murmurs or gallops. ABDOMEN: Soft, nontender, and nondistended. There is no rebound, voluntary guarding, or rigidity. : Deferred. No Geller. EXTREMITIES: 2+ edema bilateral lower extremities. warm rt foot till the base of necrotic toe SKIN: Left leg wound at the tip of the great toe. Right necrotic 1st ,2nd toes and the 3rd toe-dry gangrene. Vital Signs (last 8hr) Date Time Temp Pulse Resp B/P (MAP) Pulse Ox O2 Delivery O2 Flow Rate FiO2 06/02/24 11:00 97.5 88 18 135/62 Nasal Cannula 3.0 06/02/24 10:59 91 20 06/02/24 10:45 91 18 128/68 Nasal Cannula 3.0 06/02/24 10:30 92 18 130/79 Nasal Cannula 3.0 06/02/24 10:15 91 18 130/63 Nasal Cannula 3.0 06/02/24 10:00 95 18 123/65 Nasal Cannula 3.0 06/02/24 09:45 98 18 133/62 Nasal Cannula 3.0 06/02/24 09:30 102 18 138/83 Nasal Cannula 3.0 06/02/24 09:15 96 18 125/56 Nasal Cannula 3.0 06/02/24 09:00 97.7 92 18 139/48 Nasal Cannula 3.0 06/02/24 08:40 97.7 96 18 114/65 Nasal Cannula 3.0 06/02/24 08:04 98.1 110 16 114/65 98 Nasal Cannula 2.0 06/02/24 07:45 98 Nasal Cannula* 2 28 06/02/24 06:38 98.2 90 22 132/91 92 Nasal Cannula 2.0 06/02/24 06:14 99 20 N/A Room Air 2.0 06/02/24 06:11 99 20 LABS: Laboratory: Test 06/02/24 10:57 06/02/24 09:32 06/02/24 05:02 06/02/24 03:30 Range/Units Whole Blood Glucose 136 H 70-110 MG/DL Activated Partial Thromboplast Time 83.4 #H 26.3-35.5 SEC Potassium Level 5.2 H 3.5-5.1 mmol/L Whole Blood Ketones Quantitative 0.4 0.0-0.6 mmol/L White Blood Count 8.9 4.8-10.8 K/uL Red Blood Count 3.13 L 4.50-6.20 MIL/uL Hemoglobin 8.8 L 14.0-18.0 g/dL Hematocrit 28.6 L 42-54 % Mean Corpuscular Volume 91.4 79-99 fL Mean Corpuscular Hemoglobin 28.1 27.0-33.0 pg Mean Corpuscular Hemoglobin Concent 30.8 L 32.0-36.0 g/dL Red Cell Distribution Width 17.8 H 11.0-15.5 % Platelet Count 219 130-400 K/uL Mean Platelet Volume 11.6 H 7.5-10.5 fL Immature Granulocyte % (Auto) 0.6 0-1 % Neutrophils (%) (Auto) 87.3 H 40.0-77.0 % Lymphocytes (%) (Auto) 5.5 L 21.0-51.0 % Monocytes (%) (Auto) 6.1 3.0-13.0 % Eosinophils (%) (Auto) 0.1 0.0-8.0 % Basophils (%) (Auto) 0.4 0.0-5.0 % Neutrophils # (Auto) 7.8 H 1.8-7.7 K/uL Lymphocytes # (Auto) 0.5 L 1.0-4.8 K/uL Monocytes # (Auto) 0.5 0.1-1.0 K/uL Eosinophils # (Auto) 0.01 0.00-0.70 K/uL Basophils # (Auto) 0.04 0.00-0.20 K/uL Absolute Immature Granulocyte (auto 0.05 0-1 K/uL Nucleated Red Blood Cells 0.0 0.0-0.19 % Prothrombin Time 15.3 H 9.6-11.6 SEC Prothromb Time International Ratio 1.50 H 0.85-1.15 Sodium Level 133 L 136-145 mmol/L Chloride Level 93 L 101-111 mmol/L Carbon Dioxide Level 24 21-32 mmol/L Blood Urea Nitrogen 64 H 7-18 mg/dL Creatinine 6.5 H 0.5-1.3 mg/dL Glomerular Filtration Rate Calc 8 >90 mL/min Random Glucose 195 H 70-105 mg/dL Total Calcium 9.0 8.5-10.1 mg/dL Phosphorus Level 7.7 H 2.5-4.9 mg/dL Total Bilirubin 1.0 0.2-1.0 mg/dL Aspartate Amino Transf (AST/SGOT) 23 10-37 U/L Alanine Aminotransferase (ALT/SGPT) 13 12-78 U/L Alkaline Phosphatase 257 H 50-136 U/L Total Creatine Kinase 39 # 21-232 U/L Total Protein 8.4 H 6.0-8.3 g/dL Albumin 2.8 L 3.5-5.0 g/dL Blood Gas Specimen Type Arterial Arterial Blood pH 7.321 L 7.350-7.450 Arterial Blood Partial Pressure CO2 40 35-48 mmHg Arterial Blood Partial Pressure O2 137.2 H 83.0-108.0 mmHg Arterial Blood HCO3 20.2 L 21.0-28.0 mmol/L Arterial Blood Oxygen Saturation 98.5 H 94.0-98.0 % Arterial Blood Base Excess -5.4 L -2.0-3.0 mmol/L Blood Gas Temperature 37.0 35.5-37.0 CELSIUS Blood Gas Vent Mode NC 2L ROOM AIR FiO2 28.0 % Blood Gas Specimen Comment R BRACHIAL Test 06/01/24 03:09 05/31/24 23:25 Range/Units Magnesium Level 2.10 1.80-2.40 mg/dL Hemoglobin (Blood Gas) 9.3 L 13.5-17.5 g/dL Sodium (Blood Gas) 135 L 136-145 MMOL/L Bedside Potassium (Blood Gas) 4.6 H 3.4-4.5 MMOL/L Bedside Chloride (Blood Gas) 98 98-107 MMOL/L Bedside Glucose (Blood Gas) 136 H 65-95 MG/DL Bedside Ionized Calcium (Blood Gas) 1.15 1.15-1.33 MMOL/L Bedside Lactic Acid (Blood Gas) 1.10 H 0.36-0.75 MMOL/L Blood Gas Flow-by 3.00 0.00-15.00 L/min Current Medications Medications (Trade) Dose Ordered Sig/Yefri Route PRN Reason Start Time Stop Time Status Last Admin Dose Admin Acetaminophen/ Hydrocodone Bitart (NORco 5/325MG) 1 tab Q4H PRN PO MODERATE PAIN (4-6) 05/29/24 19:00 06/03/24 18:59 05/31/24 21:04 1 TAB Acetaminophen/ Hydrocodone Bitart (NORco 5/325MG) 2 tab Q4H PRN PO SEVERE PAIN (7-10) 05/29/24 19:00 06/03/24 18:59 05/31/24 10:18 2 TAB Albumin Human (Albumin (Human) 25%) 100 ml ONCE IV 06/02/24 09:30 06/02/24 10:46 DC Albuterol (DUOneb) 1 UDVIAL Q6H PRN IH SHORTNESS OF BREATH 05/31/24 16:00 06/30/24 15:59 05/31/24 22:54 1 UDVIAL Albuterol (DUOneb) 1 udvial [id number] IH 05/29/24 22:00 05/31/24 06:30 DC 05/31/24 01:03 1 UDVIAL Aspirin (Aspirin 81mg Ec Tab) 81 mg DAILY PO 05/31/24 09:00 06/30/24 08:59 06/01/24 09:01 81 MG Atorvastatin Calcium (LIPItor 40MG) 80 mg HS PO 05/30/24 21:00 06/29/24 20:59 06/01/24 21:43 80 MG Clopidogrel Bisulfate (plaVIX 75MG) 75 mg DAILY PO 05/31/24 09:00 06/30/24 08:59 06/01/24 09:00 75 MG Dextrose (D50w) 50 ml AD PRN IV HYPOGLYCEMIA PROTOCOL 05/29/24 20:00 06/28/24 19:59 Diazepam (VALium 5 MG/ML 2 ML SYG) 2 mg ONCE PRN IV ANXIETY 06/01/24 22:30 06/08/24 22:29 06/02/24 00:25 2 MG Docusate Sodium (COLace 100MG CAP) 100 mg DAILY PO 05/31/24 09:00 06/30/24 08:59 06/01/24 09:01 100 MG Epoetin Willy-epbx (Retacrit) 10,000 unit QTUTHSA[DIALYSIS] SQ 05/31/24 16:00 06/30/24 15:59 05/31/24 16:33 10,000 UNIT Famotidine (Pepcid 20mg Tab) 10 mg DAILY PO 05/30/24 09:00 06/29/24 08:59 06/01/24 09:00 10 MG Glucagon (Glucagon 1mg Kit) 1 mg AD PRN IM HYPOGLYCEMIA PROTOCOL 05/29/24 20:00 06/28/24 19:59 Heparin Sodium (Porcine) (HEParin 5,000 UNIT VIAL) 10,000 unit AD IRRIG 05/31/24 14:30 06/30/24 10:59 Heparin Sodium (Porcine) (HEParin 5,000 UNIT VIAL) 10,000 unit AD SQ 05/31/24 11:00 05/31/24 14:15 DC Heparin Sodium/ Dextrose 250 ml @ 0 mls/hr PROTOCOL IV 05/30/24 21:30 06/29/24 21:29 06/02/24 00:21 15 MLS/HR Home Med (Home Medication) (Sevelamer Carbonate (Renv... TIDAC PO 05/30/24 17:00 06/29/24 16:59 Insulin Human Regular (humuLIN R 100 UNIT/ML 3ML) INSULIN SLIDING SCAL... ACHS SQ 05/29/24 21:00 06/28/24 20:59 06/02/24 06:36 2 UNIT Ipratropium [place] (AtrovENT UD) 0.5 MG [id number] IH 05/31/24 06:30 06/30/24 06:29 06/02/24 10:59 0.5 MG Methylprednisolone Sodium Succinate (Solu-medROL 40MG) 60 mg Q6H IVP 06/02/24 12:30 07/02/24 00:00 Methylprednisolone Sodium Succinate (Solu-medROL 125MG) 60 mg Q6H IVP 06/01/24 06:00 06/01/24 21:45 DC 06/01/24 13:04 60 MG Methylprednisolone Sodium Succinate (Solu-medROL 125MG) 60 mg Q6H IVP 06/02/24 00:00 06/02/24 07:06 DC 06/02/24 06:36 60 MG Midodrine (PROAMatine 5 MG TABLET) 10 mg TID PO 05/29/24 21:00 05/31/24 10:34 DC 05/30/24 20:45 10 MG Midodrine (PROAMatine 5 MG TABLET) 30 mg DAILY PO 05/31/24 09:00 06/01/24 22:15 DC 06/01/24 09:00 30 MG Midodrine (PROAMatine 5 MG TABLET) 30 mg HS PO 06/01/24 22:30 06/30/24 08:59 06/02/24 09:04 30 MG Miscellaneous Medication (Midodrine HCl ) 10 mg TID PO 05/29/24 21:00 05/29/24 19:49 DC Ondansetron HCl (zoFRAN 4MG INJ) 4 mg Q6H PRN IV NAUSEA/VOMITING 05/29/24 19:00 06/28/24 18:59 Pharmacy Profile Note (Lace Assessment) 1 each AD MISC 05/30/24 15:30 05/31/24 14:17 DC Piperacillin Sod/ Tazobactam Sod 50 ml @ 12.5 mls/hr Q12H IV 05/30/24 04:00 05/31/24 04:21 DC 05/30/24 20:46 12.5 MLS/HR Piperacillin Sod/ Tazobactam Sod 50 ml @ 12.5 mls/hr Q12H IV 05/31/24 09:00 06/10/24 08:59 06/02/24 07:24 12.5 MLS/HR Piperacillin Sod/ Tazobactam Sod 50 ml @ 200 mls/hr ONCE IVPB 05/29/24 16:00 05/30/24 09:37 DC 05/29/24 16:15 200 MLS/HR Sevelamer HCl (RENAgel 800 MG TAB) 800 mg TIDMEALS PO 06/02/24 08:00 07/02/24 07:59 Sodium Bicarbonate (Sodium Bicarbonate) 650 mg TID PO 06/02/24 09:00 07/02/24 08:59 Sodium Chloride 1,000 ml @ 0 mls/hr ONCE IV 05/31/24 11:00 06/30/24 10:59 06/02/24 11:05 1,000 MLS/HR Vancomycin HCl 250 ml @ 125 mls/hr ONCE IV 05/29/24 19:00 05/29/24 19:52 DC Vancomycin HCl (Vancomycin 750mg) 750 mg QTUTHSA[DIALYSIS] IVPB 05/31/24 16:00 06/10/24 15:59 05/31/24 18:25 750 MG Vancomycin HCl (Vancomycin Protocol) 1 each AD IV 05/29/24 20:00 06/12/24 19:59 Warfarin Sodium (Coumadin) 2 mg BID PO 05/30/24 21:00 06/01/24 11:32 DC 06/01/24 09:03 2 MG Zolpidem Tartrate (AmbIEN) 5 mg HS PO 06/01/24 22:00 07/01/24 21:59 06/01/24 22:04 5 MG DIAGNOSTICS / RADIOLOGY: [ ] ASSESSMENT: Sepsis without septic shock POA 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 POA Osteomyelitis of the right foot toes POA Left leg diabetic wound ulcer POA Possible right lung pneumonia POA Severe peripheral vascular disease POA Chronic respiratory failure on oxygen dependent POA End stage renal disease on hemodialysis POA Atrial fibrillation on Coumadin POA severe ischemic cardiomyopathy with AICD device POA Coronary artery disease with CABGx2 ,AVR bioprosthetic and stent x1 POA Chronic anemia due to CKD Elevated troponin POA Uncontrolled diabetes POA Morbid Obesity POA PLAN: Sepsis, POA 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 POA Osteomyelitis of the right foot toes , POA Left Leg diabetic wound ulcer POA Patient with pain at the gangrene sight -Betadine soaked dressing in place. continue Zosyn and IV and vancomycin IV for broad-spectrum coverage Pending Orthopedic consult Right lung pneumonia ruled in POA B/L wheeze and creps on examination at the time of admission -duoneb treatement Continue antibiotics and nebulization Chest physiotherapy Acute on chronic respiratory failure on oxygen dependent POA Chronic respiratory failure- patient on home oxygen End stage renal disease on hemodialysis POA continue HD TTHS Continue renal diet Nephrology recommendations Strict I/O chart Fluid intake <1500 ml per day Atrial fibrillation on Coumadin POA Severe ischemic cardiomyopathy with AICD device POA Acute on chronic systolic HFrEF POA Coronary artery disease with CABGx2 ,AVR bioprosthetic and stent x1 POA Severe peripheral vascular disease POA Abdominal aorta runoff study showing 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 Patient on Heparin drip Monitor PTT and adjust Heparin dose Hold Warfarin Pending peripheral angiogram by cardiology ATTESTATION BY PHYSICIAN I have seen and examined the patient. I reviewed the documentation, medical decision making, and treatment plan as noted by the resident provider above. I agree with the findings and plan of care. MARY CARMEN RUFFIN MD, MD Jun 02, 2024 12:02
--- NOTE | 2024-06-02 12:39 | PN ---
[facility] PROGRESS NOTE Date Patient Seen: Jun 02, 2024 Time of Visit: 12:35 Supervising Physician: Dr. 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 Patient on 3 L nasal cannula today, home O2 levels at 2 L. He continues on Zosyn and vancomycin at this time, currently on Solu-Medrol 60 mg q.6, we will decrease this dose to Solu-Medrol 40 mg b.i.d. today. Patient's pH this morning was 7.321, CO2 of 40, O2 of 137. Potassium of 6.4, currently receiving his extra round of hemodialysis in order to correct this. We will re-evaluate the patient's respiratory status following this round of hemodialysis. Patient tolerating diet well, no complaints at this time, no nausea or vomiting. We will continue to monitor the patient closely, continue on antibiotic treatment. White count of 8.9 today. REVIEW OF SYSTEMS: 12 point ROS reviewed with patient. Pertinent positives mentioned above. Otherwise negative. PHYSICAL EXAM: GENERAL: alert, weak, awake oriented x 3 HEENT: EOMI, Sclera non icteric, moist mucosa NECK: Supple, no JVD, trachea midline LUNGS: Clear breath sounds bilaterally. No wheezes HEART: Regular rate and rhythm. Normal S1 and S2, without murmurs ABD: Abdomen soft, nontender. Bowel sounds present EXT: No clubbing cyanosis or edema NEURO: Alert and oriented to person, follows commands Vital Signs (last 8hr) Date Time Temp Pulse Resp B/P (MAP) Pulse Ox O2 Delivery O2 Flow Rate FiO2 06/02/24 11:00 97.5 88 18 135/62 Nasal Cannula 3.0 06/02/24 10:59 91 20 06/02/24 10:45 91 18 128/68 Nasal Cannula 3.0 06/02/24 10:30 92 18 130/79 Nasal Cannula 3.0 06/02/24 10:15 91 18 130/63 Nasal Cannula 3.0 06/02/24 10:00 95 18 123/65 Nasal Cannula 3.0 06/02/24 09:45 98 18 133/62 Nasal Cannula 3.0 06/02/24 09:30 102 18 138/83 Nasal Cannula 3.0 06/02/24 09:15 96 18 125/56 Nasal Cannula 3.0 06/02/24 09:00 97.7 92 18 139/48 Nasal Cannula 3.0 06/02/24 08:40 97.7 96 18 114/65 Nasal Cannula 3.0 06/02/24 08:04 98.1 110 16 114/65 98 Nasal Cannula 2.0 06/02/24 07:45 98 Nasal Cannula* 2 28 06/02/24 06:38 98.2 90 22 132/91 92 Nasal Cannula 2.0 06/02/24 06:14 99 20 N/A Room Air 2.0 06/02/24 06:11 99 20 LABS: Hematology Labs: Test 06/02/24 05:02 Range/Units White Blood Count 8.9 4.8-10.8 K/uL Red Blood Count 3.13 L 4.50-6.20 MIL/uL Hemoglobin 8.8 L 14.0-18.0 g/dL Hematocrit 28.6 L 42-54 % Mean Corpuscular Volume 91.4 79-99 fL Mean Corpuscular Hemoglobin 28.1 27.0-33.0 pg Mean Corpuscular Hemoglobin Concent 30.8 L 32.0-36.0 g/dL Red Cell Distribution Width 17.8 H 11.0-15.5 % Platelet Count 219 130-400 K/uL Mean Platelet Volume 11.6 H 7.5-10.5 fL Immature Granulocyte % (Auto) 0.6 0-1 % Neutrophils (%) (Auto) 87.3 H 40.0-77.0 % Lymphocytes (%) (Auto) 5.5 L 21.0-51.0 % Monocytes (%) (Auto) 6.1 3.0-13.0 % Eosinophils (%) (Auto) 0.1 0.0-8.0 % Basophils (%) (Auto) 0.4 0.0-5.0 % Neutrophils # (Auto) 7.8 H 1.8-7.7 K/uL Lymphocytes # (Auto) 0.5 L 1.0-4.8 K/uL Monocytes # (Auto) 0.5 0.1-1.0 K/uL Eosinophils # (Auto) 0.01 0.00-0.70 K/uL Basophils # (Auto) 0.04 0.00-0.20 K/uL Absolute Immature Granulocyte (auto 0.05 0-1 K/uL Nucleated Red Blood Cells 0.0 0.0-0.19 % Chemistry Labs: Test 06/02/24 10:57 06/02/24 09:32 06/02/24 05:02 06/01/24 03:09 Range/Units Whole Blood Glucose 136 H 70-110 MG/DL Potassium Level 5.2 H 3.5-5.1 mmol/L Whole Blood Ketones Quantitative 0.4 0.0-0.6 mmol/L Sodium Level 133 L 136-145 mmol/L Chloride Level 93 L 101-111 mmol/L Carbon Dioxide Level 24 21-32 mmol/L Blood Urea Nitrogen 64 H 7-18 mg/dL Creatinine 6.5 H 0.5-1.3 mg/dL Glomerular Filtration Rate Calc 8 >90 mL/min Random Glucose 195 H 70-105 mg/dL Total Calcium 9.0 8.5-10.1 mg/dL Phosphorus Level 7.7 H 2.5-4.9 mg/dL Total Bilirubin 1.0 0.2-1.0 mg/dL Aspartate Amino Transf (AST/SGOT) 23 10-37 U/L Alanine Aminotransferase (ALT/SGPT) 13 12-78 U/L Alkaline Phosphatase 257 H 50-136 U/L Total Creatine Kinase 39 # 21-232 U/L Total Protein 8.4 H 6.0-8.3 g/dL Albumin 2.8 L 3.5-5.0 g/dL Magnesium Level 2.10 1.80-2.40 mg/dL Coagulation Labs: Test 06/02/24 09:32 06/02/24 05:02 Range/Units Activated Partial Thromboplast Time 83.4 #H 26.3-35.5 SEC Prothrombin Time 15.3 H 9.6-11.6 SEC Prothromb Time International Ratio 1.50 H 0.85-1.15 DIAGNOSTICS / RADIOLOGY RESULTS: [ ] PLAN NEURO: Minimize central acting medications as possible. Maintain fall precautions, adequate lighting during the day PULMONARY: Supplemental 02 as needed. Maintain aspiration precautions at all times CARDIOVASCULAR: Follow hemodynamics. Vital signs per facility protocol GI & NUTRITION: Continue with nutritional support. Continue stool softeners and laxatives as needed. KIDNEYS & ELECTROLYTES: Strict monitoring of intake, output and overall fluid balance. Avoid nephrotoxic medications to the extent possible. Medications to be dosed according to renal function. Monitor electrolytes and replace as needed ENDOCRINE: Maintain blood glucose between 100-180 at all times. Hypoglycemia protocol in place INFECTIOUS DISEASE: Trend temperature, WBC and procalcitonin level Follow cultures, deescalate antibiotics as soon as possible. Panculture if new onset fever ONCOLOGY/HEMATOLOGY/COAGULATION: Monitor for s/s of bleeding Monitor hemoglobin, coagulation studies as needed SKIN: Pressure ulcer prevention per facility protocol Specialty mattress ORTHO/REHAB: Continue PT/OT Prophylaxis: Continue GI and DVT prophylaxis Code Status: Full Resuscitation Disposition: TBD Other: Total patient care time exceeds 35 minutes excluding all procedures. KARIME FRANZ Jun 02, 2024 12:39
--- NOTE | 2024-06-02 17:16 | NUR ---
Nutrition consult per A1C , necrotic wound Reviewed labs, notes, and medications. Pt with ESRD on HD, tolerating diet, korean speaking, last admin 03/18/24, renal diet, insulin, IV fluid, Na 133(L), K 5.2, BG 184, A1C 7.1, phos 7.7(H) per chart review. 100%PO intake, wt via bed scale, last BM 05/30/24, mild pitting, well nourished, necrotic wound, 2.6L HD 06/02/24 per nursing. low albumin may be due to inflammation, A1C 7.1 WNL for geratic A1C. Recommendations: -Provide renal diet + ty bid w/ lunch and dinner -Monitor PO intake -Encourage PO intake as able -Monitor BM -If no BM >3 days consider stool softener -Monitor electrolytes -Replenish electrolytes per protocol -Monitor wts -Reweigh as able -Order Vit D, vit b-12 labs to rule out deficiencies -Provide NEPHROVITE QD -Recommend Pt to follow up with PCP -Monitor goals of care RD to follow + available for consult per protocol Addendum: 06/02/24 at [address] Amended: Links added.
--- NOTE | 2024-06-02 23:04 | PN ---
INFECTIOUS DISEASE PROGRESS NOTE Date of Service: Jun 02, 2024 SUBJECTIVE: Patient was seen and examined at bedside in room 415. Patient is awake but confused and very anxious. Keeps taking off his oxygen. Tachypneic. The final sputum culture results came back positive for Klebsiella pneumoniae. Currently on a one-to-one sitter observation. Patient received an extra dialysis treatment today and 2.7 L were removed. Patient with right foot gangrene and osteomyelitis. Patient is afebrile this morning, temperature is 97.5 and a WBC of 8.9. We will continue vancomycin and Zosyn PHYSICAL EXAM EYES: Anicteric. Pupils equal and reactive. HENT: No oral thrush seen, moist Oral mucosa NECK: Supple, no JVD or thyromegaly. LUNGS: Good air entry. No rales, no rhonchi. CARDIOVASCULAR: S1, S2 regular. No murmur heard. ABDOMEN: Soft, non tender, bowel sounds present, no organomegaly CENTRAL NERVOUS SYSTEM: Awake, alert, oriented x 3. No focal deficits. SKIN: No rashes, no swelling. LYMPHATICS: No peripheral lymphadenopathy MUSCULOSKELETAL: No joint swelling, erythema or tenderness. EXTREMITIES: No cyanosis or clubbing BACK: No deformity, no pressure ulcer. GENITOURINARY: No dysuria or hematuria Vital Sign (Last 12 Hours) 06/02/24 06/02/24 06/02/24 06/02/24 11:15 16:05 18:42 18:42 Temp 97.5 98.1 Pulse 90 96 89 91 Resp 18 20 19 19 B/P (MAP) 142/66 132/69 Pulse Ox 100 O2 Delivery Nasal Cannula N/A Room Air O2 Flow Rate 3.0 2.0 06/02/24 19:28 Pulse 89 Resp 17 B/P (MAP) 121/64 Pulse Ox 94 O2 Delivery Room Air Intake & Output (last 24hrs) 06/01/24 06/01/24 06/02/24 15:00 23:00 07:00 Intake Total 240 ml 800 ml Balance 240 ml 800 ml LABS: Laboratory: Test 06/02/24 20:17 06/02/24 16:45 06/02/24 09:32 06/02/24 05:02 Range/Units Whole Blood Glucose 211 H 70-110 MG/DL Activated Partial Thromboplast Time 73.9 H 26.3-35.5 SEC Potassium Level 5.2 H 3.5-5.1 mmol/L Whole Blood Ketones Quantitative 0.4 0.0-0.6 mmol/L White Blood Count 8.9 4.8-10.8 K/uL Red Blood Count 3.13 L 4.50-6.20 MIL/uL Hemoglobin 8.8 L 14.0-18.0 g/dL Hematocrit 28.6 L 42-54 % Mean Corpuscular Volume 91.4 79-99 fL Mean Corpuscular Hemoglobin 28.1 27.0-33.0 pg Mean Corpuscular Hemoglobin Concent 30.8 L 32.0-36.0 g/dL Red Cell Distribution Width 17.8 H 11.0-15.5 % Platelet Count 219 130-400 K/uL Mean Platelet Volume 11.6 H 7.5-10.5 fL Immature Granulocyte % (Auto) 0.6 0-1 % Neutrophils (%) (Auto) 87.3 H 40.0-77.0 % Lymphocytes (%) (Auto) 5.5 L 21.0-51.0 % Monocytes (%) (Auto) 6.1 3.0-13.0 % Eosinophils (%) (Auto) 0.1 0.0-8.0 % Basophils (%) (Auto) 0.4 0.0-5.0 % Neutrophils # (Auto) 7.8 H 1.8-7.7 K/uL Lymphocytes # (Auto) 0.5 L 1.0-4.8 K/uL Monocytes # (Auto) 0.5 0.1-1.0 K/uL Eosinophils # (Auto) 0.01 0.00-0.70 K/uL Basophils # (Auto) 0.04 0.00-0.20 K/uL Absolute Immature Granulocyte (auto 0.05 0-1 K/uL Nucleated Red Blood Cells 0.0 0.0-0.19 % Prothrombin Time 15.3 H 9.6-11.6 SEC Prothromb Time International Ratio 1.50 H 0.85-1.15 Sodium Level 133 L 136-145 mmol/L Chloride Level 93 L 101-111 mmol/L Carbon Dioxide Level 24 21-32 mmol/L Blood Urea Nitrogen 64 H 7-18 mg/dL Creatinine 6.5 H 0.5-1.3 mg/dL Glomerular Filtration Rate Calc 8 >90 mL/min Random Glucose 195 H 70-105 mg/dL Total Calcium 9.0 8.5-10.1 mg/dL Phosphorus Level 7.7 H 2.5-4.9 mg/dL Total Bilirubin 1.0 0.2-1.0 mg/dL Aspartate Amino Transf (AST/SGOT) 23 10-37 U/L Alanine Aminotransferase (ALT/SGPT) 13 12-78 U/L Alkaline Phosphatase 257 H 50-136 U/L Total Creatine Kinase 39 # 21-232 U/L Total Protein 8.4 H 6.0-8.3 g/dL Albumin 2.8 L 3.5-5.0 g/dL Test 06/02/24 03:30 06/01/24 03:09 05/31/24 23:25 Range/Units Blood Gas Specimen Type Arterial Arterial Blood pH 7.321 L 7.350-7.450 Arterial Blood Partial Pressure CO2 40 35-48 mmHg Arterial Blood Partial Pressure O2 137.2 H 83.0-108.0 mmHg Arterial Blood HCO3 20.2 L 21.0-28.0 mmol/L Arterial Blood Oxygen Saturation 98.5 H 94.0-98.0 % Arterial Blood Base Excess -5.4 L -2.0-3.0 mmol/L Blood Gas Temperature 37.0 35.5-37.0 CELSIUS Blood Gas Vent Mode NC 2L ROOM AIR FiO2 28.0 % Blood Gas Specimen Comment R BRACHIAL Magnesium Level 2.10 1.80-2.40 mg/dL Hemoglobin (Blood Gas) 9.3 L 13.5-17.5 g/dL Sodium (Blood Gas) 135 L 136-145 MMOL/L Bedside Potassium (Blood Gas) 4.6 H 3.4-4.5 MMOL/L Bedside Chloride (Blood Gas) 98 98-107 MMOL/L Bedside Glucose (Blood Gas) 136 H 65-95 MG/DL Bedside Ionized Calcium (Blood Gas) 1.15 1.15-1.33 MMOL/L Bedside Lactic Acid (Blood Gas) 1.10 H 0.36-0.75 MMOL/L Blood Gas Flow-by 3.00 0.00-15.00 L/min DIAGNOSTICS / RADIOLOGY: PATIENT: TERRY FUCHS ACCT: [id number] LOC: 2D U: [id number] AGE/SX: 78/M ROOM: 223 RE05/29/[address]: KAUSHIK SUH MD : 1945 BED: 1 DIS: STATUS: ADM IN TLOC: SPEC: [id number] ESTHER: 05/29/24 STATUS: COMP REQ: [id number] RECD: 05/29/[address]: RODDY DEXTERP SOURCE: SPUTUM ENTR: 05/29/[address]: RIVER BLACKMON MD SPDESC: KAUSHIK ESTRADA MD, JORGE H MD RODRIGUEZ, JOSE MARIANO MD VENEGAS, LUIS R DPM YAMAMURA, DEANNA DO ORDERED: RESP CULTURE - Procedure Result Emelia Date-Time GRAM STAIN Final 05/30/24-1232 [facility] GRAM STAIN RESULT: GOOD SPECIMEN [ <10 SEC's/LPF and >25 PMN's/LPF ] NO ORGANISMS SEEN RESPIRATORY CULTURE Final 06/01/24-0928 [facility] COLONY DESCRIPTION: REPORT 1: 1+ ORAL MARY KAY ; STUDIES TO CONTINUE 1+ GRAM NEGATIVE RODS IDENTIFICATION AND SENSITIVITY TO FOLLOW REPORT 2: NO FURTHER WORK-UP DONE KLEBSIELLA PNEUMONIAE K PNEUMO M.I.C. RX --------- ---- AZTREONAM <=4 S CEFAZOLIN <=2 S CEFTAZIDIME/AVIBACTAM <=8 S GENTAMICIN <=2 S LEVOFLOXACIN <=0.5 S AMPICILLIN/SULBACTAM <=8/4 S MEROPENEM <=1 S PIPERACILLIN/TAZOBACTAM <=8 S TRIMETHOPRIM/SUFLAMETHOXAZOLE <=2/38 S ASSESSMENT: Right foot gangrene with osteomyelitis. Gram-negative pneumonia. Peripheral vascular disease. End Stage renal disease, on dialysis. Diabetes mellitus. Chronic respiratory failure, home O2 dependent. PLAN: Continue vancomycin on dialysis days. Continue Zosyn IV. Continue GI prophylaxis. Continue current wound care. Continue pain management. Continue bronchodilators. Continue antiplatelets. Continue anti diabetics. Patient is currently on a one-to-one sitter observation. This case was reviewed and discussed with my supervising physician and the above assessment and plan was formulated and agreed upon. ATTESTATION BY PHYSICIAN I have seen and examined the patient. I reviewed the documentation, medical decision making, and treatment plan as noted by the mid-level provider above. I agree with the findings and plan of care. NEDA DEL TORO MD, MIRTA L [facility] Jun 02, 2024 23:04
[2024-06-03] VITALS (27 sets, daily range): BP systolic 110–162; BP diastolic 57–92; PULSE 84–96; RESP 16–22; TEMP 97.6–98.4; O2SAT 92–100
--- NOTE | 2024-06-03 02:30 | NUR ---
PER REVIEW OF ORDERS NOTED RESTRAINT ORDER WAS STILL IN PLACE. PAPER DOCUMENTATION NOTED THAT GEOFFREY TIJERINA WAS ABLE TO DC RESTRAINT PER QUALIFICATIONS. ORDERS TO DISCONTINUE RESTRAINTS PLACED AT THIS TIME.
[2024-06-03 05:13] LABS: HEMATOCRIT 27.4 % (42-54); IMMATURE GRANULOCYTE ABSOLUTE 0.03 K/uL (0-1); LYMPHOCYTES # (AUTO) 0.3 K/uL (1.0-4.8); LYMPHOCYTES % (AUTO) 3.5 % (21.0-51.0); MEAN CORPUSCULAR HEMOGLOBIN 28.2 pg (27.0-33.0); MEAN CORPUSCULAR HGB CONC 31.4 g/dL (32.0-36.0); MEAN CORPUSCULAR VOLUME 89.8 fL (79-99); MONOCYTES # (AUTO) 0.4 K/uL (0.1-1.0); MONOCYTES % (AUTO) 4.7 % (3.0-13.0); NEUTROPHILS % (AUTO) 91.4 % (40.0-77.0); PLATELET COUNT (AUTO) 230 K/uL (130-400); RED BLOOD CELL COUNT(AUTO) 3.05 MIL/uL (4.50-6.20); RED CELL DISTRIBUTION WIDTH 18.2 % (11.0-15.5); WHITE BLOOD COUNT (AUTO) 7.7 K/uL (4.8-10.8)
[2024-06-03 05:27] LABS: CREATININE 6.4 mg/dL (0.5-1.3); MAGNESIUM 2.3 mg/dL (1.80-2.40); PHOSPHORUS 6.9 mg/dL (2.5-4.9); VANCOMYCIN LEVEL 12.2 mcg/mL (20.0-30.0)
--- NOTE | 2024-06-03 07:50 | NUR ---
PATIENT UNCOOPERATIVE. TRYING TO LEAVE ROOM, REFUSING OXYGEN AND PULLING HEPARIN TUBING (ON GTT) ACROSS ROOM. IN DOORWAY TRYING TO PUSH THROUGH STAFF TO LEAVE. UNCOOPERATIVE TO REDIRECTION, PATIENT NOT ANSWERING APPROPRIATELY. PATIENT VISIBLY WEAK, SHORT OF BREATH. PATIENT SAT ON TRASH CAN IN DOORWAY. SEVERAL STAFF MEMBERS, NURSING AND CRUSHER WET GROUND MICA PRESENT TO ASSIST PATIENT BACK TO BED. PATIENT FINALLY AGREEABLE TO PLACING OXYGEN ON, SAT IN WHEELCHAIR. PATIENT AGREEABLE TO STAY IN ROOM, GIVEN RECLINER TO SIT IN INSTEAD OF BED.
--- NOTE | 2024-06-03 09:06 | PN ---
DIALYSIS NOTE SUBJECTIVE: The patient was seen and evaluated on hemodialysis, prescriptions noted. PHYSICAL EXAMINATION: VITAL SIGNS: Blood pressure 110/72. CARDIOVASCULAR: Regular. LUNGS: Coarse. IMPRESSION: * ESRD. * Hyperkalemia. PLAN: The patient remains on the broad-spectrum IV antibiotics. The patient with significant vascular disease, being seen by Cardiology. The patient remains on Epogen for the anemia. We will continue to follow closely. He does continue with dialysis 3 times per week. All labs can repeat in the morning. TID: [id number] RECEIPT: [id number]
--- NOTE | 2024-06-03 09:40 | NUR ---
Cardiology follow up Primary, Dr. Sheffield, and family asking when the patient will be having angio procedure. Last note from cardio Sunday. No orders. Contacted [facility] to ensure patient will be seen today, as there is no note for plan on angio. Per Kristyn, patient is on roster for clinic. Dr. Bates is out of clinic this week. Dr. Florian rounding at [facility] today and should be seeing patient.
[2024-06-03] MEDS ORDERED: ALBUMIN (HUMAN) 25% 50 ML IV.SOLN. IV SCH (11:00)
--- NOTE | 2024-06-03 11:14 | PN ---
[facility] PROGRESS NOTE Date of Service: Jun 03, 2024 Time of Service: 11:12 SUBJECTIVE: 78-year-old male, Tristanian-speaking with past medical history of Anemia, end- stage renal disease on hemodialysis (TThS) atrial fibrillation, bioprosthetic aortic valve replacement in 2020 currently on warfarin,coronary artery disease, hypertension, hyperlipidemia, diabetes, severe cardiomyopathy(LVEF 20-25% as per clinic note unable to tolerate GDM T due to hypotension currently on midodrine) ,sick sinus syndrome status post [employer] device in September 2020 and chronic respiratory failure on home O2 who presented to the ED was sent by Dr. Mims for evaluation of right 1st,2nd and 3rd toe gangrene . Patient c/o pain at the site.As per daughter ,it started on March 2024 as redness and it progressively got worsen that it started turning black 5 days back. Patient also complained of occasional cough. Patient has been dialyzed on the same day and 2 Liters of fluid removed .Patient's Materials And Corrosion Engineer is and patient 's nib adjuster is .Patient denies fever,chills,nausea,vomiting,chest pain and palpitation. Vital signs at the time of presentation: temperature 98.6, heart rate 98, blood pressure 104/59 saturation 98% on 2 L nasal cannula. Labs: Hemoglobin 9, hematocrit 30 platelet count 235. Chloride 97, BUN 29, creatinine 4.2, GFR 14, glucose 232, lactic acid 2.3 troponin 86 to 80, BNP 1650 procalcitonin 0.84. Right foot x-ray result revealed no evidence for fracture or subluxation. Chest x-ray result revealed cardiomegaly with pulmonary vascular congestion and small right greater than left pleural effusion with subjacent passive atelectasis. Patient is admitted for further medical management. 05.30.24: Patient is seen resting in his bed. Pending Cardiology, podiatry , nephrology and ID consult.Pending b/l LE artery doppler. 05.31.24: Patient had angiogram done yesterday for assessing lower extremity circulation. Bilateral anterior and posterior tibial arteries are occluded with peroneal arteries grossly patent. Pending podiatry recommendations for possible TMA . Cardiology plan for peripheral angiogram early next week. Ortho consult pending . 06/01/24 : Patient is seen and examined today. Denies any complaints today. However use had stridor and shortness of breath during the night and neck soft tissue x-ray was ordered which showed normal soft tissue and epiglottitis appears unremarkable. Solu-Medrol 60 Q 6 was given. Chest x-ray showed bilateral airspace consolidation with right effusion. Plan for peripheral angio on 06/05/[address] Bates. We will hold the warfarin since the patient is already on heparin drip. We will downgrade him to med surge with telemetry. 06/02/2024: Patient complains of pain and was agitated yesterday night . Patient in one on one supervision. Labs showed potassium 6.4 , Phosphorous 7.7 .Repeat potassium is 5.2. Nephrology suggested 2 hour dialysis for today . He is pending peripheral angiogram. We will consult orthopedic surgery . 06.03.24: Patient has been restless and aggressive at ttimes as per the RN. Patient continues to be placed on one to one observation . He is receiving his regular dialysis today .Pending cardiology intervention and orthopedic consult today . REVIEW OF SYSTEMS CONSTITUTIONAL: Denies fevers, chills, or night sweats. No unintentional weight loss reported. NEUROLOGICAL: Denies headache, amaurosis fugax, motor weakness, sensory deficit, vertigo/spinning sensation, gait abnormalities, or tremors. ENT: No hearing loss, otalgia, otorrhea, rhinitis, rhinorrhea, hoarseness, or sore throat. CARDIOVASCULAR: Denies any exertional angina, dyspnea on exertion, orthopnea, paroxysmal nocturnal dyspnea, palpitations, life-threatening arrhythmias, claudication. PULMONARY: Complaints of cough and shortness of breaths Denies hemoptysis, pleuritic chest pain. SLEEP: Denies morning headaches, daytime somnolence or napping. Denies difficulty falling asleep, staying asleep, waking from sleep. Denies knowledge of snoring. GASTROINTESTINAL: Denies any type of dysphagia to either liquids or solids. Denies nausea, vomiting, pyrosis, early satiety, abdominal pain, diarrhea, constipation, or changes in stool consistency or caliber. Denies coffee-ground emesis, hematemesis, hematochezia, or melanotic stools. GENITOURINARY: Denies frequency, urgency, nocturia, hematuria or incontinence (Storage/Irritative symptoms.) Low urinary stream, straining to void, urinary intermittency or hesitancy, splitting of the voiding stream, terminal dribbling. PHYSICAL EXAM GENERAL APPEARANCE: The patient is awake, alert, and oriented, in no acute cardiopulmonary distress. NEUROLOGICAL: Cranial nerves II-XII grossly intact. Motor is 5/5 in bilateral upper and lower extremities proximal to distal. No sensory deficits. HEENT: Face is symmetric. Pupils are equal and reactive. Extraocular movements are intact. NECK: Supple. No JVD. No thyromegaly. No submental, submandibular, pre- /postauricular, occipital or supraclavicular lymphadenopathy. CHEST: Normal chest expansion. Telemetry. LUNGS: Bilateral crackles and scattered rhonchi on auscultation CARDIOVASCULAR: Regular. S1 and S2 normal. No appreciable rubs, murmurs or gallops. ABDOMEN: Soft, nontender, and nondistended. There is no rebound, voluntary guarding, or rigidity. : Deferred. No Geller. EXTREMITIES: 2+ edema bilateral lower extremities. warm rt foot till the base of necrotic toe SKIN: Left leg wound at the tip of the great toe. Right necrotic 1st ,2nd toes and the 3rd toe-dry gangrene. Vital Signs (last 8hr) Date Time Temp Pulse Resp B/P (MAP) Pulse Ox O2 Delivery O2 Flow Rate FiO2 06/03/24 10:51 89 19 06/03/24 08:50 97.5 92 18 131/84 Nasal Cannula 2.0 06/03/24 08:00 98.2 96 22 162/57 89 06/03/24 06:24 88 20 N/A Room Air 2.0 06/03/24 06:21 88 19 06/03/24 03:38 98.4 89 19 110/72 97 Room Air LABS: Laboratory: Test 06/03/24 10:54 06/03/24 05:01 06/02/24 09:32 06/02/24 05:02 Range/Units Whole Blood Glucose 185 H 70-110 MG/DL White Blood Count 7.7 4.8-10.8 K/uL Red Blood Count 3.05 L 4.50-6.20 MIL/uL Hemoglobin 8.6 L 14.0-18.0 g/dL Hematocrit 27.4 L 42-54 % Mean Corpuscular Volume 89.8 79-99 fL Mean Corpuscular Hemoglobin 28.2 27.0-33.0 pg Mean Corpuscular Hemoglobin Concent 31.4 L 32.0-36.0 g/dL Red Cell Distribution Width 18.2 H 11.0-15.5 % Platelet Count 230 130-400 K/uL Mean Platelet Volume 11.3 H 7.5-10.5 fL Immature Granulocyte % (Auto) 0.4 0-1 % Neutrophils (%) (Auto) 91.4 H 40.0-77.0 % Lymphocytes (%) (Auto) 3.5 L 21.0-51.0 % Monocytes (%) (Auto) 4.7 3.0-13.0 % Eosinophils (%) (Auto) 0.0 0.0-8.0 % Basophils (%) (Auto) 0.0 0.0-5.0 % Neutrophils # (Auto) 7.0 1.8-7.7 K/uL Lymphocytes # (Auto) 0.3 L 1.0-4.8 K/uL Monocytes # (Auto) 0.4 0.1-1.0 K/uL Eosinophils # (Auto) 0.00 0.00-0.70 K/uL Basophils # (Auto) 0.00 0.00-0.20 K/uL Absolute Immature Granulocyte (auto 0.03 0-1 K/uL Nucleated Red Blood Cells 0.0 0.0-0.19 % Activated Partial Thromboplast Time 48.9 H 26.3-35.5 SEC Sodium Level 132 L 136-145 mmol/L Potassium Level 6.0 *H 3.5-5.1 mmol/L Chloride Level 92 L 101-111 mmol/L Carbon Dioxide Level 24 21-32 mmol/L Blood Urea Nitrogen 69 H 7-18 mg/dL Creatinine 6.4 H 0.5-1.3 mg/dL Glomerular Filtration Rate Calc 8 >90 mL/min Random Glucose 251 H 70-105 mg/dL Total Calcium 8.4 L 8.5-10.1 mg/dL Phosphorus Level 6.9 H 2.5-4.9 mg/dL Magnesium Level 2.30 1.80-2.40 mg/dL Vancomycin Level 12.2 L 20.0-30.0 mcg/mL Whole Blood Ketones Quantitative 0.4 0.0-0.6 mmol/L Prothrombin Time 15.3 H 9.6-11.6 SEC Prothromb Time International Ratio 1.50 H 0.85-1.15 Total Bilirubin 1.0 0.2-1.0 mg/dL Aspartate Amino Transf (AST/SGOT) 23 10-37 U/L Alanine Aminotransferase (ALT/SGPT) 13 12-78 U/L Alkaline Phosphatase 257 H 50-136 U/L Total Creatine Kinase 39 # 21-232 U/L Total Protein 8.4 H 6.0-8.3 g/dL Albumin 2.8 L 3.5-5.0 g/dL Test 06/02/24 03:30 Range/Units Blood Gas Specimen Type Arterial Arterial Blood pH 7.321 L 7.350-7.450 Arterial Blood Partial Pressure CO2 40 35-48 mmHg Arterial Blood Partial Pressure O2 137.2 H 83.0-108.0 mmHg Arterial Blood HCO3 20.2 L 21.0-28.0 mmol/L Arterial Blood Oxygen Saturation 98.5 H 94.0-98.0 % Arterial Blood Base Excess -5.4 L -2.0-3.0 mmol/L Blood Gas Temperature 37.0 35.5-37.0 CELSIUS Blood Gas Vent Mode NC 2L ROOM AIR FiO2 28.0 % Blood Gas Specimen Comment R BRACHIAL Current Medications Medications (Trade) Dose Ordered Sig/Yefri Route PRN Reason Start Time Stop Time Status Last Admin Dose Admin Acetaminophen/ Hydrocodone Bitart (NORco 5/325MG) 1 tab Q4H PRN PO MODERATE PAIN (4-6) 05/29/24 19:00 06/03/24 18:59 05/31/24 21:04 1 TAB Acetaminophen/ Hydrocodone Bitart (NORco 5/325MG) 2 tab Q4H PRN PO SEVERE PAIN (7-10) 05/29/24 19:00 06/02/24 12:12 DC 05/31/24 10:18 2 TAB Albumin Human (Albumin (Human) 25%) 100 ml ONCE IV 06/02/24 09:30 06/02/24 10:46 DC Albumin Human (Albumin (Human) 25%) 100 ml ONCE IV 06/03/24 11:00 06/04/24 10:59 Albuterol (DUOneb) 1 UDVIAL Q6H PRN IH SHORTNESS OF BREATH 05/31/24 16:00 06/30/24 15:59 4/19/25 22:54 1 UDVIAL Albuterol (DUOneb) 1 udvial [id number] IH 05/29/24 22:00 05/31/24 06:30 DC 05/31/24 01:03 1 UDVIAL Aspirin (Aspirin 81mg Ec Tab) 81 mg DAILY PO 05/31/24 09:00 06/30/24 08:59 06/03/24 09:12 81 MG Atorvastatin Calcium (LIPItor 40MG) 80 mg HS PO 05/30/24 21:00 06/29/24 20:59 06/02/24 21:12 80 MG Clopidogrel Bisulfate (plaVIX 75MG) 75 mg DAILY PO 05/31/24 09:00 06/30/24 08:59 06/03/24 09:13 75 MG Dextrose (D50w) 50 ml AD PRN IV HYPOGLYCEMIA PROTOCOL 05/29/24 20:00 06/28/24 19:59 Diazepam (VALium 5 MG/ML 2 ML SYG) 2 mg ONCE PRN IV ANXIETY 06/01/24 22:30 06/08/24 22:29 06/02/24 00:25 2 MG Docusate Sodium (COLace 100MG CAP) 100 mg DAILY PO 05/31/24 09:00 06/30/24 08:59 06/03/24 09:12 100 MG Epoetin Willy-epbx (Retacrit) 10,000 unit QTUTHSA[DIALYSIS] SQ 05/31/24 16:00 06/30/24 15:59 05/31/24 16:33 10,000 UNIT Famotidine (Pepcid 20mg Tab) 10 mg DAILY PO 05/30/24 09:00 06/29/24 08:59 06/03/24 09:13 10 MG Glucagon (Glucagon 1mg Kit) 1 mg AD PRN IM HYPOGLYCEMIA PROTOCOL 05/29/24 20:00 06/28/24 19:59 Heparin Sodium (Porcine) (HEParin 5,000 UNIT VIAL) 10,000 unit AD IRRIG 05/31/24 14:30 06/30/24 10:59 Heparin Sodium (Porcine) (HEParin 5,000 UNIT VIAL) 10,000 unit AD SQ 05/31/24 11:00 05/31/24 14:15 DC Heparin Sodium/ Dextrose 250 ml @ 0 mls/hr PROTOCOL IV 05/30/24 21:30 06/29/24 21:29 06/02/24 17:15 11.33 MLS/HR Home Med (Home Medication) (Sevelamer Carbonate (Renv... TIDAC PO 05/30/24 17:00 06/29/24 16:59 Hydromorphone HCl (DiLAUDid 0.5MG INJ) 0.5 mg Q6H PRN IVP SEVERE PAIN (7-10) 06/02/24 12:30 06/07/24 12:29 Insulin Human Regular (humuLIN R 100 UNIT/ML 3ML) INSULIN SLIDING SCAL... ACHS SQ 05/29/24 21:00 06/28/24 20:59 06/03/24 05:54 4 UNIT Ipratropium Hardin (AtrovENT UD) 0.5 MG F8EIUEM IH 05/31/24 06:30 06/30/24 06:29 06/03/24 10:52 0.5 MG Methylprednisolone Sodium Succinate (Solu-medROL 40MG) 60 mg Q6H IVP 06/02/24 12:30 07/02/24 00:00 06/03/24 05:50 60 MG Methylprednisolone Sodium Succinate (Solu-medROL 125MG) 60 mg Q6H IVP 06/01/24 06:00 06/01/24 21:45 DC 06/01/24 13:04 60 MG Methylprednisolone Sodium Succinate (Solu-medROL 125MG) 60 mg Q6H IVP 06/02/24 00:00 06/02/24 07:06 DC 06/02/24 06:36 60 MG Midodrine (PROAMatine 5 MG TABLET) 10 mg TID PO 05/29/24 21:00 05/31/24 10:34 DC 05/30/24 20:45 10 MG Midodrine (PROAMatine 5 MG TABLET) 30 mg DAILY PO 05/31/24 09:00 06/01/24 22:15 DC 06/01/24 09:00 30 MG Midodrine (PROAMatine 5 MG TABLET) 30 mg HS PO 06/01/24 22:30 06/30/24 08:59 06/02/24 09:04 30 MG Miscellaneous Medication (Midodrine HCl ) 10 mg TID PO 05/29/24 21:00 05/29/24 19:49 DC Ondansetron HCl (zoFRAN 4MG INJ) 4 mg Q6H PRN IV NAUSEA/VOMITING 05/29/24 19:00 06/28/24 18:59 Pharmacy Profile Note (Lace Assessment) 1 each AD MISC 05/30/24 15:30 05/31/24 14:17 DC Piperacillin Sod/ Tazobactam Sod 50 ml @ 12.5 mls/hr Q12H IV 05/30/24 04:00 05/31/24 04:21 DC 05/30/24 20:46 12.5 MLS/HR Piperacillin Sod/ Tazobactam Sod 50 ml @ 12.5 mls/hr Q12H IV 05/31/24 09:00 06/10/24 08:59 06/02/24 21:12 12.5 MLS/HR Piperacillin Sod/ Tazobactam Sod 50 ml @ 200 mls/hr ONCE IVPB 05/29/24 16:00 05/30/24 09:37 DC 05/29/24 16:15 200 MLS/HR Sevelamer HCl (RENAgel 800 MG TAB) 800 mg TIDMEALS PO 06/02/24 08:00 07/02/24 07:59 06/02/24 16:32 800 MG Sodium Bicarbonate (Sodium Bicarbonate) 650 mg TID PO 06/02/24 09:00 06/03/24 08:41 DC 06/02/24 21:12 650 MG Sodium Chloride 1,000 ml @ 0 mls/hr ONCE IV 05/31/24 11:00 06/30/24 10:59 06/03/24 09:52 100 MLS/HR Vancomycin HCl 250 ml @ 125 mls/hr ONCE IV 05/29/24 19:00 05/29/24 19:52 DC Vancomycin HCl (Vancomycin 750mg) 750 mg QTUTHSA[DIALYSIS] IVPB 05/31/24 16:00 06/10/24 15:59 05/31/24 18:25 750 MG Vancomycin HCl (Vancomycin Protocol) 1 each AD IV 05/29/24 20:00 06/12/24 19:59 Warfarin Sodium (Coumadin) 2 mg BID PO 05/30/24 21:00 06/01/24 11:32 DC 06/01/24 09:03 2 MG Zolpidem Tartrate (AmbIEN) 5 mg HS PO 06/01/24 22:00 07/01/24 21:59 06/02/24 21:12 5 MG DIAGNOSTICS / RADIOLOGY: [ ] ASSESSMENT: Sepsis without septic shock POA 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 POA Osteomyelitis of the right foot toes POA Left leg diabetic wound ulcer POA Possible right lung pneumonia POA Severe peripheral vascular disease POA Chronic respiratory failure on oxygen dependent POA End stage renal disease on hemodialysis POA Atrial fibrillation on Coumadin POA severe ischemic cardiomyopathy with AICD device POA Coronary artery disease with CABGx2 ,AVR bioprosthetic and stent x1 POA Chronic anemia due to CKD Elevated troponin POA Uncontrolled diabetes POA Morbid Obesity POA PLAN: Sepsis, POA 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 POA Osteomyelitis of the right foot toes , POA Left Leg diabetic wound ulcer POA Patient with pain at the gangrene sight -Betadine soaked dressing in place. continue Zosyn and IV and vancomycin IV for broad-spectrum coverage Pending Orthopedic consult Right lung pneumonia ruled in POA B/L wheeze and creps on examination at the time of admission -duoneb treatement Continue antibiotics and nebulization Chest physiotherapy Acute on chronic respiratory failure on oxygen dependent POA Chronic respiratory failure- patient on home oxygen End stage renal disease on hemodialysis POA continue HD TTHS Continue renal diet Nephrology recommendations Strict I/O chart Fluid intake <1500 ml per day Atrial fibrillation on Coumadin POA Severe ischemic cardiomyopathy with AICD device POA Acute on chronic systolic HFrEF POA Coronary artery disease with CABGx2 ,AVR bioprosthetic and stent x1 POA Severe peripheral vascular disease POA Abdominal aorta runoff study showing 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 Patient on Heparin drip Monitor PTT and adjust Heparin dose Hold Warfarin Pending peripheral angiogram by cardiology ATTESTATION BY PHYSICIAN I have seen and examined the patient. I reviewed the documentation, medical decision making, and treatment plan as noted by the resident provider above. I agree with the findings and plan of care. Heber Hernandez MD, ANCHU A MD Jun 03, 2024 11:14
--- NOTE | 2024-06-03 15:00 | NUR ---
IV Multiple attempts to place IV unsuccessful. Notified primary Cammy Cuellar about difficulty placing line and potentially placing a midline. After reaching out for Dr. Garcia for recommendations for midline vs picc line. Per Jose, patient will need PICC. Order for picc line obtained. Consent obtained from patient. see supervisor notified of new order and order faxed to [facility]. Pending picc line placement at this time. Patient unable to receive antibiotics due to only IV access is a dedicated line for running heparin gtt. Vancomycin due, will be delayed due to the lack of access, pending the picc placement.
--- NOTE | 2024-06-03 15:25 | PN ---
[facility] PROGRESS NOTE Date Patient Seen: Jun 03, 2024 Time of Visit: 15:25 Supervising Physician: Dr. Alfredito Russell Primary Care Physician: [ ] Outpatient Specialists: [ ] Inpatient Consults: [ ] PROBLEM LIST: Sepsis without septic shock POA 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 POA Osteomyelitis of the right foot toes POA Left leg diabetic wound ulcer POA Possible right lung pneumonia POA Severe peripheral vascular disease POA Chronic respiratory failure on oxygen dependent POA End stage renal disease on hemodialysis POA Atrial fibrillation on Coumadin POA severe ischemic cardiomyopathy with AICD device POA Coronary artery disease with CABGx2 ,AVR bioprosthetic and stent x1 POA Chronic anemia due to CKD Elevated troponin POA Uncontrolled diabetes POA Morbid Obesity POA INTERVAL HISTORY: Patient evaluated bedside, currently receiving hemodialysis again today as is regularly scheduled. Patient on 2 L nasal cannula today which are his home O2 requirements. He continues on Zosyn and vancomycin at this time, white count is 7.0 today. We will continue to wean Solu-Medrol as tolerated. Conversation held with the today regarding the patient's current pulmonary prognosis, no changes to medical management from the pulmonary team, current treatment plan discussed with the and patient in both her expressing understanding. REVIEW OF SYSTEMS: 12 point ROS reviewed with patient. Pertinent positives mentioned above. Otherwise negative. PHYSICAL EXAM: GENERAL: alert, weak, awake oriented x 3 HEENT: EOMI, Sclera non icteric, moist mucosa NECK: Supple, no JVD, trachea midline LUNGS: Clear breath sounds bilaterally. No wheezes HEART: Regular rate and rhythm. Normal S1 and S2, without murmurs ABD: Abdomen soft, nontender. Bowel sounds present EXT: No clubbing cyanosis or edema NEURO: Alert and oriented to person, follows commands Vital Signs (last 8hr) Date Time Temp Pulse Resp B/P (MAP) Pulse Ox O2 Delivery O2 Flow Rate FiO2 06/03/24 12:49 97.7 96 16 141/90 Nasal Cannula 2.5 06/03/24 12:30 94 16 138/86 Nasal Cannula 2.5 06/03/24 12:15 91 16 133/86 Nasal Cannula 2.5 06/03/24 12:00 90 16 137/86 Nasal Cannula 2.5 06/03/24 11:45 95 16 136/85 Nasal Cannula 2.5 06/03/24 11:44 98.2 92 19 127/85 92 06/03/24 11:30 92 16 143/87 Nasal Cannula 2.5 06/03/24 11:15 92 16 144/88 Nasal Cannula 2.5 06/03/24 11:00 91 16 139/92 Nasal Cannula 2.5 06/03/24 10:51 89 19 06/03/24 10:45 92 16 127/85 Nasal Cannula 2.0 06/03/24 10:30 89 16 132/89 Nasal Cannula 2.0 06/03/24 10:15 92 16 129/84 Nasal Cannula 2.0 06/03/24 10:00 91 16 131/88 Nasal Cannula 2.0 06/03/24 09:40 97.5 90 16 125/84 Nasal Cannula 2.0 06/03/24 08:50 97.5 92 18 131/84 Nasal Cannula 2.0 06/03/24 08:30 95 Nasal Cannula* 2 28 06/03/24 08:00 98.2 96 22 162/57 89 LABS: Hematology Labs: Test 06/03/24 05:01 Range/Units White Blood Count 7.7 4.8-10.8 K/uL Red Blood Count 3.05 L 4.50-6.20 MIL/uL Hemoglobin 8.6 L 14.0-18.0 g/dL Hematocrit 27.4 L 42-54 % Mean Corpuscular Volume 89.8 79-99 fL Mean Corpuscular Hemoglobin 28.2 27.0-33.0 pg Mean Corpuscular Hemoglobin Concent 31.4 L 32.0-36.0 g/dL Red Cell Distribution Width 18.2 H 11.0-15.5 % Platelet Count 230 130-400 K/uL Mean Platelet Volume 11.3 H 7.5-10.5 fL Immature Granulocyte % (Auto) 0.4 0-1 % Neutrophils (%) (Auto) 91.4 H 40.0-77.0 % Lymphocytes (%) (Auto) 3.5 L 21.0-51.0 % Monocytes (%) (Auto) 4.7 3.0-13.0 % Eosinophils (%) (Auto) 0.0 0.0-8.0 % Basophils (%) (Auto) 0.0 0.0-5.0 % Neutrophils # (Auto) 7.0 1.8-7.7 K/uL Lymphocytes # (Auto) 0.3 L 1.0-4.8 K/uL Monocytes # (Auto) 0.4 0.1-1.0 K/uL Eosinophils # (Auto) 0.00 0.00-0.70 K/uL Basophils # (Auto) 0.00 0.00-0.20 K/uL Absolute Immature Granulocyte (auto 0.03 0-1 K/uL Nucleated Red Blood Cells 0.0 0.0-0.19 % Chemistry Labs: Test 06/03/24 10:54 06/03/24 05:01 06/02/24 09:32 06/02/24 05:02 Range/Units Whole Blood Glucose 185 H 70-110 MG/DL Sodium Level 132 L 136-145 mmol/L Potassium Level 6.0 *H 3.5-5.1 mmol/L Chloride Level 92 L 101-111 mmol/L Carbon Dioxide Level 24 21-32 mmol/L Blood Urea Nitrogen 69 H 7-18 mg/dL Creatinine 6.4 H 0.5-1.3 mg/dL Glomerular Filtration Rate Calc 8 >90 mL/min Random Glucose 251 H 70-105 mg/dL Total Calcium 8.4 L 8.5-10.1 mg/dL Phosphorus Level 6.9 H 2.5-4.9 mg/dL Magnesium Level 2.30 1.80-2.40 mg/dL Whole Blood Ketones Quantitative 0.4 0.0-0.6 mmol/L Total Bilirubin 1.0 0.2-1.0 mg/dL Aspartate Amino Transf (AST/SGOT) 23 10-37 U/L Alanine Aminotransferase (ALT/SGPT) 13 12-78 U/L Alkaline Phosphatase 257 H 50-136 U/L Total Creatine Kinase 39 # 21-232 U/L Total Protein 8.4 H 6.0-8.3 g/dL Albumin 2.8 L 3.5-5.0 g/dL Coagulation Labs: Test 06/03/24 05:01 06/02/24 05:02 Range/Units Activated Partial Thromboplast Time 48.9 H 26.3-35.5 SEC Prothrombin Time 15.3 H 9.6-11.6 SEC Prothromb Time International Ratio 1.50 H 0.85-1.15 DIAGNOSTICS / RADIOLOGY RESULTS: [ ] PLAN NEURO: Minimize central acting medications as possible. Maintain fall precautions, adequate lighting during the day PULMONARY: Supplemental 02 as needed. Maintain aspiration precautions at all times CARDIOVASCULAR: Follow hemodynamics. Vital signs per facility protocol GI & NUTRITION: Continue with nutritional support. Continue stool softeners and laxatives as needed. KIDNEYS & ELECTROLYTES: Strict monitoring of intake, output and overall fluid balance. Avoid nephrotoxic medications to the extent possible. Medications to be dosed according to renal function. Monitor electrolytes and replace as needed ENDOCRINE: Maintain blood glucose between 100-180 at all times. Hypoglycemia protocol in place INFECTIOUS DISEASE: Trend temperature, WBC and procalcitonin level Follow cultures, deescalate antibiotics as soon as possible. Panculture if new onset fever ONCOLOGY/HEMATOLOGY/COAGULATION: Monitor for s/s of bleeding Monitor hemoglobin, coagulation studies as needed SKIN: Pressure ulcer prevention per facility protocol Specialty mattress ORTHO/REHAB: Continue PT/OT Prophylaxis: Continue GI and DVT prophylaxis Code Status: Full Resuscitation Disposition: TBD Other: Total patient care time exceeds 35 minutes excluding all procedures. KARIME FRANZ Jun 03, 2024 15:25
[2024-06-03] MEDS: HEParin 5,000 UNIT VIAL IRRIG SCH (15:41)
[2024-06-03 16:19] LABS: INR 1.63 (0.85-1.15); PROTHROMBIN TIME 16.5 SEC (9.6-11.6)
--- NOTE | 2024-06-03 16:36 | NUR ---
Orthopedic Consult Dr. Rousseau at bedside to see patient. States he will need cardiac plan and recommendation prior to any intervention from him. States to update him once cardiology intervention completed.
[2024-06-03] MEDS ORDERED: ALBUMIN (HUMAN) 25% 50 ML IV.SOLN. IV PRN (17:30)
--- NOTE | 2024-06-03 17:41 | NUR ---
DC PLAN SPOKE TO PATIENT AT LENGTH REGARDING PLAN FOR DC. OFFERED SNF AGAIN REMINDED PATIENT THAT PRIMARY HAD BEEN WORKING ON TRYING T GO TO [facility]. SAID NO WANTS TO GO HOME. EXPLAINED THAT PT SAID HE ONLY DID 15 FT HOW WAS HE GOING TO MAKE IT AT HOME TO BATHROOM. SAID BATHROOM NEXT TO HIS ROOM NOT FAR AND FEELS SAFE TO GO HOME. ASKED IF HE HAD WALKER SAID NO. PATIENT HAS BEEN USING A FRONT WHEEL WALKER WITH PT. TRAVIS SIGNED FOR ANY IN NETWORK. GOT ORDER FOR WALKER FROM [facility]IS[facility] MATI[facility]. PACKET MADE AND SENT TO [facility]. Addendum: 06/03/24 at 1805 by DUARTE VEGA RN CM Amended: Links added.
--- NOTE | 2024-06-03 17:53 | PN ---
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 Severe PAD/ Gangrene of right foot with necrosis Suspected Osteomyelitis of the right foot - sepsis Type 2 diabetes mellitus Nurses advised blood pressure is generally running between 90 and 110 on midodrine. Blood pressure was a little higher this afternoon, 140 systolic. Patient does not appear short of breath and offers no symptomatic complaints at this time. Physical exam shows no JVD, no rales or rhonchi, nonlabored respiration, protuberant abdomen, and gangrene of the left great toe and the medial three toes of the right foot with extensive ischemic dermatitis in both lower extremities. According to notes from Dr. gallegos, plan is for peripheral arteriography and possible intervention by Dr. Allison Newsome on June 05. No change in treatment today. Vitals/Labs Vital Signs Date Time Temp Pulse Resp B/P (MAP) Pulse Ox O2 Delivery O2 Flow Rate FiO2 06/03/24 16:47 127/59 06/03/24 12:49 97.7 96 16 Nasal Cannula 2.5 06/03/24 11:44 92 06/03/24 08:30 28 Laboratory Tests 06/03/24 05:01 Medications Current Medications Piperacillin Sod/ Tazobactam Sod 50 ml @ 200 mls/hr ONCE IVPB Last administered on 05/29/24at 16:15; Start 05/29/24 at 16:00; Stop 05/30/24 at 09:37; Status DC Vancomycin HCl 250 ml @ 125 mls/hr ONCE ONCE IV Last administered on 05/29/24at 16:58; Start 05/29/24 at 16:00; Stop 05/29/24 at 17:59; Status DC Albuterol 1 UDVIAL ONCE ONCE IH Last administered on 05/29/24at 17:17; Start 05/29/24 at 17:30; Stop 05/29/24 at 17:31; Status DC Ondansetron HCl 4 mg Q6H PRN IV; Start 05/29/24 at 19:00; Stop 06/28/24 at 18:59 Albuterol 1 udvial [id number] IH Last administered on 05/31/24at 01:03; Start 05/29/24 at 22:00; Stop 05/31/24 at 06:30; Status DC Famotidine 10 mg DAILY PO Last administered on 06/03/24at 09:13; Start 05/30/24 at 09:00; Stop 06/29/24 at 08:59 Vancomycin HCl 250 ml @ 125 mls/hr ONCE IV; Start 05/29/24 at 19:00; Stop 05/29/24 at 19:52; Status DC Piperacillin Sod/ Tazobactam Sod 50 ml @ 12.5 mls/hr Q12H IV Last administered on 05/30/24at 20:46; Start 05/30/24 at 04:00; Stop 05/31/24 at 04:21; Status DC Acetaminophen/ Hydrocodone Bitart 1 tab Q4H PRN PO Last administered on 05/31/24at 21:04; Start 05/29/24 at 19:00; Stop 06/03/24 at 18:59 Acetaminophen/ Hydrocodone Bitart 2 tab Q4H PRN PO Last administered on 05/31/24at 10:18; Start 05/29/24 at 19:00; Stop 06/02/24 at 12:12; Status DC Miscellaneous Medication 10 mg TID PO; Start 05/29/24 at 21:00; Stop 05/29/24 at 19:49; Status DC Insulin Human Regular INSULIN SLIDING SCAL... ACHS SQ Last administered on 06/03/24at 16:46; Start 05/29/24 at 21:00; Stop 06/28/24 at 20:59 Dextrose 50 ml AD PRN IV; Start 05/29/24 at 20:00; Stop 06/28/24 at 19:59 Glucagon 1 mg AD PRN IM; Start 05/29/24 at 20:00; Stop 06/28/24 at 19:59 Midodrine 10 mg TID PO Last administered on 05/30/24at 20:45; Start 05/29/24 at 21:00; Stop 05/31/24 at 10:34; Status DC Vancomycin HCl 1 each AD IV; Start 05/29/24 at 20:00; Stop 06/12/24 at 19:59 Vancomycin HCl 750 mg QTUTHSA[DIALYSIS] IVPB Last administered on 05/31/24at 18:25; Start 05/31/24 at 16:00; Stop 06/10/24 at 15:59 Sodium Chloride 4 ml STK-MED ONCE IH Last administered on 05/29/24at 23:01; Start 05/29/24 at 22:33; Stop 05/29/24 at 22:33; Status DC Sodium Chloride 4 ml STK-MED ONCE IH Last administered on 05/30/24at 01:10; Start 05/30/24 at 00:47; Stop 05/30/24 at 00:47; Status DC Epoetin Willy-epbx 10,000 unit QTUTHSA[DIALYSIS] SQ Last administered on 06/03/24at 16:40; Start 05/31/24 at 16:00; Stop 06/30/24 at 15:59 Clopidogrel Bisulfate 75 mg DAILY PO Last administered on 06/03/24at 09:13; Start 05/31/24 at 09:00; Stop 06/30/24 at 08:59 Docusate Sodium 100 mg DAILY PO Last administered on 06/03/24at 09:12; Start 05/31/24 at 09:00; Stop 06/30/24 at 08:59 Warfarin Sodium 2 mg BID PO Last administered on 06/01/24at 09:03; Start 05/30/24 at 21:00; Stop 06/01/24 at 11:32; Status DC Atorvastatin Calcium 80 mg HS PO Last administered on 06/02/24at 21:12; Start 05/30/24 at 21:00; Stop 06/29/24 at 20:59 Midodrine 30 mg DAILY PO Last administered on 06/01/24at 09:00; Start 05/31/24 at 09:00; Stop 06/01/24 at 22:15; Status DC Home Med (Sevelamer Carbonate (Renv... TIDAC PO; Start 05/30/24 at 17:00; Stop 06/29/24 at 16:59 Sodium Chloride 4 ml STK-MED ONCE IH Last administered on 05/30/24at 14:30; Start 05/30/24 at 14:07; Stop 05/30/24 at 14:07; Status DC Pharmacy Profile Note 1 each AD MISC; Start 05/30/24 at 15:30; Stop 05/31/24 at 14:17; Status DC Aspirin 81 mg DAILY PO Last administered on 06/03/24at 09:12; Start 05/31/24 at 09:00; Stop 06/30/24 at 08:59 Heparin Sodium/ Dextrose 250 ml @ 0 mls/hr PROTOCOL IV Last administered on 06/03/24at 16:47; Start 05/30/24 at 21:30; Stop 06/29/24 at 21:29 Iohexol 50 ml STK-MED ONCE IV; Start 05/30/24 at 21:35; Stop 05/30/24 at 21:35; Status DC Iohexol 75 ml STK-MED ONCE IV; Start 05/30/24 at 21:35; Stop 05/30/24 at 21:35; Status DC Piperacillin Sod/ Tazobactam Sod 50 ml @ 12.5 mls/hr Q12H IV Last administered on 06/02/24at 21:12; Start 05/31/24 at 09:00; Stop 06/10/24 at 08:59 Ipratropium [place] 0.5 MG [id number] IH Last administered on 06/03/24at 10:52; Start 05/31/24 at 06:30; Stop 06/30/24 at 06:29 Sodium Chloride 1,000 ml @ 0 mls/hr ONCE IV Last administered on 06/03/24at 09:52; Start 05/31/24 at 11:00; Stop 06/30/24 at 10:59 Heparin Sodium (Porcine) 10,000 unit AD SQ; Start 05/31/24 at 11:00; Stop 05/31/24 at 14:15; Status DC Heparin Sodium (Porcine) 10,000 unit AD IRRIG Last administered on 06/03/24at 15:41; Start 05/31/24 at 14:30; Stop 06/30/24 at 10:59 Albuterol 1 UDVIAL Q6H PRN IH Last administered on 05/31/24at 22:54; Start 05/31/24 at 16:00; Stop 06/30/24 at 15:59 Methylprednisolone Sodium Succinate 125 mg ONCE ONCE IVP Last administered on 05/31/24at 23:30; Start 05/31/24 at 23:30; Stop 05/31/24 at 23:31; Status DC Methylprednisolone Sodium Succinate 60 mg Q6H IVP Last administered on 06/01/24at 13:04; Start 06/01/24 at 06:00; Stop 06/01/24 at 21:45; Status DC Epinephrine 0.5 ml ONCE ONCE NEB Last administered on 05/31/24at 23:33; Start 05/31/24 at 23:30; Stop 05/31/24 at 23:31; Status DC Methylprednisolone Sodium Succinate 60 mg Q6H IVP Last administered on 06/02/24at 06:36; Start 06/02/24 at 00:00; Stop 06/02/24 at 07:06; Status DC Zolpidem Tartrate 5 mg HS PO Last administered on 06/02/24at 21:12; Start 06/01/24 at 22:00; Stop 07/01/24 at 21:59 Midodrine 30 mg HS PO Last administered on 06/02/24at 09:04; Start 06/01/24 at 22:30; Stop 06/30/24 at 08:59 Diazepam 2 mg ONCE PRN IV Last administered on 06/02/24at 00:25; Start 06/01/24 at 22:30; Stop 06/03/24 at 16:13; Status DC Sodium Bicarbonate 650 mg TID PO Last administered on 06/02/24at 21:12; Start 06/02/24 at 09:00; Stop 06/03/24 at 08:41; Status DC Sevelamer HCl 800 mg TIDMEALS PO Last administered on 06/03/24at 16:40; Start 06/02/24 at 08:00; Stop 07/02/24 at 07:59 Methylprednisolone Sodium Succinate 60 mg Q6H IVP Last administered on 06/03/24at 05:50; Start 06/02/24 at 12:30; Stop 07/02/24 at 00:00 Albumin Human 100 ml ONCE IV; Start 06/02/24 at 09:30; Stop 06/02/24 at 10:46; Status DC Hydromorphone HCl 0.5 mg Q6H PRN IVP; Start 06/02/24 at 12:30; Stop 06/07/24 at 12:29 Albumin Human 100 ml ONCE IV; Start 06/03/24 at 11:00; Stop 06/03/24 at 17:20; Status DC Albumin Human 100 ml ONCE PRN IV; Start 06/03/24 at 17:30; Stop 06/04/24 at 10:59 AUGUSTO BELL MD Jun 03, 2024 17:52
--- NOTE | 2024-06-03 18:00 | NUR ---
CARDIOLOGY Dr. Florian at bedside to see patient. Per Chiqui, he states the plan is [facility] to do angio on 06/05 per notes. Plan will be for Cardio to support this preparation.
--- NOTE | 2024-06-03 19:20 | NUR ---
Nursing Notes Pt Heparin drip checked and confirmed during report by Estella and myself
--- NOTE | 2024-06-03 20:39 | CONS ---
DATE OF SERVICE: 06/03/2024 CONSULTING PHYSICIANS: Wagner Garcia MD and Hesham Tellez MD REASON FOR CONSULTATION: Possible right leg amputation. HISTORY OF PRESENT ILLNESS: A 78-year-old male patient with a history of multiple medical comorbidities, currently admitted with right foot great toe second toe gangrene. The patient also has been followed with acute peripheral vascular disease to the right lower extremity and no fever, no chills. He has a history of peripheral vascular disease to the right lower extremity. The patient has been started on broad-spectrum antibiotics. PAST MEDICAL HISTORY: Previous medical history is positive for anemia, end-stage renal disease on dialysis, AFib, coronary artery disease, hypertension, dyslipidemia, diabetes, cardiomyopathy, and COPD. PAST SURGICAL HISTORY: Previous surgeries are aortic vault replacement, CABG, AICD placement, and PCI. ALLERGIES: None. HOME MEDICATIONS: Reviewed. SOCIAL HISTORY: Does not smoke, does not drink alcohol. No illegal drugs. FAMILY HISTORY: Positive for diabetes. REVIEW OF SYSTEMS: A 10-system review of systems were obtained and is negative. PHYSICAL EXAMINATION: GENERAL: On examination, the patient is awake, alert, and oriented x 3. LATEST VITAL SIGNS: Temperature 98.5, pulse is 76, respiratory rate is 15, and blood pressure 110/57. HEENT: Normocephalic, atraumatic. NECK: No engorged vein. CHEST: Symmetric movement seen. HEART: Regular rate and rhythm. ABDOMEN: Soft, nontender, and nondistended. EXTREMITIES: Examination of the right foot right lower extremity shows gangrene present involving the toes of the first, second and third toes. Signs of poor circulation present. Dorsalis pedis and posterior tibial absent. Foot and toes are cool to touch. LABORATORY DATA: Laboratory investigations were reviewed. ASSESSMENT AND PLAN: An elderly patient with gangrene of the right foot and acute peripheral vascular disease involving the right lower extremity. I had a detailed conversation with the patient and the daughter and explained them the prognosis. I told them that if the Cardiology is able to do any improvement in the circulation, then the patient may just need an amputation in the foot. If that is unsuccessful, then only then I may have to do an above-knee or below-knee amputation, but it all depends upon the Cardiology and their interventions. Ortho will continue to follow the patient. TID: [id number] RECEIPT: [id number] MTDD
[2024-06-03 22:17] LABS: CREATININE 0.9 mg/dL (0.5-1.3); POTASSIUM 3.9 mmol/L (3.5-5.1)
--- NOTE | 2024-06-03 23:19 | PN ---
INFECTIOUS DISEASE PROGRESS NOTE Date of Service: Jun 03, 2024 SUBJECTIVE: Patient was seen and examined at bedside in room 415. Patient will continue on vancomycin and Zosyn PHYSICAL EXAM EYES: Anicteric. Pupils equal and reactive. HENT: No oral thrush seen, moist Oral mucosa NECK: Supple, no JVD or thyromegaly. LUNGS: Good air entry. No rales, no rhonchi. CARDIOVASCULAR: S1, S2 regular. No murmur heard. ABDOMEN: Soft, non tender, bowel sounds present, no organomegaly CENTRAL NERVOUS SYSTEM: Awake, alert, oriented x 3. No focal deficits. SKIN: No rashes, no swelling. LYMPHATICS: No peripheral lymphadenopathy MUSCULOSKELETAL: No joint swelling, erythema or tenderness. EXTREMITIES: No cyanosis or clubbing. Right foot gangrene with osteomyelitis. BACK: No deformity, no pressure ulcer. GENITOURINARY: No dysuria or hematuria Vital Sign (Last 12 Hours) 06/03/24 06/03/24 06/03/24 06/03/24 11:30 11:44 11:45 12:00 Temp 98.2 Pulse 92 92 95 90 Resp 16 19 16 16 B/P (MAP) 143/87 127/85 136/85 137/86 Pulse Ox 92 O2 Delivery Nasal Cannula Nasal Cannula Nasal Cannula O2 Flow Rate 2.5 2.5 2.5 06/03/24 06/03/24 06/03/24 06/03/24 12:15 12:30 12:49 16:47 Temp 97.7 Pulse 91 94 96 Resp 16 16 16 B/P (MAP) 133/86 138/86 141/90 127/59 O2 Delivery Nasal Cannula Nasal Cannula Nasal Cannula O2 Flow Rate 2.5 2.5 2.5 06/03/24 06/03/24 06/03/24 06/03/24 18:37 18:47 20:00 20:13 Temp 97.7 Pulse 94 84 89 Resp 19 18 19 B/P (MAP) 136/81 Pulse Ox 100 100 O2 Delivery N/A Room Air Nasal Cannula Nasal Cannula* O2 Flow Rate 2.0 2 FiO2 28 l Intake & Output (last 24hrs) 06/02/24 06/02/24 06/03/24 15:00 23:00 07:00 Output Total 2600 ml Balance -2600 ml LABS: Laboratory: Test 06/03/24 22:03 06/03/24 20:13 06/03/24 16:00 06/03/24 05:01 Range/Units Sodium Level 137 136-145 mmol/L Potassium Level 3.9 3.5-5.1 mmol/L Chloride Level 100 L 101-111 mmol/L Carbon Dioxide Level 31 21-32 mmol/L Blood Urea Nitrogen 15 # 7-18 mg/dL Creatinine 0.9 0.5-1.3 mg/dL Glomerular Filtration Rate Calc 88 >90 mL/min Random Glucose 162 H 70-105 mg/dL Total Calcium 8.7 8.5-10.1 mg/dL Whole Blood Glucose 231 H 70-110 MG/DL Prothrombin Time 16.5 H 9.6-11.6 SEC Prothromb Time International Ratio 1.63 H 0.85-1.15 White Blood Count 7.7 4.8-10.8 K/uL Red Blood Count 3.05 L 4.50-6.20 MIL/uL Hemoglobin 8.6 L 14.0-18.0 g/dL Hematocrit 27.4 L 42-54 % Mean Corpuscular Volume 89.8 79-99 fL Mean Corpuscular Hemoglobin 28.2 27.0-33.0 pg Mean Corpuscular Hemoglobin Concent 31.4 L 32.0-36.0 g/dL Red Cell Distribution Width 18.2 H 11.0-15.5 % Platelet Count 230 130-400 K/uL Mean Platelet Volume 11.3 H 7.5-10.5 fL Immature Granulocyte % (Auto) 0.4 0-1 % Neutrophils (%) (Auto) 91.4 H 40.0-77.0 % Lymphocytes (%) (Auto) 3.5 L 21.0-51.0 % Monocytes (%) (Auto) 4.7 3.0-13.0 % Eosinophils (%) (Auto) 0.0 0.0-8.0 % Basophils (%) (Auto) 0.0 0.0-5.0 % Neutrophils # (Auto) 7.0 1.8-7.7 K/uL Lymphocytes # (Auto) 0.3 L 1.0-4.8 K/uL Monocytes # (Auto) 0.4 0.1-1.0 K/uL Eosinophils # (Auto) 0.00 0.00-0.70 K/uL Basophils # (Auto) 0.00 0.00-0.20 K/uL Absolute Immature Granulocyte (auto 0.03 0-1 K/uL Nucleated Red Blood Cells 0.0 0.0-0.19 % Activated Partial Thromboplast Time 48.9 H 26.3-35.5 SEC Phosphorus Level 6.9 H 2.5-4.9 mg/dL Magnesium Level 2.30 1.80-2.40 mg/dL Vancomycin Level 12.2 L 20.0-30.0 mcg/mL Test 06/02/24 09:32 06/02/24 05:02 06/02/24 03:30 Range/Units Whole Blood Ketones Quantitative 0.4 0.0-0.6 mmol/L Total Bilirubin 1.0 0.2-1.0 mg/dL Aspartate Amino Transf (AST/SGOT) 23 10-37 U/L Alanine Aminotransferase (ALT/SGPT) 13 12-78 U/L Alkaline Phosphatase 257 H 50-136 U/L Total Creatine Kinase 39 # 21-232 U/L Total Protein 8.4 H 6.0-8.3 g/dL Albumin 2.8 L 3.5-5.0 g/dL Blood Gas Specimen Type Arterial Arterial Blood pH 7.321 L 7.350-7.450 Arterial Blood Partial Pressure CO2 40 35-48 mmHg Arterial Blood Partial Pressure O2 137.2 H 83.0-108.0 mmHg Arterial Blood HCO3 20.2 L 21.0-28.0 mmol/L Arterial Blood Oxygen Saturation 98.5 H 94.0-98.0 % Arterial Blood Base Excess -5.4 L -2.0-3.0 mmol/L Blood Gas Temperature 37.0 35.5-37.0 CELSIUS Blood Gas Vent Mode NC 2L ROOM AIR FiO2 28.0 % Blood Gas Specimen Comment R BRACHIAL ASSESSMENT: Right foot gangrene with osteomyelitis. Gram-negative pneumonia. Peripheral vascular disease. End Stage renal disease, on dialysis. Diabetes mellitus. Chronic respiratory failure, home O2 dependent. PLAN: Continue vancomycin on dialysis days. Continue Zosyn IV. Continue GI prophylaxis. Continue current wound care. Continue pain management. Continue bronchodilators. Continue antiplatelets. Continue anti diabetics. Patient is currently on a one-to-one sitter observation. This case was reviewed and discussed with my supervising physician and the above assessment and plan was formulated and agreed upon. ATTESTATION BY PHYSICIAN I have seen and examined the patient. I reviewed the documentation, medical decision making, and treatment plan as noted by the mid-level provider above. I agree with the findings and plan of care. NEDA DEL TORO MD, [facility] Jun 03, 2024 23:19
[2024-06-04] VITALS (12 sets, daily range): BP systolic 116–155; BP diastolic 44–80; PULSE 89–99; RESP 18–24; TEMP 96.5–97.6; O2SAT 96–100
--- NOTE | 2024-06-04 05:50 | NUR ---
Nursing Note PTT 46.1 No change to heparin drip
[2024-06-04 05:59] LABS: HEMATOCRIT 28.4 % (42-54); MEAN CORPUSCULAR HEMOGLOBIN 28.6 pg (27.0-33.0); MEAN CORPUSCULAR HGB CONC 32.4 g/dL (32.0-36.0); MEAN CORPUSCULAR VOLUME 88.2 fL (79-99); RED BLOOD CELL COUNT(AUTO) 3.22 MIL/uL (4.50-6.20); RED CELL DISTRIBUTION WIDTH 18.2 % (11.0-15.5)
[2024-06-04 06:25] LABS: CREATININE 5.5 mg/dL (0.5-1.3); MAGNESIUM 2.3 mg/dL (1.80-2.40); PHOSPHORUS 5.9 mg/dL (2.5-4.9); POTASSIUM 5.1 mmol/L (3.5-5.1)
--- NOTE | 2024-06-04 07:56 | PN ---
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 Severe PAD/ Gangrene of right foot with necrosis Suspected Osteomyelitis of the right foot - sepsis Type 2 diabetes mellitus Patient is disoriented and can offer no coherent history today. Physical exam is unchanged, chest is clear and S1 and S2 are preserved and gangrene is present on both feet. Impression and plan: Overall prognosis is poor because of combined issues of advanced heart failure, dementia, severe peripheral arterial disease with gangrene and renal failure on dialysis. Options include an aggressive approach of percutaneous revascularization, which is planned by Dr. Bates for tomorrow, to be followed by surgical intervention-versus palliative care. Vitals/Labs Vital Signs Date Time Temp Pulse Resp B/P (MAP) Pulse Ox O2 Delivery O2 Flow Rate FiO2 06/04/24 06:18 90 18 N/A Room Air 21 06/04/24 04:00 96.4 155/75 97 06/04/24 00:00 2.0 Laboratory Tests 06/03/24 22:03 06/04/24 05:50 Medications Current Medications Piperacillin Sod/ Tazobactam Sod 50 ml @ 200 mls/hr ONCE IVPB Last administered on 05/29/24at 16:15; Start 05/29/24 at 16:00; Stop 05/30/24 at 09:37; Status DC Vancomycin HCl 250 ml @ 125 mls/hr ONCE ONCE IV Last administered on 05/29/24at 16:58; Start 05/29/24 at 16:00; Stop 05/29/24 at 17:59; Status DC Albuterol 1 UDVIAL ONCE ONCE IH Last administered on 05/29/24at 17:17; Start 05/29/24 at 17:30; Stop 05/29/24 at 17:31; Status DC Ondansetron HCl 4 mg Q6H PRN IV; Start 05/29/24 at 19:00; Stop 06/28/24 at 18:59 Albuterol 1 udvial [id number] IH Last administered on 05/31/24at 01:03; Start 05/29/24 at 22:00; Stop 05/31/24 at 06:30; Status DC Famotidine 10 mg DAILY PO Last administered on 06/03/24at 09:13; Start 05/30/24 at 09:00; Stop 06/29/24 at 08:59 Vancomycin HCl 250 ml @ 125 mls/hr ONCE IV; Start 05/29/24 at 19:00; Stop 05/29/24 at 19:52; Status DC Piperacillin Sod/ Tazobactam Sod 50 ml @ 12.5 mls/hr Q12H IV Last administered on 05/30/24at 20:46; Start 05/30/24 at 04:00; Stop 05/31/24 at 04:21; Status DC Acetaminophen/ Hydrocodone Bitart 1 tab Q4H PRN PO Last administered on 05/31/24at 21:04; Start 05/29/24 at 19:00; Stop 06/03/24 at 18:59; Status DC Acetaminophen/ Hydrocodone Bitart 2 tab Q4H PRN PO Last administered on 05/31/24at 10:18; Start 05/29/24 at 19:00; Stop 06/02/24 at 12:12; Status DC Miscellaneous Medication 10 mg TID PO; Start 05/29/24 at 21:00; Stop 05/29/24 at 19:49; Status DC Insulin Human Regular INSULIN SLIDING SCAL... ACHS SQ Last administered on 06/04/24at 06:12; Start 05/29/24 at 21:00; Stop 06/28/24 at 20:59 Dextrose 50 ml AD PRN IV; Start 05/29/24 at 20:00; Stop 06/28/24 at 19:59 Glucagon 1 mg AD PRN IM; Start 05/29/24 at 20:00; Stop 06/28/24 at 19:59 Midodrine 10 mg TID PO Last administered on 05/30/24at 20:45; Start 05/29/24 at 21:00; Stop 05/31/24 at 10:34; Status DC Vancomycin HCl 1 each AD IV; Start 05/29/24 at 20:00; Stop 06/12/24 at 19:59 Vancomycin HCl 750 mg QTUTHSA[DIALYSIS] IVPB Last administered on 06/03/24at 20:13; Start 05/31/24 at 16:00; Stop 06/10/24 at 15:59 Sodium Chloride 4 ml STK-MED ONCE IH Last administered on 05/29/24at 23:01; Start 05/29/24 at 22:33; Stop 05/29/24 at 22:33; Status DC Sodium Chloride 4 ml STK-MED ONCE IH Last administered on 05/30/24at 01:10; Start 05/30/24 at 00:47; Stop 05/30/24 at 00:47; Status DC Epoetin Willy-epbx 10,000 unit QTUTHSA[DIALYSIS] SQ Last administered on 06/03/24at 16:40; Start 05/31/24 at 16:00; Stop 06/30/24 at 15:59 Clopidogrel Bisulfate 75 mg DAILY PO Last administered on 06/03/24at 09:13; Start 05/31/24 at 09:00; Stop 06/30/24 at 08:59 Docusate Sodium 100 mg DAILY PO Last administered on 06/03/24at 09:12; Start 05/31/24 at 09:00; Stop 06/30/24 at 08:59 Warfarin Sodium 2 mg BID PO Last administered on 06/01/24at 09:03; Start 05/30/24 at 21:00; Stop 06/01/24 at 11:32; Status DC Atorvastatin Calcium 80 mg HS PO Last administered on 06/03/24at 21:32; Start 05/30/24 at 21:00; Stop 06/29/24 at 20:59 Midodrine 30 mg DAILY PO Last administered on 06/01/24at 09:00; Start 05/31/24 at 09:00; Stop 06/01/24 at 22:15; Status DC Home Med (Sevelamer Carbonate (Renv... TIDAC PO; Start 05/30/24 at 17:00; Stop 06/29/24 at 16:59 Sodium Chloride 4 ml STK-MED ONCE IH Last administered on 05/30/24at 14:30; Start 05/30/24 at 14:07; Stop 05/30/24 at 14:07; Status DC Pharmacy Profile Note 1 each AD MISC; Start 05/30/24 at 15:30; Stop 05/31/24 at 14:17; Status DC Aspirin 81 mg DAILY PO Last administered on 06/03/24at 09:12; Start 05/31/24 at 09:00; Stop 06/30/24 at 08:59 Heparin Sodium/ Dextrose 250 ml @ 0 mls/hr PROTOCOL IV Last administered on 06/03/24at 16:47; Start 05/30/24 at 21:30; Stop 06/29/24 at 21:29 Iohexol 50 ml STK-MED ONCE IV; Start 05/30/24 at 21:35; Stop 05/30/24 at 21:35; Status DC Iohexol 75 ml STK-MED ONCE IV; Start 05/30/24 at 21:35; Stop 05/30/24 at 21:35; Status DC Piperacillin Sod/ Tazobactam Sod 50 ml @ 12.5 mls/hr Q12H IV Last administered on 06/03/24at 22:16; Start 05/31/24 at 09:00; Stop 06/10/24 at 08:59 Ipratropium [place] 0.5 MG [id number] IH Last administered on 06/04/24at 06:16; Start 05/31/24 at 06:30; Stop 06/30/24 at 06:29 Sodium Chloride 1,000 ml @ 0 mls/hr ONCE IV Last administered on 06/03/24at 09:52; Start 05/31/24 at 11:00; Stop 06/30/24 at 10:59 Heparin Sodium (Porcine) 10,000 unit AD SQ; Start 05/31/24 at 11:00; Stop 05/31/24 at 14:15; Status DC Heparin Sodium (Porcine) 10,000 unit AD IRRIG Last administered on 06/03/24at 15:41; Start 05/31/24 at 14:30; Stop 06/30/24 at 10:59 Albuterol 1 UDVIAL Q6H PRN IH Last administered on 05/31/24at 22:54; Start 05/31/24 at 16:00; Stop 06/30/24 at 15:59 Methylprednisolone Sodium Succinate 125 mg ONCE ONCE IVP Last administered on 05/31/24at 23:30; Start 05/31/24 at 23:30; Stop 05/31/24 at 23:31; Status DC Methylprednisolone Sodium Succinate 60 mg Q6H IVP Last administered on 06/01/24at 13:04; Start 06/01/24 at 06:00; Stop 06/01/24 at 21:45; Status DC Epinephrine 0.5 ml ONCE ONCE NEB Last administered on 05/31/24at 23:33; Start 05/31/24 at 23:30; Stop 05/31/24 at 23:31; Status DC Methylprednisolone Sodium Succinate 60 mg Q6H IVP Last administered on 06/02/24at 06:36; Start 06/02/24 at 00:00; Stop 06/02/24 at 07:06; Status DC Zolpidem Tartrate 5 mg HS PO Last administered on 06/03/24at 21:32; Start 06/01/24 at 22:00; Stop 07/01/24 at 21:59 Midodrine 30 mg HS PO Last administered on 06/02/24at 09:04; Start 06/01/24 at 22:30; Stop 06/30/24 at 08:59 Diazepam 2 mg ONCE PRN IV Last administered on 06/02/24at 00:25; Start 06/01/24 at 22:30; Stop 06/03/24 at 16:13; Status DC Sodium Bicarbonate 650 mg TID PO Last administered on 06/02/24at 21:12; Start 06/02/24 at 09:00; Stop 06/03/24 at 08:41; Status DC Sevelamer HCl 800 mg TIDMEALS PO Last administered on 06/03/24at 16:40; Start 06/02/24 at 08:00; Stop 07/02/24 at 07:59 Methylprednisolone Sodium Succinate 60 mg Q6H IVP Last administered on 06/03/24at 20:13; Start 06/02/24 at 12:30; Stop 06/03/24 at 21:58; Status DC Albumin Human 100 ml ONCE IV; Start 06/02/24 at 09:30; Stop 06/02/24 at 10:46; Status DC Hydromorphone HCl 0.5 mg Q6H PRN IVP; Start 06/02/24 at 12:30; Stop 06/07/24 at 12:29 Albumin Human 100 ml ONCE IV; Start 06/03/24 at 11:00; Stop 06/03/24 at 17:20; Status DC Albumin Human 100 ml ONCE PRN IV; Start 06/03/24 at 17:30; Stop 06/04/24 at 10:59 Methylprednisolone Sodium Succinate 40 mg BID IVP; Start 06/04/24 at 09:00; Stop 07/04/24 at 08:59 AUGUSTO BELL MD Jun 04, 2024 07:56
--- NOTE | 2024-06-04 08:10 | PN ---
[facility] PROGRESS NOTE Date of Service: Jun 04, 2024 Time of Service: 08:10 SUBJECTIVE: 78-year-old male, Peruvian-speaking with past medical history of Anemia, end- stage renal disease on hemodialysis (TThS) atrial fibrillation, bioprosthetic aortic valve replacement in 2020 currently on warfarin,coronary artery disease, hypertension, hyperlipidemia, diabetes, severe cardiomyopathy(LVEF 20-25% as per clinic note unable to tolerate GDM T due to hypotension currently on midodrine) ,sick sinus syndrome status post [employer] device in September 2020 and chronic respiratory failure on home O2 who presented to the ED was sent by Dr. Mims for evaluation of right 1st,2nd and 3rd toe gangrene . Patient c/o pain at the site.As per daughter ,it started on March 2024 as redness and it progressively got worsen that it started turning black 5 days back. Patient also complained of occasional cough. Patient has been dialyzed on the same day and 2 Liters of fluid removed .Patient's Motel Keeper is and patient 's senior statistician is .Patient denies fever,chills,nausea,vomiting,chest pain and palpitation. Vital signs at the time of presentation: temperature 98.6, heart rate 98, blood pressure 104/59 saturation 98% on 2 L nasal cannula. Labs: Hemoglobin 9, hematocrit 30 platelet count 235. Chloride 97, BUN 29, creatinine 4.2, GFR 14, glucose 232, lactic acid 2.3 troponin 86 to 80, BNP 1650 procalcitonin 0.84. Right foot x-ray result revealed no evidence for fracture or subluxation. Chest x-ray result revealed cardiomegaly with pulmonary vascular congestion and small right greater than left pleural effusion with subjacent passive atelectasis. Patient is admitted for further medical management. 05.30.24: Patient is seen resting in his bed. Pending Cardiology, podiatry , nephrology and ID consult.Pending b/l LE artery doppler. 05.31.24: Patient had angiogram done yesterday for assessing lower extremity circulation. Bilateral anterior and posterior tibial arteries are occluded with peroneal arteries grossly patent. Pending podiatry recommendations for possible TMA . Cardiology plan for peripheral angiogram early next week. Ortho consult pending . 06/01/24 : Patient is seen and examined today. Denies any complaints today. However use had stridor and shortness of breath during the night and neck soft tissue x-ray was ordered which showed normal soft tissue and epiglottitis appears unremarkable. Solu-Medrol 60 Q 6 was given. Chest x-ray showed bilateral airspace consolidation with right effusion. Plan for peripheral angio on 06/05/[address] Bates. We will hold the warfarin since the patient is already on heparin drip. We will downgrade him to med surge with telemetry. 06/02/2024: Patient complains of pain and was agitated yesterday night . Patient in one on one supervision. Labs showed potassium 6.4 , Phosphorous 7.7 .Repeat potassium is 5.2. Nephrology suggested 2 hour dialysis for today . He is pending peripheral angiogram. We will consult orthopedic surgery . 06.03.24: Patient has been restless and aggressive at ttimes as per the RN. Patient continues to be placed on one to one observation . He is receiving his regular dialysis today .Pending cardiology intervention and orthopedic consult today . 06.04.24: Patient continues to be at his baseline.Removed 2.5 litres of fluid d uring dialysis session yesterday. Pending peripheral angiogram on 06.05.[address] Webb. REVIEW OF SYSTEMS CONSTITUTIONAL: Denies fevers, chills, or night sweats. No unintentional weight loss reported. NEUROLOGICAL: Denies headache, amaurosis fugax, motor weakness, sensory deficit, vertigo/spinning sensation, gait abnormalities, or tremors. ENT: No hearing loss, otalgia, otorrhea, rhinitis, rhinorrhea, hoarseness, or sore throat. CARDIOVASCULAR: Denies any exertional angina, dyspnea on exertion, orthopnea, paroxysmal nocturnal dyspnea, palpitations, life-threatening arrhythmias, claudication. PULMONARY: Complaints of cough and shortness of breaths Denies hemoptysis, pleuritic chest pain. SLEEP: Denies morning headaches, daytime somnolence or napping. Denies difficulty falling asleep, staying asleep, waking from sleep. Denies knowledge of snoring. GASTROINTESTINAL: Denies any type of dysphagia to either liquids or solids. Denies nausea, vomiting, pyrosis, early satiety, abdominal pain, diarrhea, constipation, or changes in stool consistency or caliber. Denies coffee-ground emesis, hematemesis, hematochezia, or melanotic stools. GENITOURINARY: Denies frequency, urgency, nocturia, hematuria or incontinence (Storage/Irritative symptoms.) Low urinary stream, straining to void, urinary intermittency or hesitancy, splitting of the voiding stream, terminal dribbling. PHYSICAL EXAM GENERAL APPEARANCE: The patient is awake, alert, and oriented, in no acute cardiopulmonary distress. NEUROLOGICAL: Cranial nerves II-XII grossly intact. Motor is 5/5 in bilateral upper and lower extremities proximal to distal. No sensory deficits. HEENT: Face is symmetric. Pupils are equal and reactive. Extraocular movements are intact. NECK: Supple. No JVD. No thyromegaly. No submental, submandibular, pre- /postauricular, occipital or supraclavicular lymphadenopathy. CHEST: Normal chest expansion. Telemetry. LUNGS: Bilateral crackles and scattered rhonchi on auscultation CARDIOVASCULAR: Regular. S1 and S2 normal. No appreciable rubs, murmurs or gallops. ABDOMEN: Soft, nontender, and nondistended. There is no rebound, voluntary guarding, or rigidity. : Deferred. No Geller. EXTREMITIES: 2+ edema bilateral lower extremities. warm rt foot till the base of necrotic toe SKIN: Left leg wound at the tip of the great toe. Right necrotic 1st ,2nd toes and the 3rd toe-dry gangrene. Vital Signs (last 8hr) Date Time Temp Pulse Resp B/P (MAP) Pulse Ox O2 Delivery O2 Flow Rate FiO2 06/04/24 08:00 97.3 95 20 121/60 96 Room Air 21 06/04/24 06:18 90 18 N/A Room Air 21 06/04/24 06:17 90 18 06/04/24 04:00 96.4 98 24 155/75 97 Room Air LABS: Laboratory: Test 06/04/24 05:50 06/04/24 04:57 06/03/24 16:00 06/03/24 05:01 Range/Units White Blood Count 8.0 4.8-10.8 K/uL Red Blood Count 3.22 L 4.50-6.20 MIL/uL Hemoglobin 9.2 L 14.0-18.0 g/dL Hematocrit 28.4 L 42-54 % Mean Corpuscular Volume 88.2 79-99 fL Mean Corpuscular Hemoglobin 28.6 27.0-33.0 pg Mean Corpuscular Hemoglobin Concent 32.4 32.0-36.0 g/dL Red Cell Distribution Width 18.2 H 11.0-15.5 % Platelet Count 219 130-400 K/uL Mean Platelet Volume 11.3 H 7.5-10.5 fL Nucleated Red Blood Cells 0.0 0.0-0.19 % Activated Partial Thromboplast Time 46.1 H 26.3-35.5 SEC Sodium Level 133 L 136-145 mmol/L Potassium Level 5.1 3.5-5.1 mmol/L Chloride Level 92 L 101-111 mmol/L Carbon Dioxide Level 25 21-32 mmol/L Blood Urea Nitrogen 60 #H 7-18 mg/dL Creatinine 5.5 H 0.5-1.3 mg/dL Glomerular Filtration Rate Calc 10 >90 mL/min Random Glucose 258 #H 70-105 mg/dL Total Calcium 8.5 8.5-10.1 mg/dL Phosphorus Level 5.9 H 2.5-4.9 mg/dL Magnesium Level 2.30 1.80-2.40 mg/dL Whole Blood Glucose 249 H 70-110 MG/DL Prothrombin Time 16.5 H 9.6-11.6 SEC Prothromb Time International Ratio 1.63 H 0.85-1.15 Immature Granulocyte % (Auto) 0.4 0-1 % Neutrophils (%) (Auto) 91.4 H 40.0-77.0 % Lymphocytes (%) (Auto) 3.5 L 21.0-51.0 % Monocytes (%) (Auto) 4.7 3.0-13.0 % Eosinophils (%) (Auto) 0.0 0.0-8.0 % Basophils (%) (Auto) 0.0 0.0-5.0 % Neutrophils # (Auto) 7.0 1.8-7.7 K/uL Lymphocytes # (Auto) 0.3 L 1.0-4.8 K/uL Monocytes # (Auto) 0.4 0.1-1.0 K/uL Eosinophils # (Auto) 0.00 0.00-0.70 K/uL Basophils # (Auto) 0.00 0.00-0.20 K/uL Absolute Immature Granulocyte (auto 0.03 0-1 K/uL Vancomycin Level 12.2 L 20.0-30.0 mcg/mL Test 06/02/24 09:32 Range/Units Whole Blood Ketones Quantitative 0.4 0.0-0.6 mmol/L Current Medications Medications (Trade) Dose Ordered Sig/Yefri Route PRN Reason Start Time Stop Time Status Last Admin Dose Admin Acetaminophen/ Hydrocodone Bitart (NORco 5/325MG) 1 tab Q4H PRN PO MODERATE PAIN (4-6) 05/29/24 19:00 06/03/24 18:59 DC 05/31/24 21:04 1 TAB Acetaminophen/ Hydrocodone Bitart (NORco 5/325MG) 2 tab Q4H PRN PO SEVERE PAIN (7-10) 05/29/24 19:00 06/02/24 12:12 DC 05/31/24 10:18 2 TAB Albumin Human (Albumin (Human) 25%) 100 ml ONCE IV 06/02/24 09:30 06/02/24 10:46 DC Albumin Human (Albumin (Human) 25%) 100 ml ONCE IV 06/03/24 11:00 06/03/24 17:20 DC Albumin Human (Albumin (Human) 25%) 100 ml ONCE PRN IV SBP <100MMHG OR TREATMENT RELATED SYMPTOMS DURING HD 06/03/24 17:30 06/04/24 10:59 Albuterol (DUOneb) 1 UDVIAL Q6H PRN IH SHORTNESS OF BREATH 05/31/24 16:00 06/30/24 15:59 05/31/24 22:54 1 UDVIAL Albuterol (DUOneb) 1 udvial [id number] IH 05/29/24 22:00 05/31/24 06:30 DC 05/31/24 01:03 1 UDVIAL Aspirin (Aspirin 81mg Ec Tab) 81 mg DAILY PO 05/31/24 09:00 06/30/24 08:59 06/03/24 09:12 81 MG Atorvastatin Calcium (LIPItor 40MG) 80 mg HS PO 05/30/24 21:00 06/29/24 20:59 06/03/24 21:32 80 MG Clopidogrel Bisulfate (plaVIX 75MG) 75 mg DAILY PO 05/31/24 09:00 06/30/24 08:59 06/03/24 09:13 75 MG Dextrose (D50w) 50 ml AD PRN IV HYPOGLYCEMIA PROTOCOL 05/29/24 20:00 06/28/24 19:59 Diazepam (VALium 5 MG/ML 2 ML SYG) 2 mg ONCE PRN IV ANXIETY 06/01/24 22:30 06/03/24 16:13 DC 06/02/24 00:25 2 MG Docusate Sodium (COLace 100MG CAP) 100 mg DAILY PO 05/31/24 09:00 06/30/24 08:59 06/03/24 09:12 100 MG Epoetin Willy-epbx (Retacrit) 10,000 unit QTUTHSA[DIALYSIS] SQ 05/31/24 16:00 06/30/24 15:59 06/03/24 16:40 10,000 UNIT Famotidine (Pepcid 20mg Tab) 10 mg DAILY PO 05/30/24 09:00 06/29/24 08:59 06/03/24 09:13 10 MG Glucagon (Glucagon 1mg Kit) 1 mg AD PRN IM HYPOGLYCEMIA PROTOCOL 05/29/24 20:00 06/28/24 19:59 Heparin Sodium (Porcine) (HEParin 5,000 UNIT VIAL) 10,000 unit AD IRRIG 05/31/24 14:30 06/30/24 10:59 06/03/24 15:41 10,000 UNIT Heparin Sodium (Porcine) (HEParin 5,000 UNIT VIAL) 10,000 unit AD SQ 05/31/24 11:00 05/31/24 14:15 DC Heparin Sodium/ Dextrose 250 ml @ 0 mls/hr PROTOCOL IV 05/30/24 21:30 06/29/24 21:29 06/03/24 16:47 11.336 MLS/HR Home Med (Home Medication) (Sevelamer Carbonate (Renv... TIDAC PO 05/30/24 17:00 06/29/24 16:59 Hydromorphone HCl (DiLAUDid 0.5MG INJ) 0.5 mg Q6H PRN IVP SEVERE PAIN (7-10) 06/02/24 12:30 06/07/24 12:29 Insulin Human Regular (humuLIN R 100 UNIT/ML 3ML) INSULIN SLIDING SCAL... ACHS SQ 05/29/24 21:00 06/28/24 20:59 06/04/24 06:12 4 UNIT Ipratropium [place] (AtrovENT UD) 0.5 MG [id number] IH 05/31/24 06:30 06/30/24 06:29 06/04/24 06:16 0.5 MG Methylprednisolone Sodium Succinate (Solu-medROL 40MG) 40 mg BID IVP 06/04/24 09:00 07/04/24 08:59 Methylprednisolone Sodium Succinate (Solu-medROL 40MG) 60 mg Q6H IVP 06/02/24 12:30 06/03/24 21:58 DC 06/03/24 20:13 60 MG Methylprednisolone Sodium Succinate (Solu-medROL 125MG) 60 mg Q6H IVP 06/01/24 06:00 06/01/24 21:45 DC 06/01/24 13:04 60 MG Methylprednisolone Sodium Succinate (Solu-medROL 125MG) 60 mg Q6H IVP 06/02/24 00:00 06/02/24 07:06 DC 06/02/24 06:36 60 MG Midodrine (PROAMatine 5 MG TABLET) 10 mg TID PO 05/29/24 21:00 05/31/24 10:34 DC 05/30/24 20:45 10 MG Midodrine (PROAMatine 5 MG TABLET) 30 mg DAILY PO 05/31/24 09:00 06/01/24 22:15 DC 06/01/24 09:00 30 MG Midodrine (PROAMatine 5 MG TABLET) 30 mg HS PO 06/01/24 22:30 06/30/24 08:59 06/02/24 09:04 30 MG Miscellaneous Medication (Midodrine HCl ) 10 mg TID PO 05/29/24 21:00 05/29/24 19:49 DC Ondansetron HCl (zoFRAN 4MG INJ) 4 mg Q6H PRN IV NAUSEA/VOMITING 05/29/24 19:00 06/28/24 18:59 Pharmacy Profile Note (Miloe Assessment) 1 each AD MISC 05/30/24 15:30 05/31/24 14:17 DC Piperacillin Sod/ Tazobactam Sod 50 ml @ 12.5 mls/hr Q12H IV 05/30/24 04:00 05/31/24 04:21 DC 05/30/24 20:46 12.5 MLS/HR Piperacillin Sod/ Tazobactam Sod 50 ml @ 12.5 mls/hr Q12H IV 05/31/24 09:00 06/10/24 08:59 06/03/24 22:16 12.5 MLS/HR Piperacillin Sod/ Tazobactam Sod 50 ml @ 200 mls/hr ONCE IVPB 05/29/24 16:00 05/30/24 09:37 DC 05/29/24 16:15 200 MLS/HR Sevelamer HCl (RENAgel 800 MG TAB) 800 mg TIDMEALS PO 06/02/24 08:00 07/02/24 07:59 06/03/24 16:40 800 MG Sodium Bicarbonate (Sodium Bicarbonate) 650 mg TID PO 06/02/24 09:00 06/03/24 08:41 DC 06/02/24 21:12 650 MG Sodium Chloride 1,000 ml @ 0 mls/hr ONCE IV 05/31/24 11:00 06/30/24 10:59 06/03/24 09:52 100 MLS/HR Vancomycin HCl 250 ml @ 125 mls/hr ONCE IV 05/29/24 19:00 05/29/24 19:52 DC Vancomycin HCl (Vancomycin 750mg) 750 mg QTUTHSA[DIALYSIS] IVPB 05/31/24 16:00 06/10/24 15:59 06/03/24 20:13 750 MG Vancomycin HCl (Vancomycin Protocol) 1 each AD IV 05/29/24 20:00 06/12/24 19:59 Warfarin Sodium (Coumadin) 2 mg BID PO 05/30/24 21:00 06/01/24 11:32 DC 06/01/24 09:03 2 MG Zolpidem Tartrate (AmbIEN) 5 mg HS PO 06/01/24 22:00 07/01/24 21:59 06/03/24 21:32 5 MG DIAGNOSTICS / RADIOLOGY: [ ] ASSESSMENT: Sepsis without septic shock POA 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 POA Osteomyelitis of the right foot toes POA Left leg diabetic wound ulcer POA Possible right lung pneumonia POA Severe peripheral vascular disease POA Chronic respiratory failure on oxygen dependent POA End stage renal disease on hemodialysis POA Atrial fibrillation on Coumadin POA severe ischemic cardiomyopathy with AICD device POA Coronary artery disease with CABGx2 ,AVR bioprosthetic and stent x1 POA Chronic anemia due to CKD Elevated troponin secondary to ESRD and sepsis POA Uncontrolled diabetes POA Morbid Obesity POA PLAN: Sepsis, POA 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 POA Osteomyelitis of the right foot toes , POA Left Leg diabetic wound ulcer POA Patient with pain at the gangrene sight -Betadine soaked dressing in place. continue Zosyn and IV and vancomycin IV for broad-spectrum coverage Orthopedic consult recommendations appreciated. Right lung pneumonia ruled in POA B/L wheeze and creps on examination at the time of admission -duoneb treatement Continue antibiotics and nebulization Chest physiotherapy Acute on chronic respiratory failure on oxygen dependent POA Chronic respiratory failure- patient on home oxygen End stage renal disease on hemodialysis POA continue HD TTHS Continue renal diet Nephrology recommendations Strict I/O chart Fluid intake <1500 ml per day Atrial fibrillation on Coumadin POA Severe ischemic cardiomyopathy with AICD device POA Acute on chronic systolic HFrEF POA Coronary artery disease with CABGx2 ,AVR bioprosthetic and stent x1 POA Severe peripheral vascular disease POA Abdominal aorta runoff study showing 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 Patient on Heparin drip Monitor PTT and adjust Heparin dose Hold Warfarin Pending peripheral angiogram by cardiology ATTESTATION BY PHYSICIAN I have seen and examined the patient. I reviewed the documentation, medical decision making, and treatment plan as noted by the resident provider above. I agree with the findings and plan of care. Heber Hernandez MD, ANCHU A MD Jun 04, 2024 08:10
--- NOTE | 2024-06-04 09:16 | PN ---
FOLLOWUP PROGRESS NOTE SUBJECTIVE: A 78-year-old male who has had a prolonged hospital course. The patient was initially admitted for nonhealing wounds of the foot. The patient was started on broad-spectrum IV antibiotics. The patient has a history of known vascular disease, being seen by Cardiology for possible lower extremity arteriogram with intervention. The patient did receive dialysis yesterday without difficulty and the patient is being seen as a followup visit for all of the above. REVIEW OF SYSTEMS: GENERAL: Complains of foot pain. HEENT: No change in vision. No change in hearing. No nasal discharge. No sore throat. CARDIOVASCULAR: There is no current chest pain or palpitations. PULMONARY: He has chronic shortness of breath. GASTROINTESTINAL: The patient is tolerating the diet. MUSCULOSKELETAL: Complaints of weakness. PHYSICAL EXAMINATION: VITAL SIGNS: Blood pressure 121/60, pulse in the 90s, afebrile. GENERAL: Chronically ill male elderly, lying in bed on medical floor. Atraumatic. Pupils are equal, roving to light. Oropharynx is without exudate. Nares clear. NECK: There is no JVP. There is no thyromegaly. No masses. CARDIOVASCULAR: Regular. There is no S3, S4 gallop. LUNGS: Coarse with equal thoracic movement. ABDOMEN: Soft, nondistended, and nontender. EXTREMITIES: Reveal no clubbing, no cyanosis. NEUROLOGICAL: He is awake. He is alert. He is oriented. SKIN: Reveals no rash or nodules. BACK: There is no CVA tenderness. No back deformities. LABORATORY DATA: Sodium 133, potassium 5, BUN 60, creatinine 5.5, hemoglobin 9.2, hematocrit 28. IMPRESSION: * Nonhealing wounds with cellulitis. * Diabetes mellitus and hypertension. * ESRD. PLAN: The patient is being seen by Cardiology for possible lower extremity arteriogram with intervention. We will continue to monitor the patient closely. The patient continues dialysis on a Sunday, , and Sunday schedule. We will continue to follow the patient closely and make further recommendations accordingly. TID: [id number] RECEIPT: [id number]
[2024-06-04] MEDS: Solu-medROL 40MG VIAL IVP SCH (09:56)
--- NOTE | 2024-06-04 22:18 | PN ---
INFECTIOUS DISEASE PROGRESS NOTE Date of Service: Jun 04, 2024 SUBJECTIVE: Patient was seen and examined at bedside in room 415. Patient is resting comfortably in bed. No fever, temperature is 97.3. No episodes of nausea or vomiting reported. We will continue on vancomycin and Zosyn. Per report patient will be undergoing a peripheral angiogram tomorrow. No other issues reported by nursing. PHYSICAL EXAM EYES: Anicteric. Pupils equal and reactive. HENT: No oral thrush seen, moist Oral mucosa NECK: Supple, no JVD or thyromegaly. LUNGS: Good air entry. No rales, no rhonchi. CARDIOVASCULAR: S1, S2 regular. No murmur heard. ABDOMEN: Soft, non tender, bowel sounds present, no organomegaly CENTRAL NERVOUS SYSTEM: Awake, alert, oriented x 3. SKIN: No rashes, no swelling. LYMPHATICS: No peripheral lymphadenopathy MUSCULOSKELETAL: No joint swelling, erythema or tenderness. EXTREMITIES: No cyanosis or clubbing. Right foot gangrene with osteomyelitis. BACK: No deformity, no pressure ulcer. GENITOURINARY: No dysuria or hematuria. Vital Sign (Last 12 Hours) 06/04/24 06/04/24 06/04/24 06/04/24 11:20 11:29 16:00 18:57 Temp 97.3 97.5 Pulse 99 99 96 89 Resp 18 20 20 19 B/P (MAP) 123/58 145/74 Pulse Ox 99 97 O2 Delivery Room Air Room Air N/A Room Air O2 Flow Rate 2.0 FiO2 21 21 28 06/04/24 06/04/24 18:57 20:00 Temp 97.3 Pulse 89 90 Resp 18 20 B/P (MAP) 116/80 Pulse Ox 100 O2 Delivery Room Air Intake & Output (last 24hrs) 06/03/24 06/03/24 06/04/24 15:00 23:00 07:00 Output Total 2600 ml Balance -2600 ml LABS: Laboratory: Test 06/04/24 19:08 06/04/24 05:50 06/03/24 16:00 06/03/24 05:01 Range/Units Whole Blood Glucose 246 H 70-110 MG/DL White Blood Count 8.0 4.8-10.8 K/uL Red Blood Count 3.22 L 4.50-6.20 MIL/uL Hemoglobin 9.2 L 14.0-18.0 g/dL Hematocrit 28.4 L 42-54 % Mean Corpuscular Volume 88.2 79-99 fL Mean Corpuscular Hemoglobin 28.6 27.0-33.0 pg Mean Corpuscular Hemoglobin Concent 32.4 32.0-36.0 g/dL Red Cell Distribution Width 18.2 H 11.0-15.5 % Platelet Count 219 130-400 K/uL Mean Platelet Volume 11.3 H 7.5-10.5 fL Nucleated Red Blood Cells 0.0 0.0-0.19 % Activated Partial Thromboplast Time 46.1 H 26.3-35.5 SEC Sodium Level 133 L 136-145 mmol/L Potassium Level 5.1 3.5-5.1 mmol/L Chloride Level 92 L 101-111 mmol/L Carbon Dioxide Level 25 21-32 mmol/L Blood Urea Nitrogen 60 #H 7-18 mg/dL Creatinine 5.5 H 0.5-1.3 mg/dL Glomerular Filtration Rate Calc 10 >90 mL/min Random Glucose 258 #H 70-105 mg/dL Total Calcium 8.5 8.5-10.1 mg/dL Phosphorus Level 5.9 H 2.5-4.9 mg/dL Magnesium Level 2.30 1.80-2.40 mg/dL Prothrombin Time 16.5 H 9.6-11.6 SEC Prothromb Time International Ratio 1.63 H 0.85-1.15 Immature Granulocyte % (Auto) 0.4 0-1 % Neutrophils (%) (Auto) 91.4 H 40.0-77.0 % Lymphocytes (%) (Auto) 3.5 L 21.0-51.0 % Monocytes (%) (Auto) 4.7 3.0-13.0 % Eosinophils (%) (Auto) 0.0 0.0-8.0 % Basophils (%) (Auto) 0.0 0.0-5.0 % Neutrophils # (Auto) 7.0 1.8-7.7 K/uL Lymphocytes # (Auto) 0.3 L 1.0-4.8 K/uL Monocytes # (Auto) 0.4 0.1-1.0 K/uL Eosinophils # (Auto) 0.00 0.00-0.70 K/uL Basophils # (Auto) 0.00 0.00-0.20 K/uL Absolute Immature Granulocyte (auto 0.03 0-1 K/uL Vancomycin Level 12.2 L 20.0-30.0 mcg/mL ASSESSMENT: Right foot gangrene with osteomyelitis. Gram-negative pneumonia. Peripheral vascular disease. End Stage renal disease, on dialysis. Diabetes mellitus. Chronic respiratory failure, home O2 dependent. PLAN: Continue vancomycin on dialysis days. Continue Zosyn IV. Continue GI prophylaxis. Continue current wound care. Continue pain management. Continue bronchodilators. Continue antiplatelets. Continue anti diabetics. Patient is currently on a one-to-one sitter observation. This case was reviewed and discussed with my supervising physician and the above assessment and plan was formulated and agreed upon. ATTESTATION BY PHYSICIAN I have seen and examined the patient. I reviewed the documentation, medical decision making, and treatment plan as noted by the mid-level provider above. I agree with the findings and plan of care. NEDA DEL TORO MD, [facility] Jun 04, 2024 22:18
[2024-06-05] VITALS (26 sets, daily range): BP systolic 83–149; BP diastolic 41–90; PULSE 86–98; RESP 16–23; TEMP 96.2–98; O2SAT 93–97
[2024-06-05 05:48] LABS: HEMATOCRIT 30.1 % (42-54); MEAN CORPUSCULAR HEMOGLOBIN 27.9 pg (27.0-33.0); MEAN CORPUSCULAR HGB CONC 31.6 g/dL (32.0-36.0); MEAN CORPUSCULAR VOLUME 88.3 fL (79-99); NUCLEATED RED BLOOD CELLS 0.9 % (0.0-0.19); RED BLOOD CELL COUNT(AUTO) 3.41 MIL/uL (4.50-6.20); RED CELL DISTRIBUTION WIDTH 18.8 % (11.0-15.5); WHITE BLOOD COUNT (AUTO) 10.3 K/uL (4.8-10.8)
[2024-06-05 06:02] LABS: INR 1.55 (0.85-1.15); PROTHROMBIN TIME 15.7 SEC (9.6-11.6)
[2024-06-05 06:03] LABS: PARTIAL THROMBOPLASTIN TIME 85.6 SEC (26.3-35.5)
[2024-06-05 06:06] LABS: CREATININE 6.6 mg/dL (0.5-1.3); POTASSIUM 5.6 mmol/L (3.5-5.1)
--- NOTE | 2024-06-05 07:42 | PN ---
[facility] PROGRESS NOTE Date of Service: Jun 05, 2024 Time of Service: 07:38 SUBJECTIVE: 78-year-old male, Indian-speaking with past medical history of Anemia, end- stage renal disease on hemodialysis (TThS) atrial fibrillation, bioprosthetic aortic valve replacement in 2020 currently on warfarin,coronary artery disease, hypertension, hyperlipidemia, diabetes, severe cardiomyopathy(LVEF 20-25% as per clinic note unable to tolerate GDM T due to hypotension currently on midodrine) ,sick sinus syndrome status post [employer]-D device in September 2020 and chronic respiratory failure on home O2 who presented to the ED was sent by Dr. Mims for evaluation of right 1st,2nd and 3rd toe gangrene . Patient c/o pain at the site.As per daughter ,it started on March 2024 as redness and it progressively got worsen that it started turning black 5 days back. Patient also complained of occasional cough. Patient has been dialyzed on the same day and 2 Liters of fluid removed .Patient's Grinding And Spraying Supervisor is and patient 's electronic news gathering editor is .Patient denies fever,chills,nausea,vomiting,chest pain and palpitation. Vital signs at the time of presentation: temperature 98.6, heart rate 98, blood pressure 104/59 saturation 98% on 2 L nasal cannula. Labs: Hemoglobin 9, hematocrit 30 platelet count 235. Chloride 97, BUN 29, creatinine 4.2, GFR 14, glucose 232, lactic acid 2.3 troponin 86 to 80, BNP 1650 procalcitonin 0.84. Right foot x-ray result revealed no evidence for fracture or subluxation. Chest x-ray result revealed cardiomegaly with pulmonary vascular congestion and small right greater than left pleural effusion with subjacent passive atelectasis. Patient is admitted for further medical management. 05.30.24: Patient is seen resting in his bed. Pending Cardiology, podiatry , nephrology and ID consult.Pending b/l LE artery doppler. 05.31.24: Patient had angiogram done yesterday for assessing lower extremity circulation. Bilateral anterior and posterior tibial arteries are occluded with peroneal arteries grossly patent. Pending podiatry recommendations for possible TMA . Cardiology plan for peripheral angiogram early next week. Ortho consult pending . 06/01/24 : Patient is seen and examined today. Denies any complaints today. However use had stridor and shortness of breath during the night and neck soft tissue x-ray was ordered which showed normal soft tissue and epiglottitis appears unremarkable. Solu-Medrol 60 Q 6 was given. Chest x-ray showed bilateral airspace consolidation with right effusion. Plan for peripheral angio on 06/05/[address] Bates. We will hold the warfarin since the patient is already on heparin drip. We will downgrade him to med surge with telemetry. 06/02/2024: Patient complains of pain and was agitated yesterday night . Patient in one on one supervision. Labs showed potassium 6.4 , Phosphorous 7.7 .Repeat potassium is 5.2. Nephrology suggested 2 hour dialysis for today . He is pending peripheral angiogram. We will consult orthopedic surgery . 06.03.24: Patient has been restless and aggressive at ttimes as per the RN. Patient continues to be placed on one to one observation . He is receiving his regular dialysis today .Pending cardiology intervention and orthopedic consult today . 06.04.24: Patient continues to be at his baseline.Removed 2.5 litres of fluid d uring dialysis session yesterday. Pending peripheral angiogram on 06.05.[address] Webb. 06.05.24: Patient is pending peripheral angiogram today . Mental status at the baseline . In-patient dialysis is scheduled today after the angiogram as per Dr Sheffield. Addendum: Peripheral angiogram is canceled. As per the RN-Dr Webb informed that she was not inaware of the schedule today . As per Dr Hill's note on 06.01.23-patient had an angiogram scheduled on 06.05 and pre procedure orders were entered by Dr Florian yesterday night. Will coordinate the plan . Patient and the daughter is aware of this. Patient is resumed on diet and is scheduled for dialysis today . REVIEW OF SYSTEMS CONSTITUTIONAL: Denies fevers, chills, or night sweats. No unintentional weight loss reported. NEUROLOGICAL: Denies headache, amaurosis fugax, motor weakness, sensory deficit, vertigo/spinning sensation, gait abnormalities, or tremors. ENT: No hearing loss, otalgia, otorrhea, rhinitis, rhinorrhea, hoarseness, or sore throat. CARDIOVASCULAR: Denies any exertional angina, dyspnea on exertion, orthopnea, paroxysmal nocturnal dyspnea, palpitations, life-threatening arrhythmias, claudication. PULMONARY: Complaints of cough and shortness of breaths Denies hemoptysis, ple uritic chest pain. SLEEP: Denies morning headaches, daytime somnolence or napping. Denies difficulty falling asleep, staying asleep, waking from sleep. Denies knowledge of snoring. GASTROINTESTINAL: Denies any type of dysphagia to either liquids or solids. Denies nausea, vomiting, pyrosis, early satiety, abdominal pain, diarrhea, constipation, or changes in stool consistency or caliber. Denies coffee-ground emesis, hematemesis, hematochezia, or melanotic stools. GENITOURINARY: Denies frequency, urgency, nocturia, hematuria or incontinence (Storage/Irritative symptoms.) Low urinary stream, straining to void, urinary intermittency or hesitancy, splitting of the voiding stream, terminal dribbling. PHYSICAL EXAM GENERAL APPEARANCE: The patient is awake, alert, and oriented, in no acute cardiopulmonary distress. NEUROLOGICAL: Cranial nerves II-XII grossly intact. Motor is 5/5 in bilateral upper and lower extremities proximal to distal. No sensory deficits. HEENT: Face is symmetric. Pupils are equal and reactive. Extraocular movements are intact. NECK: Supple. No JVD. No thyromegaly. No submental, submandibular, pre- /postauricular, occipital or supraclavicular lymphadenopathy. CHEST: Normal chest expansion. Telemetry. LUNGS: Bilateral crackles and scattered rhonchi on auscultation CARDIOVASCULAR: Regular. S1 and S2 normal. No appreciable rubs, murmurs or gallops. ABDOMEN: Soft, nontender, and nondistended. There is no rebound, voluntary guarding, or rigidity. : Deferred. No Geller. EXTREMITIES: 2+ edema bilateral lower extremities. warm rt foot till the base of necrotic toe SKIN: Left leg wound at the tip of the great toe. Right necrotic 1st ,2nd toes and the 3rd toe-dry gangrene. Vital Signs (last 8hr) Date Time Temp Pulse Resp B/P (MAP) Pulse Ox O2 Delivery O2 Flow Rate FiO2 06/05/24 06:45 86 18 N/A Room Air 21 06/05/24 06:45 86 18 06/05/24 04:00 98.1 98 20 120/90 98 Room Air 06/05/24 00:00 97.9 90 20 121/82 95 Nasal Cannula 2.0 LABS: Laboratory: Test 06/05/24 05:41 06/05/24 05:38 06/04/24 05:50 Range/Units White Blood Count 10.3 # 4.8-10.8 K/uL Red Blood Count 3.41 L 4.50-6.20 MIL/uL Hemoglobin 9.5 L 14.0-18.0 g/dL Hematocrit 30.1 L 42-54 % Mean Corpuscular Volume 88.3 79-99 fL Mean Corpuscular Hemoglobin 27.9 27.0-33.0 pg Mean Corpuscular Hemoglobin Concent 31.6 L 32.0-36.0 g/dL Red Cell Distribution Width 18.8 H 11.0-15.5 % Platelet Count 220 130-400 K/uL Mean Platelet Volume 11.7 H 7.5-10.5 fL Nucleated Red Blood Cells 0.9 H 0.0-0.19 % Prothrombin Time 15.7 H 9.6-11.6 SEC Prothromb Time International Ratio 1.55 H 0.85-1.15 Activated Partial Thromboplast Time 85.6 #H 26.3-35.5 SEC Sodium Level 132 L 136-145 mmol/L Potassium Level 5.6 H 3.5-5.1 mmol/L Chloride Level 91 L 101-111 mmol/L Carbon Dioxide Level 24 21-32 mmol/L Blood Urea Nitrogen 78 *H 7-18 mg/dL Creatinine 6.6 H 0.5-1.3 mg/dL Glomerular Filtration Rate Calc 8 >90 mL/min Random Glucose 179 H 70-105 mg/dL Total Calcium 8.8 8.5-10.1 mg/dL Whole Blood Glucose 172 H 70-110 MG/DL Phosphorus Level 5.9 H 2.5-4.9 mg/dL Magnesium Level 2.30 1.80-2.40 mg/dL Current Medications Medications (Trade) Dose Ordered Sig/Yefri Route PRN Reason Start Time Stop Time Status Last Admin Dose Admin Acetaminophen/ Hydrocodone Bitart (NORco 5/325MG) 1 tab Q4H PRN PO MODERATE PAIN (4-6) 05/29/24 19:00 06/03/24 18:59 DC 05/31/24 21:04 1 TAB Acetaminophen/ Hydrocodone Bitart (NORco 5/325MG) 2 tab Q4H PRN PO SEVERE PAIN (7-10) 05/29/24 19:00 06/02/24 12:12 DC 05/31/24 10:18 2 TAB Albumin Human (Albumin (Human) 25%) 100 ml ONCE IV 06/02/24 09:30 06/02/24 10:46 DC Albumin Human (Albumin (Human) 25%) 100 ml ONCE IV 06/03/24 11:00 06/03/24 17:20 DC Albumin Human (Albumin (Human) 25%) 100 ml ONCE PRN IV SBP <100MMHG OR TREATMENT RELATED SYMPTOMS DURING HD 06/03/24 17:30 06/04/24 10:59 DC Albuterol (DUOneb) 1 UDVIAL Q6H PRN IH SHORTNESS OF BREATH 05/31/24 16:00 06/30/24 15:59 05/31/24 22:54 1 UDVIAL Albuterol (DUOneb) 1 udvial [id number] IH 05/29/24 22:00 05/31/24 06:30 DC 05/31/24 01:03 1 UDVIAL Aspirin (Aspirin 81mg Ec Tab) 81 mg DAILY PO 05/31/24 09:00 06/30/24 08:59 06/04/24 09:54 81 MG Atorvastatin Calcium (LIPItor 40MG) 80 mg HS PO 05/30/24 21:00 06/29/24 20:59 06/04/24 20:37 80 MG Clopidogrel Bisulfate (plaVIX 75MG) 75 mg DAILY PO 05/31/24 09:00 06/30/24 08:59 06/04/24 09:53 75 MG Dextrose (D50w) 50 ml AD PRN IV HYPOGLYCEMIA PROTOCOL 05/29/24 20:00 06/28/24 19:59 Diazepam (VALium 5 MG/ML 2 ML SYG) 2 mg ONCE PRN IV ANXIETY 06/01/24 22:30 06/03/24 16:13 DC 06/02/24 00:25 2 MG Docusate Sodium (COLace 100MG CAP) 100 mg DAILY PO 05/31/24 09:00 06/30/24 08:59 06/04/24 09:54 100 MG Epoetin Willy-epbx (Retacrit) 10,000 unit QTUTHSA[DIALYSIS] SQ 05/31/24 16:00 06/30/24 15:59 06/03/24 16:40 10,000 UNIT Famotidine (Pepcid 20mg Tab) 10 mg DAILY PO 05/30/24 09:00 06/29/24 08:59 06/04/24 09:54 10 MG Glucagon (Glucagon 1mg Kit) 1 mg AD PRN IM HYPOGLYCEMIA PROTOCOL 05/29/24 20:00 06/28/24 19:59 Heparin Sodium (Porcine) (HEParin 5,000 UNIT VIAL) 10,000 unit AD IRRIG 05/31/24 14:30 06/30/24 10:59 06/03/24 15:41 10,000 UNIT Heparin Sodium (Porcine) (HEParin 5,000 UNIT VIAL) 10,000 unit AD SQ 05/31/24 11:00 05/31/24 14:15 DC Heparin Sodium/ Dextrose 250 ml @ 0 mls/hr PROTOCOL IV 05/30/24 21:30 06/29/24 21:29 06/04/24 14:14 11.33 MLS/HR Home Med (Home Medication) (Sevelamer Carbonate (Renv... TIDAC PO 05/30/24 17:00 06/29/24 16:59 06/04/24 12:08 1 EACH Hydromorphone HCl (DiLAUDid 0.5MG INJ) 0.5 mg Q6H PRN IVP SEVERE PAIN (7-10) 06/02/24 12:30 06/07/24 12:29 Insulin Human Regular (humuLIN R 100 UNIT/ML 3ML) INSULIN SLIDING SCAL... ACHS SQ 05/29/24 21:00 06/28/24 20:59 06/04/24 20:39 4 UNIT Ipratropium Ollie (AtrovENT UD) 0.5 MG [id number] IH 05/31/24 06:30 06/30/24 06:29 06/05/24 06:43 0.5 MG Methylprednisolone Sodium Succinate (Solu-medROL 40MG) 40 mg BID IVP 06/04/24 09:00 07/04/24 08:59 06/04/24 20:38 40 MG Methylprednisolone Sodium Succinate (Solu-medROL 40MG) 60 mg Q6H IVP 06/02/24 12:30 06/03/24 21:58 DC 06/03/24 20:13 60 MG Methylprednisolone Sodium Succinate (Solu-medROL 125MG) 60 mg Q6H IVP 06/01/24 06:00 06/01/24 21:45 DC 06/01/24 13:04 60 MG Methylprednisolone Sodium Succinate (Solu-medROL 125MG) 60 mg Q6H IVP 06/02/24 00:00 06/02/24 07:06 DC 06/02/24 06:36 60 MG Midodrine (PROAMatine 5 MG TABLET) 10 mg TID PO 05/29/24 21:00 05/31/24 10:34 DC 05/30/24 20:45 10 MG Midodrine (PROAMatine 5 MG TABLET) 30 mg DAILY PO 05/31/24 09:00 06/01/24 22:15 DC 06/01/24 09:00 30 MG Midodrine (PROAMatine 5 MG TABLET) 30 mg HS PO 06/01/24 22:30 06/30/24 08:59 06/04/24 20:38 30 MG Miscellaneous Medication (Midodrine HCl ) 10 mg TID PO 05/29/24 21:00 05/29/24 19:49 DC Ondansetron HCl (zoFRAN 4MG INJ) 4 mg Q6H PRN IV NAUSEA/VOMITING 05/29/24 19:00 06/28/24 18:59 Pharmacy Profile Note (Lace Assessment) 1 each AD MISC 05/30/24 15:30 05/31/24 14:17 DC Piperacillin Sod/ Tazobactam Sod 50 ml @ 12.5 mls/hr Q12H IV 05/30/24 04:00 05/31/24 04:21 DC 05/30/24 20:46 12.5 MLS/HR Piperacillin Sod/ Tazobactam Sod 50 ml @ 12.5 mls/hr Q12H IV 05/31/24 09:00 06/10/24 08:59 06/04/24 20:38 12.5 MLS/HR Piperacillin Sod/ Tazobactam Sod 50 ml @ 200 mls/hr ONCE IVPB 05/29/24 16:00 05/30/24 09:37 DC 05/29/24 16:15 200 MLS/HR Sevelamer HCl (RENAgel 800 MG TAB) 800 mg TIDMEALS PO 06/02/24 08:00 07/02/24 07:59 06/04/24 17:18 800 MG Sodium Bicarbonate (Sodium Bicarbonate) 650 mg TID PO 06/02/24 09:00 06/03/24 08:41 DC 06/02/24 21:12 650 MG Sodium Chloride 1,000 ml @ 0 mls/hr ONCE IV 05/31/24 11:00 06/30/24 10:59 06/03/24 09:52 100 MLS/HR Vancomycin HCl 250 ml @ 125 mls/hr ONCE IV 05/29/24 19:00 05/29/24 19:52 DC Vancomycin HCl (Vancomycin 750mg) 750 mg QTUTHSA[DIALYSIS] IVPB 05/31/24 16:00 06/10/24 15:59 06/03/24 20:13 750 MG Vancomycin HCl (Vancomycin Protocol) 1 each AD IV 05/29/24 20:00 06/12/24 19:59 Warfarin Sodium (Coumadin) 2 mg BID PO 05/30/24 21:00 06/01/24 11:32 DC 06/01/24 09:03 2 MG Zolpidem Tartrate (AmbIEN) 5 mg HS PO 06/01/24 22:00 07/01/24 21:59 06/04/24 20:37 5 MG ASSESSMENT: Sepsis without septic shock POA 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 POA Osteomyelitis of the right foot toes POA Left leg diabetic wound ulcer POA Right lung Gram negative pneumonia POA Severe peripheral vascular disease POA Chronic respiratory failure on oxygen dependent POA End stage renal disease on hemodialysis POA Atrial fibrillation on Coumadin POA severe ischemic cardiomyopathy with AICD device POA Coronary artery disease with CABGx2 ,AVR bioprosthetic and stent x1 POA Chronic anemia due to CKD Elevated troponin secondary to ESRD and sepsis POA Uncontrolled diabetes POA Morbid Obesity POA PLAN: Sepsis, POA 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 POA Osteomyelitis of the right foot toes , POA Left Leg diabetic wound ulcer POA Patient with pain at the gangrene sight -Betadine soaked dressing in place. continue Zosyn and IV and vancomycin IV for broad-spectrum coverage Orthopedic consult recommendations appreciated. Pending peripheral angiogram today Right lung Gram negative pneumonia POA B/L wheeze and creps on examination at the time of admission -duoneb treatement sputum culture positive for Klebsiella pneumoniae Continue antibiotics and nebulization Chest physiotherapy Acute on chronic respiratory failure on oxygen dependent POA Chronic respiratory failure- patient on home oxygen End stage renal disease on hemodialysis POA continue HD TTHS Continue renal diet Nephrology recommendations Strict I/O chart Fluid intake <1500 ml per day Atrial fibrillation on Coumadin POA Severe ischemic cardiomyopathy with AICD device POA Acute on chronic systolic HFrEF POA Coronary artery disease with CABGx2 ,AVR bioprosthetic and stent x1 POA Severe peripheral vascular disease POA Abdominal aorta runoff study showing 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 Patient on Heparin drip Monitor PTT and adjust Heparin dose Hold Warfarin Pending peripheral angiogram by cardiology ATTESTATION BY PHYSICIAN I have seen and examined the patient. I reviewed the documentation, medical decision making, and treatment plan as noted by the resident provider above. I agree with the findings and plan of care. Heber Hernandez MD, ANCHU A MD Jun 05, 2024 07:42
--- NOTE | 2024-06-05 09:20 | PN ---
DIALYSIS NOTE SUBJECTIVE: The patient was seen and evaluated on hemodialysis, prescriptions noted. PHYSICAL EXAMINATION: VITAL SIGNS: Blood pressure is 120/90. CARDIOVASCULAR: Regular. LUNGS: Coarse. IMPRESSION: ESRD. PLAN: The patient remains on the antibiotics. The patient's vascular workup is ongoing per Cardiology. The patient continues with midodrine for the hypotension. We will follow closely. TID: [id number] RECEIPT: [id number]
--- NOTE | 2024-06-05 13:22 | PN ---
INFECTIOUS DISEASE PROGRESS NOTE Date of Service: Jun 05, 2024 SUBJECTIVE: Patient was seen and examined at bedside in room 415. During rounding today patient is pending a peripheral angiogram. Remains on a one-to-one sitter observation. We will continue on vancomycin and Zosyn. Patient is afebrile, temperature is 98.1. No other issues reported by nursing. PHYSICAL EXAM EYES: Anicteric. Pupils equal and reactive. HENT: No oral thrush seen, moist Oral mucosa NECK: Supple, no JVD or thyromegaly. LUNGS: Good air entry. No rales, no rhonchi. CARDIOVASCULAR: S1, S2 regular. No murmur heard. ABDOMEN: Soft, non tender, bowel sounds present, no organomegaly CENTRAL NERVOUS SYSTEM: Awake, alert, oriented x 3. SKIN: No rashes, no swelling. LYMPHATICS: No peripheral lymphadenopathy MUSCULOSKELETAL: No joint swelling, erythema or tenderness. EXTREMITIES: No cyanosis or clubbing. Right foot gangrene with osteomyelitis. BACK: No deformity, no pressure ulcer. GENITOURINARY: No dysuria or hematuria. Vital Sign (Last 12 Hours) 06/05/24 06/05/24 06/05/24 06/05/24 04:00 06:45 06:45 08:00 Temp 98.1 96.3 Pulse 98 86 86 93 Resp 20 18 18 19 B/P (MAP) 120/90 83/42 Pulse Ox 98 95 O2 Delivery Room Air N/A Room Air Room Air FiO2 21 21 06/05/24 06/05/24 06/05/24 08:00 11:35 11:41 Temp 98.1 Pulse 91 89 Resp 18 19 B/P (MAP) 136/41 Pulse Ox 93 95 O2 Delivery Room Air* Nasal Cannula O2 Flow Rate 0 3.0 FiO2 21 Intake & Output (last 24hrs) 06/04/24 06/04/24 06/05/24 14:59 22:59 06:59 Intake Total 750 ml 180.0 ml Balance 750 ml 180.0 ml LABS: Laboratory: Test 06/05/24 11:12 06/05/24 05:41 06/04/24 05:50 Range/Units Whole Blood Glucose 174 H 70-110 MG/DL White Blood Count 10.3 # 4.8-10.8 K/uL Red Blood Count 3.41 L 4.50-6.20 MIL/uL Hemoglobin 9.5 L 14.0-18.0 g/dL Hematocrit 30.1 L 42-54 % Mean Corpuscular Volume 88.3 79-99 fL Mean Corpuscular Hemoglobin 27.9 27.0-33.0 pg Mean Corpuscular Hemoglobin Concent 31.6 L 32.0-36.0 g/dL Red Cell Distribution Width 18.8 H 11.0-15.5 % Platelet Count 220 130-400 K/uL Mean Platelet Volume 11.7 H 7.5-10.5 fL Nucleated Red Blood Cells 0.9 H 0.0-0.19 % Prothrombin Time 15.7 H 9.6-11.6 SEC Prothromb Time International Ratio 1.55 H 0.85-1.15 Activated Partial Thromboplast Time 85.6 #H 26.3-35.5 SEC Sodium Level 132 L 136-145 mmol/L Potassium Level 5.6 H 3.5-5.1 mmol/L Chloride Level 91 L 101-111 mmol/L Carbon Dioxide Level 24 21-32 mmol/L Blood Urea Nitrogen 78 *H 7-18 mg/dL Creatinine 6.6 H 0.5-1.3 mg/dL Glomerular Filtration Rate Calc 8 >90 mL/min Random Glucose 179 H 70-105 mg/dL Total Calcium 8.8 8.5-10.1 mg/dL Phosphorus Level 5.9 H 2.5-4.9 mg/dL Magnesium Level 2.30 1.80-2.40 mg/dL ASSESSMENT: Right foot gangrene with osteomyelitis. Gram-negative pneumonia. Peripheral vascular disease. End Stage renal disease, on dialysis. Diabetes mellitus. Chronic respiratory failure, home O2 dependent. PLAN: Continue vancomycin on dialysis days. Continue Zosyn IV. Continue GI prophylaxis. Continue current wound care. Continue pain management. Continue bronchodilators. Continue antiplatelets. Continue ant diabetics. Patient is currently on a one-to-one sitter observation. Pending a peripheral angiogram procedure for today. This case was reviewed and discussed with my supervising physician and the above assessment and plan was formulated and agreed upon. ATTESTATION BY PHYSICIAN I have seen and examined the patient. I reviewed the documentation, medical decision making, and treatment plan as noted by the mid-level provider above. I agree with the findings and plan of care. NEDA DEL TORO MD, [facility] Jun 05, 2024 13:22
--- NOTE | 2024-06-05 17:00 | NUR ---
DR sal here and verbal orders to cancel cleaner laboratory equipment procedure ORDERS TO CANCEL PROCEDURE FOR 06/06/24
--- NOTE | 2024-06-05 17:14 | PN ---
[facility] CARDIOLOGY PROGRESS NOTE Date Patient Seen: Jun 05, 2024 Time of Visit: 17:12 Interval History: [No events overnight. ] Physical Examination: GENERAL APPEARANCE: ill, confused LUNGS: in no distress CARDIOVASCULAR: Regular rate and rhythm : Deferred. No Geller. EXTREMITIES: 2+ edema bilateral lower extremities SKIN: Left leg wound. Right necrotic 1st ,2nd toes and the 3rd toe is starting to also develop necrosis. Laboratory: [ ] Hematology Labs: Test 06/05/24 05:41 Range/Units White Blood Count 10.3 # 4.8-10.8 K/uL Red Blood Count 3.41 L 4.50-6.20 MIL/uL Hemoglobin 9.5 L 14.0-18.0 g/dL Hematocrit 30.1 L 42-54 % Mean Corpuscular Volume 88.3 79-99 fL Mean Corpuscular Hemoglobin 27.9 27.0-33.0 pg Mean Corpuscular Hemoglobin Concent 31.6 L 32.0-36.0 g/dL Red Cell Distribution Width 18.8 H 11.0-15.5 % Platelet Count 220 130-400 K/uL Mean Platelet Volume 11.7 H 7.5-10.5 fL Nucleated Red Blood Cells 0.9 H 0.0-0.19 % Chemistry Labs: Test 06/05/24 15:25 06/05/24 05:41 06/04/24 05:50 Range/Units Whole Blood Glucose 123 H 70-110 MG/DL Sodium Level 132 L 136-145 mmol/L Potassium Level 5.6 H 3.5-5.1 mmol/L Chloride Level 91 L 101-111 mmol/L Carbon Dioxide Level 24 21-32 mmol/L Blood Urea Nitrogen 78 *H 7-18 mg/dL Creatinine 6.6 H 0.5-1.3 mg/dL Glomerular Filtration Rate Calc 8 >90 mL/min Random Glucose 179 H 70-105 mg/dL Total Calcium 8.8 8.5-10.1 mg/dL Phosphorus Level 5.9 H 2.5-4.9 mg/dL Magnesium Level 2.30 1.80-2.40 mg/dL Coagulation Labs: Test 06/05/24 12:06 06/05/24 05:41 Range/Units Activated Partial Thromboplast Time 58.4 #H 26.3-35.5 SEC Prothrombin Time 15.7 H 9.6-11.6 SEC Prothromb Time International Ratio 1.55 H 0.85-1.15 Diagnostics / Radiology: CTA runoff IMPRESSION: 1. Extensive short segment stenosis are noted involving the femoral arteries and popliteal arteries bilaterally. Occlusion of the anterior tibial arteries and posterior tibial arteries are noted bilaterally. Short segment stenosis are noted in the peroneal arteries are grossly patent. 2. Right pleural effusion and compressive atelectasis. Gallstones. Impression and Plan: CAD post 2vCABG at [facility] in 2015 Bioprosthetic aortic valve replacement in 2020 currently on warfarin Ischemic cardiomyopathy (LVEF 20-25% as per clinic note unable to tolerate GDM T due to hypotension currently on midodrine) - Patient was recently [place] as [place] [facility] [place] did [place]. He was also sent referral to advanced heart failure specialist Dr Saucedo, however did not make appointment. - He cannot tolerate GDMT due to hypotension requiring midodrine. Sick sinus syndrome status post [employer]IST[employer]PER[employer]GER-D device in September 2020 End-stage renal disease on hemodialysis (T-T-S) Paroxysmal atrial fibrillation on anticoagulation with warfarin. Severe PAD/ Gangrene of right foot with necrosis Suspected Osteomyelitis of the right foot - sepsis Type 2 diabetes mellitus Recommendations This patient is well known to me in the outpatient setting. His cardiac status has been tenuous over the past year and he has declined significantly. We have discussed palliative inotropes and referral to heart failure specialist for further recommendations however he is poor candidate for any invasive procedures given his advanced heart failure, confusion, and history of noncompliance with m edical therapy. He is non compliant with his warfarin and INR checks. He is non compliant with his ICD interrogations. He has refused the referral to inotropic therapy and advanced HF even after these were arranged. He is also essentially wheelchair bound due to debility and symptoms. I am not sure where the misconception came from regarding my plans for invasive peripheral angiography in this patient -- this was never discussed with patient, family, and was never a recent consideration given how severely ill this patient is. I have discussed DNR status in the past and hospice however patient has been undecided. I think hospice is a reasonable plan of care for this patient given his debility, ESRD, and advanced HF of which he is not tolerating GDMT and has recurrent hospitalizations. XUAN SUMNER DO Jun 05, 2024 17:14
[2024-06-05 18:26] LABS: INR 1.49 (0.85-1.15); PROTHROMBIN TIME 15.2 SEC (9.6-11.6)
[2024-06-05 18:27] LABS: PARTIAL THROMBOPLASTIN TIME 33.5 SEC (26.3-35.5)
--- NOTE | 2024-06-05 19:15 | NUR ---
DR CARRILLO HERE AND INFORMED OF DR HANLEY ORDERS FOR NO VICE PRESIDENT OF NEWS PROCEDURE AND FOR DAUGHTER TO BE INFORMED OF POSSIBLE ALTERNATIVE MEASURE FOR HOSPICE . DRESSING TO RT TOES HAD JUST BEEN PERFORMED TO RT FOOT WITH TOES DARK IN COLOR PAINTED WITH BETADINE AND REDRESSED.LEFT TOES WITH DRY SCABS OVER WOUNDS ON TOP PART OF TOES .
--- NOTE | 2024-06-05 19:23 | PN ---
[facility] PROGRESS NOTE Date Patient Seen: Jun 05, 2024 Time of Visit: 19:23 Supervising Physician: Dr. 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 POA Osteomyelitis of the right foot toes POA Left leg diabetic wound ulcer POA Possible right lung pneumonia POA Severe peripheral vascular disease POA Chronic respiratory failure on oxygen dependent POA End stage renal disease on hemodialysis POA Atrial fibrillation on Coumadin POA severe ischemic cardiomyopathy with AICD device POA Coronary artery disease with CABGx2 ,AVR bioprosthetic and stent x1 POA Chronic anemia due to CKD Elevated troponin POA Uncontrolled diabetes POA Morbid Obesity POA INTERVAL HISTORY: Patient evaluated at bedside, he is on room air today, currently receiving hemodialysis. He continues on Zosyn and vancomycin with a right lung pneumonia as well as right foot infection/osteomyelitis. We will convert the patient to prednisone 40 mg daily today for five days to begin weaning off steroids. Daughter at bedside, patient was pending disposition by primary at this time. REVIEW OF SYSTEMS: 12 point ROS reviewed with patient. Pertinent positives mentioned above. Otherwi se negative. PHYSICAL EXAM: GENERAL: alert, weak, awake oriented x 3 HEENT: EOMI, Sclera non icteric, moist mucosa NECK: Supple, no JVD, trachea midline LUNGS: Clear breath sounds bilaterally. No wheezes HEART: Regular rate and rhythm. Normal S1 and S2, without murmurs ABD: Abdomen soft, nontender. Bowel sounds present EXT: No clubbing cyanosis or edema NEURO: Alert and oriented to person, follows commands Vital Signs (last 8hr) Date Time Temp Pulse Resp B/P (MAP) Pulse Ox O2 Delivery O2 Flow Rate FiO2 06/05/24 18:50 88 18 N/A Room Air 21 06/05/24 17:50 97.7 92 16 138/71 Nasal Cannula 2.0 06/05/24 17:35 96.3 91 16 125/80 Nasal Cannula 2.0 06/05/24 17:30 92 16 148/60 Nasal Cannula 2.0 06/05/24 17:15 93 16 146/77 Nasal Cannula 2.0 06/05/24 17:00 91 16 138/69 Nasal Cannula 2.0 06/05/24 16:45 92 16 132/68 Nasal Cannula 2.0 06/05/24 16:30 90 16 149/71 Nasal Cannula 2.0 06/05/24 16:15 91 16 129/68 Nasal Cannula 2.0 06/05/24 16:00 92 16 131/72 Nasal Cannula 2.0 06/05/24 15:57 97.5 92 18 139/68 100 Nasal Cannula 2.0 06/05/24 15:45 90 16 137/59 Nasal Cannula 2.0 06/05/24 15:30 92 16 139/68 Nasal Cannula 2.0 06/05/24 15:15 92 16 122/62 Nasal Cannula 2.0 06/05/24 15:00 92 16 123/66 Nasal Cannula 2.0 06/05/24 14:50 90 16 124/54 Nasal Cannula 2.0 06/05/24 14:35 96.4 90 16 123/62 Nasal Cannula 2.0 06/05/24 14:00 96.4 91 20 126/56 Nasal Cannula 2.0 06/05/24 11:41 98.1 89 19 136/41 95 Nasal Cannula 3.0 06/05/24 11:35 91 18 LABS: Hematology Labs: Test 06/05/24 05:41 Range/Units White Blood Count 10.3 # 4.8-10.8 K/uL Red Blood Count 3.41 L 4.50-6.20 MIL/uL Hemoglobin 9.5 L 14.0-18.0 g/dL Hematocrit 30.1 L 42-54 % Mean Corpuscular Volume 88.3 79-99 fL Mean Corpuscular Hemoglobin 27.9 27.0-33.0 pg Mean Corpuscular Hemoglobin Concent 31.6 L 32.0-36.0 g/dL Red Cell Distribution Width 18.8 H 11.0-15.5 % Platelet Count 220 130-400 K/uL Mean Platelet Volume 11.7 H 7.5-10.5 fL Nucleated Red Blood Cells 0.9 H 0.0-0.19 % Chemistry Labs: Test 06/05/24 15:25 06/05/24 05:41 06/04/24 05:50 Range/Units Whole Blood Glucose 123 H 70-110 MG/DL Sodium Level 132 L 136-145 mmol/L Potassium Level 5.6 H 3.5-5.1 mmol/L Chloride Level 91 L 101-111 mmol/L Carbon Dioxide Level 24 21-32 mmol/L Blood Urea Nitrogen 78 *H 7-18 mg/dL Creatinine 6.6 H 0.5-1.3 mg/dL Glomerular Filtration Rate Calc 8 >90 mL/min Random Glucose 179 H 70-105 mg/dL Total Calcium 8.8 8.5-10.1 mg/dL Phosphorus Level 5.9 H 2.5-4.9 mg/dL Magnesium Level 2.30 1.80-2.40 mg/dL Coagulation Labs: Test 06/05/24 18:05 Range/Units Prothrombin Time 15.2 H 9.6-11.6 SEC Prothromb Time International Ratio 1.49 H 0.85-1.15 Activated Partial Thromboplast Time 33.5 # 26.3-35.5 SEC DIAGNOSTICS / RADIOLOGY RESULTS: [ ] PLAN NEURO: Minimize central acting medications as possible. Maintain fall precautions, adequate lighting during the day PULMONARY: Supplemental 02 as needed. Maintain aspiration precautions at all times CARDIOVASCULAR: Follow hemodynamics. Vital signs per facility protocol GI & NUTRITION: Continue with nutritional support. Continue stool softeners and laxatives as needed. KIDNEYS & ELECTROLYTES: Strict monitoring of intake, output and overall fluid balance. Avoid nephrotoxic medications to the extent possible. Medications to be dosed according to renal function. Monitor electrolytes and replace as needed ENDOCRINE: Maintain blood glucose between 100-180 at all times. Hypoglycemia protocol in place INFECTIOUS DISEASE: Trend temperature, WBC and procalcitonin level Follow cultures, deescalate antibiotics as soon as possible. Panculture if new onset fever ONCOLOGY/HEMATOLOGY/COAGULATION: Monitor for s/s of bleeding Monitor hemoglobin, coagulation studies as needed SKIN: Pressure ulcer prevention per facility protocol Specialty mattress ORTHO/REHAB: Continue PT/OT Prophylaxis: Continue GI and DVT prophylaxis Code Status: Full Resuscitation Disposition: TBD Other: Total patient care time exceeds 35 minutes excluding all procedures. KARIME FRANZ Jun 05, 2024 19:23
--- NOTE | 2024-06-05 19:35 | NUR ---
DR VANESSA INFORMED OF DR SUMNER WILL NOT BE PERFORMING PROCEDURE IN AM ON PATIENT. SHE IS RECOMMENDING THAT PRIMARY SPEAK WITH FAMILY REGARDING POSSIBLE HOSPICE .
[2024-06-05] MEDS: HEParin 5,000 UNIT VIAL ONE (19:46)
[2024-06-05] MEDS: hydroMORPHone 0.5 MG SYG (0.5MG/0.5ML) IVP PRN (23:44)
[2024-06-06] VITALS (13 sets, daily range): BP systolic 117–156; BP diastolic 40–99; PULSE 87–91; RESP 18–22; TEMP 97.4–98.6; O2SAT 94–99
[2024-06-06 01:49] LABS: BASOPHILS # (AUTO) 0.01 K/uL (0.00-0.20); BASOPHILS % (AUTO) 0.1 % (0.0-5.0); HEMATOCRIT 29.8 % (42-54); IMMATURE GRANULOCYTE ABSOLUTE 0.08 K/uL (0-1); LYMPHOCYTES # (AUTO) 0.5 K/uL (1.0-4.8); LYMPHOCYTES % (AUTO) 5.5 % (21.0-51.0); MEAN CORPUSCULAR HEMOGLOBIN 28.5 pg (27.0-33.0); MEAN CORPUSCULAR HGB CONC 31.9 g/dL (32.0-36.0); MEAN CORPUSCULAR VOLUME 89.5 fL (79-99); MONOCYTES # (AUTO) 0.6 K/uL (0.1-1.0); MONOCYTES % (AUTO) 6.5 % (3.0-13.0); NEUTROPHILS # (AUTO) 8.5 K/uL (1.8-7.7); NEUTROPHILS % (AUTO) 87.1 % (40.0-77.0); NUCLEATED RED BLOOD CELLS 1.9 % (0.0-0.19); PLATELET COUNT (AUTO) 211 K/uL (130-400); RED BLOOD CELL COUNT(AUTO) 3.33 MIL/uL (4.50-6.20); WHITE BLOOD COUNT (AUTO) 9.7 K/uL (4.8-10.8)
[2024-06-06 02:02] LABS: INR 1.67 (0.85-1.15); PROTHROMBIN TIME 16.8 SEC (9.6-11.6)
[2024-06-06 02:05] LABS: ALBUMIN 2.9 g/dL (3.5-5.0); BILIRUBIN,TOTAL 1.3 mg/dL (0.2-1.0); CREATININE 5.5 mg/dL (0.5-1.3); MAGNESIUM 2.1 mg/dL (1.80-2.40); PHOSPHORUS 6.3 mg/dL (2.5-4.9); POTASSIUM 4.9 mmol/L (3.5-5.1); TOTAL PROTEIN, SERUM 8.2 g/dL (6.0-8.3)
[2024-06-06 02:22] LABS: PARTIAL THROMBOPLASTIN TIME > 139.0 SEC (26.3-35.5)
[2024-06-06] MEDS: predniSONE 20 MG TABLET PO SCH (08:58)
--- NOTE | 2024-06-06 09:20 | NUR ---
[facility] RESPONSE CONFUSED PT ON 1:1 WITH KWASI Portillo. PT SEEN ON FLOOR SURROUNDED WITH STAFF. WAS NOTIFIED A FALL HAD TAKEN PLACE. PER KWASI PT STOOD UP AND REACHED TOWARD CABINET SHE THEN TOLD THE PT TO SIT DOWN. NO COURSE OF ACTION WAS TAKEN DIRECTLY WITH PT. KWASI NOTIFIED [facility] ZEKE REGARDING FALL. ZEKE THEN NOTIFIED NURSING STAFF FOR ASSISTANCE. STAFF WAS ABLE TO PLACE PT IN BED. PT APPEARED TO BE NON VERBAL WITH EYES WIDE OPEN. PT UNABLE TO ANSWER QUESTIONS AT THIS TIME. VITALS TAKEN. RAPID RESPONSE CALLED FOR LOW BLOOD PRESSURE AND UNRESPONSIVE. DR. VENTURA ARRIVED BEDSIDE. ORDERS RECEIVED.
--- NOTE | 2024-06-06 09:44 | PN ---
FOLLOWUP PROGRESS NOTE SUBJECTIVE: The patient is a 78-year-old male with history of diabetes mellitus and hypertension and history of vascular disease. The patient with a history of end-stage renal disease on dialysis 3 times per week. The patient initially admitted for a nonhealing wound of the foot. The patient remains on broad-spectrum IV antibiotics as well as local wound care. The patient is being seen by Cardiology and felt not to be a candidate for lower extremity arteriogram with intervention, and the patient is being seen as a followup visit for all of the above. REVIEW OF SYSTEMS: GENERAL: Complaining of weak and tired. HEENT: No change in vision. No change in hearing. CARDIOVASCULAR: There are no current chest pains, palpitations. PULMONARY: ____ shortness of breath. GASTROINTESTINAL: The patient is tolerating diet. MUSCULOSKELETAL: As described above. PHYSICAL EXAMINATION: VITAL SIGNS: Blood pressure 122/40, pulse 90s, afebrile. GENERAL: Chronically ill, elderly male, lying in bed on the medical floor. HEENT: Atraumatic. Pupils are equal and roving to light. Oropharynx is without exudate. Nares clear. NECK: There is no JVP. There is no thyromegaly. No masses. CARDIOVASCULAR: Regular. There is no S3, S4 gallop. LUNGS: Coarse with equal thoracic movement. ABDOMEN: Soft, nondistended, and nontender. EXTREMITIES: Reveal no clubbing, no cyanosis. NEUROLOGICAL: He is awake. He is alert. He is at his baseline. LABORATORY DATA: Sodium 130, BUN 58, creatinine 5, hemoglobin 9.5, hematocrit 29. IMPRESSION: * Vascular disease. * Nonhealing wounds. * Diabetes mellitus. * Hypertension. * ESRD. PLAN: The patient continues with the antibiotics as well as local wound care. He has a history of known vascular disease. The patient was seen by Cardiology and felt not a candidate for lower extremity arteriogram. We will continue to monitor the patient closely. The patient with multiple questions. All of which were answered. All asked and repeated in the morning. TID: [id number] RECEIPT: [id number]
--- NOTE | 2024-06-06 10:02 | HMCIMG ---
Exam Type: CT HEAD/BRAIN W/O CONTRAST Clinical Information: FALL Comparison: None CT Dose Index (CTDI): 57.33 mGy Dose Length Product (DLP): 956.79 total mGy-cm Findings: The examination shows atrophy. There is low attenuation throughout the periventricular white matter locations, consistent with chronic small vessel ischemic changes. No acute intra- or extra-axial fluid collections are seen. There is no evidence of acute or chronic hemorrhage. There is no mass effect or shift of midline structures. There are no areas to suggest acute infarct. The skull windows show no significant abnormalities. IMPRESSION: 1. ATROPHY AND CHRONIC SMALL VESSEL ISCHEMIC CHANGES. This study was performed using dose reduction techniques to include automated exposure control and/or adjustment of the mA and/or kV according to patient size.
--- NOTE | 2024-06-06 13:08 | PN ---
[facility] PROGRESS NOTE Date of Service: Jun 06, 2024 Time of Service: 13:06 SUBJECTIVE: 78-year-old male, [place]-speaking with past medical history of Anemia, end- stage renal disease on hemodialysis (TThS) atrial fibrillation, bioprosthetic aortic valve replacement in 2020 currently on warfarin,coronary artery disease, hypertension, hyperlipidemia, diabetes, severe cardiomyopathy(LVEF 20-25% as per clinic note unable to tolerate GDM T due to hypotension currently on midodrine) ,sick sinus syndrome status post [employer] TRIBAL [employer]GE-D device in September 2020 and chronic respiratory failure on home O2 who presented to the ED was sent by Dr. Mims for evaluation of right 1st,2nd and 3rd toe gangrene . Patient c/o pain at the site.As per daughter ,it started on March 2024 as redness and it progressively got worsen that it started turning black 5 days back. Patient also complained of occasional cough. Patient has been dialyzed on the same day and 2 Liters of fluid removed .Patient's Molding Supervisor is and patient 's double end trimmer is .Patient denies fever,chills,nausea,vomiting,chest pain and palpitation. Vital signs at the time of presentation: temperature 98.6, heart rate 98, blood pressure 104/59 saturation 98% on 2 L nasal cannula. Labs: Hemoglobin 9, hematocrit 30 platelet count 235. Chloride 97, BUN 29, creatinine 4.2, GFR 14, glucose 232, lactic acid 2.3 troponin 86 to 80, BNP 1650 procalcitonin 0.84. Right foot x-ray result revealed no evidence for fracture or subluxation. Chest x-ray result revealed cardiomegaly with pulmonary vascular congestion and small right greater than left pleural effusion with subjacent passive atelectasis. Patient is admitted for further medical management. 05.30.24: Patient is seen resting in his bed. Pending Cardiology, podiatry , nephrology and ID consult.Pending b/l LE artery doppler. 05.31.24: Patient had angiogram done yesterday for assessing lower extremity circulation. Bilateral anterior and posterior tibial arteries are occluded with peroneal arteries grossly patent. Pending podiatry recommendations for possible TMA . Cardiology plan for peripheral angiogram early next week. Ortho consult pending . 06/01/24 : Patient is seen and examined today. Denies any complaints today. However use had stridor and shortness of breath during the night and neck soft tissue x-ray was ordered which showed normal soft tissue and epiglottitis appears unremarkable. Solu-Medrol 60 Q 6 was given. Chest x-ray showed bilateral airspace consolidation with right effusion. Plan for peripheral angio on 06/05/[address] Bates. We will hold the warfarin since the patient is already on heparin drip. We will downgrade him to med surge with telemetry. 06/02/2024: Patient complains of pain and was agitated yesterday night . Patient in one on one supervision. Labs showed potassium 6.4 , Phosphorous 7.7 .Repeat potassium is 5.2. Nephrology suggested 2 hour dialysis for today . He is pending peripheral angiogram. We will consult orthopedic surgery . 06.03.24: Patient has been restless and aggressive at ttimes as per the RN. Patient continues to be placed on one to one observation . He is receiving his regular dialysis today .Pending cardiology intervention and orthopedic consult today . 06.04.24: Patient continues to be at his baseline.Removed 2.5 litres of fluid d uring dialysis session yesterday. Pending peripheral angiogram on 06.05.[address] Webb. 06.05.24: Patient is pending peripheral angiogram today . Mental status at the baseline . In-patient dialysis is scheduled today after the angiogram as per Dr Sheffield. Addendum: Peripheral angiogram is canceled. As per the RN-Dr Webb informed that she was not inaware of the schedule today . As per Dr Hill's note on 06.01.23-patient had an angiogram scheduled on 06.05 and pre procedure orders were entered by Dr Florian yesterday night. Will coordinate the plan . Patient and the daughter is aware of this. Patient is resumed on diet and is scheduled for dialysis today . 06.06.24: Dr Webb recommended no peripheral angiogram . A s per the note "This patient is well known to me in the outpatient setting. His cardiac status has been tenuous over the past year and he has declined significantly. We have discussed palliative inotropes and referral to heart failure specialist for further recommendations however he is poor candidate for any invasive procedures given his advanced heart failure, confusion, and history of noncompliance with medical therapy. He is non compliant with his warfarin and INR checks. He is non compliant with his ICD interrogations. He has refused the referral to inotropic therapy and advanced HF even after these were arranged. ....... I think hospice is a reasonable plan of care for this patient given his debility, ESRD, and advanced HF of which he is not tolerating GDMT and has recurrent hospitalizat ions. "Patient fell from bed today morning and a rapid response was called. No significant complications noted .Head CT is unremarkable. Myself and my attending Dr Goncalves had discussions with the bystander- the daughter at the bedside - regarding hospice.Patient's daughter refused hospice.Pending Orthopedic recommendations and placement to SNF . Patient is in DNR-DNI now. REVIEW OF SYSTEMS CONSTITUTIONAL: Denies fevers, chills, or night sweats. No unintentional weight loss reported. NEUROLOGICAL: Denies headache, amaurosis fugax, motor weakness, sensory deficit, vertigo/spinning sensation, gait abnormalities, or tremors. ENT: No hearing loss, otalgia, otorrhea, rhinitis, rhinorrhea, hoarseness, or sore throat. CARDIOVASCULAR: Denies any exertional angina, dyspnea on exertion, orthopnea, paroxysmal nocturnal dyspnea, palpitations, life-threatening arrhythmias, josé dication. PULMONARY: Complaints of cough and shortness of breaths Denies hemoptysis, pleuritic chest pain. SLEEP: Denies morning headaches, daytime somnolence or napping. Denies difficulty falling asleep, staying asleep, waking from sleep. Denies knowledge of snoring. GASTROINTESTINAL: Denies any type of dysphagia to either liquids or solids. Denies nausea, vomiting, pyrosis, early satiety, abdominal pain, diarrhea, constipation, or changes in stool consistency or caliber. Denies coffee-ground emesis, hematemesis, hematochezia, or melanotic stools. GENITOURINARY: Denies frequency, urgency, nocturia, hematuria or incontinence (Storage/Irritative symptoms.) Low urinary stream, straining to void, urinary intermittency or hesitancy, splitting of the voiding stream, terminal dribbling. PHYSICAL EXAM GENERAL APPEARANCE: The patient is awake, alert, and oriented, in no acute cardiopulmonary distress. NEUROLOGICAL: Cranial nerves II-XII grossly intact. Motor is 5/5 in bilateral upper and lower extremities proximal to distal. No sensory deficits. HEENT: Face is symmetric. Pupils are equal and reactive. Extraocular movements are intact. NECK: Supple. No JVD. No thyromegaly. No submental, submandibular, pre- /postauricular, occipital or supraclavicular lymphadenopathy. CHEST: Normal chest expansion. Telemetry. LUNGS: Bilateral crackles and scattered rhonchi on auscultation CARDIOVASCULAR: Regular. S1 and S2 normal. No appreciable rubs, murmurs or gallops. ABDOMEN: Soft, nontender, and nondistended. There is no rebound, voluntary guarding, or rigidity. : Deferred. No Geller. EXTREMITIES: 2+ edema bilateral lower extremities. warm rt foot till the base of necrotic toe SKIN: Left leg wound at the tip of the great toe. Right necrotic 1st ,2nd toes and the 3rd toe-dry gangrene. Vital Signs (last 8hr) Date Time Temp Pulse Resp B/P (MAP) Pulse Ox O2 Delivery O2 Flow Rate FiO2 06/06/24 11:55 98.1 87 20 119/74 97 Nasal Cannula 3.0 28 06/06/24 11:33 90 20 06/06/24 11:31 90 20 N/A Room Air 2.0 28 06/06/24 07:35 98.2 91 20 122/40 94 Room Air 21 06/06/24 06:44 90 20 06/06/24 06:42 90 20 N/A Room Air 21 LABS: Laboratory: Test 06/06/24 11:28 06/06/24 10:33 06/06/24 07:52 06/06/24 01:40 Range/Units Whole Blood Glucose 266 H 70-110 MG/DL Lactic Acid Level 3.6 H 0.8-2.5 mmol/L Troponin I High Sensitivity 42 4-75 ng/L Activated Partial Thromboplast Time 133.8 *H 26.3-35.5 SEC White Blood Count 9.7 4.8-10.8 K/uL Red Blood Count 3.33 L 4.50-6.20 MIL/uL Hemoglobin 9.5 L 14.0-18.0 g/dL Hematocrit 29.8 L 42-54 % Mean Corpuscular Volume 89.5 79-99 fL Mean Corpuscular Hemoglobin 28.5 27.0-33.0 pg Mean Corpuscular Hemoglobin Concent 31.9 L 32.0-36.0 g/dL Red Cell Distribution Width 19.0 H 11.0-15.5 % Platelet Count 211 130-400 K/uL Mean Platelet Volume 11.4 H 7.5-10.5 fL Immature Granulocyte % (Auto) 0.8 0-1 % Neutrophils (%) (Auto) 87.1 H 40.0-77.0 % Lymphocytes (%) (Auto) 5.5 L 21.0-51.0 % Monocytes (%) (Auto) 6.5 3.0-13.0 % Eosinophils (%) (Auto) 0.0 0.0-8.0 % Basophils (%) (Auto) 0.1 0.0-5.0 % Neutrophils # (Auto) 8.5 H 1.8-7.7 K/uL Lymphocytes # (Auto) 0.5 L 1.0-4.8 K/uL Monocytes # (Auto) 0.6 0.1-1.0 K/uL Eosinophils # (Auto) 0.00 0.00-0.70 K/uL Basophils # (Auto) 0.01 0.00-0.20 K/uL Absolute Immature Granulocyte (auto 0.08 0-1 K/uL Nucleated Red Blood Cells 1.9 H 0.0-0.19 % White Cell Morphology Comment See comments Red Blood Cell Morphology See comments Prothrombin Time 16.8 H 9.6-11.6 SEC Prothromb Time International Ratio 1.67 H 0.85-1.15 Sodium Level 130 L 136-145 mmol/L Potassium Level 4.9 3.5-5.1 mmol/L Chloride Level 89 *L 101-111 mmol/L Carbon Dioxide Level 28 21-32 mmol/L Blood Urea Nitrogen 58 #H 7-18 mg/dL Creatinine 5.5 H 0.5-1.3 mg/dL Glomerular Filtration Rate Calc 10 >90 mL/min Random Glucose 272 #H 70-105 mg/dL Total Calcium 8.1 L 8.5-10.1 mg/dL Phosphorus Level 6.3 H 2.5-4.9 mg/dL Magnesium Level 2.10 1.80-2.40 mg/dL Total Bilirubin 1.3 H 0.2-1.0 mg/dL Aspartate Amino Transf (AST/SGOT) 28 10-37 U/L Alanine Aminotransferase (ALT/SGPT) 20 12-78 U/L Alkaline Phosphatase 235 H 50-136 U/L Total Protein 8.2 6.0-8.3 g/dL Albumin 2.9 L 3.5-5.0 g/dL Current Medications Medications (Trade) Dose Ordered Sig/Yefri Route PRN Reason Start Time Stop Time Status Last Admin Dose Admin Acetaminophen (TYLenol 325MG TAB) 650 mg Q6H PRN PO MODERATE PAIN (4-6) 06/05/24 14:00 07/05/24 13:59 Acetaminophen/ Hydrocodone Bitart (NORco 5/325MG) 1 tab Q4H PRN PO MODERATE PAIN (4-6) 05/29/24 19:00 06/03/24 18:59 DC 05/31/24 21:04 1 TAB Acetaminophen/ Hydrocodone Bitart (NORco 5/325MG) 2 tab Q4H PRN PO SEVERE PAIN (7-10) 05/29/24 19:00 06/02/24 12:12 DC 05/31/24 10:18 2 TAB Albumin Human (Albumin (Human) 25%) 100 ml ONCE IV 06/02/24 09:30 06/02/24 10:46 DC Albumin Human (Albumin (Human) 25%) 100 ml ONCE IV 06/03/24 11:00 06/03/24 17:20 DC Albumin Human (Albumin (Human) 25%) 100 ml ONCE PRN IV SBP <100MMHG OR TREATMENT RELATED SYMPTOMS DURING HD 06/03/24 17:30 06/04/24 10:59 DC Albuterol (DUOneb) 1 UDVIAL Q6H PRN IH SHORTNESS OF BREATH 05/31/24 16:00 06/30/24 15:59 05/31/24 22:54 1 UDVIAL Albuterol (DUOneb) 1 udvial [id number] IH 05/29/24 22:00 05/31/24 06:30 DC 05/31/24 01:03 1 UDVIAL Aspirin (Aspirin 81mg Ec Tab) 81 mg DAILY PO 05/31/24 09:00 06/30/24 08:59 06/06/24 08:58 81 MG Atorvastatin Calcium (LIPItor 40MG) 80 mg HS PO 05/30/24 21:00 5/18/25 20:59 06/05/24 20:39 80 MG Clopidogrel Bisulfate (plaVIX 75MG) 75 mg DAILY PO 05/31/24 09:00 06/30/24 08:59 06/06/24 08:58 75 MG Dextrose (D50w) 50 ml AD PRN IV HYPOGLYCEMIA PROTOCOL 05/29/24 20:00 06/28/24 19:59 Diazepam (VALium 5 MG/ML 2 ML SYG) 2 mg ONCE PRN IV ANXIETY 06/01/24 22:30 06/03/24 16:13 DC 06/02/24 00:25 2 MG Docusate Sodium (COLace 100MG CAP) 100 mg DAILY PO 05/31/24 09:00 06/30/24 08:59 06/06/24 08:58 100 MG Epoetin Willy-epbx (Retacrit) 10,000 unit QTUTHSA[DIALYSIS] SQ 05/31/24 16:00 06/30/24 15:59 06/05/24 18:08 10,000 UNIT Famotidine (Pepcid 20mg Tab) 10 mg DAILY PO 05/30/24 09:00 06/29/24 08:59 06/06/24 08:58 10 MG Glucagon (Glucagon 1mg Kit) 1 mg AD PRN IM HYPOGLYCEMIA PROTOCOL 05/29/24 20:00 06/28/24 19:59 Heparin Sodium (Porcine) (HEParin 5,000 UNIT VIAL) 10,000 unit AD IRRIG 05/31/24 14:30 06/30/24 10:59 06/03/24 15:41 10,000 UNIT Heparin Sodium (Porcine) (HEParin 5,000 UNIT VIAL) 10,000 unit AD SQ 05/31/24 11:00 05/31/24 14:15 DC Heparin Sodium/ Dextrose 250 ml @ 0 mls/hr PROTOCOL IV 05/30/24 21:30 06/29/24 21:29 06/06/24 03:31 11.33 MLS/HR Home Med (Home Medication) (Sevelamer Carbonate (Renv... TIDAC PO 05/30/24 17:00 06/29/24 16:59 06/04/24 12:08 1 EACH Hydromorphone HCl (DiLAUDid 0.5MG INJ) 0.5 mg Q6H PRN IVP SEVERE PAIN (7-10) 06/02/24 12:30 06/07/24 12:29 06/06/24 10:27 0.5 MG Insulin Human Regular (humuLIN R 100 UNIT/ML 3ML) INSULIN SLIDING SCAL... ACHS SQ 05/29/24 21:00 06/28/24 20:59 06/05/24 20:42 4 UNIT Ipratropium [place] (AtrovENT UD) 0.5 MG [id number] IH 05/31/24 06:30 06/30/24 06:29 06/06/24 11:33 0.5 MG Methylprednisolone Sodium Succinate (Solu-medROL 40MG) 40 mg BID IVP 06/04/24 09:00 06/05/24 21:33 DC 06/05/24 20:39 40 MG Methylprednisolone Sodium Succinate (Solu-medROL 40MG) 60 mg Q6H IVP 06/02/24 12:30 06/03/24 21:58 DC 06/03/24 20:13 60 MG Methylprednisolone Sodium Succinate (Solu-medROL 125MG) 60 mg Q6H IVP 06/01/24 06:00 06/01/24 21:45 DC 06/01/24 13:04 60 MG Methylprednisolone Sodium Succinate (Solu-medROL 125MG) 60 mg Q6H IVP 06/02/24 00:00 06/02/24 07:06 DC 06/02/24 06:36 60 MG Midodrine (PROAMatine 5 MG TABLET) 10 mg TID PO 05/29/24 21:00 05/31/24 10:34 DC 05/30/24 20:45 10 MG Midodrine (PROAMatine 5 MG TABLET) 30 mg DAILY PO 05/31/24 09:00 06/01/24 22:15 DC 06/01/24 09:00 30 MG Midodrine (PROAMatine 5 MG TABLET) 30 mg HS PO 06/01/24 22:30 06/30/24 08:59 06/05/24 20:38 30 MG Miscellaneous Medication (Midodrine HCl ) 10 mg TID PO 05/29/24 21:00 05/29/24 19:49 DC Ondansetron HCl (zoFRAN 4MG INJ) 4 mg Q6H PRN IV NAUSEA/VOMITING 05/29/24 19:00 06/28/24 18:59 Pharmacy Profile Note (Lace Assessment) 1 each AD MISC 05/30/24 15:30 05/31/24 14:17 DC Piperacillin Sod/ Tazobactam Sod 50 ml @ 12.5 mls/hr Q12H IV 05/30/24 04:00 05/31/24 04:21 DC 05/30/24 20:46 12.5 MLS/HR Piperacillin Sod/ Tazobactam Sod 50 ml @ 12.5 mls/hr Q12H IV 05/31/24 09:00 06/10/24 08:59 06/06/24 08:58 12.5 MLS/HR Piperacillin Sod/ Tazobactam Sod 50 ml @ 200 mls/hr ONCE IVPB 05/29/24 16:00 05/30/24 09:37 DC 05/29/24 16:15 200 MLS/HR Prednisone (deltaSONE/ oraSONE 20MG TAB) 40 mg DAILY PO 06/06/24 09:00 06/11/24 09:00 06/06/24 08:58 40 MG Sevelamer HCl (RENAgel 800 MG TAB) 800 mg TIDMEALS PO 06/02/24 08:00 07/02/24 07:59 06/06/24 08:58 800 MG Sodium Bicarbonate (Sodium Bicarbonate) 650 mg TID PO 06/02/24 09:00 06/03/24 08:41 DC 06/02/24 21:12 650 MG Sodium Chloride 1,000 ml @ 0 mls/hr ONCE IV 05/31/24 11:00 06/30/24 10:59 06/03/24 09:52 100 MLS/HR Vancomycin HCl 250 ml @ 125 mls/hr ONCE IV 05/29/24 19:00 05/29/24 19:52 DC Vancomycin HCl (Vancomycin 750mg) 750 mg QTUTHSA[DIALYSIS] IVPB 05/31/24 16:00 06/10/24 15:59 06/05/24 18:14 750 MG Vancomycin HCl (Vancomycin Protocol) 1 each AD IV 05/29/24 20:00 06/12/24 19:59 Warfarin Sodium (Coumadin) 2 mg BID PO 05/30/24 21:00 06/01/24 11:32 DC 06/01/24 09:03 2 MG Zolpidem Tartrate (AmbIEN) 5 mg HS PO 06/01/24 22:00 07/01/24 21:59 06/05/24 20:39 5 MG DIAGNOSTICS / RADIOLOGY: [ ] ASSESSMENT: Sepsis without septic shock POA 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 POA Osteomyelitis of the right foot toes POA Left leg diabetic wound ulcer POA Right lung Gram negative pneumonia POA Severe peripheral vascular disease POA Chronic respiratory failure on oxygen dependent POA End stage renal disease on hemodialysis POA Atrial fibrillation on Coumadin POA severe ischemic cardiomyopathy with AICD device POA Coronary artery disease with CABGx2 ,AVR bioprosthetic and stent x1 POA Chronic anemia due to CKD Elevated troponin secondary to ESRD and sepsis POA Uncontrolled diabetes POA Morbid Obesity POA Fall , not POA PLAN: Sepsis, POA 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 POA Osteomyelitis of the right foot toes , POA Left Leg diabetic wound ulcer POA Patient with pain at the gangrene sight -Betadine soaked dressing in place. continue Zosyn and IV and vancomycin IV for broad-spectrum coverage Cardiology recommended hospice -patient and daughter refused hospice Orthopedic consult recommendations pending Pending placement to SNF - will coordinate with Dr Garcia for possible need of antibiotics Right lung Gram negative pneumonia POA B/L wheeze and creps on examination at the time of admission -duoneb treatement sputum culture positive for Klebsiella pneumoniae Continue antibiotics and nebulization Chest physiotherapy Acute on chronic respiratory failure on oxygen dependent POA Chronic respiratory failure- patient on home oxygen End stage renal disease on hemodialysis POA continue HD TTHS Continue renal diet Nephrology recommendations Strict I/O chart Fluid intake <1500 ml per day Atrial fibrillation on Coumadin POA Severe ischemic cardiomyopathy with AICD device POA Acute on chronic systolic HFrEF POA Coronary artery disease with CABGx2 ,AVR bioprosthetic and stent x1 POA Severe peripheral vascular disease POA Abdominal aorta runoff study showing 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 Patient on Heparin drip - will get recommendations whether to continue heparin at this time . Monitor PTT and adjust Heparin dose Hold Warfarin Dr Webb deemed the patient to be of high risk for any procedures given his history of endstage heart failure and ESRD. He has h/o refusal and non compliance to the treatment . Will request Hospice evaluation - social insurance specialist on board - patient's daughter refused Hospice. Pending SNF placement Fall not POA As per the RN, patient fell from the bed . Patient has underlying dementia and has been with episodes of aggressions requiring one to one observation since admission . Post fall period uneventful. His vitals and mental status remain baseline CT head unremarkable Fall precautions in place . Neurochecks ATTESTATION BY PHYSICIAN I have seen and examined the patient. I reviewed the documentation, medical decision making, and treatment plan as noted by the resident provider above. I agree with the findings and plan of care. MARY CARMEN RUFFIN MD, MD Jun 06, 2024 13:08
--- NOTE | 2024-06-06 14:46 | PN ---
[facility] PROGRESS NOTE Date Patient Seen: Jun 06, 2024 Time of Visit: 14:46 Supervising Physician: Dr. 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 POA Osteomyelitis of the right foot toes POA Left leg diabetic wound ulcer POA Possible right lung pneumonia POA Severe peripheral vascular disease POA Chronic respiratory failure on oxygen dependent POA End stage renal disease on hemodialysis POA Atrial fibrillation on Coumadin POA severe ischemic cardiomyopathy with AICD device POA Coronary artery disease with CABGx2 ,AVR bioprosthetic and stent x1 POA Chronic anemia due to CKD Elevated troponin POA Uncontrolled diabetes POA Morbid Obesity POA INTERVAL HISTORY: Patient evaluated at bedside, currently on 2 L nasal cannula. Per nursing report patient had a rapid response called today secondary to a fall in his room in which the patient became slightly obtunded following the incident, no head trauma was witnessed. Patient was returned to baseline, remains on 2 L at this time, family considering hospice versus SNF. We will continue to follow the patient closely while these decisions are being made. Continue with antibiotic therapy and steroids at this time. REVIEW OF SYSTEMS: 12 point ROS reviewed with patient. Pertinent positives mentioned above. Otherwise negative. PHYSICAL EXAM: GENERAL: alert, weak, awake oriented x 3 HEENT: EOMI, Sclera non icteric, moist mucosa NECK: Supple, no JVD, trachea midline LUNGS: Clear breath sounds bilaterally. No wheezes HEART: Regular rate and rhythm. Normal S1 and S2, without murmurs ABD: Abdomen soft, nontender. Bowel sounds present EXT: No clubbing cyanosis or edema NEURO: Alert and oriented to person, follows commands Vital Signs (last 8hr) Date Time Temp Pulse Resp B/P (MAP) Pulse Ox O2 Delivery O2 Flow Rate FiO2 06/06/24 11:55 98.1 87 20 119/74 97 Nasal Cannula 3.0 06/06/24 11:33 90 20 06/06/24 11:31 90 20 N/A Room Air 2.0 06/06/24 07:35 98.2 91 20 122/40 94 Room Air 21 LABS: Hematology Labs: Test 06/06/24 01:40 Range/Units White Blood Count 9.7 4.8-10.8 K/uL Red Blood Count 3.33 L 4.50-6.20 MIL/uL Hemoglobin 9.5 L 14.0-18.0 g/dL Hematocrit 29.8 L 42-54 % Mean Corpuscular Volume 89.5 79-99 fL Mean Corpuscular Hemoglobin 28.5 27.0-33.0 pg Mean Corpuscular Hemoglobin Concent 31.9 L 32.0-36.0 g/dL Red Cell Distribution Width 19.0 H 11.0-15.5 % Platelet Count 211 130-400 K/uL Mean Platelet Volume 11.4 H 7.5-10.5 fL Immature Granulocyte % (Auto) 0.8 0-1 % Neutrophils (%) (Auto) 87.1 H 40.0-77.0 % Lymphocytes (%) (Auto) 5.5 L 21.0-51.0 % Monocytes (%) (Auto) 6.5 3.0-13.0 % Eosinophils (%) (Auto) 0.0 0.0-8.0 % Basophils (%) (Auto) 0.1 0.0-5.0 % Neutrophils # (Auto) 8.5 H 1.8-7.7 K/uL Lymphocytes # (Auto) 0.5 L 1.0-4.8 K/uL Monocytes # (Auto) 0.6 0.1-1.0 K/uL Eosinophils # (Auto) 0.00 0.00-0.70 K/uL Basophils # (Auto) 0.01 0.00-0.20 K/uL Absolute Immature Granulocyte (auto 0.08 0-1 K/uL Nucleated Red Blood Cells 1.9 H 0.0-0.19 % White Cell Morphology Comment See comments Red Blood Cell Morphology See comments Chemistry Labs: Test 06/06/24 11:28 06/06/24 10:33 06/06/24 01:40 Range/Units Whole Blood Glucose 266 H 70-110 MG/DL Lactic Acid Level 3.6 H 0.8-2.5 mmol/L Troponin I High Sensitivity 42 4-75 ng/L Sodium Level 130 L 136-145 mmol/L Potassium Level 4.9 3.5-5.1 mmol/L Chloride Level 89 *L 101-111 mmol/L Carbon Dioxide Level 28 21-32 mmol/L Blood Urea Nitrogen 58 #H 7-18 mg/dL Creatinine 5.5 H 0.5-1.3 mg/dL Glomerular Filtration Rate Calc 10 >90 mL/min Random Glucose 272 #H 70-105 mg/dL Total Calcium 8.1 L 8.5-10.1 mg/dL Phosphorus Level 6.3 H 2.5-4.9 mg/dL Magnesium Level 2.10 1.80-2.40 mg/dL Total Bilirubin 1.3 H 0.2-1.0 mg/dL Aspartate Amino Transf (AST/SGOT) 28 10-37 U/L Alanine Aminotransferase (ALT/SGPT) 20 12-78 U/L Alkaline Phosphatase 235 H 50-136 U/L Total Protein 8.2 6.0-8.3 g/dL Albumin 2.9 L 3.5-5.0 g/dL Coagulation Labs: Test 06/06/24 07:52 06/06/24 01:40 Range/Units Activated Partial Thromboplast Time 133.8 *H 26.3-35.5 SEC Prothrombin Time 16.8 H 9.6-11.6 SEC Prothromb Time International Ratio 1.67 H 0.85-1.15 DIAGNOSTICS / RADIOLOGY RESULTS: [ ] PLAN NEURO: Minimize central acting medications as possible. Maintain fall precautions, adequate lighting during the day PULMONARY: Supplemental 02 as needed. Maintain aspiration precautions at all times CARDIOVASCULAR: Follow hemodynamics. Vital signs per facility protocol GI & NUTRITION: Continue with nutritional support. Continue stool softeners and laxatives as needed. KIDNEYS & ELECTROLYTES: Strict monitoring of intake, output and overall fluid balance. Avoid nephrotoxic medications to the extent possible. Medications to be dosed according to renal function. Monitor electrolytes and replace as needed ENDOCRINE: Maintain blood glucose between 100-180 at all times. Hypoglycemia protocol in place INFECTIOUS DISEASE: Trend temperature, WBC and procalcitonin level Follow cultures, deescalate antibiotics as soon as possible. Panculture if new onset fever ONCOLOGY/HEMATOLOGY/COAGULATION: Monitor for s/s of bleeding Monitor hemoglobin, coagulation studies as needed SKIN: Pressure ulcer prevention per facility protocol Specialty mattress ORTHO/REHAB: Continue PT/OT Prophylaxis: Continue GI and DVT prophylaxis Code Status: Full Resuscitation Disposition: TBD Other: Total patient care time exceeds 35 minutes excluding all procedures. KARIME FRANZ Jun 06, 2024 14:46
--- NOTE | 2024-06-06 14:48 | NUR ---
[facility] Follow-up: Patient re-assessed by wound healing team. Assessment and recommendations provided to primary nurse. Education provided. Wound care done. Addendum: 06/06/24 at 1448 by LEANA MCDONALD RN RN/ Amended: Links added.
--- NOTE | 2024-06-06 15:12 | NUR ---
HOSPICE EDUCATION Sws met with pt's daughter at bedside. Daughter aware of recommendation for hospice but wanted explanation of services. When explaining criteria, daughter stated that they (she and pt) still were wanting aggressive treatment on foot. She was not going to "not do anything on foot". "If he needs any amputation, then we will do it". Daughter states she was told there were other options, but those other options have no been explained to her. Daughter did say that DNR was in place as per pt's wishes. "My father does not want resuscitate, but he would want amputation if this is an option. Daughter states she is waiting for pt to wake up so she can have a conversation with pt and have him decide treatment vs hospice. Nurse Zenaida cunningham.
[2024-06-06 15:41] LABS: INR 1.58 (0.85-1.15)
[2024-06-06 15:42] LABS: PARTIAL THROMBOPLASTIN TIME 53.3 SEC (26.3-35.5)
--- NOTE | 2024-06-06 16:30 | NUR ---
Hospice Discussion Case discussed with SS. Went back to clarify plan. Daughter under impression that patient could still have toe amputation if needed. JANETH Machado in room as well with daughter and patient. This CM explained per latest note from attending that cardio stated patient would not be able to be cleared from a cardiac perspective for any type of invasive procedure, including amputation. Carter explained that Dr. Bates has also offered Dobutamine infusion. Explained to patient and daughter that patient can either continue with trying curative care with the dobutamine infusion versus stopping aggressive treatment and starting hospice that will control symptoms and keep the patient comfortable in the home. Daughter stated plan will be infusions, but wanting rehabilitation at [facility]. Updated patient's CM of above. Patient remains with sitter and is not appropriate for SNF at this time. Addendum: 06/06/24 at 1636 by MIR CORTEZ CM Amended: Links added.
--- NOTE | 2024-06-06 16:32 | NUR ---
CMMariela and TIM REVISIT CMD provided dgt with explanation of reason for pt not being a candidate for procedure or amputation as per dr notes. Kelly Machine Operator was also in room and explain the dr recommendations for infusions. Dgt stated that she wanted to speak infusion treatment and was also interested in a SNF for her father. SW provided dgt with hospice information as a alternate option and dgt accepted and stated that she would hold on to it.
--- NOTE | 2024-06-06 20:14 | PN ---
[facility] CARDIOLOGY PROGRESS NOTE Date Patient Seen: Jun 06, 2024 Time of Visit: 20:10 Interval History: Patient remains 1:1 sitter He sustained ground level fall this AM with resultant rapid response He remains lethargic, confused Daughter at bedside. Physical Examination: GENERAL APPEARANCE: ill, confused LUNGS: in no distress CARDIOVASCULAR: Regular rate and rhythm : Deferred. No Geller. EXTREMITIES: 2+ edema bilateral lower extremities SKIN: Left leg wound. Right necrotic 1st ,2nd toes and the 3rd toe is starting to also develop necrosis. Laboratory: [ ] Hematology Labs: Test 06/06/24 01:40 Range/Units White Blood Count 9.7 4.8-10.8 K/uL Red Blood Count 3.33 L 4.50-6.20 MIL/uL Hemoglobin 9.5 L 14.0-18.0 g/dL Hematocrit 29.8 L 42-54 % Mean Corpuscular Volume 89.5 79-99 fL Mean Corpuscular Hemoglobin 28.5 27.0-33.0 pg Mean Corpuscular Hemoglobin Concent 31.9 L 32.0-36.0 g/dL Red Cell Distribution Width 19.0 H 11.0-15.5 % Platelet Count 211 130-400 K/uL Mean Platelet Volume 11.4 H 7.5-10.5 fL Immature Granulocyte % (Auto) 0.8 0-1 % Neutrophils (%) (Auto) 87.1 H 40.0-77.0 % Lymphocytes (%) (Auto) 5.5 L 21.0-51.0 % Monocytes (%) (Auto) 6.5 3.0-13.0 % Eosinophils (%) (Auto) 0.0 0.0-8.0 % Basophils (%) (Auto) 0.1 0.0-5.0 % Neutrophils # (Auto) 8.5 H 1.8-7.7 K/uL Lymphocytes # (Auto) 0.5 L 1.0-4.8 K/uL Monocytes # (Auto) 0.6 0.1-1.0 K/uL Eosinophils # (Auto) 0.00 0.00-0.70 K/uL Basophils # (Auto) 0.01 0.00-0.20 K/uL Absolute Immature Granulocyte (auto 0.08 0-1 K/uL Nucleated Red Blood Cells 1.9 H 0.0-0.19 % White Cell Morphology Comment See comments Red Blood Cell Morphology See comments Chemistry Labs: Test 06/06/24 16:16 06/06/24 10:33 06/06/24 01:40 Range/Units Whole Blood Glucose 241 H 70-110 MG/DL Lactic Acid Level 3.6 H 0.8-2.5 mmol/L Troponin I High Sensitivity 42 4-75 ng/L Sodium Level 130 L 136-145 mmol/L Potassium Level 4.9 3.5-5.1 mmol/L Chloride Level 89 *L 101-111 mmol/L Carbon Dioxide Level 28 21-32 mmol/L Blood Urea Nitrogen 58 #H 7-18 mg/dL Creatinine 5.5 H 0.5-1.3 mg/dL Glomerular Filtration Rate Calc 10 >90 mL/min Random Glucose 272 #H 70-105 mg/dL Total Calcium 8.1 L 8.5-10.1 mg/dL Phosphorus Level 6.3 H 2.5-4.9 mg/dL Magnesium Level 2.10 1.80-2.40 mg/dL Total Bilirubin 1.3 H 0.2-1.0 mg/dL Aspartate Amino Transf (AST/SGOT) 28 10-37 U/L Alanine Aminotransferase (ALT/SGPT) 20 12-78 U/L Alkaline Phosphatase 235 H 50-136 U/L Total Protein 8.2 6.0-8.3 g/dL Albumin 2.9 L 3.5-5.0 g/dL Coagulation Labs: Test 06/06/24 15:15 Range/Units Prothrombin Time 16.0 H 9.6-11.6 SEC Prothromb Time International Ratio 1.58 H 0.85-1.15 Activated Partial Thromboplast Time 53.3 #H 26.3-35.5 SEC Impression and Plan: CAD post 2vCABG at [facility] in 2015 Bioprosthetic aortic valve replacement in 2020 currently on warfarin Ischemic cardiomyopathy (LVEF 20-25% as per clinic note unable to tolerate GDM T due to hypotension currently on midodrine) - Patient was recently [place] as [place] [facility] [place] did not follow up. He was also sent referral to advanced heart failure specialist Dr Saucedo, however did not make appointment. - He cannot tolerate GDMT due to hypotension requiring midodrine. Sick sinus syndrome status post [employer] SAMPLE [employer]-D device in September 2020 End-stage renal disease on hemodialysis (T-T-S) Paroxysmal atrial fibrillation on anticoagulation with warfarin. Severe PAD/ Gangrene of right foot with necrosis Suspected Osteomyelitis of the right foot - sepsis Type 2 diabetes mellitus Recommendations He cannot tolerate GDMT for his CHF due to need for midodrine Arrangements have been made [place] [facility] [place] as palliation; patient has refused when he received their call. The daughter's number has been forwarded so that she may help facilitate. Recommend he get back on warfarin, if he is amenable, given his underlying AFib. In that instance, would recommend discontinuation of plavix. We can manage the patient's warfarin dosages if he follows up with INR checks. Routine outpatient ICD interrogations Not a candidate for invasive procedures (peripheral, coronary) Recommend discussions regarding hospice for this patient with advanced end stage HF, ESRD, recurrent hospitalizations, and poor prognosis. We will be available as needed over the weekend. XUAN SUMNER DO Jun 06, 2024 20:14
[2024-06-06 21:04] LABS: INR 1.68 (0.85-1.15); PROTHROMBIN TIME 16.9 SEC (9.6-11.6)
[2024-06-06 21:05] LABS: PARTIAL THROMBOPLASTIN TIME 63.5 SEC (26.3-35.5)
[2024-06-06] MEDS: acetaMINOPHEN 325 MG TAB PO PRN (21:54)
--- NOTE | 2024-06-06 22:27 | PN ---
INFECTIOUS DISEASE PROGRESS NOTE Date of Service: Jun 06, 2024 SUBJECTIVE: Patient was seen and examined at bedside in room 415. Per report the peripheral angiogram was canceled and patient has been recommended to referred to hospice services. We will continue on vancomycin and Zosyn until then. Taking with sitter observation No fever, temperature is 98.2. Patient had a fall this morning continues on a one-to-one sitter observation. No other issues reported by nursing. PHYSICAL EXAM EYES: Anicteric. Pupils equal and reactive. HENT: No oral thrush seen, moist Oral mucosa NECK: Supple, no JVD or thyromegaly. LUNGS: Good air entry. No rales, no rhonchi. CARDIOVASCULAR: S1, S2 regular. No murmur heard. ABDOMEN: Soft, non tender, bowel sounds present, no organomegaly CENTRAL NERVOUS SYSTEM: Awake, alert, oriented x 3. SKIN: No rashes, no swelling. LYMPHATICS: No peripheral lymphadenopathy MUSCULOSKELETAL: No joint swelling, erythema or tenderness. EXTREMITIES: No cyanosis or clubbing. Right foot gangrene with osteomyelitis. BACK: No deformity, no pressure ulcer. GENITOURINARY: No dysuria or hematuria. Vital Sign (Last 12 Hours) 06/06/24 06/06/24 06/06/24 06/06/24 11:31 11:33 11:55 15:30 Temp 98.1 97.5 Pulse 90 90 87 90 Resp 20 20 20 18 B/P (MAP) 119/74 146/84 Pulse Ox 97 90 O2 Delivery N/A Room Air Nasal Cannula Nasal Cannula O2 Flow Rate 2.0 3.0 3.0 FiO2 28 28 28 06/06/24 06/06/24 18:20 18:20 Pulse 89 89 Resp 18 18 O2 Delivery N/A Room Air O2 Flow Rate 2.0 FiO2 28 Intake & Output (last 24hrs) 06/05/24 06/05/24 06/06/24 15:00 23:00 07:00 Intake Total 600 ml Output Total 2000 ml Balance -1400 ml LABS: Laboratory: Test 06/06/24 20:48 06/06/24 20:06 06/06/24 10:33 06/06/24 01:40 Range/Units Prothrombin Time 16.9 H 9.6-11.6 SEC Prothromb Time International Ratio 1.68 H 0.85-1.15 Activated Partial Thromboplast Time 63.5 H 26.3-35.5 SEC Whole Blood Glucose 259 H 70-110 MG/DL Lactic Acid Level 3.6 H 0.8-2.5 mmol/L Troponin I High Sensitivity 42 4-75 ng/L White Blood Count 9.7 4.8-10.8 K/uL Red Blood Count 3.33 L 4.50-6.20 MIL/uL Hemoglobin 9.5 L 14.0-18.0 g/dL Hematocrit 29.8 L 42-54 % Mean Corpuscular Volume 89.5 79-99 fL Mean Corpuscular Hemoglobin 28.5 27.0-33.0 pg Mean Corpuscular Hemoglobin Concent 31.9 L 32.0-36.0 g/dL Red Cell Distribution Width 19.0 H 11.0-15.5 % Platelet Count 211 130-400 K/uL Mean Platelet Volume 11.4 H 7.5-10.5 fL Immature Granulocyte % (Auto) 0.8 0-1 % Neutrophils (%) (Auto) 87.1 H 40.0-77.0 % Lymphocytes (%) (Auto) 5.5 L 21.0-51.0 % Monocytes (%) (Auto) 6.5 3.0-13.0 % Eosinophils (%) (Auto) 0.0 0.0-8.0 % Basophils (%) (Auto) 0.1 0.0-5.0 % Neutrophils # (Auto) 8.5 H 1.8-7.7 K/uL Lymphocytes # (Auto) 0.5 L 1.0-4.8 K/uL Monocytes # (Auto) 0.6 0.1-1.0 K/uL Eosinophils # (Auto) 0.00 0.00-0.70 K/uL Basophils # (Auto) 0.01 0.00-0.20 K/uL Absolute Immature Granulocyte (auto 0.08 0-1 K/uL Nucleated Red Blood Cells 1.9 H 0.0-0.19 % White Cell Morphology Comment See comments Red Blood Cell Morphology See comments Sodium Level 130 L 136-145 mmol/L Potassium Level 4.9 3.5-5.1 mmol/L Chloride Level 89 *L 101-111 mmol/L Carbon Dioxide Level 28 21-32 mmol/L Blood Urea Nitrogen 58 #H 7-18 mg/dL Creatinine 5.5 H 0.5-1.3 mg/dL Glomerular Filtration Rate Calc 10 >90 mL/min Random Glucose 272 #H 70-105 mg/dL Total Calcium 8.1 L 8.5-10.1 mg/dL Phosphorus Level 6.3 H 2.5-4.9 mg/dL Magnesium Level 2.10 1.80-2.40 mg/dL Total Bilirubin 1.3 H 0.2-1.0 mg/dL Aspartate Amino Transf (AST/SGOT) 28 10-37 U/L Alanine Aminotransferase (ALT/SGPT) 20 12-78 U/L Alkaline Phosphatase 235 H 50-136 U/L Total Protein 8.2 6.0-8.3 g/dL Albumin 2.9 L 3.5-5.0 g/dL ASSESSMENT: Right foot gangrene with osteomyelitis. Gram-negative pneumonia. Peripheral vascular disease. Status post mechanical fall. End Stage renal disease, on dialysis. Diabetes mellitus. Chronic respiratory failure, home O2 dependent. PLAN: Continue vancomycin on dialysis days. Continue Zosyn IV. Continue GI prophylaxis. Continue current wound care. Continue pain management. Continue bronchodilators. Continue antiplatelets. Continue ant diabetics. Patient is currently on a one-to-one sitter observation. Patient is being referred to hospice services. This case was reviewed and discussed with my supervising physician and the above assessment and plan was formulated and agreed upon. ATTESTATION BY PHYSICIAN I have seen and examined the patient. I reviewed the documentation, medical decision making, and treatment plan as noted by the mid-level provider above. I agree with the findings and plan of care. NEDA DEL TORO MD, [facility] Jun 06, 2024 22:27
[2024-06-07] VITALS (27 sets, daily range): BP systolic 110–145; BP diastolic 43–90; PULSE 86–95; RESP 16–26; TEMP 96.4–98.6; O2SAT 82–99
[2024-06-07 05:10] LABS: HEMATOCRIT 30.6 % (42-54); MEAN CORPUSCULAR HEMOGLOBIN 28.1 pg (27.0-33.0); MEAN CORPUSCULAR HGB CONC 31.7 g/dL (32.0-36.0); MEAN CORPUSCULAR VOLUME 88.7 fL (79-99); NUCLEATED RED BLOOD CELLS 2.9 % (0.0-0.19); RED BLOOD CELL COUNT(AUTO) 3.45 MIL/uL (4.50-6.20); RED CELL DISTRIBUTION WIDTH 20.3 % (11.0-15.5); WHITE BLOOD COUNT (AUTO) 13.7 K/uL (4.8-10.8)
[2024-06-07 05:26] LABS: ALBUMIN 2.9 g/dL (3.5-5.0); BILIRUBIN,TOTAL 1.5 mg/dL (0.2-1.0); CREATININE 6.7 mg/dL (0.5-1.3); MAGNESIUM 2.4 mg/dL (1.80-2.40); POTASSIUM 5.4 mmol/L (3.5-5.1); TOTAL PROTEIN, SERUM 8.1 g/dL (6.0-8.3); VANCOMYCIN TROUGH 20.8 UG/ML (10.0-20.0)
--- NOTE | 2024-06-07 13:06 | HMCIMG ---
PORTABLE CHEST RADIOGRAPH INDICATION: pneumonia COMPARISON: 06/01/2024 FINDINGS: Image is somewhat underexposed, but the radiologic examination is still believed to be of reasonable diagnostic quality. cementer oil well leads overlie the field of view. Median sternotomy wires are in appropriate alignment. Left sided dual chamber pacer and continuous leads remain in customary position. Stable right-sided hemodialysis catheter. Heart remains enlarged. Stable cardiac valve prostheses. Mild calcific plaque is present along the aortic arch enciso. The pulmonary vascularity appears normal. Minimal bibasilar opacities without consolidation. Right costophrenic angle remains slightly blunted more than the left. No pneumothorax detected. IMPRESSION: Trace right greater than left pleural effusions with subjacent passive atelectasis favored over any other airspace process. Stable cardiomegaly without pulmonary vascular congestion.
--- NOTE | 2024-06-07 14:33 | PN ---
[facility] PROGRESS NOTE Date of Service: Jun 07, 2024 Time of Service: 14:19 SUBJECTIVE: 78-year-old male, [place]-speaking with past medical history of Anemia, end- stage renal disease on hemodialysis (TThS) atrial fibrillation, bioprosthetic aortic valve replacement in 2020 currently on warfarin,coronary artery disease, hypertension, hyperlipidemia, diabetes, severe cardiomyopathy(LVEF 20-25% as per clinic note unable to tolerate GDM T due to hypotension currently on midodrine) ,sick sinus syndrome status post [employer] LINEN MANAGER-D device in September 2020 and chronic respiratory failure on home O2 who presented to the ED was sent by Dr. Mims for evaluation of right 1st,2nd and 3rd toe gangrene . Patient c/o pain at the site.As per daughter ,it started on March 2024 as redness and it progressively got worsen that it started turning black 5 days back. Patient also complained of occasional cough. Patient has been dialyzed on the same day and 2 Liters of fluid removed .Patient's Rheostat Assembler is and patient 's grinder brake lining is .Patient denies fever,chills,nausea,vomiting,chest pain and palpitation. Vital signs at the time of presentation: temperature 98.6, heart rate 98, blood pressure 104/59 saturation 98% on 2 L nasal cannula. Labs: Hemoglobin 9, hematocrit 30 platelet count 235. Chloride 97, BUN 29, creatinine 4.2, GFR 14, glucose 232, lactic acid 2.3 troponin 86 to 80, BNP 1650 procalcitonin 0.84. Right foot x-ray result revealed no evidence for fracture or subluxation. Chest x-ray result revealed cardiomegaly with pulmonary vascular congestion and small right greater than left pleural effusion with subjacent passive atelectasis. Patient is admitted for further medical management. 05.30.24: Patient is seen resting in his bed. Pending Cardiology, podiatry , nephrology and ID consult.Pending b/l LE artery doppler. 05.31.24: Patient had angiogram done yesterday for assessing lower extremity circulation. Bilateral anterior and posterior tibial arteries are occluded with peroneal arteries grossly patent. Pending podiatry recommendations for possible TMA . Cardiology plan for peripheral angiogram early next week. Ortho consult pending . 06/01/24 : Patient is seen and examined today. Denies any complaints today. However use had stridor and shortness of breath during the night and neck soft tissue x-ray was ordered which showed normal soft tissue and epiglottitis appears unremarkable. Solu-Medrol 60 Q 6 was given. Chest x-ray showed bilateral airspace consolidation with right effusion. Plan for peripheral angio on 06/05/[address] Bates. We will hold the warfarin since the patient is already on heparin drip. We will downgrade him to med surge with telemetry. 06/02/2024: Patient complains of pain and was agitated yesterday night . Patient in one on one supervision. Labs showed potassium 6.4 , Phosphorous 7.7 .Repeat potassium is 5.2. Nephrology suggested 2 hour dialysis for today . He is pending peripheral angiogram. We will consult orthopedic surgery . 06.03.24: Patient has been restless and aggressive at ttimes as per the RN. Patient continues to be placed on one to one observation . He is receiving his regular dialysis today .Pending cardiology intervention and orthopedic consult today . 06.04.24: Patient continues to be at his baseline.Removed 2.5 litres of fluid d uring dialysis session yesterday. Pending peripheral angiogram on 06.05.[address] Webb. 06.05.24: Patient is pending peripheral angiogram today . Mental status at the baseline . In-patient dialysis is scheduled today after the angiogram as per Dr Sheffield. Addendum: Peripheral angiogram is canceled. As per the RN-Dr Webb informed that she was not unaware of the schedule today . As per Dr Hill's note on 06.01.23-patient had an angiogram scheduled on 06.05 and pre procedure orders were entered by Dr Florian yesterday night. Will coordinate the plan . Patient and the daughter is aware of this. Patient is resumed on diet and is scheduled for dialysis today . 06.06.24: Dr Webb recommended no peripheral angiogram . A s per the note "This patient is well known to me in the outpatient setting. His cardiac status has been tenuous over the past year and he has declined significantly. We have discussed palliative inotropes and referral to heart failure specialist for further recommendations however he is poor candidate for any invasive procedures given his advanced heart failure, confusion, and history of noncompliance with medical therapy. He is non compliant with his warfarin and INR checks. He is non compliant with his ICD interrogations. He has refused the referral to inotropic therapy and advanced HF even after these were arranged. ....... I think hospice is a reasonable plan of care for this patient given his debility, ESRD, and advanced HF of which he is not tolerating GDMT and has recurrent hospitalizat ions. "Patient fell from bed today morning and a rapid response was called. No significant complications noted .Head CT is unremarkable. Myself and my attending Dr Goncalves had discussions with the bystander- the daughter at the bedside - regarding hospice.Patient's daughter refused hospice.Pending Orthopedic recommendations and placement to SNF . Patient is in DNR-DNI now. 06/07/24 Patient was REVIEW OF SYSTEMS CONSTITUTIONAL: Denies fevers, chills, or night sweats. No unintentional weight loss reported. NEUROLOGICAL: Denies headache, amaurosis fugax, motor weakness, sensory deficit, vertigo/spinning sensation, gait abnormalities, or tremors. ENT: No hearing loss, otalgia, otorrhea, rhinitis, rhinorrhea, hoarseness, or sore throat. CARDIOVASCULAR: Denies any exertional angina, dyspnea on exertion, orthopnea, paroxysmal nocturnal dyspnea, palpitations, life-threatening arrhythmias, claudication. PULMONARY: Complaints of cough and shortness of breaths Denies hemoptysis, pleuritic chest pain. SLEEP: Denies morning headaches, daytime somnolence or napping. Denies difficulty falling asleep, staying asleep, waking from sleep. Denies knowledge of snoring. GASTROINTESTINAL: Denies any type of dysphagia to either liquids or solids. Denies nausea, vomiting, pyrosis, early satiety, abdominal pain, diarrhea, constipation, or changes in stool consistency or caliber. Denies coffee-ground emesis, hematemesis, hematochezia, or melanotic stools. GENITOURINARY: Denies frequency, urgency, nocturia, hematuria or incontinence (Storage/Irritative symptoms.) Low urinary stream, straining to void, urinary intermittency or hesitancy, splitting of the voiding stream, terminal dribbling. PHYSICAL EXAM GENERAL APPEARANCE: The patient is awake, alert, and oriented, in no acute cardiopulmonary distress. NEUROLOGICAL: Cranial nerves II-XII grossly intact. Motor is 5/5 in bilateral upper and lower extremities proximal to distal. No sensory deficits. HEENT: Face is symmetric. Pupils are equal and reactive. Extraocular movements are intact. NECK: Supple. No JVD. No thyromegaly. No submental, submandibular, pre- /postauricular, occipital or supraclavicular lymphadenopathy. CHEST: Normal chest expansion. Telemetry. LUNGS: Bilateral crackles and scattered rhonchi on auscultation CARDIOVASCULAR: Regular. S1 and S2 normal. No appreciable rubs, murmurs or gallops. ABDOMEN: Soft, nontender, and nondistended. There is no rebound, voluntary guarding, or rigidity. : Deferred. No Geller. EXTREMITIES: 2+ edema bilateral lower extremities. warm rt foot till the base of necrotic toe SKIN: Left leg wound at the tip of the great toe. Right necrotic 1st ,2nd toes and the 3rd toe-dry gangrene. Vital Signs (last 8hr) Date Time Temp Pulse Resp B/P (MAP) Pulse Ox O2 Delivery O2 Flow Rate FiO2 06/07/24 11:44 97.9 89 16 110/52 98 Nasal Cannula 2.0 24 06/07/24 11:18 89 16 N/Cannula Low lpm 2.0 06/07/24 11:16 89 16 06/07/24 07:42 97.7 89 16 123/72 100 Nasal Cannula 2.0 24 06/07/24 06:43 90 20 06/07/24 06:42 90 20 N/A Room Air 2.0 28 LABS: Laboratory: Test 06/07/24 11:53 06/07/24 04:36 06/06/24 20:48 06/06/24 10:33 Range/Units Whole Blood Glucose 210 H 70-110 MG/DL White Blood Count 13.7 H 4.8-10.8 K/uL Red Blood Count 3.45 L 4.50-6.20 MIL/uL Hemoglobin 9.7 L 14.0-18.0 g/dL Hematocrit 30.6 L 42-54 % Mean Corpuscular Volume 88.7 79-99 fL Mean Corpuscular Hemoglobin 28.1 27.0-33.0 pg Mean Corpuscular Hemoglobin Concent 31.7 L 32.0-36.0 g/dL Red Cell Distribution Width 20.3 H 11.0-15.5 % Platelet Count 212 130-400 K/uL Mean Platelet Volume 12.5 H 7.5-10.5 fL Nucleated Red Blood Cells 2.9 H 0.0-0.19 % Sodium Level 129 L 136-145 mmol/L Potassium Level 5.4 H 3.5-5.1 mmol/L Chloride Level 87 *L 101-111 mmol/L Carbon Dioxide Level 22 21-32 mmol/L Blood Urea Nitrogen 82 *H 7-18 mg/dL Creatinine 6.7 H 0.5-1.3 mg/dL Glomerular Filtration Rate Calc 8 >90 mL/min Random Glucose 215 H 70-105 mg/dL Total Calcium 8.1 L 8.5-10.1 mg/dL Phosphorus Level 8.0 H 2.5-4.9 mg/dL Magnesium Level 2.40 1.80-2.40 mg/dL Total Bilirubin 1.5 H 0.2-1.0 mg/dL Aspartate Amino Transf (AST/SGOT) 37 10-37 U/L Alanine Aminotransferase (ALT/SGPT) 28 12-78 U/L Alkaline Phosphatase 237 H 50-136 U/L Total Protein 8.1 6.0-8.3 g/dL Albumin 2.9 L 3.5-5.0 g/dL Vancomycin Level Trough 20.8 H 10.0-20.0 UG/ML Prothrombin Time 16.9 H 9.6-11.6 SEC Prothromb Time International Ratio 1.68 H 0.85-1.15 Activated Partial Thromboplast Time 63.5 H 26.3-35.5 SEC Lactic Acid Level 3.6 H 0.8-2.5 mmol/L Troponin I High Sensitivity 42 4-75 ng/L Test 06/06/24 01:40 Range/Units Immature Granulocyte % (Auto) 0.8 0-1 % Neutrophils (%) (Auto) 87.1 H 40.0-77.0 % Lymphocytes (%) (Auto) 5.5 L 21.0-51.0 % Monocytes (%) (Auto) 6.5 3.0-13.0 % Eosinophils (%) (Auto) 0.0 0.0-8.0 % Basophils (%) (Auto) 0.1 0.0-5.0 % Neutrophils # (Auto) 8.5 H 1.8-7.7 K/uL Lymphocytes # (Auto) 0.5 L 1.0-4.8 K/uL Monocytes # (Auto) 0.6 0.1-1.0 K/uL Eosinophils # (Auto) 0.00 0.00-0.70 K/uL Basophils # (Auto) 0.01 0.00-0.20 K/uL Absolute Immature Granulocyte (auto 0.08 0-1 K/uL White Cell Morphology Comment See comments Red Blood Cell Morphology See comments Current Medications Medications (Trade) Dose Ordered Sig/Yefri Route PRN Reason Start Time Stop Time Status Last Admin Dose Admin Acetaminophen (TYLenol 325MG TAB) 650 mg Q6H PRN PO MODERATE PAIN (4-6) 06/05/24 14:00 07/05/24 13:59 06/06/24 21:54 650 MG Acetaminophen/ Hydrocodone Bitart (NORco 5/325MG) 1 tab Q4H PRN PO MODERATE PAIN (4-6) 05/29/24 19:00 06/03/24 18:59 DC 05/31/24 21:04 1 TAB Acetaminophen/ Hydrocodone Bitart (NORco 5/325MG) 2 tab Q4H PRN PO SEVERE PAIN (7-10) 05/29/24 19:00 06/02/24 12:12 DC 05/31/24 10:18 2 TAB Albumin Human (Albumin (Human) 25%) 100 ml ONCE IV 06/02/24 09:30 06/02/24 10:46 DC Albumin Human (Albumin (Human) 25%) 100 ml ONCE IV 06/03/24 11:00 06/03/24 17:20 DC Albumin Human (Albumin (Human) 25%) 100 ml ONCE PRN IV SBP <100MMHG OR TREATMENT RELATED SYMPTOMS DURING HD 06/03/24 17:30 06/04/24 10:59 DC Albuterol (DUOneb) 1 UDVIAL Q6H PRN IH SHORTNESS OF BREATH 05/31/24 16:00 06/30/24 15:59 05/31/24 22:54 1 UDVIAL Albuterol (DUOneb) 1 udvial [id number] IH 05/29/24 22:00 05/31/24 06:30 DC 05/31/24 01:03 1 UDVIAL Aspirin (Aspirin 81mg Ec Tab) 81 mg DAILY PO 05/31/24 09:00 06/30/24 08:59 06/07/24 09:34 81 MG Atorvastatin Calcium (LIPItor 40MG) 80 mg HS PO 05/30/24 21:00 06/29/24 20:59 06/06/24 20:46 80 MG Clopidogrel Bisulfate (plaVIX 75MG) 75 mg DAILY PO 05/31/24 09:00 06/30/24 08:59 06/07/24 09:34 75 MG Dextrose (D50w) 50 ml AD PRN IV HYPOGLYCEMIA PROTOCOL 05/29/24 20:00 06/28/24 19:59 Diazepam (VALium 5 MG/ML 2 ML SYG) 2 mg ONCE PRN IV ANXIETY 06/01/24 22:30 06/03/24 16:13 DC 06/02/24 00:25 2 MG Docusate Sodium (COLace 100MG CAP) 100 mg DAILY PO 05/31/24 09:00 06/30/24 08:59 06/07/24 09:35 100 MG Epoetin Willy-epbx (Retacrit) 10,000 unit QTUTHSA[DIALYSIS] SQ 05/31/24 16:00 06/30/24 15:59 06/05/24 18:08 10,000 UNIT Famotidine (Pepcid 20mg Tab) 10 mg DAILY PO 05/30/24 09:00 06/29/24 08:59 06/07/24 09:35 10 MG Glucagon (Glucagon 1mg Kit) 1 mg AD PRN IM HYPOGLYCEMIA PROTOCOL 05/29/24 20:00 06/28/24 19:59 Heparin Sodium (Porcine) (HEParin 5,000 UNIT VIAL) 10,000 unit AD IRRIG 05/31/24 14:30 06/30/24 10:59 06/03/24 15:41 10,000 UNIT Heparin Sodium (Porcine) (HEParin 5,000 UNIT VIAL) 10,000 unit AD SQ 05/31/24 11:00 05/31/24 14:15 DC Heparin Sodium/ Dextrose 250 ml @ 0 mls/hr PROTOCOL IV 05/30/24 21:30 06/29/24 21:29 06/06/24 18:45 9.07 MLS/HR Home Med (Home Medication) (Sevelamer Carbonate (Renv... TIDAC PO 05/30/24 17:00 06/29/24 16:59 06/04/24 12:08 1 EACH Hydromorphone HCl (DiLAUDid 0.5MG INJ) 0.5 mg Q6H PRN IVP SEVERE PAIN (7-10) 06/02/24 12:30 06/07/24 12:29 DC 06/07/24 10:10 0.5 MG Insulin Human Regular (humuLIN R 100 UNIT/ML 3ML) INSULIN SLIDING SCAL... ACHS SQ 05/29/24 21:00 06/28/24 20:59 06/07/24 06:28 2 UNIT Ipratropium [place] (AtrovENT UD) 0.5 MG [id number] IH 05/31/24 06:30 06/30/24 06:29 06/07/24 11:14 0.5 MG Methylprednisolone Sodium Succinate (Solu-medROL 40MG) 40 mg BID IVP 06/04/24 09:00 06/05/24 21:33 DC 06/05/24 20:39 40 MG Methylprednisolone Sodium Succinate (Solu-medROL 40MG) 60 mg Q6H IVP 06/02/24 12:30 06/03/24 21:58 DC 06/03/24 20:13 60 MG Methylprednisolone Sodium Succinate (Solu-medROL 125MG) 60 mg Q6H IVP 06/01/24 06:00 06/01/24 21:45 DC 06/01/24 13:04 60 MG Methylprednisolone Sodium Succinate (Solu-medROL 125MG) 60 mg Q6H IVP 06/02/24 00:00 06/02/24 07:06 DC 06/02/24 06:36 60 MG Midodrine (PROAMatine 5 MG TABLET) 10 mg TID PO 05/29/24 21:00 05/31/24 10:34 DC 05/30/24 20:45 10 MG Midodrine (PROAMatine 5 MG TABLET) 30 mg DAILY PO 05/31/24 09:00 06/01/24 22:15 DC 06/01/24 09:00 30 MG Midodrine (PROAMatine 5 MG TABLET) 30 mg HS PO 06/01/24 22:30 06/30/24 08:59 06/06/24 20:46 30 MG Miscellaneous Medication (Midodrine HCl ) 10 mg TID PO 05/29/24 21:00 05/29/24 19:49 DC Ondansetron HCl (zoFRAN 4MG INJ) 4 mg Q6H PRN IV NAUSEA/VOMITING 05/29/24 19:00 06/28/24 18:59 Pharmacy Profile Note (Lace Assessment) 1 each AD MISC 05/30/24 15:30 05/31/24 14:17 DC Piperacillin Sod/ Tazobactam Sod 50 ml @ 12.5 mls/hr Q12H IV 05/30/24 04:00 05/31/24 04:21 DC 05/30/24 20:46 12.5 MLS/HR Piperacillin Sod/ Tazobactam Sod 50 ml @ 12.5 mls/hr Q12H IV 05/31/24 09:00 06/10/24 08:59 06/07/24 09:35 12.5 MLS/HR Piperacillin Sod/ Tazobactam Sod 50 ml @ 200 mls/hr ONCE IVPB 05/29/24 16:00 05/30/24 09:37 DC 05/29/24 16:15 200 MLS/HR Prednisone (deltaSONE/ oraSONE 20MG TAB) 40 mg DAILY PO 06/06/24 09:00 06/11/24 09:00 06/07/24 09:35 40 MG Sevelamer HCl (RENAgel 800 MG TAB) 800 mg TIDMEALS PO 06/02/24 08:00 07/02/24 07:59 06/07/24 09:35 800 MG Sodium Bicarbonate (Sodium Bicarbonate) 650 mg TID PO 06/02/24 09:00 06/03/24 08:41 DC 06/02/24 21:12 650 MG Sodium Chloride 1,000 ml @ 0 mls/hr ONCE IV 05/31/24 11:00 06/30/24 10:59 06/03/24 09:52 100 MLS/HR Vancomycin HCl 250 ml @ 125 mls/hr ONCE IV 05/29/24 19:00 05/29/24 19:52 DC Vancomycin HCl (Vancomycin 750mg) 750 mg QTUTHSA[DIALYSIS] IVPB 05/31/24 16:00 06/10/24 15:59 06/05/24 18:14 750 MG Vancomycin HCl (Vancomycin Protocol) 1 each AD IV 05/29/24 20:00 06/12/24 19:59 Warfarin Sodium (Coumadin) 2 mg BID PO 05/30/24 21:00 06/01/24 11:32 DC 06/01/24 09:03 2 MG Zolpidem Tartrate (AmbIEN) 5 mg HS PO 06/01/24 22:00 07/01/24 21:59 06/06/24 20:46 5 MG DIAGNOSTICS / RADIOLOGY: [ ] ASSESSMENT: Sepsis without septic shock POA 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 POA Osteomyelitis of the right foot toes POA Left leg diabetic wound ulcer POA Right lung Gram negative pneumonia POA Severe peripheral vascular disease POA Chronic respiratory failure on oxygen dependent POA End stage renal disease on hemodialysis POA Atrial fibrillation on Coumadin POA severe ischemic cardiomyopathy with AICD device POA Coronary artery disease with CABGx2 ,AVR bioprosthetic and stent x1 POA Chronic anemia due to CKD Elevated troponin secondary to ESRD and sepsis POA Uncontrolled diabetes POA Morbid Obesity POA Fall , not POA PLAN: Sepsis, POA 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 POA Osteomyelitis of the right foot toes , POA Left Leg diabetic wound ulcer POA Patient with pain at the gangrene sight -Betadine soaked dressing in place. continue Zosyn and IV and vancomycin IV for broad-spectrum coverage Cardiology recommended hospice -patient and daughter refused hospice Orthopedic consult recommendations pending Pending placement to SNF - will coordinate with Dr Garcia for possible need of antibiotics Right lung Gram negative pneumonia POA B/L wheeze and creps on examination at the time of admission -duoneb treatement sputum culture positive for Klebsiella pneumoniae Continue antibiotics and nebulization Chest physiotherapy Acute on chronic respiratory failure on oxygen dependent POA Chronic respiratory failure- patient on home oxygen End stage renal disease on hemodialysis POA continue HD TTHS Continue renal diet Nephrology recommendations Strict I/O chart Fluid intake <1500 ml per day Atrial fibrillation on Coumadin POA Severe ischemic cardiomyopathy with AICD device POA Acute on chronic systolic HFrEF POA Coronary artery disease with CABGx2 ,AVR bioprosthetic and stent x1 POA Severe peripheral vascular disease POA Abdominal aorta runoff study showing 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 Patient on Heparin drip - will get recommendations whether to continue heparin at this time . Monitor PTT and adjust Heparin dose Hold Warfarin Dr Bates deemed the patient to be of high risk for any procedures given his history of endstage heart failure and ESRD. He has h/o refusal and non compliance to the treatment . Will request Hospice evaluation - social work lecturer on board - patient's daughter refused Hospice. Pending SNF placement Fall not POA As per the RN, patient fell from the bed . Patient has underlying dementia and has been with episodes of aggressions requiring one to one observation since admission. Post fall period uneventful. His vitals and mental status remain baseline CT head unremarkable Fall precautions in place . Neurochecks Case seen and evaluated with Dr Hernandez above plan was formulated. ATTESTATION BY PHYSICIAN I have seen and examined the patient. I reviewed the documentation, medical decision making, and treatment plan as noted by the mid-level provider above. I agree with the findings and plan of care. Roya Hernandez MD, [facility] Jun 07, 2024 14:33
--- NOTE | 2024-06-07 15:05 | PN ---
DIALYSIS NOTE SUBJECTIVE: The patient is seen and evaluated, on hemodialysis, no prescription noted. OBJECTIVE: VITAL SIGNS: Blood pressure is 110/52, pulse in the 80s. CARDIOVASCULAR: Regular. LUNGS: Coarse. IMPRESSION: End-stage renal disease. PLAN: The patient will continue with maximal ultrafiltration as blood pressure allows. The patient remains on the antibiotics. TID: [id number] RECEIPT: [id number]
--- NOTE | 2024-06-07 15:20 | PN ---
[facility] PROGRESS NOTE Date Patient Seen: Jun 07, 2024 Time of Visit: 15:19 Supervising Physician: Dr. 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 Patient's white count today is increased to 13.7. He continues on Zosyn and vancomycin for right lung pneumonia as well as white foot gangrene. Patient also continues on prednisone 40 daily. Per chart review patient's family is considering hospice at this time however no decisions has been made therefore we will continue with the current treatment plan and continue to follow the patient. Patient would benefit from continued antibiotic therapy in an inpatient setting, disposition per primary. REVIEW OF SYSTEMS: 12 point ROS reviewed with patient. Pertinent positives mentioned above. Otherwise negative. PHYSICAL EXAM: GENERAL: alert, weak, awake oriented x 3 HEENT: EOMI, Sclera non icteric, moist mucosa NECK: Supple, no JVD, trachea midline LUNGS: Clear breath sounds bilaterally. No wheezes HEART: Regular rate and rhythm. Normal S1 and S2, without murmurs ABD: Abdomen soft, nontender. Bowel sounds present EXT: No clubbing cyanosis or edema NEURO: Alert and oriented to person, follows commands Vital Signs (last 8hr) Date Time Temp Pulse Resp B/P (MAP) Pulse Ox O2 Delivery O2 Flow Rate FiO2 06/07/24 11:44 97.9 89 16 110/52 98 Nasal Cannula 2.0 24 06/07/24 11:18 89 16 N/Cannula Low lpm 2.0 06/07/24 11:16 89 16 06/07/24 07:42 97.7 89 16 123/72 100 Nasal Cannula 2.0 24 LABS: Hematology Labs: Test 06/07/24 04:36 06/06/24 01:40 Range/Units White Blood Count 13.7 H 4.8-10.8 K/uL Red Blood Count 3.45 L 4.50-6.20 MIL/uL Hemoglobin 9.7 L 14.0-18.0 g/dL Hematocrit 30.6 L 42-54 % Mean Corpuscular Volume 88.7 79-99 fL Mean Corpuscular Hemoglobin 28.1 27.0-33.0 pg Mean Corpuscular Hemoglobin Concent 31.7 L 32.0-36.0 g/dL Red Cell Distribution Width 20.3 H 11.0-15.5 % Platelet Count 212 130-400 K/uL Mean Platelet Volume 12.5 H 7.5-10.5 fL Nucleated Red Blood Cells 2.9 H 0.0-0.19 % Immature Granulocyte % (Auto) 0.8 0-1 % Neutrophils (%) (Auto) 87.1 H 40.0-77.0 % Lymphocytes (%) (Auto) 5.5 L 21.0-51.0 % Monocytes (%) (Auto) 6.5 3.0-13.0 % Eosinophils (%) (Auto) 0.0 0.0-8.0 % Basophils (%) (Auto) 0.1 0.0-5.0 % Neutrophils # (Auto) 8.5 H 1.8-7.7 K/uL Lymphocytes # (Auto) 0.5 L 1.0-4.8 K/uL Monocytes # (Auto) 0.6 0.1-1.0 K/uL Eosinophils # (Auto) 0.00 0.00-0.70 K/uL Basophils # (Auto) 0.01 0.00-0.20 K/uL Absolute Immature Granulocyte (auto 0.08 0-1 K/uL White Cell Morphology Comment See comments Red Blood Cell Morphology See comments Chemistry Labs: Test 06/07/24 11:53 06/07/24 04:36 06/06/24 10:33 Range/Units Whole Blood Glucose 210 H 70-110 MG/DL Sodium Level 129 L 136-145 mmol/L Potassium Level 5.4 H 3.5-5.1 mmol/L Chloride Level 87 *L 101-111 mmol/L Carbon Dioxide Level 22 21-32 mmol/L Blood Urea Nitrogen 82 *H 7-18 mg/dL Creatinine 6.7 H 0.5-1.3 mg/dL Glomerular Filtration Rate Calc 8 >90 mL/min Random Glucose 215 H 70-105 mg/dL Total Calcium 8.1 L 8.5-10.1 mg/dL Phosphorus Level 8.0 H 2.5-4.9 mg/dL Magnesium Level 2.40 1.80-2.40 mg/dL Total Bilirubin 1.5 H 0.2-1.0 mg/dL Aspartate Amino Transf (AST/SGOT) 37 10-37 U/L Alanine Aminotransferase (ALT/SGPT) 28 12-78 U/L Alkaline Phosphatase 237 H 50-136 U/L Total Protein 8.1 6.0-8.3 g/dL Albumin 2.9 L 3.5-5.0 g/dL Lactic Acid Level 3.6 H 0.8-2.5 mmol/L Troponin I High Sensitivity 42 4-75 ng/L Coagulation Labs: Test 06/06/24 20:48 Range/Units Prothrombin Time 16.9 H 9.6-11.6 SEC Prothromb Time International Ratio 1.68 H 0.85-1.15 Activated Partial Thromboplast Time 63.5 H 26.3-35.5 SEC DIAGNOSTICS / RADIOLOGY RESULTS: [ ] PLAN NEURO: Minimize central acting medications as possible. Maintain fall precautions, adequate lighting during the day PULMONARY: Supplemental 02 as needed. Maintain aspiration precautions at all times CARDIOVASCULAR: Follow hemodynamics. Vital signs per facility protocol GI & NUTRITION: Continue with nutritional support. Continue stool softeners and laxatives as needed. KIDNEYS & ELECTROLYTES: Strict monitoring of intake, output and overall fluid balance. Avoid nephrotoxic medications to the extent possible. Medications to be dosed according to renal function. Monitor electrolytes and replace as needed ENDOCRINE: Maintain blood glucose between 100-180 at all times. Hypoglycemia protocol in place INFECTIOUS DISEASE: Trend temperature, WBC and procalcitonin level Follow cultures, deescalate antibiotics as soon as possible. Panculture if new onset fever ONCOLOGY/HEMATOLOGY/COAGULATION: Monitor for s/s of bleeding Monitor hemoglobin, coagulation studies as needed SKIN: Pressure ulcer prevention per facility protocol Specialty mattress ORTHO/REHAB: Continue PT/OT Prophylaxis: Continue GI and DVT prophylaxis Code Status: Full Resuscitation Disposition: TBD Other: Total patient care time exceeds 35 minutes excluding all procedures. KARIME FRANZ Jun 07, 2024 15:19
[2024-06-07] MEDS: ondanSETRON 4MG INJ IV PRN (20:47)
[2024-06-08] VITALS (12 sets, daily range): BP systolic 102–159; BP diastolic 65–88; PULSE 80–90; RESP 16–22; TEMP 96.3–97.7; O2SAT 95–99
[2024-06-08 03:43] LABS: HEMATOCRIT 31.4 % (42-54); MEAN CORPUSCULAR HEMOGLOBIN 28.7 pg (27.0-33.0); MEAN CORPUSCULAR HGB CONC 31.5 g/dL (32.0-36.0); RED BLOOD CELL COUNT(AUTO) 3.45 MIL/uL (4.50-6.20); WHITE BLOOD COUNT (AUTO) 13.1 K/uL (4.8-10.8)
[2024-06-08 03:51] LABS: CREATININE 5.5 mg/dL (0.5-1.3); POTASSIUM 5.3 mmol/L (3.5-5.1)
--- NOTE | 2024-06-08 07:41 | PN ---
INFECTIOUS DISEASE FOLLOWUP NOTE DATE OF SERVICE: 06/07/2024 SUBJECTIVE: The patient is seen and examined at bedside. The patient was sent to the hospital from [facility]. The patient has bedbound debility . No bleeding tendencies. No rashes or itchiness. No palpitations. No orthopnea. No . PHYSICAL EXAMINATION: VITAL SIGNS: Temperature 97.9. EYES: No icterus. Pupils are equal and reactive. HENT: No oral thrush seen. Moist oral mucosa. NECK: Supple. No JVD or thyromegaly. LUNGS: Good air entry. No rales. No rhonchi. CARDIOVASCULAR: S1 and S2 regular. No murmur heard. ABDOMEN: Full. Soft. Bowel sound is present. Obese. No organomegaly. CENTRAL NERVOUS SYSTEM: Awake. Bedbound debility. SKIN: No rashes. No itchiness. LYMPHATIC: No peripheral lymphadenopathy. EXTREMITIES: Gangrene involving multiple toes on both feet. ASSESSMENT: A 78-year-old male with multiple problems which include: * Right foot osteomyelitis. * Peripheral vascular disease. * End-stage renal disease, on dialysis. * Respiratory failure. * Obesity. * Encephalopathy. * Peripheral vascular disease. PLAN: * Continue pain management. * Continue vancomycin. * Continue Zosyn. * Continue dialysis. * Continue antiplatelet. * Continue antidiabetic. * Monitor electrolytes. * The patient will be followed up closely. TID: [id number] RECEIPT: [id number]
--- NOTE | 2024-06-08 12:53 | PN ---
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 Mims for evaluation of right 1st,2nd and 3rd toe gangrene . Patient c/o pain at the site.As per daughter ,it started on March 2024 as redness and it progressively got worsen that it started turning black 5 days back. Patient also complained of occasional cough. Patient has been dialyzed on the same day and 2 Liters of fluid removed .Patient's Steward/Stewardess [employer] Class is and patient 's accountant bookkeeper is .Patient denies fever,chills,nausea,vomiting,chest pain and palpitation. Vital signs at the time of presentation: temperature 98.6, heart rate 98, blood pressure 104/59 saturation 98% on 2 L nasal cannula. Labs: Hemoglobin 9, hematocrit 30 platelet count 235. Chloride 97, BUN 29, creatinine 4.2, GFR 14, glucose 232, lactic acid 2.3 troponin 86 to 80, BNP 1650 procalcitonin 0.84. Right foot x-ray result revealed no evidence for fracture or subluxation. Chest x-ray result revealed cardiomegaly with pulmonary vascular congestion and small right greater than left pleural effusion with subjacent passive atelectasis. Patient is admitted for further medical management. 05.30.24: Patient is seen resting in his bed. Pending Cardiology, podiatry , nephrology and ID consult.Pending b/l LE artery doppler. 05.31.24: Patient had angiogram done yesterday for assessing lower extremity circulation. Bilateral anterior and posterior tibial arteries are occluded with peroneal arteries grossly patent. Pending podiatry recommendations for possible TMA . Cardiology plan for peripheral angiogram early next week. Ortho consult pending . 06/01/24 : Patient is seen and examined today. Denies any complaints today. However use had stridor and shortness of breath during the night and neck soft tissue x-ray was ordered which showed normal soft tissue and epiglottitis appears unremarkable. Solu-Medrol 60 Q 6 was given. Chest x-ray showed bilateral airspace consolidation with right effusion. Plan for peripheral angio on 06/05/[address] Bates. We will hold the warfarin since the patient is already on heparin drip. We will downgrade him to med surge with telemetry. 06/02/2024: Patient complains of pain and was agitated yesterday night . Patient in one on one supervision. Labs showed potassium 6.4 , Phosphorous 7.7 .Repeat potassium is 5.2. Nephrology suggested 2 hour dialysis for today . He is pending peripheral angiogram. We will consult orthopedic surgery . 06.03.24: Patient has been restless and aggressive at ttimes as per the RN. Patient continues to be placed on one to one observation . He is receiving his regular dialysis today .Pending cardiology intervention and orthopedic consult today . 06.04.24: Patient continues to be at his baseline.Removed 2.5 litres of fluid d uring dialysis session yesterday. Pending peripheral angiogram on 06.05.[address] Webb. 06.05.24: Patient is pending peripheral angiogram today . Mental status at the baseline . In-patient dialysis is scheduled today after the angiogram as per Dr Sheffield. Addendum: Peripheral angiogram is canceled. As per the RN-Dr Webb informed that she was not unaware of the schedule today . As per Dr Hill's note on 06.01.23-patient had an angiogram scheduled on 06.05 and pre procedure orders were entered by Dr Florian yesterday night. Will coordinate the plan . Patient and the daughter is aware of this. Patient is resumed on diet and is scheduled for dialysis today . 06.06.24: Dr Webb recommended no peripheral angiogram . A s per the note "This patient is well known to me in the outpatient setting. His cardiac status has been tenuous over the past year and he has declined significantly. We have discussed palliative inotropes and referral to heart failure specialist for further recommendations however he is poor candidate for any invasive procedures given his advanced heart failure, confusion, and history of noncompliance with medical therapy. He is non compliant with his warfarin and INR checks. He is non compliant with his ICD interrogations. He has refused the referral to inotropic therapy and advanced HF even after these were arranged. ....... I think hospice is a reasonable plan of care for this patient given his debility, ESRD, and advanced HF of which he is not tolerating GDMT and has recurrent hospitalizat ions. "Patient fell from bed today morning and a rapid response was called. No significant complications noted .Head CT is unremarkable. Myself and my attending Dr Goncalves had discussions with the bystander- the daughter at the bedside - regarding hospice.Patient's daughter refused hospice.Pending Orthopedic recommendations and placement to SNF . Patient is in DNR-DNI now. 06/08/24 Dr Rousseau suggested right BKA vs AKA amputation . . Given the high risk comorbidities of the patient , the procedure is deemed to be high risk. The possible complications including increased risk of on table mortality was discussed with the patients bystanders with the help of a carton maker. Patient's son and grand daughter at the bedside confirmed understanding . pending decision regarding amputation vs no amputation .If no amputation , patient will be sent to [facility] on manager intermediate IV antibiotics . REVIEW OF SYSTEMS CONSTITUTIONAL: Denies fevers, chills, or night sweats. No unintentional weight loss reported. NEUROLOGICAL: Denies headache, amaurosis fugax, motor weakness, sensory deficit, vertigo/spinning sensation, gait abnormalities, or tremors. ENT: No hearing loss, otalgia, otorrhea, rhinitis, rhinorrhea, hoarseness, or sore throat. CARDIOVASCULAR: Denies any exertional angina, dyspnea on exertion, orthopnea, paroxysmal nocturnal dyspnea, palpitations, life-threatening arrhythmias, claudication. PULMONARY: Complaints of cough and shortness of breaths Denies hemoptysis, pleuritic chest pain. SLEEP: Denies morning headaches, daytime somnolence or napping. Denies difficulty falling asleep, staying asleep, waking from sleep. Denies knowledge of snoring. GASTROINTESTINAL: Denies any type of dysphagia to either liquids or solids. Denies nausea, vomiting, pyrosis, early satiety, abdominal pain, diarrhea, constipation, or changes in stool consistency or caliber. Denies coffee-ground emesis, hematemesis, hematochezia, or melanotic stools. GENITOURINARY: Denies frequency, urgency, nocturia, hematuria or incontinence (Storage/Irritative symptoms.) Low urinary stream, straining to void, urinary intermittency or hesitancy, splitting of the voiding stream, terminal dribbling. PHYSICAL EXAM GENERAL APPEARANCE: The patient is awake, alert, and oriented, in no acute cardiopulmonary distress. NEUROLOGICAL: Cranial nerves II-XII grossly intact. Motor is 5/5 in bilateral upper and lower extremities proximal to distal. No sensory deficits. HEENT: Face is symmetric. Pupils are equal and reactive. Extraocular movements are intact. NECK: Supple. No JVD. No thyromegaly. No submental, submandibular, pre- /postauricular, occipital or supraclavicular lymphadenopathy. CHEST: Normal chest expansion. Telemetry. LUNGS: Bilateral crackles and scattered rhonchi on auscultation CARDIOVASCULAR: Regular. S1 and S2 normal. No appreciable rubs, murmurs or gallops. ABDOMEN: Soft, nontender, and nondistended. There is no rebound, voluntary guarding, or rigidity. : Deferred. No Geller. EXTREMITIES: 2+ edema bilateral lower extremities. warm rt foot till the base of necrotic toe SKIN: Left leg wound at the tip of the great toe. Right necrotic 1st ,2nd toes and the 3rd toe-dry gangrene. Vital Signs (last 8hr) Date Time Temp Pulse Resp B/P (MAP) Pulse Ox O2 Delivery O2 Flow Rate FiO2 06/08/24 12:10 90 16 N/Cannula Low lpm 2.0 06/08/24 12:00 97.3 89 18 107/65 97 Nasal Cannula 2.0 06/08/24 11:27 84 16 06/08/24 08:00 96.3 89 18 105/67 95 Nasal Cannula 2.0 06/08/24 06:35 90 16 LABS: Laboratory: Test 06/08/24 11:52 06/08/24 10:04 06/08/24 03:31 06/07/24 04:36 Range/Units Whole Blood Glucose 214 H 70-110 MG/DL Activated Partial Thromboplast Time 50.4 #H 26.3-35.5 SEC White Blood Count 13.1 H 4.8-10.8 K/uL Red Blood Count 3.45 L 4.50-6.20 MIL/uL Hemoglobin 9.9 L 14.0-18.0 g/dL Hematocrit 31.4 L 42-54 % Mean Corpuscular Volume 91.0 79-99 fL Mean Corpuscular Hemoglobin 28.7 27.0-33.0 pg Mean Corpuscular Hemoglobin Concent 31.5 L 32.0-36.0 g/dL Red Cell Distribution Width 21.0 H 11.0-15.5 % Platelet Count 195 130-400 K/uL Mean Platelet Volume 12.0 H 7.5-10.5 fL Nucleated Red Blood Cells 1.0 H 0.0-0.19 % Sodium Level 130 L 136-145 mmol/L Potassium Level 5.3 H 3.5-5.1 mmol/L Chloride Level 89 *L 101-111 mmol/L Carbon Dioxide Level 27 21-32 mmol/L Blood Urea Nitrogen 63 H 7-18 mg/dL Creatinine 5.5 H 0.5-1.3 mg/dL Glomerular Filtration Rate Calc 10 >90 mL/min Random Glucose 221 H 70-105 mg/dL Total Calcium 8.0 L 8.5-10.1 mg/dL Phosphorus Level 7.6 H 2.5-4.9 mg/dL Magnesium Level 2.40 1.80-2.40 mg/dL Total Bilirubin 1.5 H 0.2-1.0 mg/dL Aspartate Amino Transf (AST/SGOT) 37 10-37 U/L Alanine Aminotransferase (ALT/SGPT) 28 12-78 U/L Alkaline Phosphatase 237 H 50-136 U/L Total Protein 8.1 6.0-8.3 g/dL Albumin 2.9 L 3.5-5.0 g/dL Vancomycin Level Trough 20.8 H 10.0-20.0 UG/ML Test 06/06/24 20:48 Range/Units Prothrombin Time 16.9 H 9.6-11.6 SEC Prothromb Time International Ratio 1.68 H 0.85-1.15 Current Medications Medications (Trade) Dose Ordered Sig/Yefri Route PRN Reason Start Time Stop Time Status Last Admin Dose Admin Acetaminophen (TYLenol 325MG TAB) 650 mg Q6H PRN PO MODERATE PAIN (4-6) 06/05/24 14:00 07/05/24 13:59 06/06/24 21:54 650 MG Acetaminophen/ Hydrocodone Bitart (NORco 5/325MG) 1 tab Q4H PRN PO MODERATE PAIN (4-6) 05/29/24 19:00 06/03/24 18:59 DC 05/31/24 21:04 1 TAB Acetaminophen/ Hydrocodone Bitart (NORco 5/325MG) 2 tab Q4H PRN PO SEVERE PAIN (7-10) 05/29/24 19:00 06/02/24 12:12 DC 05/31/24 10:18 2 TAB Albumin Human (Albumin (Human) 25%) 100 ml ONCE IV 06/02/24 09:30 06/02/24 10:46 DC Albumin Human (Albumin (Human) 25%) 100 ml ONCE IV 06/03/24 11:00 06/03/24 17:20 DC Albumin Human (Albumin (Human) 25%) 100 ml ONCE PRN IV SBP <100MMHG OR TREATMENT RELATED SYMPTOMS DURING HD 06/03/24 17:30 06/04/24 10:59 DC Albuterol (DUOneb) 1 UDVIAL Q6H PRN IH SHORTNESS OF BREATH 05/31/24 16:00 06/30/24 15:59 05/31/24 22:54 1 UDVIAL Albuterol (DUOneb) 1 udvial [id number] IH 05/29/24 22:00 05/31/24 06:30 DC 05/31/24 01:03 1 UDVIAL Aspirin (Aspirin 81mg Ec Tab) 81 mg DAILY PO 05/31/24 09:00 06/30/24 08:59 06/08/24 09:20 81 MG Atorvastatin Calcium (LIPItor 40MG) 80 mg HS PO 05/30/24 21:00 06/29/24 20:59 06/07/24 20:26 80 MG Clopidogrel Bisulfate (plaVIX 75MG) 75 mg DAILY PO 05/31/24 09:00 06/30/24 08:59 06/08/24 09:21 75 MG Dextrose (D50w) 50 ml AD PRN IV HYPOGLYCEMIA PROTOCOL 05/29/24 20:00 06/28/24 19:59 Diazepam (VALium 5 MG/ML 2 ML SYG) 2 mg ONCE PRN IV ANXIETY 06/01/24 22:30 06/03/24 16:13 DC 06/02/24 00:25 2 MG Docusate Sodium (COLace 100MG CAP) 100 mg DAILY PO 05/31/24 09:00 06/30/24 08:59 06/08/24 09:21 100 MG Epoetin Willy-epbx (Retacrit) 10,000 unit QTUTHSA[DIALYSIS] SQ 05/31/24 16:00 06/30/24 15:59 06/07/24 20:29 10,000 UNIT Famotidine (Pepcid 20mg Tab) 10 mg DAILY PO 05/30/24 09:00 06/29/24 08:59 06/08/24 09:21 10 MG Glucagon (Glucagon 1mg Kit) 1 mg AD PRN IM HYPOGLYCEMIA PROTOCOL 05/29/24 20:00 06/28/24 19:59 Heparin Sodium (Porcine) (HEParin 5,000 UNIT VIAL) 10,000 unit AD IRRIG 05/31/24 14:30 06/30/24 10:59 06/07/24 20:04 10,000 UNIT Heparin Sodium (Porcine) (HEParin 5,000 UNIT VIAL) 10,000 unit AD SQ 05/31/24 11:00 05/31/24 14:15 DC Heparin Sodium/ Dextrose 250 ml @ 0 mls/hr PROTOCOL IV 05/30/24 21:30 06/29/24 21:29 06/08/24 05:32 5.02 MLS/HR Home Med (Home Medication) (Sevelamer Carbonate (Renv... TIDAC PO 05/30/24 17:00 06/29/24 16:59 06/04/24 12:08 1 EACH Hydromorphone HCl (DiLAUDid 0.5MG INJ) 0.5 mg Q6H PRN IVP SEVERE PAIN (7-10) 06/02/24 12:30 06/07/24 12:29 DC 06/07/24 10:10 0.5 MG Insulin Human Regular (humuLIN R 100 UNIT/ML 3ML) INSULIN SLIDING SCAL... ACHS SQ 05/29/24 21:00 06/28/24 20:59 06/08/24 12:19 3 UNIT Ipratropium [place] (AtrovENT UD) 0.5 MG [id number] IH 05/31/24 06:30 06/30/24 06:29 06/08/24 11:36 0.5 MG Methylprednisolone Sodium Succinate (Solu-medROL 40MG) 40 mg BID IVP 06/04/24 09:00 06/05/24 21:33 DC 06/05/24 20:39 40 MG Methylprednisolone Sodium Succinate (Solu-medROL 40MG) 60 mg Q6H IVP 06/02/24 12:30 06/03/24 21:58 DC 06/03/24 20:13 60 MG Methylprednisolone Sodium Succinate (Solu-medROL 125MG) 60 mg Q6H IVP 06/01/24 06:00 06/01/24 21:45 DC 06/01/24 13:04 60 MG Methylprednisolone Sodium Succinate (Solu-medROL 125MG) 60 mg Q6H IVP 06/02/24 00:00 06/02/24 07:06 DC 06/02/24 06:36 60 MG Midodrine (PROAMatine 5 MG TABLET) 10 mg TID PO 05/29/24 21:00 05/31/24 10:34 DC 05/30/24 20:45 10 MG Midodrine (PROAMatine 5 MG TABLET) 30 mg DAILY PO 05/31/24 09:00 06/01/24 22:15 DC 06/01/24 09:00 30 MG Midodrine (PROAMatine 5 MG TABLET) 30 mg HS PO 06/01/24 22:30 06/30/24 08:59 06/07/24 20:27 30 MG Miscellaneous Medication (Midodrine HCl ) 10 mg TID PO 05/29/24 21:00 05/29/24 19:49 DC Ondansetron HCl (zoFRAN 4MG INJ) 4 mg Q6H PRN IV NAUSEA/VOMITING 05/29/24 19:00 06/28/24 18:59 06/07/24 20:47 4 MG Pharmacy Profile Note (Lace Assessment) 1 each AD MISC 05/30/24 15:30 05/31/24 14:17 DC Piperacillin Sod/ Tazobactam Sod 50 ml @ 12.5 mls/hr Q12H IV 05/30/24 04:00 05/31/24 04:21 DC 05/30/24 20:46 12.5 MLS/HR Piperacillin Sod/ Tazobactam Sod 50 ml @ 12.5 mls/hr Q12H IV 05/31/24 09:00 06/10/24 08:59 06/08/24 09:21 12.5 MLS/HR Piperacillin Sod/ Tazobactam Sod 50 ml @ 200 mls/hr ONCE IVPB 05/29/24 16:00 05/30/24 09:37 DC 05/29/24 16:15 200 MLS/HR Prednisone (deltaSONE/ oraSONE 20MG TAB) 40 mg DAILY PO 06/06/24 09:00 06/11/24 09:00 06/08/24 09:21 40 MG Sevelamer HCl (RENAgel 800 MG TAB) 800 mg TIDMEALS PO 06/02/24 08:00 07/02/24 07:59 06/08/24 12:18 800 MG Sodium Bicarbonate (Sodium Bicarbonate) 650 mg TID PO 06/02/24 09:00 06/03/24 08:41 DC 06/02/24 21:12 650 MG Sodium Chloride 1,000 ml @ 0 mls/hr ONCE IV 05/31/24 11:00 06/30/24 10:59 06/07/24 20:00 1,000 MLS/HR Vancomycin HCl 250 ml @ 125 mls/hr ONCE IV 05/29/24 19:00 05/29/24 19:52 DC Vancomycin HCl (Vancomycin 750mg) 750 mg QTUTHSA[DIALYSIS] IVPB 05/31/24 16:00 06/10/24 15:59 06/07/24 20:25 750 MG Vancomycin HCl (Vancomycin Protocol) 1 each AD IV 05/29/24 20:00 06/12/24 19:59 Warfarin Sodium (Coumadin) 2 mg BID PO 05/30/24 21:00 06/01/24 11:32 DC 06/01/24 09:03 2 MG Zolpidem Tartrate (AmbIEN) 5 mg HS PO 06/01/24 22:00 07/01/24 21:59 06/07/24 20:26 5 MG DIAGNOSTICS / RADIOLOGY: [ ] ASSESSMENT: Sepsis without septic shock POA 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 POA Osteomyelitis of the right foot toes POA Left leg diabetic wound ulcer POA Right lung Gram negative pneumonia POA Severe peripheral vascular disease POA Chronic respiratory failure on oxygen dependent POA End stage renal disease on hemodialysis POA Atrial fibrillation on Coumadin POA severe ischemic cardiomyopathy with AICD device POA Coronary artery disease with CABGx2 ,AVR bioprosthetic and stent x1 POA Chronic anemia due to CKD Elevated troponin secondary to ESRD and sepsis POA Uncontrolled diabetes POA Morbid Obesity POA Fall , not POA PLAN: Sepsis, POA 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 POA Osteomyelitis of the right foot toes , POA Left Leg diabetic wound ulcer POA Patient with pain at the gangrene sight -Betadine soaked dressing in place. continue Zosyn and IV and vancomycin IV for broad-spectrum coverage Cardiology recommended hospice -patient and daughter refused hospice Orthopedic consult recommendations pending Pending placement to SNF/[facility] - will coordinate with Dr Garcia for duration of antibiotics Right lung Gram negative pneumonia POA B/L wheeze and creps on examination at the time of admission -duoneb treatement sputum culture positive for Klebsiella pneumoniae Continue antibiotics and nebulization Chest physiotherapy Acute on chronic respiratory failure on oxygen dependent POA Chronic respiratory failure- patient on home oxygen End stage renal disease on hemodialysis POA continue HD TTHS Continue renal diet Nephrology recommendations Strict I/O chart Fluid intake <1500 ml per day Atrial fibrillation on Coumadin POA Severe ischemic cardiomyopathy with AICD device POA Acute on chronic systolic HFrEF POA Coronary artery disease with CABGx2 ,AVR bioprosthetic and stent x1 POA Severe peripheral vascular disease POA Abdominal aorta runoff study showing 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 Patient on Heparin drip - will get recommendations whether to continue heparin at this time . Monitor PTT and adjust Heparin dose Hold Warfarin Dr Bates deemed the patient to be of high risk for any procedures given his history of endstage heart failure and ESRD. He has h/o refusal and non compliance to the treatment . Will request Hospice evaluation - long term care social worker on board - patient's daughter refused Hospice. Pending SNF/[facility] placement Fall not POA As per the RN, patient fell from the bed . Patient has underlying dementia and has been with episodes of aggressions r equiring one to one observation since admission. Post fall period uneventful. His vitals and mental status remain baseline CT head unremarkable Fall precautions in place . Neurochecks Case seen and evaluated with Dr Hernandez above plan was formulated. ATTESTATION BY PHYSICIAN I have seen and examined the patient. I reviewed the documentation, medical decision making, and treatment plan as noted by the resident provider above. I agree with the findings and plan of care. MARY CARMEN RUFFIN MD, MD Jun 08, 2024 12:53
[2024-06-08] MEDS: NA ZIRCON CYCLOSIL(LOKELMA 10GM) PO ONE (14:21)
[2024-06-08] MEDS: hydroMORPHone 0.5 MG SYG (0.5MG/0.5ML) IVP PRN (14:31)
--- NOTE | 2024-06-08 16:10 | PN ---
FOLLOWUP PROGRESS NOTE SUBJECTIVE: A 78-year-old male who has had a prolonged hospital course. The patient initially admitted with nonhealing wound of the foot. The patient was seen by Cardiology and felt not to be a candidate for lower extremity arteriogram with intervention. He does continue with the IV antibiotics as well as local wound care. He remains on dialysis 3 times per week and he is being seen for all of the above. REVIEW OF SYSTEMS: GENERAL: He is feeling weak and tired. HEENT: No change in vision. No change in hearing. CARDIOVASCULAR: There is no current chest pain or palpitation. PULMONARY: Shortness of breath. GASTROINTESTINAL: He is tolerating a diet. MUSCULOSKELETAL: As described above. PHYSICAL EXAMINATION: VITAL SIGNS: Blood pressure 120/65, pulse in the 80s, afebrile. GENERAL: He is a chronically ill male, much older than appearing. HEENT: Head is atraumatic. Pupils are equal, roving to light. Oropharynx is without exudate. Nares clear. NECK: There is no JVP. There is no thyromegaly. No mass. CARDIOVASCULAR: Regular. There is no S3 or S4. LUNGS: Coarse with equal thoracic movement. ABDOMEN: Soft, nondistended, and nontender. EXTREMITIES: Reveal no clubbing, no cyanosis. NEUROLOGICAL: He is awake. He is alert. LABORATORY DATA: Hemoglobin 9.9, hematocrit 31, white blood cell count is 13,000. Sodium 130, potassium 5.3, creatinine 5.5. IMPRESSION: * Nonhealing wound. * Hyperkalemia. * Diabetes mellitus. * Hypertension. PLAN: The patient will be given a dose of Lokelma for the hyperkalemia. The patient remains on the antibiotics as well as the local wound care. The patient was seen by Cardiology and felt to continue with conservative management. We will continue to follow closely. All labs will be repeated in the morning. TID: [id number] RECEIPT: [id number]
[2024-06-08 18:50] LABS: INR 1.72 (0.85-1.15); PROTHROMBIN TIME 17.3 SEC (9.6-11.6)
[2024-06-08 18:51] LABS: PARTIAL THROMBOPLASTIN TIME 46.4 SEC (26.3-35.5)
--- NOTE | 2024-06-08 21:32 | PN ---
[facility] PROGRESS NOTE Date Patient Seen: Jun 08, 2024 Time of Visit: 21:32 Supervising Physician: Dr. Patrick Thomas Supervising Physician: Dr. 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 Patient remains somewhat somnolent, no pain associated with his right toe gangrene. Patient's lung bases are clear to auscultation, he continues at this time on Zosyn and vancomycin. Patient only endorses a mild cough, already was dextromethorphan and guaifenesin in his chart. We will continue following the patient closely, currently pending evaluation from Orthopedic surgery versus SNF care versus hospice. REVIEW OF SYSTEMS: 12 point ROS reviewed with patient. Pertinent positives mentioned above. Otherwise negative. PHYSICAL EXAM: GENERAL: alert, weak, awake oriented x 3 HEENT: EOMI, Sclera non icteric, moist mucosa NECK: Supple, no JVD, trachea midline LUNGS: Clear breath sounds bilaterally. No wheezes HEART: Regular rate and rhythm. Normal S1 and S2, without murmurs ABD: Abdomen soft, nontender. Bowel sounds present EXT: No clubbing cyanosis or edema NEURO: Alert and oriented to person, follows commands Vital Signs (last 8hr) Date Time Temp Pulse Resp B/P (MAP) Pulse Ox O2 Delivery O2 Flow Rate FiO2 06/08/24 19:44 97.0 90 17 119/76 99 Nasal Cannula 2.0 24 06/08/24 18:45 80 18 06/08/24 18:45 80 18 N/Cannula Low lpm 2.0 06/08/24 16:00 97.0 90 18 102/66 96 Nasal Cannula 2.0 LABS: Hematology Labs: Test 06/08/24 03:31 Range/Units White Blood Count 13.1 H 4.8-10.8 K/uL Red Blood Count 3.45 L 4.50-6.20 MIL/uL Hemoglobin 9.9 L 14.0-18.0 g/dL Hematocrit 31.4 L 42-54 % Mean Corpuscular Volume 91.0 79-99 fL Mean Corpuscular Hemoglobin 28.7 27.0-33.0 pg Mean Corpuscular Hemoglobin Concent 31.5 L 32.0-36.0 g/dL Red Cell Distribution Width 21.0 H 11.0-15.5 % Platelet Count 195 130-400 K/uL Mean Platelet Volume 12.0 H 7.5-10.5 fL Nucleated Red Blood Cells 1.0 H 0.0-0.19 % Chemistry Labs: Test 06/08/24 19:48 06/08/24 03:31 06/07/24 04:36 Range/Units Whole Blood Glucose 197 H 70-110 MG/DL Sodium Level 130 L 136-145 mmol/L Potassium Level 5.3 H 3.5-5.1 mmol/L Chloride Level 89 *L 101-111 mmol/L Carbon Dioxide Level 27 21-32 mmol/L Blood Urea Nitrogen 63 H 7-18 mg/dL Creatinine 5.5 H 0.5-1.3 mg/dL Glomerular Filtration Rate Calc 10 >90 mL/min Random Glucose 221 H 70-105 mg/dL Total Calcium 8.0 L 8.5-10.1 mg/dL Phosphorus Level 7.6 H 2.5-4.9 mg/dL Magnesium Level 2.40 1.80-2.40 mg/dL Total Bilirubin 1.5 H 0.2-1.0 mg/dL Aspartate Amino Transf (AST/SGOT) 37 10-37 U/L Alanine Aminotransferase (ALT/SGPT) 28 12-78 U/L Alkaline Phosphatase 237 H 50-136 U/L Total Protein 8.1 6.0-8.3 g/dL Albumin 2.9 L 3.5-5.0 g/dL Coagulation Labs: Test 06/08/24 18:33 Range/Units Prothrombin Time 17.3 H 9.6-11.6 SEC Prothromb Time International Ratio 1.72 H 0.85-1.15 Activated Partial Thromboplast Time 46.4 H 26.3-35.5 SEC DIAGNOSTICS / RADIOLOGY RESULTS: [ ] PLAN NEURO: Minimize central acting medications as possible. Maintain fall precautions, adequate lighting during the day PULMONARY: Supplemental 02 as needed. Maintain aspiration precautions at all times CARDIOVASCULAR: Follow hemodynamics. Vital signs per facility protocol GI & NUTRITION: Continue with nutritional support. Continue stool softeners and laxatives as needed. KIDNEYS & ELECTROLYTES: Strict monitoring of intake, output and overall fluid balance. Avoid nephrotoxic medications to the extent possible. Medications to be dosed according to renal function. Monitor electrolytes and replace as needed ENDOCRINE: Maintain blood glucose between 100-180 at all times. Hypoglycemia protocol in place INFECTIOUS DISEASE: Trend temperature, WBC and procalcitonin level Follow cultures, deescalate antibiotics as soon as possible. Panculture if new onset fever ONCOLOGY/HEMATOLOGY/COAGULATION: Monitor for s/s of bleeding Monitor hemoglobin, coagulation studies as needed SKIN: Pressure ulcer prevention per facility protocol Specialty mattress ORTHO/REHAB: Continue PT/OT Prophylaxis: Continue GI and DVT prophylaxis Code Status: Full Resuscitation Disposition: TBD Other: Total patient care time exceeds 35 minutes excluding all procedures. KARIME FRANZ Jun 08, 2024 21:32
--- NOTE | 2024-06-08 22:03 | PN ---
INFECTIOUS DISEASE FOLLOWUP NOTE DATE OF SERVICE: 06/08/2024 SUBJECTIVE: The patient is seen and examined at bedside today. No fever, no chills. No bleeding tendency. Bedbound debility. No rashes, no itchiness. ____ antibiotics, he is tolerating ____. PHYSICAL EXAMINATION: VITAL SIGNS: Temperature 98.4. EYES: No icterus. Pupils are equal and reactive. HENT: No oral thrush seen. Moist oral . NECK: Supple. No JVD or thyromegaly. LUNGS: Good air entry. Crackles bilaterally. CARDIOVASCULAR: S1 and S2, regular. No murmur heard. ABDOMEN: Obese, soft. Bowel sound is present. CENTRAL NERVOUS SYSTEM: The patient is awake, alert, bedbound debility. SKIN: No rashes. No itchiness. LYMPHATIC: No peripheral lymphadenopathy. BACK: No deformity. No pressure ulcer. HEMATOLOGIC: No bleeding or petechial lesions seen. EXTREMITIES: Ganglion involving multiple toes on both feet. ASSESSMENT: A 78-year-old male with multiple problems including: * Sepsis. * Right foot ganglion osteomyelitis. * End-stage renal disease, on dialysis. * Hypoxic respiratory failure. * Morbid obesity. * Encephalopathy. * Obesity. PLAN: * Continue wound care. * Continue Zosyn. * Continue vancomycin. * Continue dialysis. * Continue antiemetic. * Monitor electrolytes. * The patient will be followed up closely. TID: [id number] RECEIPT: [id number]
[2024-06-09] VITALS (10 sets, daily range): BP systolic 91–148; BP diastolic 42–94; PULSE 76–95; RESP 16–20; TEMP 97.4–98.4; O2SAT 96–99
--- NOTE | 2024-06-09 00:11 | CONS ---
DATE OF SERVICE: 06/08/2024 Progress note 78-year-old male patient with history of multiple medical comorbidities. Patient has been recommended amputation by other specialist including soil analyst and hospitalist. But patient because of his multiple medical comorbidities he is undecided. I had a detailed conversation with the patient and family explained the treatment options available and the risks and benefits. He is currently has a dry gangrene involving the right foot great toe and second toe. Awake alert oriented x 3 The vital signs are he is heart rate is tachycardia 110 respirate is 20 blood pressure is 138 x 71 Examination of right foot right lower extremity shows gangrene dry present of involving the right foot great toe second toe. Signs of poor circulation present. Dorsalis pedis posterior tibial not palpable. Right foot is cool to touch. Assessment and plan. Discussed in detail with the patient and family and all the risks and benefits of all the treatment options available answered their questions and current concerns. Patient and family still have not decided about performing the surgery. So Ortho will sign off. Please call us for any questions or concerns TID: [id number] RECEIPT: [id number] [email or web address]
[2024-06-09 06:09] LABS: BASOPHILS # (AUTO) 0.01 K/uL (0.00-0.20); BASOPHILS % (AUTO) 0.1 % (0.0-5.0); HEMATOCRIT 32.1 % (42-54); IMMATURE GRANULOCYTE ABSOLUTE 0.15 K/uL (0-1); LYMPHOCYTES # (AUTO) 0.4 K/uL (1.0-4.8); LYMPHOCYTES % (AUTO) 3.2 % (21.0-51.0); MEAN CORPUSCULAR HEMOGLOBIN 28.7 pg (27.0-33.0); MEAN CORPUSCULAR HGB CONC 31.8 g/dL (32.0-36.0); MEAN CORPUSCULAR VOLUME 90.2 fL (79-99); MONOCYTES # (AUTO) 1.4 K/uL (0.1-1.0); MONOCYTES % (AUTO) 10.9 % (3.0-13.0); NEUTROPHILS # (AUTO) 10.7 K/uL (1.8-7.7); NEUTROPHILS % (AUTO) 84.6 % (40.0-77.0); NUCLEATED RED BLOOD CELLS 2.3 % (0.0-0.19); PLATELET COUNT (AUTO) 183 K/uL (130-400); RED BLOOD CELL COUNT(AUTO) 3.56 MIL/uL (4.50-6.20); RED CELL DISTRIBUTION WIDTH 21.3 % (11.0-15.5); WHITE BLOOD COUNT (AUTO) 12.7 K/uL (4.8-10.8)
[2024-06-09 06:36] LABS: CREATININE 6.9 mg/dL (0.5-1.3); MAGNESIUM 2.6 mg/dL (1.80-2.40); PHOSPHORUS 9.7 mg/dL (2.5-4.9)
[2024-06-09 06:41] LABS: POTASSIUM 6.1 mmol/L (3.5-5.1)
[2024-06-09] MEDS: NA ZIRCON CYCLOSIL(LOKELMA 10GM) PO ONE (07:59)
--- NOTE | 2024-06-09 09:32 | PN ---
[facility] PROGRESS NOTE Date Patient Seen: Jun 09, 2024 Time of Visit: 09:31 Supervising Physician: Dr. 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 POA Osteomyelitis of the right foot toes POA Left leg diabetic wound ulcer POA Possible right lung pneumonia POA Severe peripheral vascular disease POA Chronic respiratory failure on oxygen dependent POA End stage renal disease on hemodialysis POA Atrial fibrillation on Coumadin POA severe ischemic cardiomyopathy with AICD device POA Coronary artery disease with CABGx2 ,AVR bioprosthetic and stent x1 POA Chronic anemia due to CKD Elevated troponin POA Uncontrolled diabetes POA Morbid Obesity POA INTERVAL HISTORY: Patient is seen at bedside, he is awake but appears to be more lethargic and somnolent today. Family at bedside, in discussion family is still declining hospice at this time, they are pending decision to be made regarding surgery which Orthopedic surgery has stated is possible from their perspective however it was unlikely that this patient was cleared by Cardiology. Patient continues on hemodialysis at this time as well as Zosyn and vancomycin. White count is 17.7 today and he continues on 2 L nasal cannula. We will continue to follow the patient while he remains on supplemental O2 however our recommendations remain hospice care, if this is declined patient was a candidate for Solera for long-term antibiotic treatment however his prognosis remains poor and guarded. REVIEW OF SYSTEMS: 12 point ROS reviewed with patient. Pertinent positives mentioned above. Otherwise negative. PHYSICAL EXAM: GENERAL: alert, weak, awake oriented x 3 HEENT: EOMI, Sclera non icteric, moist mucosa NECK: Supple, no JVD, trachea midline LUNGS: Clear breath sounds bilaterally. No wheezes HEART: Regular rate and rhythm. Normal S1 and S2, without murmurs ABD: Abdomen soft, nontender. Bowel sounds present EXT: No clubbing cyanosis or edema NEURO: Alert and oriented to person, follows commands Vital Signs (last 8hr) Date Time Temp Pulse Resp B/P (MAP) Pulse Ox O2 Delivery O2 Flow Rate FiO2 06/09/24 07:50 89 20 123/75 98 Nasal Cannula 2.0 06/09/24 07:05 89 16 06/09/24 07:05 89 20 N/A Room Air 2.0 06/09/24 04:34 97.5 76 18 148/74 95 Nasal Cannula 2.0 24 LABS: Hematology Labs: Test 06/09/24 06:00 Range/Units White Blood Count 12.7 H 4.8-10.8 K/uL Red Blood Count 3.56 L 4.50-6.20 MIL/uL Hemoglobin 10.2 L 14.0-18.0 g/dL Hematocrit 32.1 L 42-54 % Mean Corpuscular Volume 90.2 79-99 fL Mean Corpuscular Hemoglobin 28.7 27.0-33.0 pg Mean Corpuscular Hemoglobin Concent 31.8 L 32.0-36.0 g/dL Red Cell Distribution Width 21.3 H 11.0-15.5 % Platelet Count 183 130-400 K/uL Mean Platelet Volume 13.1 H 7.5-10.5 fL Immature Granulocyte % (Auto) 1.2 H 0-1 % Neutrophils (%) (Auto) 84.6 H 40.0-77.0 % Lymphocytes (%) (Auto) 3.2 L 21.0-51.0 % Monocytes (%) (Auto) 10.9 3.0-13.0 % Eosinophils (%) (Auto) 0.0 0.0-8.0 % Basophils (%) (Auto) 0.1 0.0-5.0 % Neutrophils # (Auto) 10.7 H 1.8-7.7 K/uL Lymphocytes # (Auto) 0.4 L 1.0-4.8 K/uL Monocytes # (Auto) 1.4 H 0.1-1.0 K/uL Eosinophils # (Auto) 0.00 0.00-0.70 K/uL Basophils # (Auto) 0.01 0.00-0.20 K/uL Absolute Immature Granulocyte (auto 0.15 0-1 K/uL Nucleated Red Blood Cells 2.3 H 0.0-0.19 % Chemistry Labs: Test 06/09/24 06:00 06/09/24 05:32 Range/Units Sodium Level 131 L 136-145 mmol/L Potassium Level 6.1 *H 3.5-5.1 mmol/L Chloride Level 90 *L 101-111 mmol/L Carbon Dioxide Level 23 21-32 mmol/L Blood Urea Nitrogen 86 *H 7-18 mg/dL Creatinine 6.9 H 0.5-1.3 mg/dL Glomerular Filtration Rate Calc 8 >90 mL/min Random Glucose 154 H 70-105 mg/dL Total Calcium 8.1 L 8.5-10.1 mg/dL Phosphorus Level 9.7 H 2.5-4.9 mg/dL Magnesium Level 2.60 H 1.80-2.40 mg/dL Whole Blood Glucose 135 H 70-110 MG/DL Coagulation Labs: Test 06/08/24 18:33 Range/Units Prothrombin Time 17.3 H 9.6-11.6 SEC Prothromb Time International Ratio 1.72 H 0.85-1.15 Activated Partial Thromboplast Time 46.4 H 26.3-35.5 SEC DIAGNOSTICS / RADIOLOGY RESULTS: [ ] PLAN NEURO: Minimize central acting medications as possible. Maintain fall precautions, adequate lighting during the day PULMONARY: Supplemental 02 as needed. Maintain aspiration precautions at all times CARDIOVASCULAR: Follow hemodynamics. Vital signs per facility protocol GI & NUTRITION: Continue with nutritional support. Continue stool softeners and laxatives as needed. KIDNEYS & ELECTROLYTES: Strict monitoring of intake, output and overall fluid balance. Avoid nephrotoxic medications to the extent possible. Medications to be dosed according to renal function. Monitor electrolytes and replace as needed ENDOCRINE: Maintain blood glucose between 100-180 at all times. Hypoglycemia protocol in place INFECTIOUS DISEASE: Trend temperature, WBC and procalcitonin level Follow cultures, deescalate antibiotics as soon as possible. Panculture if new onset fever ONCOLOGY/HEMATOLOGY/COAGULATION: Monitor for s/s of bleeding Monitor hemoglobin, coagulation studies as needed SKIN: Pressure ulcer prevention per facility protocol Specialty mattress ORTHO/REHAB: Continue PT/OT Prophylaxis: Continue GI and DVT prophylaxis Code Status: Full Resuscitation Disposition: TBD Other: Total patient care time exceeds 35 minutes excluding all procedures. KARIME FRANZ Jun 09, 2024 09:32
--- NOTE | 2024-06-09 09:59 | PN ---
FOLLOWUP PROGRESS NOTE SUBJECTIVE: A 78-year-old male who has had a prolonged hospital course. The patient initially admitted, nonhealing wound to the foot. The patient with a history of known vascular disease. The patient was seen by Cardiology and felt not to be a candidate for intervention. The patient continues to do poorly from a general medical standpoint. The patient continues to complain of significant pain. He is now a DNR per family request, and the patient is being seen as a followup visit for all of the above. REVIEW OF SYSTEMS: GENERAL: The patient is complaining of pain. HEENT: No change in vision. No change in hearing. CARDIOVASCULAR: There is no current chest pain or palpitations. PULMONARY: He denies shortness of breath. GASTROINTESTINAL: He is tolerating a diet. MUSCULOSKELETAL: As described above. PHYSICAL EXAMINATION: VITAL SIGNS: Blood pressure 123/75, pulse 80s. He is afebrile. GENERAL: He is a chronically ill male, lying in bed on the medical floor. HEENT: Head is atraumatic. Pupils are equal, roving to light. Oropharynx is without exudate. Nares are clear. NECK: There is no JVP. There is no thyromegaly. No mass. CARDIOVASCULAR: Regular. There is no S3, S4 gallop. LUNGS: Coarse with equal thoracic movement. ABDOMEN: Soft, nondistended, and nontender. EXTREMITIES: The wounds are all noted. LABORATORY DATA: Sodium 131, potassium 6, BUN 86, creatinine 6.9, phosphorus 9.7. IMPRESSION: * Nonhealing wounds. * Vascular disease. * Electrolyte abnormalities. * End-stage renal disease. PLAN: I did have a long discussion with the patient. The patient is not a candidate for lower extremity arteriogram with intervention. The patient now is a DNR per his own request. Only option would be hospice care, in which case, dialysis will be withheld or lower extremity amputation. The patient is discussed with family members. We will follow closely. TID: [id number] RECEIPT: [id number]
--- NOTE | 2024-06-09 11:38 | PN ---
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 Mims for evaluation of right 1st,2nd and 3rd toe gangrene . Patient c/o pain at the site.As per daughter ,it started on March 2024 as redness and it progressively got worsen that it started turning black 5 days back. Patient also complained of occasional cough. Patient has been dialyzed on the same day and 2 Liters of fluid removed .Patient's Emergency Dispatch Operator is and patient 's motion picture film examiner is .Patient denies fever,chills,nausea,vomiting,chest pain and palpitation. Vital signs at the time of presentation: temperature 98.6, heart rate 98, blood pressure 104/59 saturation 98% on 2 L nasal cannula. Labs: Hemoglobin 9, hematocrit 30 platelet count 235. Chloride 97, BUN 29, creatinine 4.2, GFR 14, glucose 232, lactic acid 2.3 troponin 86 to 80, BNP 1650 procalcitonin 0.84. Right foot x-ray result revealed no evidence for fracture or subluxation. Chest x-ray result revealed cardiomegaly with pulmonary vascular congestion and small right greater than left pleural effusion with subjacent passive atelectasis. Patient is admitted for further medical management. 05.30.24: Patient is seen resting in his bed. Pending Cardiology, podiatry , nephrology and ID consult.Pending b/l LE artery doppler. 05.31.24: Patient had angiogram done yesterday for assessing lower extremity circulation. Bilateral anterior and posterior tibial arteries are occluded with peroneal arteries grossly patent. Pending podiatry recommendations for possible TMA . Cardiology plan for peripheral angiogram early next week. Ortho consult pending . 06/01/24 : Patient is seen and examined today. Denies any complaints today. However use had stridor and shortness of breath during the night and neck soft tissue x-ray was ordered which showed normal soft tissue and epiglottitis appears unremarkable. Solu-Medrol 60 Q 6 was given. Chest x-ray showed bilateral airspace consolidation with right effusion. Plan for peripheral angio on 06/05/[address] Bates. We will hold the warfarin since the patient is already on heparin drip. We will downgrade him to med surge with telemetry. 06/02/2024: Patient complains of pain and was agitated yesterday night . Patient in one on one supervision. Labs showed potassium 6.4 , Phosphorous 7.7 .Repeat potassium is 5.2. Nephrology suggested 2 hour dialysis for today . He is pending peripheral angiogram. We will consult orthopedic surgery . 06.03.24: Patient has been restless and aggressive at ttimes as per the RN. Patient continues to be placed on one to one observation . He is receiving his regular dialysis today .Pending cardiology intervention and orthopedic consult today . 06.04.24: Patient continues to be at his baseline.Removed 2.5 litres of fluid d uring dialysis session yesterday. Pending peripheral angiogram on 06.05.[address] Webb. 06.05.24: Patient is pending peripheral angiogram today . Mental status at the baseline . In-patient dialysis is scheduled today after the angiogram as per Dr Sheffield. Addendum: Peripheral angiogram is canceled. As per the RN-Dr Webb informed that she was not unaware of the schedule today . As per Dr Hill's note on 06.01.23-patient had an angiogram scheduled on 06.05 and pre procedure orders were entered by Dr Florian yesterday night. Will coordinate the plan . Patient and the daughter is aware of this. Patient is resumed on diet and is scheduled for dialysis today . 06.06.24: Dr Webb recommended no peripheral angiogram . A s per the note "This patient is well known to me in the outpatient setting. His cardiac status has been tenuous over the past year and he has declined significantly. We have discussed palliative inotropes and referral to heart failure specialist for further recommendations however he is poor candidate for any invasive procedures given his advanced heart failure, confusion, and history of noncompliance with medical therapy. He is non compliant with his warfarin and INR checks. He is non compliant with his ICD interrogations. He has refused the referral to inotropic therapy and advanced HF even after these were arranged. ....... I think hospice is a reasonable plan of care for this patient given his debility, ESRD, and advanced HF of which he is not tolerating GDMT and has recurrent hospitalizat ions. "Patient fell from bed today morning and a rapid response was called. No significant complications noted .Head CT is unremarkable. Myself and my attending Dr Goncalves had discussions with the bystander- the daughter at the bedside - regarding hospice.Patient's daughter refused hospice.Pending Orthopedic recommendations and placement to SNF . Patient is in DNR-DNI now. 06/08/24 Dr Rousseau suggested right BKA vs AKA amputation . . Given the high risk comorbidities of the patient , the procedure is deemed to be high risk. The possible complications including increased risk of on table mortality was discussed with the patients bystanders with the help of a lang interpreter. Patient's son and grand daughter at the bedside confirmed understanding . pending decision regarding amputation vs no amputation .If no amputation , plan is to send to snf/ [facility] for ferry terminal agent IV antibiotics . 06.09.24: Patient is seen with my attending. He is clinically at his baseline. Labs show phosphorous at 9.7, K 6.1, Cl 90- Nephrology recommended no dialysis today .He will be treated with Lokelma tid and sevelamer for time being . Dry gangrene in the rt foot toes is stable now .Patients family including the POA is aware of the poor prognosis . Patient,s daughter who is the Power of civil rights attorney(POA) decided hospice-pending placement :home hospice vs facility hospice. Addendum 4:15 pm: Patient's daughter who is power of civil rights attorney , wanted to take the patient directly to [place] from the hospital for hospice care. Patient's daughter and family members understand that hospice means comfort care with no further active treatment including hemodialysis. equity manager and social media assistant on board. Hospital can arrange transportation till [place] [facility]via EMS,but further transportation and patient care in [place] needs to be arranged by the family. Also family requests a Hemodialysis session for the patient before departing from hospital. The family is yet to inform when they will be ready with the travel arrangements from [place] border. Since family including POA is in agreement with hospice care for the patient , we will start deescalating the medications. We will stop IV heparin drip, will discontinue antibiotics . Family is aware and in agreement that patient will not be on any preventative medications or antibiotics and that he will continue on comfort measures including pain meds, Eliquis and home dose insulin only . Patient is in DNR . REVIEW OF SYSTEMS CONSTITUTIONAL: Denies fevers, chills, or night sweats. No unintentional weight loss reported. NEUROLOGICAL: Denies headache, amaurosis fugax, motor weakness, sensory deficit, vertigo/spinning sensation, gait abnormalities, or tremors. ENT: No hearing loss, otalgia, otorrhea, rhinitis, rhinorrhea, hoarseness, or sore throat. CARDIOVASCULAR: Denies any exertional angina, dyspnea on exertion, orthopnea, paroxysmal nocturnal dyspnea, palpitations, life-threatening arrhythmias, claudication. PULMONARY: Complaints of cough and shortness of breaths Denies hemoptysis, pleuritic chest pain. SLEEP: Denies morning headaches, daytime somnolence or napping. Denies d ifficulty falling asleep, staying asleep, waking from sleep. Denies knowledge of snoring. GASTROINTESTINAL: Denies any type of dysphagia to either liquids or solids. Denies nausea, vomiting, pyrosis, early satiety, abdominal pain, diarrhea, constipation, or changes in stool consistency or caliber. Denies coffee-ground emesis, hematemesis, hematochezia, or melanotic stools. GENITOURINARY: Denies frequency, urgency, nocturia, hematuria or incontinence (Storage/Irritative symptoms.) Low urinary stream, straining to void, urinary intermittency or hesitancy, splitting of the voiding stream, terminal dribbling. PHYSICAL EXAM GENERAL APPEARANCE: The patient is awake, alert, and oriented, in no acute cardiopulmonary distress. NEUROLOGICAL: Cranial nerves II-XII grossly intact. Motor is 5/5 in bilateral upper and lower extremities proximal to distal. No sensory deficits. HEENT: Face is symmetric. Pupils are equal and reactive. Extraocular movements are intact. NECK: Supple. No JVD. No thyromegaly. No submental, submandibular, pre-/postau ricular, occipital or supraclavicular lymphadenopathy. CHEST: Normal chest expansion. Telemetry. LUNGS: Bilateral crackles and scattered rhonchi on auscultation CARDIOVASCULAR: Regular. S1 and S2 normal. No appreciable rubs, murmurs or gallops. ABDOMEN: Soft, nontender, and nondistended. There is no rebound, voluntary guarding, or rigidity. : Deferred. No Geller. EXTREMITIES: 2+ edema bilateral lower extremities. warm rt foot till the base of necrotic toe SKIN: Left leg wound at the tip of the great toe. Right necrotic 1st ,2nd toes and the 3rd toe-dry gangrene. Vital Signs (last 8hr) Date Time Temp Pulse Resp B/P (MAP) Pulse Ox O2 Delivery O2 Flow Rate FiO2 06/09/24 11:31 89 18 06/09/24 11:31 89 20 N/A Room Air 2.0 06/09/24 07:50 89 20 123/75 98 Nasal Cannula 2.0 06/09/24 07:05 89 16 06/09/24 07:05 89 20 N/A Room Air 2.0 06/09/24 04:34 97.5 76 18 148/74 95 Nasal Cannula 2.0 24 LABS: Laboratory: Test 06/09/24 10:55 06/09/24 06:00 06/08/24 18:33 Range/Units Whole Blood Glucose 130 H 70-110 MG/DL White Blood Count 12.7 H 4.8-10.8 K/uL Red Blood Count 3.56 L 4.50-6.20 MIL/uL Hemoglobin 10.2 L 14.0-18.0 g/dL Hematocrit 32.1 L 42-54 % Mean Corpuscular Volume 90.2 79-99 fL Mean Corpuscular Hemoglobin 28.7 27.0-33.0 pg Mean Corpuscular Hemoglobin Concent 31.8 L 32.0-36.0 g/dL Red Cell Distribution Width 21.3 H 11.0-15.5 % Platelet Count 183 130-400 K/uL Mean Platelet Volume 13.1 H 7.5-10.5 fL Immature Granulocyte % (Auto) 1.2 H 0-1 % Neutrophils (%) (Auto) 84.6 H 40.0-77.0 % Lymphocytes (%) (Auto) 3.2 L 21.0-51.0 % Monocytes (%) (Auto) 10.9 3.0-13.0 % Eosinophils (%) (Auto) 0.0 0.0-8.0 % Basophils (%) (Auto) 0.1 0.0-5.0 % Neutrophils # (Auto) 10.7 H 1.8-7.7 K/uL Lymphocytes # (Auto) 0.4 L 1.0-4.8 K/uL Monocytes # (Auto) 1.4 H 0.1-1.0 K/uL Eosinophils # (Auto) 0.00 0.00-0.70 K/uL Basophils # (Auto) 0.01 0.00-0.20 K/uL Absolute Immature Granulocyte (auto 0.15 0-1 K/uL Nucleated Red Blood Cells 2.3 H 0.0-0.19 % Sodium Level 131 L 136-145 mmol/L Potassium Level 6.1 *H 3.5-5.1 mmol/L Chloride Level 90 *L 101-111 mmol/L Carbon Dioxide Level 23 21-32 mmol/L Blood Urea Nitrogen 86 *H 7-18 mg/dL Creatinine 6.9 H 0.5-1.3 mg/dL Glomerular Filtration Rate Calc 8 >90 mL/min Random Glucose 154 H 70-105 mg/dL Total Calcium 8.1 L 8.5-10.1 mg/dL Phosphorus Level 9.7 H 2.5-4.9 mg/dL Magnesium Level 2.60 H 1.80-2.40 mg/dL Prothrombin Time 17.3 H 9.6-11.6 SEC Prothromb Time International Ratio 1.72 H 0.85-1.15 Activated Partial Thromboplast Time 46.4 H 26.3-35.5 SEC Current Medications Medications (Trade) Dose Ordered Sig/Yefri Route PRN Reason Start Time Stop Time Status Last Admin Dose Admin Acetaminophen (TYLenol 325MG TAB) 650 mg Q6H PRN PO MODERATE PAIN (4-6) 06/05/24 14:00 07/05/24 13:59 06/06/24 21:54 650 MG Acetaminophen/ Hydrocodone Bitart (NORco 5/325MG) 1 tab Q4H PRN PO MODERATE PAIN (4-6) 05/29/24 19:00 06/03/24 18:59 DC 05/31/24 21:04 1 TAB Acetaminophen/ Hydrocodone Bitart (NORco 5/325MG) 2 tab Q4H PRN PO SEVERE PAIN (7-10) 05/29/24 19:00 06/02/24 12:12 DC 05/31/24 10:18 2 TAB Albumin Human (Albumin (Human) 25%) 100 ml ONCE IV 06/02/24 09:30 06/02/24 10:46 DC Albumin Human (Albumin (Human) 25%) 100 ml ONCE IV 06/03/24 11:00 06/03/24 17:20 DC Albumin Human (Albumin (Human) 25%) 100 ml ONCE PRN IV SBP <100MMHG OR TREATMENT RELATED SYMPTOMS DURING HD 06/03/24 17:30 06/04/24 10:59 DC Albuterol (DUOneb) 1 UDVIAL Q6H PRN IH SHORTNESS OF BREATH 05/31/24 16:00 06/30/24 15:59 05/31/24 22:54 1 UDVIAL Albuterol (DUOneb) 1 udvial [id number] IH 05/29/24 22:00 05/31/24 06:30 DC 05/31/24 01:03 1 UDVIAL Aspirin (Aspirin 81mg Ec Tab) 81 mg DAILY PO 05/31/24 09:00 06/30/24 08:59 06/08/24 09:20 81 MG Atorvastatin Calcium (LIPItor 40MG) 80 mg HS PO 05/30/24 21:00 06/29/24 20:59 06/08/24 21:03 80 MG Clopidogrel Bisulfate (plaVIX 75MG) 75 mg DAILY PO 05/31/24 09:00 06/30/24 08:59 06/08/24 09:21 75 MG Dextrose (D50w) 50 ml AD PRN IV HYPOGLYCEMIA PROTOCOL 05/29/24 20:00 06/28/24 19:59 Diazepam (VALium 5 MG/ML 2 ML SYG) 2 mg ONCE PRN IV ANXIETY 06/01/24 22:30 06/03/24 16:13 DC 06/02/24 00:25 2 MG Docusate Sodium (COLace 100MG CAP) 100 mg DAILY PO 05/31/24 09:00 06/30/24 08:59 06/08/24 09:21 100 MG Epoetin Willy-epbx (Retacrit) 10,000 unit QTUTHSA[DIALYSIS] SQ 05/31/24 16:00 06/30/24 15:59 06/07/24 20:29 10,000 UNIT Famotidine (Pepcid 20mg Tab) 10 mg DAILY PO 05/30/24 09:00 06/29/24 08:59 06/08/24 09:21 10 MG Glucagon (Glucagon 1mg Kit) 1 mg AD PRN IM HYPOGLYCEMIA PROTOCOL 05/29/24 20:00 06/28/24 19:59 Heparin Sodium (Porcine) (HEParin 5,000 UNIT VIAL) 10,000 unit AD IRRIG 05/31/24 14:30 06/30/24 10:59 06/07/24 20:04 10,000 UNIT Heparin Sodium (Porcine) (HEParin 5,000 UNIT VIAL) 10,000 unit AD SQ 05/31/24 11:00 05/31/24 14:15 DC Heparin Sodium/ Dextrose 250 ml @ 0 mls/hr PROTOCOL IV 05/30/24 21:30 06/29/24 21:29 06/08/24 05:32 5.02 MLS/HR Home Med (Home Medication) (Sevelamer Carbonate (Renv... TIDAC PO 05/30/24 17:00 06/09/24 08:57 DC 06/04/24 12:08 1 EACH Hydromorphone HCl (DiLAUDid 0.5MG INJ) 0.5 mg Q6H PRN IVP SEVERE PAIN (7-10) 06/02/24 12:30 06/07/24 12:29 DC 06/07/24 10:10 0.5 MG Hydromorphone HCl (DiLAUDid 0.5MG INJ) 0.5 mg Q6H PRN IVP SEVERE PAIN (7-10) 06/08/24 14:30 06/13/24 14:29 06/08/24 14:31 0.5 MG Insulin Human Regular (humuLIN R 100 UNIT/ML 3ML) INSULIN SLIDING SCAL... ACHS SQ 05/29/24 21:00 06/28/24 20:59 06/08/24 21:19 2 UNIT Ipratropium [place] (AtrovENT UD) 0.5 MG [id number] IH 05/31/24 06:30 06/30/24 06:29 06/09/24 11:30 0.5 MG Methylprednisolone Sodium Succinate (Solu-medROL 40MG) 40 mg BID IVP 06/04/24 09:00 06/05/24 21:33 DC 06/05/24 20:39 40 MG Methylprednisolone Sodium Succinate (Solu-medROL 40MG) 60 mg Q6H IVP 06/02/24 12:30 06/03/24 21:58 DC 06/03/24 20:13 60 MG Methylprednisolone Sodium Succinate (Solu-medROL 125MG) 60 mg Q6H IVP 06/01/24 06:00 06/01/24 21:45 DC 06/01/24 13:04 60 MG Methylprednisolone Sodium Succinate (Solu-medROL 125MG) 60 mg Q6H IVP 06/02/24 00:00 06/02/24 07:06 DC 06/02/24 06:36 60 MG Midodrine (PROAMatine 5 MG TABLET) 10 mg TID PO 05/29/24 21:00 05/31/24 10:34 DC 05/30/24 20:45 10 MG Midodrine (PROAMatine 5 MG TABLET) 30 mg DAILY PO 05/31/24 09:00 06/01/24 22:15 DC 06/01/24 09:00 30 MG Midodrine (PROAMatine 5 MG TABLET) 30 mg HS PO 06/01/24 22:30 06/30/24 08:59 06/08/24 21:04 30 MG Miscellaneous Medication (Midodrine HCl ) 10 mg TID PO 05/29/24 21:00 05/29/24 19:49 DC Ondansetron HCl (zoFRAN 4MG INJ) 4 mg Q6H PRN IV NAUSEA/VOMITING 05/29/24 19:00 06/28/24 18:59 06/07/24 20:47 4 MG Pharmacy Profile Note (Lace Assessment) 1 each AD MISC 05/30/24 15:30 05/31/24 14:17 DC Piperacillin Sod/ Tazobactam Sod 50 ml @ 12.5 mls/hr Q12H IV 05/30/24 04:00 05/31/24 04:21 DC 05/30/24 20:46 12.5 MLS/HR Piperacillin Sod/ Tazobactam Sod 50 ml @ 12.5 mls/hr Q12H IV 05/31/24 09:00 06/10/24 08:59 06/09/24 07:59 12.5 MLS/HR Piperacillin Sod/ Tazobactam Sod 50 ml @ 200 mls/hr ONCE IVPB 05/29/24 16:00 05/30/24 09:37 DC 05/29/24 16:15 200 MLS/HR Prednisone (deltaSONE/ oraSONE 20MG TAB) 40 mg DAILY PO 06/06/24 09:00 06/11/24 09:00 06/08/24 09:21 40 MG Sevelamer HCl (RENAgel 800 MG TAB) 800 mg TIDMEALS PO 06/02/24 08:00 06/09/24 09:05 DC 06/08/24 12:18 800 MG Sevelamer HCl (RENAgel 800 MG TAB) 1,600 mg TIDMEALS PO 06/09/24 12:00 07/09/24 11:59 Sodium Bicarbonate (Sodium Bicarbonate) 650 mg TID PO 06/02/24 09:00 06/03/24 08:41 DC 06/02/24 21:12 650 MG Sodium Chloride 1,000 ml @ 0 mls/hr ONCE IV 05/31/24 11:00 06/30/24 10:59 06/07/24 20:00 1,000 MLS/HR Vancomycin HCl 250 ml @ 125 mls/hr ONCE IV 05/29/24 19:00 05/29/24 19:52 DC Vancomycin HCl (Vancomycin 750mg) 750 mg QTUTHSA[DIALYSIS] IVPB 05/31/24 16:00 06/10/24 15:59 06/07/24 20:25 750 MG Vancomycin HCl (Vancomycin Protocol) 1 each AD IV 05/29/24 20:00 06/12/24 19:59 Warfarin Sodium (Coumadin) 2 mg BID PO 05/30/24 21:00 06/01/24 11:32 DC 06/01/24 09:03 2 MG Zolpidem Tartrate (AmbIEN) 5 mg HS PO 06/01/24 22:00 07/01/24 21:59 06/08/24 21:03 5 MG DIAGNOSTICS / RADIOLOGY: [ ] ASSESSMENT: Sepsis without septic shock POA 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 POA Osteomyelitis of the right foot toes POA Left leg diabetic wound ulcer POA Right lung Gram negative pneumonia POA Severe peripheral vascular disease POA Chronic respiratory failure on oxygen dependent POA End stage renal disease on hemodialysis POA Atrial fibrillation on Coumadin POA severe ischemic cardiomyopathy with AICD device POA Coronary artery disease with CABGx2 ,AVR bioprosthetic and stent x1 POA Chronic anemia due to CKD Elevated troponin secondary to ESRD and sepsis POA Uncontrolled diabetes POA Morbid Obesity POA Fall , not POA PLAN: Sepsis, POA 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 POA Osteomyelitis of the right foot toes , POA Left Leg diabetic wound ulcer POA Patient with pain at the gangrene sight -Betadine soaked dressing in place. continue Zosyn and IV and vancomycin IV for broad-spectrum coverage Cardiology recommended hospice -patient and daughter refused hospice Orthopedic consult recommendations pending Pending placement- hospice: home vs facility Case management on board Right lung Gram negative pneumonia POA B/L wheeze and creps on examination at the time of admission -duoneb treatement sputum culture positive for Klebsiella pneumoniae Continue antibiotics and nebulization Chest physiotherapy Acute on chronic respiratory failure on oxygen dependent POA Chronic respiratory failure- patient on home oxygen End stage renal disease on hemodialysis POA elevated potassium and phosphorous levels - patient has been refusing his medications continue HD TTHS Continue renal diet Nephrology recommendations Strict I/O chart Fluid intake <1500 ml per day Atrial fibrillation on Coumadin POA Severe ischemic cardiomyopathy with AICD device POA Acute on chronic systolic HFrEF POA Coronary artery disease with CABGx2 ,AVR bioprosthetic and stent x1 POA Severe peripheral vascular disease POA Abdominal aorta runoff study showing 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 Patient on Heparin drip - will get recommendations whether to continue heparin at this time . Monitor PTT and adjust Heparin dose Hold Warfarin Dr Bates deemed the patient to be of high risk for any procedures given his history of endstage heart failure and ESRD. He has h/o refusal and non compliance to the treatment . Will request Hospice evaluation - social media assistant on board - patient's daughter refused Hospice. Pending placement Fall not POA As per the RN, patient fell from the bed . Patient has underlying dementia and has been with episodes of aggressions requiring one to one observation since admission. Post fall period uneventful. His vitals and mental status remain baseline CT head unremarkable Fall precautions in place . Neurochecks Case seen and evaluated with Dr Hernandez above plan was formulated. ATTESTATION BY PHYSICIAN I have seen and examined the patient. I reviewed the documentation, medical decision making, and treatment plan as noted by the resident provider above. I agree with the findings and plan of care. MARY CARMEN RUFFIN MD, MD Jun 09, 2024 11:38
[2024-06-09] MEDS: sevELAMer HCL 800 MG TABLET PO SCH (11:43)
--- NOTE | 2024-06-09 14:58 | NUR ---
[facility] Follow-up: Patient re-assessed by wound healing team. See wound assessment. Assessment and recommendations provided to primary nurse. Education provided. Wound care done. Addendum: 06/10/24 at 1326 by LEANA MCDONALD RN RN/ Amended: Links added.
--- NOTE | 2024-06-09 14:59 | NUR ---
CM NOTE/HOSPICE CM spoke to patient and daughter Marcela Godfrey at bedside. CM discussed plan of care. Daughter reports patient and family are agreeable to amputation but were told by community support professional that patient is not a candidate for any procedures and would not clear for surgery. CM discussed hospice arrangements including discontinuation of hemodialysis. Patient and daughter verbalized understanding to comfort care only and discontinuing aggressive measures. Patient then responded "put my shoes on and take me home". Patient and daughter agreeable to discontinuing dialysis and all other treatments including IV abx. Daughter asked CM about hospice arrangements in [place]. CM explained that hospice arrangements can be done here in under medicare benefits. [employer] patient was residing with his sister in [place] but prefers to take patient home with her to [place]. CM explained that patient will need EMS transportation since he is requiring o2 and is currently not ambulatory. Verbalized understanding. CM also discussed hospice home placement if unable to make arrangements with sister in [place]. Daughter states she will discuss with her siblings and call CM back with update. Addendum: 06/09/24 at 1512 by DAIJA ASHER Amended: Links added.
[2024-06-09] MEDS: NA ZIRCON CYCLOSIL(LOKELMA 10GM) PO SCH (15:26)
[2024-06-09 16:16] LABS: CREATININE 7.6 mg/dL (0.5-1.3); PHOSPHORUS 10.2 mg/dL (2.5-4.9)
[2024-06-09 16:20] LABS: POTASSIUM 6.4 mmol/L (3.5-5.1)
--- NOTE | 2024-06-09 16:27 | NUR ---
HOSPICE FOLLOW UP SW went in to follow up with family after receiving a call from the wrapper caser that family was agreeable to hospice. Dgt stated that they are ok with taking the pt home on hospice however they want to take care of him in [place]. SW informed dgt that they would need to coordinate the services in [place] and dgt understood. Dgt stated that pt will do one more round of dialysis and will then start to look into going home. Dgt stated that they will cross at the [place] port of entry. SW updated Nikki LAKHANI and Katarina CALIXTO on family's decision.
--- NOTE | 2024-06-09 17:08 | NUR ---
CM NOTE CM updated Dr. Rodriguez regarding daughter's wishes to return patient to [place] to continue comfort care there. Sherry DUMONT notified CM regarding EMS transportation needs. KAR asked Sherry DUMONT to verify address for arrangements. Also notified Sherry DUMONT to obtain out of hospital DNR. CM to f/u once above information is obtained.
[2024-06-09] MEDS: APIXaban 2.5 MG TABLET PO SCH (21:00)
--- NOTE | 2024-06-09 22:56 | PN ---
INFECTIOUS DISEASE PROGRESS NOTE Date of Service: Jun 09, 2024 SUBJECTIVE: Patient was seen and examined at bedside in room 415. No cardiology intervention plan at this time. Nursing to update orthopedic surgeon. For now will obtain consult with Dr. Santos Mims for HBO therapy evaluation. We will continue on vancomycin and Zosyn. No other issues reported by nursing. PHYSICAL EXAM EYES: Anicteric. Pupils equal and reactive. HENT: No oral thrush seen, moist Oral mucosa NECK: Supple, no JVD or thyromegaly. LUNGS: Good air entry. No rales, no rhonchi. CARDIOVASCULAR: S1, S2 regular. No murmur heard. ABDOMEN: Soft, non tender, bowel sounds present, no organomegaly CENTRAL NERVOUS SYSTEM: Awake, alert, oriented x 3. SKIN: No rashes, no swelling. LYMPHATICS: No peripheral lymphadenopathy MUSCULOSKELETAL: No joint swelling, erythema or tenderness. EXTREMITIES: No cyanosis or clubbing. Right foot gangrene with osteomyelitis. BACK: No deformity, no pressure ulcer. GENITOURINARY: No dysuria or hematuria. Vital Sign (Last 12 Hours) 06/09/24 06/09/24 06/09/24 06/09/24 11:31 11:31 12:23 15:45 Temp 97.3 98.4 Pulse 89 89 95 92 Resp 20 18 18 20 B/P (MAP) 131/94 130/90 Pulse Ox 96 94 O2 Delivery N/A Room Air Nasal Cannula Nasal Cannula O2 Flow Rate 2.0 2.0 2.0 FiO2 28 06/09/24 06/09/24 06/09/24 06/09/24 18:58 18:58 20:00 20:00 Temp 97.5 Pulse 92 92 94 Resp 19 19 20 B/P (MAP) 91/42 Pulse Ox 96 96 O2 Delivery N/A Room Air Nasal Cannula* Nasal Cannula O2 Flow Rate 2.0 3 3.0 FiO2 28 32 Intake & Output (last 24hrs) 06/08/24 06/08/24 06/09/24 15:00 23:00 07:00 Intake Total 75 ml 0 ml 60 ml Balance 75 ml 0 ml 60 ml LABS: Laboratory: Test 06/09/24 19:39 06/09/24 15:48 06/09/24 06:00 06/08/24 18:33 Range/Units Whole Blood Glucose 85 70-110 MG/DL Sodium Level 132 L 136-145 mmol/L Potassium Level 6.4 *H 3.5-5.1 mmol/L Chloride Level 87 *L 101-111 mmol/L Carbon Dioxide Level 17 L 21-32 mmol/L Blood Urea Nitrogen 100 *H 7-18 mg/dL Creatinine 7.6 H 0.5-1.3 mg/dL Glomerular Filtration Rate Calc 7 >90 mL/min Random Glucose 119 H 70-105 mg/dL Total Calcium 8.2 L 8.5-10.1 mg/dL Phosphorus Level 10.2 H 2.5-4.9 mg/dL White Blood Count 12.7 H 4.8-10.8 K/uL Red Blood Count 3.56 L 4.50-6.20 MIL/uL Hemoglobin 10.2 L 14.0-18.0 g/dL Hematocrit 32.1 L 42-54 % Mean Corpuscular Volume 90.2 79-99 fL Mean Corpuscular Hemoglobin 28.7 27.0-33.0 pg Mean Corpuscular Hemoglobin Concent 31.8 L 32.0-36.0 g/dL Red Cell Distribution Width 21.3 H 11.0-15.5 % Platelet Count 183 130-400 K/uL Mean Platelet Volume 13.1 H 7.5-10.5 fL Immature Granulocyte % (Auto) 1.2 H 0-1 % Neutrophils (%) (Auto) 84.6 H 40.0-77.0 % Lymphocytes (%) (Auto) 3.2 L 21.0-51.0 % Monocytes (%) (Auto) 10.9 3.0-13.0 % Eosinophils (%) (Auto) 0.0 0.0-8.0 % Basophils (%) (Auto) 0.1 0.0-5.0 % Neutrophils # (Auto) 10.7 H 1.8-7.7 K/uL Lymphocytes # (Auto) 0.4 L 1.0-4.8 K/uL Monocytes # (Auto) 1.4 H 0.1-1.0 K/uL Eosinophils # (Auto) 0.00 0.00-0.70 K/uL Basophils # (Auto) 0.01 0.00-0.20 K/uL Absolute Immature Granulocyte (auto 0.15 0-1 K/uL Nucleated Red Blood Cells 2.3 H 0.0-0.19 % Magnesium Level 2.60 H 1.80-2.40 mg/dL Prothrombin Time 17.3 H 9.6-11.6 SEC Prothromb Time International Ratio 1.72 H 0.85-1.15 Activated Partial Thromboplast Time 46.4 H 26.3-35.5 SEC ASSESSMENT: Right foot gangrene with osteomyelitis. Gram-negative pneumonia. Encephalopathy. Status post mechanical fall. Peripheral vascular disease. End Stage renal disease, on dialysis. Diabetes mellitus. Chronic respiratory failure, home O2 dependent. PLAN: Continue vancomycin on dialysis days. Continue Zosyn IV. Continue GI prophylaxis. Continue current wound care. Continue pain management. Continue bronchodilators. Continue antiplatelets. Continue ant diabetics. Obtain consult with Dr. Santos Mims for HBO therapy evaluation. This case was reviewed and discussed with my supervising physician and the above assessment and plan was formulated and agreed upon. ATTESTATION BY PHYSICIAN I have seen and examined the patient. I reviewed the documentation, medical decision making, and treatment plan as noted by the mid-level provider above. I agree with the findings and plan of care. NEDA DEL TORO MD, [facility] Jun 09, 2024 22:56
[2024-06-10] VITALS: BP 112/48; PULSE 91; RESP 20; TEMP 98
--- NOTE | 2024-06-10 03:07 | NUR ---
SON AT BEDSIDE CALLED IN NURSE TO CHECK ON PATIENT. PT SITTING ON BEDSIDE CHAIR, NO PULSE NOTED, NO RESPIRATIONS NOTED, PUPILS FIXED AND DILATED. PT HAS A DNR PAPER SIGNED AND IS DNR STATUS. MERRITT SWANSON, REFERENCE # [id number] SPOKE WITH ANNIE BECKFORD NOTIFIED NURSE PATIENT IS NOT A CANDIDATE FOR ORGAN DONATION. FLORENCIO DEXTER NOTIFIED OF PATIENT .
--- NOTE | 2024-06-10 08:09 | DS ---
NOTE Date/Time of : 06.10.2024,3:07 am : Nurse was called to the room by the son to check on the patient. Patient was sitting on the chair, Un responsive to physical or verbal stimulation with no pulse , absent heart sounds and breath sounds, pupils fixed and dilated .Patient was pronounced . Code Status: DNR Events prior to patient's : Patient with endstage renal disease on HD , advanced heart failure, atrial fibrillation presented to hospital with Rt foot toe gangrene .Deemed to be high risk for any procedures ; patients bystanders opted for hospice on 06.09.28. Events related to : The patient was placed in comfort measures at 06.09.28, 5 pm. His labs were deranged at this time with hyperkalemia ,hyperphosphatemia and hypochloremia . Cause: Endstage renal disease on HD, Advanced heart failure . Manner/Autopsy: Autopsy declined. Patient not a candidate for organ donation . Provider Pronouncing : Maria Eugenia Garner NP Attending Physician: Dr Ivanna Vanegas MD Attending Resident : Dr Jennifer Elizondo MD ATTESTATION BY PHYSICIAN I have seen and examined the patient. I reviewed the documentation, medical decision making, and treatment plan as noted by the resident provider above. I agree with the findings and plan of care. GAVI ANAYA MD, ANCHU A MD Jun 10, 2024 08:09
--- NOTE | 2024-06-10 10:54 | DS ---
Discharge Summary Hospital Course Summary: This is the discharge summary prepared on the event of of Terry Soares . Patient name : TERRY FUCHS Patient Acct: [id number], MR: [id number] Patient room :432 Date of admission:05.29.24 Date of : 06.10.24 Admitting physician : Dr Elder Baker MD 78-year-old male, Venezuelan-speaking with past medical history of Anemia, end-stage renal disease on hemodialysis (TThS) atrial fibrillation, bioprosthetic aortic valve replacement in 2020 currently on warfarin,coronary artery disease, hypertension, hyperlipidemia, diabetes, severe cardiomyopathy(LVEF 20-25% as per clinic note unable to tolerate GDM T due to hypotension currently on midodrine) ,sick sinus syndrome status post Med[employer] COAL CUTTER-D device in September 2020 and chronic respiratory failure on home O2 who presented to the ED was sent by Dr. Mims for evaluation of right 1st,2nd and 3rd toe gangrene . Patient c/o pain at the site.As per daughter ,it started on March 2024 as redness and it progressively got worsen that it started turning black 5 days back. Patient also complained of occasional cough. Patient has been dialyzed on the same day and 2 Liters of fluid removed .Patient's Dental Claims Processor is and patient 's musical instrument maker is .Patient denies fever,chills,nausea,vomiting,chest pain and palpitation. Vital signs at the time of presentation: temperature 98.6, heart rate 98, blood pressure 104/59 saturation 98% on 2 L nasal cannula. Labs: Hemoglobin 9, hematocrit 30 platelet count 235. Chloride 97, BUN 29, creatinine 4.2, GFR 14, glucose 232, lactic acid 2.3 troponin 86 to 80, BNP 1650 procalcitonin 0.84. Right foot x-ray result revealed no evidence for fracture or subluxation. Chest x-ray result revealed cardiomegaly with pulmonary vascular congestion and small right greater than left pleural effusion with subjacent passive atelectasis. Patient is admitted for further medical management. 05.30.24: Patient is seen resting in his bed. Pending Cardiology, podiatry , n ephrology and ID consult.Pending b/l LE artery doppler. 05.31.24: Patient had angiogram done yesterday for assessing lower extremity circulation. Bilateral anterior and posterior tibial arteries are occluded with peroneal arteries grossly patent. Pending podiatry recommendations for possible TMA . Cardiology plan for peripheral angiogram early next week. Ortho consult pending . 06/01/24 : Patient is seen and examined today. Denies any complaints today. However use had stridor and shortness of breath during the night and neck soft tissue x-ray was ordered which showed normal soft tissue and epiglottitis appears unremarkable. Solu-Medrol 60 Q 6 was given. Chest x-ray showed bilateral airspace consolidation with right effusion. Plan for peripheral angio on 06/05/[address] Bates. We will hold the warfarin since the patient is already on heparin drip. We will downgrade him to med surge with telemetry. 06/02/2024: Patient complains of pain and was agitated yesterday night . Patient in one on one supervision. Labs showed potassium 6.4 , Phosphorous 7.7 .Repeat potassium is 5.2. Nephrology suggested 2 hour dialysis for today . He is pending peripheral angiogram. We will consult orthopedic surgery . 06.03.24: Patient has been restless and aggressive at ttimes as per the RN. Patient continues to be placed on one to one observation . He is receiving his regular dialysis today .Pending cardiology intervention and orthopedic consult today . 06.04.24: Patient continues to be at his baseline.Removed 2.5 litres of fluid during dialysis session yesterday. Pending peripheral angiogram on 06.05.[address] Webb. 06.05.24: Patient is pending peripheral angiogram today . Mental status at the baseline . In-patient dialysis is scheduled today after the angiogram as per Dr Sheffield. Addendum: Peripheral angiogram is canceled. As per the RN-Dr Webb informed that she was not unaware of the schedule today . As per Dr Gallegos's note on 06.01.23-patient had an angiogram scheduled on 06.05 and pre procedure orders were entered by Dr Florian yesterday night. Will coordinate the plan . Patient and the daughter is aware of this. Patient is resumed on diet and is scheduled for dialysis today . 25: Dr Webb recommended no peripheral angiogram . A s per the note "This patient is well known to me in the outpatient setting. His cardiac status has been tenuous over the past year and he has declined significantly. We have discussed palliative inotropes and referral to heart failure specialist for further recommendations however he is poor candidate for any invasive procedures given his advanced heart failure, confusion, and history of noncompliance with medical therapy. He is non compliant with his warfarin and INR checks. He is non compliant with his ICD interrogations. He has refused the referral to inotropic therapy and advanced HF even after these were arranged. ....... I think hospice is a reasonable plan of care for this patient given his debility, ESRD, and advanced HF of which he is not tolerating GDMT and has recurrent hospitalizations. "Patient fell from bed today morning and a rapid response was called. No significant complications noted .Head CT is unremarkable. Myself and my attending Dr Goncalves had discussions with the bystander- the daughter at the bedside - regarding hospice.Patient's daughter refused hospice.Pending Orthopedic recommendations and placement to SNF . Patient is in DNR-DNI now. 06/08/24 Dr Rousseau suggested right BKA vs AKA amputation . . Given the high risk comorbidities of the patient , the procedure is deemed to be high risk. The possible complications including increased risk of on table mortality was discussed with the patients bystanders with the help of a corrective therapy aide teacher. Patient's son and grand daughter at the bedside confirmed understanding . pending decision regarding amputation vs no amputation .If no amputation , plan is to send to snf/ [facility] for manager terminal IV antibiotics . 06.09.24: Patient is seen with my attending. He is clinically at his baseline. Labs show phosphorous at 9.7, K 6.1, Cl 90- Nephrology recommended no dialysis today .He will be treated with Lokelma tid and sevelamer for time being . Dry g angrene in the rt foot toes is stable now .Patients family including the POA is aware of the poor prognosis . Patient,s daughter who is the Power of senior instructor(POA) decided hospice-pending placement :home hospice vs facility hospice. Addendum 4:15 pm: Patient's daughter who is power of senior instructor , wanted to take the patient directly to [place] from the hospital for hospice care. Patient's daughter and family members understand that hospice means comfort care with no further active treatment including hemodialysis. area safety manager and child welfare social worker on board. Hospital can arrange transportation till [place] ([place]via EMS,but further transportation and patient care in [place] needs to be arranged by the family. Also family requests a Hemodialysis session for the patient before departing from hospital. The family is yet to inform when they will be ready with the travel arrangements from [facility]. Since family including POA is in agreement with hospice care for the patient , we will start deescalating the medications. We will stop IV heparin drip, will discontinue antibiotics . Family is aware and in agreement that patient will not be on any preventative medications or antibiotics and that he will continue on comfort measures including pain meds, Eliquis and home dose insulin only . Patient is in DNR . 06.10.2024,3:07 am : Nurse was called to the room by the son to check on the patient. Patient was sitting on the chair, Un responsive to physical or verbal stimulation with no pulse , absent heart sounds and breath sounds, pupils fixed and dilated .Patient was pronounced by Maria Eugenia Garner STAPLE FIBER WASHER . Cultural Historian(s): Cardiology: Roass gallegos MD, Lamar Webb MD Nephrology : Rodriguez Bose MD Infectious disease: Dr Wagner Garcia MD Orthopedics : Dr Jersey Rousseau MD Podiatry : Ernesto Muller Dpm Pulmonology : Dr Mj Boyle MD Assessment/Plan: DISCHARGE DIAGNOSIS Sepsis without septic shock POA 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 POA Osteomyelitis of the right foot toes POA Left leg diabetic wound ulcer POA Right lung Gram negative pneumonia POA Severe peripheral vascular disease POA Chronic respiratory failure on oxygen dependent POA End stage renal disease on hemodialysis POA Hyperkalemia, Hyperphosphatemia secondary to ESRD Atrial fibrillation on Coumadin POA severe ischemic cardiomyopathy with AICD device POA Coronary artery disease with CABGx2 ,AVR bioprosthetic and stent x1 POA Chronic anemia due to CKD Elevated troponin secondary to ESRD and sepsis POA Uncontrolled diabetes POA Morbid Obesity POA Non compliance to medications , POA Fall , not POA Hospice care from 06.09.24, 4:15 pm Home Medications: Reported Medications Sevelamer Carbonate (Renvela Pwdr) 0.8 Gram Powder, 2.4 G PO TIDAC, APPL 05/30/24 Docusate Sodium (Docusate Sodium) 100 Mg Capsule, 100 MG PO DAILY, CAP 05/30/24 Insulin Glargine,Hum.rec.anlog (Lantus) 100 Unit/Ml Inj, 25 UNITS SQ DAILY, ML 05/29/24 Warfarin Sodium (Warfarin Sodium) 2 Mg Tablet, 1 TAB PO BID for 30 Days, #30 TAB 0 Refills 05/29/24 Fluticasone/Umeclidin/Vilanter (Trelegy Ellipta 100-62.5-25) 100-62.5 Blst.w.dev, 1 PUFF IH DAILY for 30 Days, #1 EACH 0 Refills 03/28/24 Midodrine HCl (Midodrine HCl) 10 Mg Tablet, 3 TAB PO DAILY for 30 Days, #90 TAB 0 Refills 03/28/24 Clopidogrel Bisulfate (Clopidogrel) 75 Mg Tablet, 1 TAB PO DAILY for 30 Days, #30 TAB 0 Refills 03/28/24 Atorvastatin Calcium (Atorvastatin Calcium) 80 Mg Tablet, 1 TAB PO HS for 30 Days, #30 TAB 0 Refills 03/28/24 ATTESTATION BY PHYSICIAN I have seen and examined the patient. I reviewed the documentation, medical decision making, and treatment plan as noted by the resident provider above. I agree with the findings and plan of care. MARY CARMEN EUBANKS MD, MD Jun 10, 2024 10:54
== END 2024-06-10 05:59 | DRG 871 ==
LOC: EDH 15:09 → EDHIP 18:32 → 2DH 05-30 10:20 → 3DH 06-01 15:36 → 4CH 06-02 05:51 → 4AH 06-09 17:06
PROVIDERS: ADMIT Internal Medicine; ATTEND Internal Medicine
PROC: 5A1D70Z Performance of Urinary Filtration, Intermittent, Less than 6 Hours Per Day (ICD-10-PCS; 2024-05-31)
PROC: 5A1D70Z Performance of Urinary Filtration, Intermittent, Less than 6 Hours Per Day (ICD-10-PCS; 2024-06-02)
PROC: 05HC33Z Insertion of Infusion Device into Left Basilic Vein, Percutaneous Approach (ICD-10-PCS; principal; 2024-06-03)
PROC: B54NZZA Ultrasonography of Left Upper Extremity Veins, Guidance (ICD-10-PCS; 2024-06-03)
PROC: 5A1D70Z Performance of Urinary Filtration, Intermittent, Less than 6 Hours Per Day (ICD-10-PCS; 2024-06-03)
PROC: 5A1D70Z Performance of Urinary Filtration, Intermittent, Less than 6 Hours Per Day (ICD-10-PCS; 2024-06-05)
PROC: 5A1D70Z Performance of Urinary Filtration, Intermittent, Less than 6 Hours Per Day (ICD-10-PCS; 2024-06-07)
DX: A41.9 Sepsis, unspecified organism (principal); I50.23 Acute on chronic systolic (congestive) heart failure; J15.69 Pneumonia due to other Gram-negative bacteria; N18.6 End stage renal disease; J96.21 Acute and chronic respiratory failure with hypoxia; E11.52 Type 2 diabetes mellitus with diabetic peripheral angiopathy with gangrene; G93.40 Encephalopathy, unspecified; M86.8X7 Other osteomyelitis, ankle and foot; I13.2 Hypertensive heart and chronic kidney disease with heart failure and with stage 5 chronic kidney disease, or end stage renal disease; I25.5 Ischemic cardiomyopathy; E66.01 Morbid (severe) obesity due to excess calories; B96.1 Klebsiella pneumoniae [K. pneumoniae] as the cause of diseases classified elsewhere; D63.1 Anemia in chronic kidney disease; E11.22 Type 2 diabetes mellitus with diabetic chronic kidney disease; E11.621 Type 2 diabetes mellitus with foot ulcer; E78.5 Hyperlipidemia, unspecified; E83.39 Other disorders of phosphorus metabolism; E87.5 Hyperkalemia; I48.0 Paroxysmal atrial fibrillation; I25.10 Atherosclerotic heart disease of native coronary artery without angina pectoris; Z66 Do not resuscitate; L97.519 Non-pressure chronic ulcer of other part of right foot with unspecified severity; I49.5 Sick sinus syndrome; L97.529 Non-pressure chronic ulcer of other part of left foot with unspecified severity; E11.69 Type 2 diabetes mellitus with other specified complication; Z99.2 Dependence on renal dialysis; Z99.81 Dependence on supplemental oxygen; Z79.01 Long term (current) use of anticoagulants; Z51.5 Encounter for palliative care; Z82.49 Family history of ischemic heart disease and other diseases of the circulatory system; Z74.01 Bed confinement status; Z83.3 Family history of diabetes mellitus; Z87.01 Personal history of pneumonia (recurrent); Z91.148 Patient's other noncompliance with medication regimen for other reason; Z95.1 Presence of aortocoronary bypass graft; Z95.3 Presence of xenogenic heart valve; Z95.5 Presence of coronary angioplasty implant and graft; Z95.810 Presence of automatic (implantable) cardiac defibrillator; Z68.29 Body mass index [BMI] 29.0-29.9, adult; Z79.899 Other long term (current) drug therapy
CPT/HCPCS: 36415; 36556; 36600; 70360; 70450; 71045; 73630; 75635; 80048; 80053; 80202; 82010; 82435; 82550; 82803; 82947; 82948; 83036; 83605; 83735; 83880; 84100; 84132; 84145; 84295; 84484; 85018; 85025; 85027; 85610; 85651; 85730; 86704; 86706; 87040; 87071; 87086; 87186; 87205; 87340; 90935; 93005; 93925; 94640; 94664; 96365; 96366; 96368; 99291; C1894; G0378; J1171; J1644; J1815; J2405; J2543; J2919; J3360; J3370; Q9967; A4600; C1750; Q5106